=== PATIENT | male | born 1935 | race Caucasian/White ===

== ENCOUNTER → 2017-07-29 10:03 | Outpatient (CLI) | payer MEDICARE, SELFPAY ==
--- NOTE | 2017-07-29 10:15 | RAD_ITS ---
STUDY: X-RAY - PELVIS AND LEFT HIP REASON FOR EXAM: Male, 82 years old. Left hip pain. TECHNIQUE: Radiological exam, hip, unilateral, with pelvis when performed; 2 or 3 views. COMPARISON: None. FINDINGS: There is a non-specific bowel gas pattern. Normal visualized soft tissue structures. There is diffuse demineralization of the osseous structures. Normal bilateral iliac wings, sacroiliac joints and visualized sacrum. Normal bilateral superior and inferior pubic rami. Normal pubic symphysis. Normal bilateral ischial tuberosities. Normal visualized femoral head. Normal acetabulum. Normal hip joint. RAD/Hip 2-3 Views with Pelvis IMPRESSION: Normal x-ray examination of the pelvis and hip. Electronically Signed: Chao Gallo MD at 16:58 EST , Service support ,
== END ==
PROVIDERS: Family Provider Family Medicine Geriatric Medicine; PCP Family Medicine Geriatric Medicine; Visit Provider Family Medicine Geriatric Medicine
DX: M25.552 Pain in left hip (principal)
CPT/HCPCS: 73502

== ENCOUNTER → 2017-07-30 17:09 | Outpatient (CLI) | payer MEDICARE, SELFPAY | PROVIDERS: Visit Provider Urology | DX: N39.0 Urinary tract infection, site not specified (principal); R31.9 Hematuria, unspecified | CPT/HCPCS: 87086; 87088 ==

== ENCOUNTER 2017-09-04 13:00 | Outpatient (RCR) | payer MEDICARE, SELFPAY ==
--- NOTE | 2017-08-05 11:02 | HP.PTEVAL_ITS ---
Patient's Visit Information MIRANDA CLAYTON is a 82 year old M referred to Physical Therapy by Иван LIMON with a diagnosis of L hip OA. Date of Evaluation: 08/05/17 Physical Therapist: Han Go PT, - Visit Plan Frequency: 2-3x /Week Duration: 4-6 Weeks Plan: core strengthening, SKTC/DKTC, LE stretching, nustep, and HEP - Subjective Subjective: Pt reports his L hip has been really sore for the past few weeks. Pt reports he was exercising and believs the leg press machine may be what has caused his pain. Pt has recently had an xray which revealed no sig problems at this time. Pt reports his gait pattern has began to change as a result of having a leg lenght discrepancy. No LE T or N. No sleep diff secondary to pain. Pt reports negotiating stairs is diff. secondary to pain. Pt reports he is also not able to stand for a long period of time secondary to LBP. Pt denies LBP at this time. o/10 at rest, 4/10 at worst (neg stairs) - Pain L hip Pain Intensity (Out of 10): 0 Pain Intensity Range: 4 - Objective Neuro: B LE sensation is WNL to light touch. B pat tendon reflex= 2/3. MMT: B LE's are grossly 5/5 throughout. L/S ROM: Pt is limited with all ranges at this time. Leg length: L LE is grossly 1/4 inch longer. Special tests: All tests for the hip are negative. Repeated supine flexion (SKTC/DKTC). flexibility: HS's and piriformus moderately limited - Goals Goal 1:: Decrease LBP x 50% to aid with increasing to for ambulation Goal Time Frame: 4-6 Weeks Goal 2:: Increase B LE flexibility x 1 grade to aid with decreasing LBP Goal 3:: I with HEP Goal Time Frame: 4-6 Weeks - Rehabilitation Potential Physical Therapy Diagnosis: Pt has LBP, L hip pain, and limitations with prolonged ambulation secondary to deg changes in the L/S Rehabilitation Potential: Good - Anticipated Interventions Patient/Client Instruction: Educate patient on: Condition, Plan of Care For the Purpose of:: To improve self management Therapeutic Exercise to Include: Strength training, Postural training, Flexibilty training, Dynamic Lumbar Stabilization For the Purpose of:: To decrease pain, To increase ROM, To improve muscle performance and motor function Thank you for the opportunity to evaluate your patient. For Medicare and Medicare HMO plans, please review the plan of care and approve it. It will need to be FAXED BACK to us at [phone] for Medicare purposes. Please let me know if there are questions or concerns regarding this plan of care. Physician Signature: Date:
--- NOTE | 2017-09-04 14:53 | HP.PTDCSUM ---
HP - PT D/C Summary It has been my pleasure to treat MIRANDA CLAYTON under orders from DR.[email or web address] Vieira Chi for the diagnosis of L hip OA for a total of 14 visit(s). Discharge Date: Please see the following information for a summary of their discharge status. - Subjective Subjective: No pain this date - Pain L hip Pain Intensity (Out of 10): 0 - Overall Improvement % Improvement: 90 - Objective Objective/Function: Pt now has no hip or LBP this date. Pt is I with HEP. B LE flexibility is now WNL. Rx goals achieved - Goals Goal 1:: Decrease LBP x 50% to aid with increasing to for ambulation Goal Progress: Goal Met Goal 2:: Increase B LE flexibility x 1 grade to aid with decreasing LBP Goal Progress: Goal Met Goal 3:: I with HEP Goal Progress: Goal Met - Plan Plan: discharge - D/C Information If there are questions or concerns regarding this patient's physical therapy, please feel free to call me at [phone]. Thank you for the referral of this patient. Sincerely, Han Go, PT,
== END 2017-09-04 19:00 | disposition home or self-care (01) ==
LOC: PT 13:00
PROVIDERS: Family Provider Family Medicine Geriatric Medicine; PCP Family Medicine Geriatric Medicine; Visit Provider Family Medicine Geriatric Medicine
DX: M16.9 Osteoarthritis of hip, unspecified (principal)
CPT/HCPCS: 97110; 97162; 97530

== ENCOUNTER 2017-09-16 21:27 | Emergency (ER) | payer MEDICARE, SELFPAY ==
[2017-09-16 21:28] VITALS: BP 142/79; PULSE 81; RESP 17; TEMP 36.5; O2SAT 94; BMI 32.2
[2017-09-16] MEDS: Lidocaine/Epi/Tetracaine 50 ML 1 APPLIC TOPICAL (22:35)
--- NOTE | 2017-09-16 22:54 | ED.DCSUM_ITS ---
- ER Visit Summary Date of Service: 09/16/17 Chief Complaint: Bit tongue History of Present Illness: The patient is a 82 M who is anticoagulated for atrial fibrillation and about 6 hours before presentation while eating excellently bit his tongue. He has had some mild bleeding and oozing which she has been unable to control since that time. Review of systems otherwise negative and he denies any other complaints. Physical Examination: Afebrile vitals are stable There is a 5 mm laceration to the left side of the distal tongue with some mild bleeding Heart regular rate No respiratory distress Alert Test Results: Not indicated Emergency Department Course and Treatment: Let was applied. Hemostasis was achieved. Patient instructed on local care and dietary restrictions. Treatment Plan: [] Disposition: Discharge Impression: Tongue laceration This note was generated with [employer] dictation software. It may contain incorrect words, spelling, and punctuation that were not noted in review of the chart prior to signing ED Disposition - Plan for ED Patient: Chief Complaint: Other, Pain/Inj Referrals: Иван Plasencia Chi, MD [Primary Care Provider] -
--- NOTE | 2017-09-16 22:54 | ED.DEP ---
ED Disposition - Plan for ED Patient: Chief Complaint: Other, Pain/Inj Instructions: ED Laceration Mouth Referrals: Иван Plasencia Chi, MD [Primary Care Provider] -
== END 2017-09-16 23:13 | disposition home or self-care (01) ==
LOC: ED 22:43
PROVIDERS: Emergency Provider Emergency Medicine; Family Provider Family Medicine Geriatric Medicine; PCP Family Medicine Geriatric Medicine
DX: S01.512A Laceration without foreign body of oral cavity, initial encounter (principal); W50.3XXA Accidental bite by another person, initial encounter; Y93.9 Activity, unspecified; Y92.89 Other specified places as the place of occurrence of the external cause; Y99.9 Unspecified external cause status; I48.91 Unspecified atrial fibrillation; Z79.01 Long term (current) use of anticoagulants; I10 Essential (primary) hypertension; E78.00 Pure hypercholesterolemia, unspecified; I25.10 Atherosclerotic heart disease of native coronary artery without angina pectoris; Z86.73 Personal history of transient ischemic attack (TIA), and cerebral infarction without residual deficits; Z95.1 Presence of aortocoronary bypass graft
CPT/HCPCS: 99282

== ENCOUNTER → 2017-09-25 11:15 | Outpatient (CLI) | payer MEDICARE, SELFPAY ==
--- NOTE | 2017-09-25 12:45 | RAD_ITS ---
STUDY: X-RAY CHEST REASON FOR EXAM: Male, 82 years old. Bronchitis TECHNIQUE: Frontal and lateral views of the chest. COMPARISON: 03/09/2014. FINDINGS: The lungs are hyperexpanded. There are coarsened interstitial markings suggestive of mild chronic fibrosis. No gross focal infiltrates. No gross effusions. Sternal cerclage wires and vascular clips are present from a prior sternotomy and coronary artery bypass graft procedure (CABG). Normal mediastinum and guero. Normal visualized pulmonary arteries. Normal visualized aortic arch and descending thoracic aorta. There are diffuse degenerative changes of the visualized thoracic spine. Normal visualized ribs, clavicles, and shoulders. There is no demonstrated abnormality of the visualized soft tissue structures of the upper abdomen. RAD/Chest PA and Lateral IMPRESSION: There are findings consistent with COPD. There is no evidence of acute chest disease. Electronically Signed: Chao Gallo MD at 21:54 EDT , Service support ,
== END ==
PROVIDERS: Family Provider Family Medicine Geriatric Medicine; PCP Family Medicine Geriatric Medicine; Visit Provider Family Medicine Geriatric Medicine
DX: R50.9 Fever, unspecified (principal); J40 Bronchitis, not specified as acute or chronic
CPT/HCPCS: 71046; 87633

== ENCOUNTER → 2017-10-23 09:15 | Outpatient (CLI) | payer MEDICARE, SELFPAY ==
[2017-10-23 11:41] LABS: Absolute Lymphocyte Count 1.68 X10^3/ul (0.83-4.51); Absolute Neutrophil Count 6.1 X10^3/uL (2.0-7.7); Basophil# 0.02 X10^3/uL; Basophil% 0.2 % (0-1); Eosinophil# 0.14 X10^3/uL; Eosinophils% 1.6 % (0-5); Hematocrit 47.1 % (40-54); Hemoglobin 15.7 g/dl (13.0-16.5); Lymphocyte # 1.68 X10^3/ul (4.0); Lymphocyte % 19.8 % (19-41); Mean Corp Hgb Conc 33.3 g/gl (32-36); Mean Corpuscular Hgb 31.8 pg (27.0-32.0); Mean Corpuscular Volume 95.5 fL (80-94); Mean Platelet Vol. 10.2 fl (6.2-12.0); Monocyte# 0.57 X10^3/uL; Monocyte% 6.7 % (0-10); Neutrophil # 6.06 X10^3/uL (2.7-7.7); Neutrophil % 71.5 % (47-70); POSITIVE COUNT NO; POSITIVE DIFFERENTIAL NO; POSITIVE MORPHOLOGY NO; Platelet Count 181 K/mm3 (150-450); RBC Distribution Width SD 49.1 fl (35.1-43.9); Red Blood Count 4.93 M/mm3 (4.6-6.2); White Blood Count 8.5 K/mm3 (4.4-11.0)
[2017-10-23 12:07] LABS: ALB/GLOB Ratio 1.2 RATIO (0.9-2.4); AST(SGOT) 24 U/L (15-37); Alanine Aminotransfer ALT/SGPT 29 U/L (16-61); Albumin, Serum 3.7 g/dL (3.2-5.0); Alkaline Phosphatase 64 U/L (45-117); Anion Gap 6 (5-15); BUN 19 mg/dL (7-18); BUN/Creat Ratio 14.2 RATIO (10-20); Calcium,Total 8.7 mg/dL (8.5-10.1); Chloride 111 mmol/L (98-107); Creatinine, Serum 1.34 mg/dL (0.70-1.30); EST Glomerular Filtration Rate 54 mL/min (>60); Est Glom Filt Rate - Afr Amer 66 mL/min (>60); Globulin 3.1 g/dL (2.2-4.2); Glucose 98 mg/dL (74-106); Potassium 4.3 mmol/L (3.5-5.1); Protein, Total 6.8 g/dL (6.4-8.2); Sodium Level 139 mmol/L (136-145); Thyroid Stim Hormone (TSH) 1.99 uIU/mL (0.358-3.74)
[2017-10-23 12:19] LABS: Vitamin D,25 Hydroxy 25.6 ng/mL (29.95-100.01)
== END ==
PROVIDERS: Family Provider Family Medicine Geriatric Medicine; PCP Family Medicine Geriatric Medicine; Visit Provider Family Medicine Geriatric Medicine
DX: I10 Essential (primary) hypertension (principal); E23.6 Other disorders of pituitary gland; E55.9 Vitamin D deficiency, unspecified
CPT/HCPCS: 36415; 80053; 82306; 84403; 84443; 85025

== ENCOUNTER 2018-03-27 05:48 | Emergency (ER) | payer MEDICARE, SELFPAY ==
[2018-03-27 05:50] VITALS: BP 121/85; PULSE 91; RESP 20; TEMP 36.8; O2SAT 98; BMI 31.8
--- NOTE | 2018-03-27 05:57 | CT_ITS ---
STUDY: CT ABDOMEN AND PELVIS WITHOUT CONTRAST REASON FOR EXAM: Male, 82 years old. Right sided back pain after injury yesterday. RADIATION DOSAGE (If Supplied By Facility): CTDIvol = ( 18.25 ) mGy, DLP = ( 980.12 ) mGycm TECHNIQUE: Transaxial images were obtained from the dome of the diaphragm to the symphysis pubis without oral contrast, and without intravenous contrast. Sagittal and coronal images were reconstructed. Individualized dose optimization techniques were used for this CT. COMPARISON: Prior comparison studies are not available for review at this time. FINDINGS: There is a right middle lobe pulmonary nodule measuring approximately 1.6 cm in greatest dimension. The visualized portions of the heart are within normal limits. Normal liver. There are multiple gallstones. Normal spleen. Normal pancreas. Normal bilateral adrenal glands. There is a low-attenuation mass arising from the anterior cortex of the right kidney measuring approximately 2.3 cm in size. This has attenuation of -1.6 Hounsfield units suggesting it could represent an angiomyolipoma. There is a second cyst within the parapelvic region of the right kidney measuring 3 cm in greatest dimension. There are also additional right-sided parenchymal renal cysts measuring up to 1.6 cm in greatest dimension. There is no evidence for hydronephrosis, hydroureter or radiopaque ureteral calculus. There is a small hiatal hernia. There is no evidence for dilated bowel, ascites or pneumoperitoneum. The small bowel has a normal appearance. 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 Stool is visible throughout the colon with scattered colonic diverticula. There is non-visualization of the appendix. There is mild atherosclerotic calcification of the abdominal aorta with elongation and tortuosity, but without a demonstrated aneurysm. Normal inferior vena cava. Normal retroperitoneum. The urinary bladder wall is mildly thickened measuring approximately 7.4 mm in greatest thickness. There are prostatic calcifications. There is a small umbilical hernia containing fat. There is a left-sided inguinal hernia containing fat. There appears to be a subacute right-sided rib fracture possibly involving the right 11th rib. The bones appear osteopenic. There is multilevel thoracic spondylosis. There is degenerative disc disease at T11-12 and L5-S1 with vacuum disc phenomenon and disc space narrowing. CT/Abdomen/Pelvis without Cont IMPRESSION: 1. No CT evidence of acute intra-abdominal disease. 2. A subacute right-sided rib fracture. 3. Right middle lobe subpleural pulmonary nodule. Suggest follow-up as per Fleischner's criteria. 4. 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 5. Cholelithiasis. Electronically Signed: Nicole Abreu MD at 6:35 EDT , Service support ,
--- NOTE | 2018-03-27 06:07 | ED.DCSUM_ITS ---
- ER Visit Summary Date of Service: 03/27/18 Chief Complaint: Right low back pain in the right lower quadrant History of Present Illness: The patient is a 82 M who has a history of coronary vascular disease who presents to the emergency department with right lower back pain. Patient states 2 days ago, he was outside scrubbing his house. He states that he gets mold in the house and has to scrub it. He states shortly after, he began have some pain in his posterior shoulder and in his low back. He states that he uses some topical BenGay and it seemed to help. Overnight, the pain seemed to be worse in his lower back into the lateral aspect of his abdomen. He states took Tylenol which did seem to help. As long as not moving, he is pain- free. He had no chest pain or dyspnea. He denies any dysuria. He denies any constipation. Physical Examination: Vital signs reviewed General: Well-nourished, well-developed Head: Normocephalic, atraumatic Eyes: Pupils equal and reactive, extraocular muscles intact Neck, supple, no lymphadenopathy Heart: Regular rate and rhythm Respiratory: No distress, clear bilaterally Abdomen: Soft, nontender, nondistended, no peritoneal signs Back: Mild tenderness in the right low back very lateral almost into the area of the obliques, no rash Extremities: Nontender, no edema, no cords Skin: Normal color no rash Neuro: Alert and oriented, no focal or lateralizing deficits Test Results: [] Emergency Department Course and Treatment: The patient's pain does seem entirely muscular, however given his age I did obtain a CT of his abdomen and pelvis. His aorta is normal. There is some nonspecific findings, but nothing that would acutely explain his pain and no dangerous process. On reevaluation is resting comfortably. He only has pain with palpation in the lateral abdominal wall along the musculature and with twisting and moving. He will continue Tylenol. I will prescribe a short course of [place] as needed for breakthrough pain that is not controlled by the Tylenol. The patient is comfortable with this and he will be discharged home. Treatment Plan: [] Disposition: Discharge Impression: 1. Right low back strain This note was generated with [employer] dictation software. It may contain incorrect words, spelling, and punctuation that were not noted in review of the chart prior to signing ED Disposition - Plan for ED Patient: Chief Complaint: Back Instructions: ED Spasm Back No Trauma Prescriptions: Hydrocodone Bitart/Apap 5-325 [[place] 5MG-325MG] 1 tab PO Q8H PRN PRN 3 Days #10 tab PRN Reason: Pain Referrals: Иван Plasencia Chi, MD [Primary Care Provider] - Additional Instructions: It is okay to take 2 extra strength Tylenol every 8 hours. If this is not controlling your pain, it is okay to take 1 of the [place] tablets as needed. If the Tylenol is controlling her pain, you do not need to take the [place]. Make sure to increase her hydration and not do anything too strenuous.
[2018-03-27 06:55] VITALS: BP 118/60; PULSE 88; RESP 18; O2SAT 96
== END 2018-03-27 06:57 | disposition home or self-care (01) ==
LOC: ED 06:44
PROVIDERS: Emergency Provider Emergency Medicine; Family Provider Family Medicine Geriatric Medicine; PCP Family Medicine Geriatric Medicine
DX: S39.012A Strain of muscle, fascia and tendon of lower back, initial encounter (principal); X50.3XXA Overexertion from repetitive movements, initial encounter; Y93.H9 Activity, other involving exterior property and land maintenance, building and construction; Y92.009 Unspecified place in unspecified non-institutional (private) residence as the place of occurrence of the external cause; Y99.9 Unspecified external cause status; I25.10 Atherosclerotic heart disease of native coronary artery without angina pectoris; E11.9 Type 2 diabetes mellitus without complications; I10 Essential (primary) hypertension; Z95.1 Presence of aortocoronary bypass graft
CPT/HCPCS: 74176; 99282

== ENCOUNTER → 2018-04-27 11:57 | Outpatient (CLI) | payer MEDICARE, SELFPAY ==
[2018-04-27 12:51] LABS: Absolute Lymphocyte Count 1.93 X10^3/ul (0.83-4.51); Absolute Neutrophil Count 5.4 X10^3/uL (2.0-7.7); Basophil# 0.05 X10^3/uL; Basophil% 0.6 % (0-1); Eosinophil# 0.18 X10^3/uL; Eosinophils% 2.2 % (0-5); Hematocrit 47.4 % (40-54); Hemoglobin 15.9 g/dl (13.0-16.5); Lymphocyte # 1.93 X10^3/ul (4.0); Lymphocyte % 23.5 % (19-41); Mean Corp Hgb Conc 33.5 g/gl (32-36); Mean Corpuscular Hgb 32.3 pg (27.0-32.0); Mean Corpuscular Volume 96.3 fL (80-94); Mean Platelet Vol. 11.3 fl (6.2-12.0); Monocyte# 0.64 X10^3/uL; Monocyte% 7.8 % (0-10); Neutrophil % 65.5 % (47-70); Platelet Count 156 K/mm3 (150-450); RBC Distribution Width CV 13.6 % (11.6-14.6); RBC Distribution Width SD 47.2 fl (35.1-43.9); Red Blood Count 4.92 M/mm3 (4.6-6.2); White Blood Count 8.2 K/mm3 (4.4-11.0)
[2018-04-27 12:55] LABS: POSITIVE COUNT NO; POSITIVE DIFFERENTIAL NO; POSITIVE MORPHOLOGY NO
[2018-04-27 13:14] LABS: Vitamin D,25 Hydroxy 24.8 ng/mL (29.95-100.01)
[2018-04-27 13:26] LABS: ALB/GLOB Ratio 1.2 RATIO (0.9-2.4); AST(SGOT) 19 U/L (15-37); Alanine Aminotransfer ALT/SGPT 28 U/L (16-61); Albumin, Serum 3.8 g/dL (3.2-5.0); Alkaline Phosphatase 70 U/L (45-117); Anion Gap 8 (5-15); BUN 22 mg/dL (7-18); BUN/Creat Ratio 15.3 RATIO (10-20); Calcium,Total 8.6 mg/dL (8.5-10.1); Chloride 111 mmol/L (98-107); Creatinine, Serum 1.44 mg/dL (0.70-1.30); EST Glomerular Filtration Rate 50 mL/min (>60); Est Glom Filt Rate - Afr Amer 60 mL/min (>60); Globulin 3.1 g/dL (2.2-4.2); Glucose 89 mg/dL (74-106); Potassium 4.4 mmol/L (3.5-5.1); Protein, Total 6.9 g/dL (6.4-8.2); Sodium Level 143 mmol/L (136-145); Thyroid Stim Hormone (TSH) 3.18 uIU/mL (0.358-3.74)
--- OUTSIDE RECORDS SUMMARY | 2018-06-09 03:40 | XMS RPT_ITS ---
:1935 Author Organization OHIP Support Name Relationship Address Phone NATANAEL, CASSIDY Unavailable [address] + [place] [address] R Unavailable Unavailable Unavailable NATANAEL, CASSIDY Unavailable [address] + [place] [address] R Unavailable Unavailable Unavailable NATANAEL, CASSIDY Unavailable [address] + [place] [address] R Unavailable Unavailable Unavailable NATANAEL, CASSIDY Unavailable [address] + [place] [address] R Unavailable Unavailable Unavailable NATANAEL, CASSIDY Unavailable [address] + [place] [address] R Unavailable Unavailable Unavailable NATANAEL, CASSIDY Unavailable [address] + [place] [address] R Unavailable Unavailable Unavailable NATANAEL, CASSIDY Unavailable [address] + [place] [address] R Unavailable Unavailable Unavailable NATANAEL, CASSIDY Unavailable [address] + [place] [address] R Unavailable Unavailable Unavailable NATANAEL, CASSIDY Unavailable [address] + [place] [address] R Unavailable Unavailable Unavailable NATANAEL, CASSIDY Unavailable [address] + [place] [address] R Unavailable Unavailable Unavailable NATANAEL, CASSIDY Unavailable [address] + [place] [address] R Unavailable Unavailable Unavailable R Unavailable Unavailable Unavailable EATON, FABIO Unavailable / + [facility] [place] / NATANAEL, CASSIDY Unavailable [address] + [place] [address] R Unavailable Unavailable Unavailable EATON, FABIO Unavailable / + [place], [place] / CASSIDY SANTOYO Unavailable [address] + [place] [address] R Unavailable Unavailable Unavailable Care Team Providers Name Role Phone Anjel Phipps Attending Unavailable Roof, Refugio H Attending Unavailable Roof, Refugio H Attending Unavailable Luis Angel, Иван Chi Referring Unavailable Luis Angel, Иван Chi Primary Care Unavailable Luis Angel, Иван Chi Attending Unavailable Luis Angel, Иван Chi Primary Care Unavailable Luis Angel, Иван Chi Attending Unavailable Luis Angel, Иван Chi Referring Unavailable Luis Angel, Иван Chi Primary Care Unavailable JulianneAlfonzo Attending Unavailable Julianne, Alfonzo Oneill Referring Unavailable Luis Angel, Иван Chi Primary Care Unavailable Clifford Almonte Attending Unavailable Luis Angel, Иван Chi Attending Unavailable Luis Angel, Иван Chi Primary Care Unavailable Luis Angel, Иван Chi Attending Unavailable Luis Angel, Иван Chi Primary Care Unavailable Luis Angel, Иван Chi Attending Unavailable Luis Angel, Иван Chi Primary Care Unavailable Bakari, Power Attending Unavailable Luis Angel, Иван Chi Referring Unavailable Luis Angel, Иван Chi Primary Care Unavailable Lv Louis Attending Unavailable Luis Angel, Иван Chi Attending Unavailable Luis Angel, Иван Chi Primary Care Unavailable PROBLEMS PROBLEMS DATE TYPE CONDITION / CODE ATTENDING STATUS SOURCE 03/27/2018 Unknown S39.012A - Strain of Lv Louis Active [place] muscle, fascia and Community tendon of lower back, Hospital initial encounter / Repository S39.012A(ICD-10) 12/29/2017 Unknown I48.2 - Chronic Bakari, Power Active [place] atrial fibrillation / Community I48.2(ICD-10) Hospital Repository 12/29/2017 Unknown I10 - Essential Bakari, Power Active [place] (primary) Community hypertension / Hospital I10(ICD-10) Repository 12/29/2017 Unknown E78.2 - Mixed Bakari, Power Active [place] hyperlipidemia / Community E78.2(ICD-10) Hospital Repository 12/29/2017 Unknown Z95.1 - Presence of Bakari, Power Active [place] aortocoronary bypass Community graft / Z95.1(ICD-10) Hospital Repository 10/23/2017 Unknown 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, 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 / Hospital E23.6(ICD-10) Repository 10/23/2017 Unknown E55.9 - Vitamin D Luis Angel, Иван Chi Active [place] deficiency, Community unspecified / Hospital E55.9(ICD-10) Repository 07/31/2017 Unknown Z79.899 - Other long Alfonzo Whitaker Active [place] term (current) drug [facility] therapy / Hospital Z79.899(ICD-10) Repository 07/08/2017 Unknown I25.10 - Refugio Sánchez Active [place] Atherosclerotic heart [facility] disease of [facility] coronary artery Repository without angina pectoris / I25.10(ICD-10) 07/08/2017 Unknown G47.33 - Obstructive Refugio Sánchez Active [place] sleep apnea (adult) Community Health (pediatric) / Hospital G47.33(ICD-10) Repository PROCEDURES PROCEDURES No Procedure Records FoundRESULTS RESULTS CBC W/DIFF, AUTOMATED Collected: 04/27/2018 Status: F Source: [place] [facility] REPOSITORY TYPE CODE TESTS RESULT OUT OF RANGE REFERENCE UNITS LAB L100.1000 4.4-11.0 K/mm3 Normal WBC 8.2 LAB L100.1200 4.6-6.2 M/mm3 Normal RBC 4.92 LAB L100.1300 13.0-16.5 g/dl Normal HGB 15.9 LAB L100.1400 40-54 % Normal HCT 47.4 LAB L100.1500 80-94 fL High MCV 96.3 LAB L100.1600 27.0-32.0 pg High MCH 32.3 LAB L100.1700 32-36 g/gl Normal MCHC 33.5 LAB L100.1810 11.6-14.6 % Normal RDW CV 13.6 LAB L100.1820 35.1-43.9 fl High RDW SD 47.2 LAB L100.1900 150-450 K/mm3 Normal PLT 156 LAB L100.2000 6.2-12.0 fl Normal MPV 11.3 LAB L100.2100 47-70 % Normal NEUT% 65.5 LAB L100.2200 19-41 % Normal LY% 23.5 LAB L100.2300 0-10 % Normal MONO% 7.8 LAB L100.2400 0-5 % Normal EO% 2.2 LAB L100.2500 0-1 % Normal BASO% 0.6 LAB L100.2550 0.0-0.9 % Normal IM GRAN % 0.400 Result Comment: IG% - Immature Granulocytes (promyelocytes, myelocytes and metamyelocytes) > 1% indicates that a LEFT SHIFT is Present. LAB L100.2620 2.0-7.7 X10 3/uL Normal Absolute Neut 5.4 LAB L100.2720 0.83-4.51 X10 3/ul Normal Absolute Lymph 1.93 Performed By: #### L100.0100 #### [facility] [address] [place], [address] VITAMIN D,25 HYDROXY Collected: 04/27/2018 Status: F Source: [place] 12:00 PM [facility] REPOSITORY TYPE CODE TESTS RESULT OUT OF REFERENCE UNITS RANGE LAB L506.1000 29.95-100.01 ng/mL Low Vitamin D 24.8 25-OH Result Comment: Vitamin D 25(OH) Status Range Deficiency <20 ng/mL (50nmol/L) Insuffciency 20 - 30 ng/mL (50 - 75 nmol/L) Sufficiency 30 - 100 ng/mL (75 - 250 nmol/L) Toxicity >100 ng/mL (>250 nmol/L) Performed By: #### L506.1000, L509.3000 #### [facility] [address] [place], [place], [address] TESTOSTERONE, SERUM TOTAL Collected: 04/27/2018 Status: F Source: [place] 12:00 PM [facility] REPOSITORY TYPE CODE TESTS RESULT OUT OF REFERENCE UNITS RANGE LAB L509.3000 ng/dL Testosterone Normal 280.41 Result Comment: NORMAL REFERENCE RANGES MALE AGE <50 123.06 - 813.86 ng/dL MALE AGE >50 89.98 - 780.10 ng/dL FEMALE PREMENOPAUSE AGE 21 - 60 9.01 - 47.94 ng/dL FEMALE POSTMENOPAUSE AGE 45 - 89 <7.00 - 45.62 ng/dL REFERENCE RANGE AND METHODOLOGY CHANGED 05/20/2017 Performed By: #### L506.1000, L509.3000 #### [facility] [address] [place], [address] COMPREHENSIVE METABOLIC Collected: 04/27/2018 Status: F [facility] 12:00 PM [facility] REPOSITORY TYPE CODE TESTS RESULT OUT OF RANGE REFERENCE UNITS LAB L501.0100 74-106 mg/dL Normal GLU 89 Result Comment: Please note revised GLUCOSE reference range effective 2017. LAB L501.1000 7-18 mg/dL High BUN 22 LAB L501.1100 0.70-1.30 mg/dL High CREAT,SERUM 1.44 Result Comment: The validity of the calculated GFR AND GFRAA in patients over 70 years has not been determined. Clinical correlation is essential. LAB L501.1110 >60 mL/min Low EST GFR 50 Result Comment: Non- GFR Calc LAB L501.1115 >60 mL/min Normal EST GFR - AA 60 Result Comment: GFR Calc LAB L501.1300 10-20 RATIO Normal BUN/CRE 15.3 LAB L501.1500 6.4-8.2 g/dL T Normal PROT 6.9 LAB L501.1800 3.2-5.0 g/dL Normal ALB 3.8 LAB L501.1950 2.2-4.2 g/dL Normal GLOB 3.1 LAB L501.2000 0.9-2.4 RATIO Normal A/G 1.2 LAB L501.2200 8.5-10.1 mg/dL CA Normal 8.6 LAB L501.4100 15-37 U/L Normal AST 19 LAB L501.4305 45-117 U/L Normal ALK P 70 LAB L501.4405 16-61 U/L Normal ALT 28 LAB L501.4600 0.20-1.00 mg/dL T Normal BILI 0.50 LAB L501.5300 136-145 mmol/L NA Normal 143 LAB L501.5600 3.5-5.1 mmol/L K Normal 4.4 LAB L501.5900 98-107 mmol/L High CL 111 LAB L501.6100 21.0-32.0 mmol/L Normal CO2 24.0 LAB L501.6200 5-15 Normal GAP 8 Performed By: #### L500.4050, L501.9520 #### [facility] [address] [place], [address] THYROID STIM HORMONE Collected: 04/27/2018 Status: F Source: [place] (TSH) 12:00 PM [facility] REPOSITORY TYPE CODE TESTS RESULT OUT OF RANGE REFERENCE UNITS LAB L501.9520 0.358-3.74 uIU/mL Normal TSH 3.18 Performed By: #### L500.4050, L501.9520 #### [facility] [address] [place], [address] EMERGENCY DEPARTMENT Observed: 03/27/2018 Status: F Source: [place] SUMMARY 6:53 AM [facility] REPOSITORY [facility] Medical Records Department [address] [place] [address] Emergency Department Summary 03/27/18 0605 MR#: [id number] Acct: [id number] Name: RUDOLPH CLAYTON Rep #: [id number] : 1935 82 From: Lv Louis MD PCP: Luis Angel PAEZ,Иван Victoria Status: REG ER - ER Visit Summary Date of Service: 03/27/18 Chief Complaint: Right low back pain in the right lower quadrant History of Present Illness: The patient is a 82 M who has a history of coronary vascular disease who presents to the emergency department with right lower back pain. Patient states 2 days ago, he was outside scrubbing his house. He states that he gets mold in the house and has to scrub it. He states shortly after, he began have some pain in his posterior shoulder and in his low back. He states that he uses some topical BenGay and it seemed to help. Overnight, the pain seemed to be worse in his lower back into the lateral aspect of his abdomen. He states took Tylenol which did seem to help. As long as not moving, he is pain-free. He had no chest pain or dyspnea. He denies any dysuria. He denies any constipation. Physical Examination: Vital signs reviewed General: Well-nourished, well-developed Head: Normocephalic, atraumatic Eyes: Pupils equal and reactive, extraocular muscles intact Neck, supple, no lymphadenopathy Heart: Regular rate and rhythm Respiratory: No distress, clear bilaterally Abdomen: Soft, nontender, nondistended, no peritoneal signs Back: Mild tenderness in the right low back very lateral almost into the area of the obliques, no rash Extremities: Nontender, no edema, no cords Skin: Normal color no rash Neuro: Alert and oriented, no focal or lateralizing deficits Test Results: [] Emergency Department Course and Treatment: The patient's pain does seem entirely muscular, however given his age I did obtain a CT of his abdomen and pelvis. His aorta is normal. There is some nonspecific findings, but nothing that would acutely explain his pain and no dangerous process. On reevaluation is resting comfortably. He only has pain with palpation in the lateral abdominal wall along the musculature and with twisting and moving. He will continue Tylenol. I will prescribe a short course of Gail as needed for breakthrough pain that is not controlled by the Tylenol. The patient is comfortable with this and he will be discharged home. Treatment Plan: [] Disposition: Discharge Impression: 1. Right low back strain This note was generated with [employer] dictation software. It may contain incorrect words, spelling, and punctuation that were not noted in review of the chart prior to signing ED Disposition - Plan for ED Patient: Chief Complaint: Back Instructions: ED Spasm Back No Trauma Prescriptions: Hydrocodone Bitart/Apap 5-325 [Gail 5MG-325MG] 1 tab PO Q8H PRN PRN 3 Days #10 tab PRN Reason: Pain Referrals: Иван Plasencia Chi, MD [Primary Care Provider] - Additional Instructions: It is okay to take 2 extra strength Tylenol every 8 hours. If this is not controlling your pain, it is okay to take 1 of the Gail tablets as needed. If the Tylenol is controlling her pain, you do not need to take the Gail. Make sure to increase her hydration and not do anything too strenuous. What to do if you have Problems For any increased pain, shortness of breath, bleeding, nausea or vomiting, chest pain, or any unexpected problems, contact your Primary Care Provider. Call [facility] ([phone]) or report to the closest Emergency Room. Call 911 if necessary. 03/27/18 0653 <Electronically signed by Lv Louis MD> Date Lv Louis MD Cosigner Signature (If Indicated): Date CC: Иван Plasencia MD ABDOMEN/PELVIS WITHOUT Observed: 03/27/2018 Status: F Source: [place] CONT 5:58 AM [facility] REPOSITORY [facility] Imaging Services [address] [address] Abdomen/Pelvis without Cont MR#: [id number] Acct: [id number] Name: RUDOLPH CLAYTON Rep #: [id number] : 1935 M 82 From: Nicole Abreu MD PCP: Иван Plasencia MD, Chi Status: PRE ER Study: Abdomen/Pelvis without Cont Date of Exam: 03/27/18 Exam# [id number] Ordering Dr: Lv Louis MD STUDY: CT ABDOMEN AND PELVIS WITHOUT CONTRAST REASON FOR EXAM: Male, 82 years old. Right sided back pain after injury yesterday. RADIATION DOSAGE (If Supplied By Facility): CTDIvol = ( 18.25 ) mGy, DLP = ( 980.12 ) mGycm TECHNIQUE: Transaxial images were obtained from the dome of the diaphragm to the symphysis pubis without oral contrast, and without intravenous contrast. Sagittal and coronal images were reconstructed. Individualized dose optimization techniques were used for this CT. COMPARISON: Prior comparison studies are not available for review at this time. FINDINGS: There is a right middle lobe pulmonary nodule measuring approximately 1.6 cm in greatest dimension. The visualized portions of the heart are within normal limits. Normal liver. There are multiple gallstones. Normal spleen. Normal pancreas. Normal bilateral adrenal glands. There is a low-attenuation mass arising from the anterior cortex of the right kidney measuring approximately 2.3 cm in size. This has attenuation of -1.6 Hounsfield units suggesting it could represent an angiomyolipoma. There is a second cyst within the parapelvic region of the right kidney measuring 3 cm in greatest dimension. There are also additional right-sided parenchymal renal cysts measuring up to 1.6 cm in greatest dimension. There is no evidence for hydronephrosis, hydroureter or radiopaque ureteral calculus. There is a small hiatal hernia. There is no evidence for dilated bowel, ascites or pneumoperitoneum. The small bowel has a normal appearance. 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 Stool is visible throughout the colon with scattered colonic diverticula. There is non-visualization of the appendix. There is mild atherosclerotic calcification of the abdominal aorta with elongation and tortuosity, but without a demonstrated aneurysm. Normal inferior vena cava. Normal retroperitoneum. The urinary bladder wall is mildly thickened measuring approximately 7.4 mm in greatest thickness. There are prostatic calcifications. There is a small umbilical hernia containing fat. There is a left-sided inguinal hernia containing fat. There appears to be a subacute right-sided rib fracture possibly involving the right 11th rib. The bones appear osteopenic. There is multilevel thoracic spondylosis. There is degenerative disc disease at T11-12 and L5-S1 with vacuum disc phenomenon and disc space narrowing. CT/Abdomen/Pelvis without Cont IMPRESSION: 1. No CT evidence of acute intra-abdominal disease. 2. A subacute right-sided rib fracture. 3. Right middle lobe subpleural pulmonary nodule. Suggest follow-up as per Fleischner's criteria. 4. 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 5. Cholelithiasis. Electronically Signed: Nicole Abreu MD at 6:35 EDT , Service support , CC: Lv Louis MD; Иван Plasencia MD Graduate Studies Dean: Signed CARDIOLOGY VISIT Observed: 12/29/2017 Status: F Source: [place] REPORT 10:51 AM [facility] REPOSITORY [place] [facility] [address] [place] [address] OFFICE VISIT Date of Service: 12/29/17 MR#: [id number] Acct: [id number] Name: RUDOLPH CLAYTON Rep #: [id number] : 1935 Provider: Power Villegas MD Age/Sex: 82/M Location: [facility] Status: Signed HPI HPI Details: RUDOLPH CLAYTON, is a 82 M who presents to the office today for a current vascular outpatient follow-up. Patient has a history of coronary artery disease status post bypass surgery with a NACHO to the circumducts artery, BAHENA to LAD, and SVG to the circumflex sequential to the posterior descending artery. He also has history of hypertension, chronic atrial fibrillation, hyperlipidemia, and hypothyroidism. At this visit today he appears to be doing quite well and denies chest, arm, jaw, or neck discomfort. His exercise tolerance is stable via silver sneakers. Pt. denies symptoms of CHF, palpitations, lightheadedness, dizziness, near syncope, or syncopal episodes. Pt. denies edema or claudication issues. Pt. denies orthopnea, PND, fever, chills, blood in urine, blood in stool, myalgia, or unexplainable fatigue. Stress test from December 2016 was negative for myocardial ischemia and reported a preserved ejection fraction. Intake Intake Vital Signs12/29/17 Height 5 ft 10 in 12/29/17 Weight: 218 lb 12/29/17 Body Mass Index (BMI) 31.2 12/29/17 Blood Pressure 112/74 12/29/17 Blood Pressure Location Lt brachial Intake Visit Reasons: 6 M FU Product Developer Required: No Is patient in pain?: No Allergies No Known Allergies Allergy (Verified 12/29/17 10:19) Medications Aspirin E.C. [Ecotrin] 81 mg PO DAILY@0800 03/09/14 [History Confirmed 12/29/17] Diltiazem HCl [Diltiazem ER] 120 mg PO DAILY 03/09/14 [History Confirmed 12/29/17] Finasteride [Proscar] 5 mg PO DAILY 03/09/14 [History Confirmed 12/29/17] Levothyroxine [Synthroid] 50 mg PO DAILY 03/09/14 [History Confirmed 12/29/17] Metoprolol Succinate 50 mg PO BID 03/09/14 [History Confirmed 12/29/17] Rivaroxaban [Xarelto] 20 mg PO QHS 03/09/14 [History Confirmed 12/29/17] Rosuvastatin Calcium [Crestor] 40 mg PO QHS 03/09/14 [History Confirmed 12/29/17] Clonazepam [Klonopin] 1 mg PO QHS 08/01/16 [History Confirmed 12/29/17] Cyanocobalamin [Vitamin B12] 1,000 mcg PO DAILY@0800 08/01/16 [History Confirmed 12/29/17] nitroglycerin 0.4 mg sublingual tablet 0.4 mg SUBLINGUAL Q5M PRN 06/18/17 [History Confirmed 12/29/17] memantine 10 mg tablet 10 mg PO QDAY tab 06/30/17 [History Confirmed 12/29/17] cholecalciferol (vitamin D3) 1,000 unit capsule 1,000 unit PO QDAY 12/29/17 [History Confirmed 12/29/17] [facility] Medical History Dizziness and giddiness (Chronic) Cerebral embolism with cerebral infarction (Chronic) Chronic atrial fibrillation (Chronic) Atherosclerotic heart disease of [place] coronary artery without angina pectoris (Chronic) HTN (hypertension) (Chronic) HLD (hyperlipidemia) (Chronic) 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) Surgical History H/O coronary artery bypass surgery (Chronic) History of left heart catheterization (LHC) (Chronic) History of tonsillectomy and adenoidectomy (Chronic) History of maze procedure (Resolved) Family History Mother , age 85 CAD (coronary artery disease) Myocardial infarction Father , age 62 CAD (coronary artery disease) Ruptured, aorta Social History Smoking Status: Never smoker alcohol intake: current alcohol intake frequency: a few times a week Alcohol type: beer substance use type: does not use caffeine: Yes Type: coffee Number of servings: 2 what type of physical activity do you participate in: other details: karen point frequency: 3-4 times per week duration: 30-45 minutes/day seatbelt use: always do you feel safe at home: Yes ROS Const Const: Negative for fatigue, weakness, night sweats, excessive sweating, frequent falls, headache(s) or daytime sleepiness Eyes Eyes: Negative for loss of peripheral vision, transient loss of vision, blind spots, double vision or blurry vision ENT ENT: Negative for headache(s), dizziness, balance problems, Nosebleed/epistaxis, tongue swelling or lip swelling Cardio Chest Pain: No Palpitations: No Edema: None Muscle aches with walking: None Resp Respiratory: Negative for SOB at rest, SOB orthopnea\SOB lying down, Cough, paroxysmal nocturnal dyspnea or SOB with activity GI GI: Negative nausea, vomiting, heartburn, black,tarry stools or bright, red blood in stools : Negative for hematuria Musc Musc: Negative for balance problems, muscle aches/ myalgia, muscle weakness or joint pain Skin Skin: Negative non-healing lesions, unusual bruising or rash Neuro Neuro: Negative for weakness, frequent falls, headache(s), double vision, dizziness, lightheadedness, orthostatic symptoms, blurry vision or lack of coordination Yung Hematologic/Lymphatic: Negative for easy bruising or easy bleeding Endo Endo: Negative for fatigue, excessive sweating, cold intolerance, heat intolerance, increased thirst/drinking or hair loss Psych Psych: Negative for anxiety or depression Allergy Allergy/Immunology: Negative for throat swelling, Negative for tongue swelling, Negative for hives, Negative for rash, Negative for lip swelling Cardiology Exam Const Appearance: cooperative, healthy appearing, well developed, well groomed and no acute distress Nutritional Appearance: well nourished and average body habitus Orientation: alert, awake and oriented x3 Head Head: normal to inspection, normocephalic and atraumatic Ears: hearing grossly normal bilaterally and external ears normal Nose: external nose normal, nasal mucous membranes and turbinates normal, nares normal, septum normal, no nasal discharge Face and Sinus: face symmetric Mouth: oral mucosae normal, tongue normal, oropharynx normal and moist mucous membranes Teeth and gingiva: dentition normal Throat: posterior oropharynx normal, tonsils normal and uvula midline Eyes General: appearance normal, both eyes and all related structures Eyelids: eyelids normal Conjunctivae: conjunctivae normal Pupils: PERRL, normal by confrontation and accommodation normal EOM: EOM intact bilaterally Neck Neck: normal visual inspection, trachea midline and no JVD JVD: +5 Carotids: normal carotid upstroke and bounding pulses Chest Chest inspection: normal inspection of the chest, symmetric chest movement and normal respiratory effort Auscultation: Bilateral: Clear to Auscultation Cardio Palpation: normal PMI Rate: regular rate Rhythm: regular rhythm Heart sounds: S1 normal, S2 normal and normal, physiologic split S2; negative rub, gallop or murmur GI GI: normal to inspection, soft, no hepatosplenomegaly and bowel sounds present Neuro General: alert, awake, oriented x3, no focal sensory deficit, gait normal and moves all extremities Skin Skin: no rashes or lesions noted Extremities Pulses: Normal: Right Femoral Pulse, Left Femoral Pulse, Right Dorsalis Pedis Pulse, Left Dorsalis Pedis Pulse, Right Posterior Tibial Pulse, Left Posterior Tibial Pulse, Right Radial Pulse, Left Radial Pulse Lower Extremity Edema: None: Bilateral Musculoskel Musculoskeletal: No joint tenderness Psych Psychological: normal affect Assessment AND Plan 1. H/O coronary artery bypass surgery Z95.1 CABG: CABG x5 NACHO to high lateral CX, BAHENA to LAD, Bridge Diag, SVG to main CX, SVG to PDA 06/10/2005; Plan He appears to be doing well at this time without any symptomatology. As noted above his last stress test did not demonstrate any evidence of ischemia and my recommendation is that we continue him on the same medications without any changes. 2. Chronic atrial fibrillation I48.2 Plan He does have a history of chronic persistent atrial fibrillation his rate is controlled and he will continue on the anticoagulation as well. 3. Essential hypertension I10 Plan His blood pressure is under excellent control on the current medical regimen no changes will be made. He recently had electrolytes performed at the [facility] and his BUN was noted to be 18 with a creatinine of 1.4. Liver function tests are within normal limits. 4. Mixed hyperlipidemia E78.2 Plan His most recent lipid profile demonstrated a total cholesterol 108, LDL of 54 and HDL of 52. No changes will be made. Thank you for allowing me to participate in the care of your patient. 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) Coding Level of Care Code Off vis,est,level 3 Diagnoses H/O coronary artery bypass surgery Z95.1 Chronic atrial fibrillation I48.2 Essential hypertension I10 Hypertension type: essential hypertension Mixed hyperlipidemia E78.2 Hyperlipidemia type: mixed hyperlipidemia Coding Level of Care Code Off vis,est,level 3 Diagnoses H/O coronary artery bypass surgery Z95.1 Chronic atrial fibrillation I48.2 Essential hypertension I10 Hypertension type: essential hypertension Mixed hyperlipidemia E78.2 Hyperlipidemia type: mixed hyperlipidemia 12/29/17 1051 <Electronically signed by Power Villegas MD> Date Power Moreligner Signature: Date (if applicable) CC: Иван Plasencia MD CBC W/DIFF, AUTOMATED Collected: 10/23/2017 Status: F Source: [place] 10:44 AM [facility] REPOSITORY TYPE CODE TESTS RESULT OUT OF RANGE REFERENCE UNITS LAB L100.1000 4.4-11.0 K/mm3 Normal WBC 8.5 LAB L100.1200 4.6-6.2 M/mm3 Normal RBC 4.93 LAB L100.1300 13.0-16.5 g/dl Normal HGB 15.7 LAB L100.1400 40-54 % Normal HCT 47.1 LAB L100.1500 80-94 fL High MCV 95.5 LAB L100.1600 27.0-32.0 pg Normal MCH 31.8 LAB L100.1700 32-36 g/gl Normal MCHC 33.3 LAB L100.1810 11.6-14.6 % Normal RDW CV 14.0 LAB L100.1820 35.1-43.9 fl High RDW SD 49.1 LAB L100.1900 150-450 K/mm3 Normal PLT 181 LAB L100.2000 6.2-12.0 fl Normal MPV 10.2 LAB L100.2100 47-70 % High NEUT% 71.5 LAB L100.2200 19-41 % Normal LY% 19.8 LAB L100.2300 0-10 % Normal MONO% 6.7 LAB L100.2400 0-5 % Normal EO% 1.6 LAB L100.2500 0-1 % Normal BASO% 0.2 LAB L100.2550 0.0-0.9 % Normal IM GRAN % 0.200 Result Comment: IG% - Immature Granulocytes (promyelocytes, myelocytes and metamyelocytes) > 1% indicates that a LEFT SHIFT is Present. LAB L100.2620 2.0-7.7 X10 3/uL Normal Absolute Neut 6.1 LAB L100.2720 0.83-4.51 X10 3/ul Normal Absolute Lymph 1.68 Performed By: #### L100.0100 #### [facility] [address] [place], [address] COMPREHENSIVE METABOLIC Collected: 10/23/2017 Status: F Source: [place] [facility] 10:44 AM [facility] REPOSITORY TYPE CODE TESTS RESULT OUT OF RANGE REFERENCE UNITS LAB L501.0100 74-106 mg/dL Normal GLU 98 Result Comment: Please note revised GLUCOSE reference range effective 2017. LAB L501.1000 7-18 mg/dL High BUN 19 LAB L501.1100 0.70-1.30 mg/dL High CREAT,SERUM 1.34 Result Comment: The validity of the calculated GFR AND GFRAA in patients over 70 years has not been determined. Clinical correlation is essential. LAB L501.1110 >60 mL/min Low EST GFR 54 Result Comment: Non- GFR Calc LAB L501.1115 >60 mL/min Normal EST GFR - AA 66 Result Comment: GFR Calc LAB L501.1300 10-20 RATIO Normal BUN/CRE 14.2 LAB L501.1500 6.4-8.2 g/dL T Normal PROT 6.8 LAB L501.1800 3.2-5.0 g/dL Normal ALB 3.7 LAB L501.1950 2.2-4.2 g/dL Normal GLOB 3.1 LAB L501.2000 0.9-2.4 RATIO Normal A/G 1.2 LAB L501.2200 8.5-10.1 mg/dL CA Normal 8.7 LAB L501.4100 15-37 U/L Normal AST 24 LAB L501.4305 45-117 U/L Normal ALK P 64 LAB L501.4405 16-61 U/L Normal ALT 29 LAB L501.4600 0.20-1.00 mg/dL T Normal BILI 0.70 LAB L501.5300 136-145 mmol/L NA Normal 139 LAB L501.5600 3.5-5.1 mmol/L K Normal 4.3 LAB L501.5900 98-107 mmol/L High CL 111 LAB L501.6100 21.0-32.0 mmol/L Normal CO2 22.0 LAB L501.6200 5-15 Normal GAP 6 Performed By: #### L500.4050, L501.9520 #### [facility] [address] [place], [address] THYROID STIM HORMONE Collected: 10/23/2017 Status: F Source: [place] (TSH) 10:44 AM [facility] REPOSITORY TYPE CODE TESTS RESULT OUT OF RANGE REFERENCE UNITS LAB L501.9520 0.358-3.74 uIU/mL Normal TSH 1.99 Performed By: #### L500.4050, L501.9520 #### [facility] [address] [place], [address] VITAMIN D,25 HYDROXY Collected: 10/23/2017 Status: F Source: [place] 10:44 AM [facility] REPOSITORY TYPE CODE TESTS RESULT OUT OF REFERENCE UNITS RANGE LAB L506.1000 29.95-100.01 ng/mL Low Vitamin D 25.6 25-OH Result Comment: Vitamin D 25(OH) Status Range Deficiency <20 ng/mL (50nmol/L) Insuffciency 20 - 30 ng/mL (50 - 75 nmol/L) Sufficiency 30 - 100 ng/mL (75 - 250 nmol/L) Toxicity >100 ng/mL (>250 nmol/L) Performed By: #### L506.1000, L509.3000 #### [facility] [address] [facility] [place], [address] TESTOSTERONE, SERUM TOTAL Collected: 10/23/2017 Status: F Source: [place] 10:44 AM [facility] REPOSITORY TYPE CODE TESTS RESULT OUT OF REFERENCE UNITS RANGE LAB L509.3000 ng/dL Testosterone Normal 282.15 Result Comment: NORMAL REFERENCE RANGES MALE AGE <50 123.06 - 813.86 ng/dL MALE AGE >50 89.98 - 780.10 ng/dL FEMALE PREMENOPAUSE AGE 21 - 60 9.01 - 47.94 ng/dL FEMALE POSTMENOPAUSE AGE 45 - 89 <7.00 - 45.62 ng/dL REFERENCE RANGE AND METHODOLOGY CHANGED 05/20/2017 Performed By: #### L506.1000, L509.3000 #### [facility] [place], [address] Observed: 09/25/2017 Status: F Source: [place] RESPIRATORY PANEL 12:21 PM [facility] MOLECULAR REPOSITORY RP PANEL ADENOVIRUS Not Detected HUMAN METAPHNEUMO Not Detected INFLUENZA A Not Detected INFLUENZA A (SUBTYPE H1) Not Detected INFLUENZA A (SUBTYPE H3) Not Detected INFLUENZA B Not Detected PARAINFLUENZA 1 Not Detected PARAINFLUENZA 2 Not Detected PARAINFLUENZA 3 Not Detected PARAINFLUENZA 4 Not Detected RHINOVIRUS Not Detected RSV A Not Detected RSV B Not Detected NAAT METHOD Testing was performed using nucleic acid amplification Performed By: #### M100.638 #### [facility] [address] [facility] [place], [address] CHEST PA AND LATERAL Observed: 09/25/2017 Status: F Source: [place] 11:18 AM [facility] Imaging Services [address] [place] [address] Chest PA and Lateral MR#: [id number] Acct: [id number] Name: RUDOLPH CLAYTON Rep #: [id number] : 1935 M 82 From: Caho Gallo MD PCP: Иван Plasencia MD, Chi Status: REG CLI Study: Chest PA and Lateral Date of Exam: 09/25/17 Exam# [id number] Ordering Dr: Иван Plasencia MD STUDY: X-RAY CHEST REASON FOR EXAM: Male, 82 years old. Bronchitis TECHNIQUE: Frontal and lateral views of the chest. COMPARISON: 03/09/2014. FINDINGS: The lungs are hyperexpanded. There are coarsened interstitial markings suggestive of mild chronic fibrosis. No gross focal infiltrates. No gross effusions. Sternal cerclage wires and vascular clips are present from a prior sternotomy and coronary artery bypass graft procedure (CABG). Normal mediastinum and guero. Normal visualized pulmonary arteries. Normal visualized aortic arch and descending thoracic aorta. There are diffuse degenerative changes of the visualized thoracic spine. Normal visualized ribs, clavicles, and shoulders. There is no demonstrated abnormality of the visualized soft tissue structures of the upper abdomen. RAD/Chest PA and Lateral IMPRESSION: There are findings consistent with COPD. There is no evidence of acute chest disease. Electronically Signed: Chao Gallo MD at 21:54 EDT , Service support , CC: Иван Plasencia MD Graduate Studies Dean: Signed DISCHARGE INSTRUCTION Observed: 09/16/2017 Status: F Source: [place] 10:55 PM [facility] REPOSITORY [facility] Medical Records Department [address] [place] [address] Discharge Instruction 09/16/172253 MR#: [id number] Acct: [id number] Name: RUDOLPH CLAYTON Rep #: [id number] : 1935 82 From: Clifford Almonte MD PCP: Иван Plasencia MD, Chi Status: REG ER ED Disposition - Plan for ED Patient: Chief Complaint: Other, Pain/Inj Instructions: ED Laceration Mouth Referrals: Иван Plasencia Chi, MD [Primary Care Provider] - What to do if you have Problems For any increased pain, shortness of breath, bleeding, nausea or vomiting, chest pain, or any unexpected problems, contact your Primary Care Provider. Call [facility] ([phone]) or report to the closest Emergency Room. Call 911 if necessary. 09/16/172254 <Electronically signed by Clifford Almonte MD> Date Clifford Almonte MD Cosigner Signature (If Indicated): Date CC: Иван Plasencia MD EMERGENCY DEPARTMENT Observed: 09/16/2017 Status: F Source: [place] SUMMARY 10:54 PM [facility] REPOSITORY [facility] Medical Records Department [address] [place] [address] Emergency Department Summary 09/16/173 MR#: [id number] Acct: [id number] Name: RUDOLPH CLAYTON Rep #: [id number] : 1935 82 From: Clifford Almonte MD PCP: Иван Plasencia MD, Chi Status: REG ER - ER Visit Summary Date of Service: 09/16/17 Chief Complaint: Bit tongue History of Present Illness: The patient is a 82 M who is anticoagulated for atrial fibrillation and about 6 hours before presentation while eating excellently bit his tongue. He has had some mild bleeding and oozing which she has been unable to control since that time. Review of systems otherwise negative and he denies any other complaints. Physical Examination: Afebrile vitals are stable There is a 5 mm laceration to the left side of the distal tongue with some mild bleeding Heart regular rate No respiratory distress Alert Test Results: Not indicated Emergency Department Course and Treatment: Let was applied. Hemostasis was achieved. Patient instructed on local care and dietary restrictions. Treatment Plan: [] Disposition: Discharge Impression: Tongue laceration This note was generated with [employer] dictation software. It may contain incorrect words, spelling, and punctuation that were not noted in review of the chart prior to signing ED Disposition - Plan for ED Patient: Chief Complaint: Other, Pain/Inj Referrals: Иван Plasencia Chi, MD [Primary Care Provider] - What to do if you have Problems For any increased pain, shortness of breath, bleeding, nausea or vomiting, chest pain, or any unexpected problems, contact your Primary Care Provider. Call [facility] ([phone]) or report to the closest Emergency Room. Call 911 if necessary. 09/16/172253 <Electronically signed by Clifford Almonte MD> Date Clifford Almonte MD Cosigner Signature (If Indicated): Date CC: Иван Plasencia MD PT D/C SUMMARY (1) Observed: 09/04/2017 Status: F Source: [place] 2:54 PM [facility] REPOSITORY [facility] Physical Therapy [facility] [address] [place] [address] Fax REHABILITATION SERVICES DISCHARGE SUMMARY MR#: [id number] Acct: [id number] Name: RUDOLPH CLAYTON Rep #: [id number] : 1935 82 From: Han Go PT, ATC Referring Dr.: Иван Plasencia MD Status: REG RCR Insurance: [employer] PLAN HMO SELF PAY INSURANCE HP - PT D/C Summary It has been my pleasure to treat RUDOLPH CLAYTON under orders from Иван Plasencia DR.TKGRETEL for the diagnosis of L hip OA for a total of 14 visit(s). Discharge Date: Please see the following information for a summary of their discharge status. - Subjective Subjective: No pain this date - Pain L hip Pain Intensity (Out of 10): 0 - Overall Improvement % Improvement: 90 - Objective Objective/Function: Pt now has no hip or LBP this date. Pt is I with HEP. B LE flexibility is now WNL. Rx goals achieved - Goals Goal 1:: Decrease LBP x 50% to aid with increasing to for ambulation Goal Progress: Goal Met Goal 2:: Increase B LE flexibility x 1 grade to aid with decreasing LBP Goal Progress: Goal Met Goal 3:: I with HEP Goal Progress: Goal Met - Plan Plan: discharge - D/C Information If there are questions or concerns regarding this patient's physical therapy, please feel free to call me at [phone]. Thank you for the referral of this patient. Sincerely, Han Go PT, <Electronically signed by Han Go PT, ATC> 09/04/17 1454 CC: Иван Plasencia MD [facility] Signed INITAL EVALUATION (1) Observed: 08/05/2017 Status: F Source: [place] - PT 11:02 AM [facility] REPOSITORY [facility] Physical Therapy [facility] [address] [place], [place] [address] Fax REHABILITATION SERVICES INITIAL EVALUATION MR#: [id number] Acct: [id number] Name: RUDOLPH CLAYTON Rep #: [id number] : 1935 82 From: Han Go PT, ATC Referring Dr.: Иван Plasencia MD Status: REG RCR Insurance: [employer] H[employer] SELF PAY INSURANCE Patient's Visit Information RUDOLPH CLAYTON is a 82 year old M referred to Physical Therapy by Иван Plasencia DR.TKGRETEL with a diagnosis of L hip OA. Date of Evaluation: 08/05/17 Physical Therapist: Han Go PT, - Visit Plan Frequency: 2-3x /Week Duration: 4-6 Weeks Plan: core strengthening, SKTC/DKTC, LE stretching, nustep, and HEP - Subjective Subjective: Pt reports his L hip has been really sore for the past few weeks. Pt reports he was exercising and believs the leg press machine may be what has caused his pain. Pt has recently had an xray which revealed no sig problems at this time. Pt reports his gait pattern has began to change as a result of having a leg lenght discrepancy. No LE T or N. No sleep diff secondary to pain. Pt reports negotiating stairs is diff. secondary to pain. Pt reports he is also not able to stand for a long period of time secondary to LBP. Pt denies LBP at this time. o/10 at rest, 4/10 at worst (neg stairs) - Pain L hip Pain Intensity (Out of 10): 0 Pain Intensity Range: 4 - Objective Neuro: B LE sensation is WNL to light touch. B pat tendon reflex= 2/3. MMT: B LE's are grossly 5/5 throughout. L/S ROM: Pt is limited with all ranges at this time. Leg length: L LE is grossly 1/4 inch longer. Special tests: All tests for the hip are negative. Repeated supine flexion (SKTC/DKTC). flexibility: HS's and piriformus moderately limited - Goals Goal 1:: Decrease LBP x 50% to aid with increasing to for ambulation Goal Time Frame: 4-6 Weeks Goal 2:: Increase B LE flexibility x 1 grade to aid with decreasing LBP Goal 3:: I with HEP Goal Time Frame: 4-6 Weeks - Rehabilitation Potential Physical Therapy Diagnosis: Pt has LBP, L hip pain, and limitations with prolonged ambulation secondary to deg changes in the L/S Rehabilitation Potential: Good - Anticipated Interventions Patient/Client Instruction: Educate patient on: Condition, Plan of Care For the Purpose of:: To improve self management Therapeutic Exercise to Include: Strength training, Postural training, Flexibilty training, Dynamic Lumbar Stabilization For the Purpose of:: To decrease pain, To increase ROM, To improve muscle performance and motor function Thank you for the opportunity to evaluate your patient. For Medicare and Medicare HMO plans, please review the plan of care and approve it. It will need to be FAXED BACK to us at [phone] for Medicare purposes. Please let me know if there are questions or concerns regarding this plan of care. Physician Signature: Date: <Electronically signed by Han Go PT, ATC> 08/05/17 1102 CC: Иван Plasencia MD [facility] Signed For Medicare only, by signing this I certify the plan of care. Physicians Signature Date Observed: 07/30/2017 Status: F Source: [place] CULTURE, URINE 9:30 AM [facility] REPOSITORY Urine Culture Probable contaminants ORGANISM 1: Mixed Gram Positive Organisms [place] Count >100,000 Performed By: #### M100.0650 #### [facility] Laboratory [address] [place], [address] HIP 2-3 VIEWS WITH Observed: 07/29/2017 Status: F Source: [place] PELVIS 10:10 AM [facility] REPOSITORY [facility] Imaging Services [address] [place] [address] Hip 2-3 Views with Pelvis MR#: [id number] Acct: [id number] Name: RUDOLPH CLAYTON Rep #: [id number] : 1935 M 82 From: Chao Gallo MD PCP: Иван Plasencia MD, Chi Status: REG CLI Study: Hip 2-3 Views with Pelvis Date of Exam: 07/29/17 Exam# [id number] Ordering Dr: Иван Plasencia MD STUDY: X-RAY - PELVIS AND LEFT HIP REASON FOR EXAM: Male, 82 years old. Left hip pain. TECHNIQUE: Radiological exam, hip, unilateral, with pelvis when performed; 2 or 3 views. COMPARISON: None. FINDINGS: There is a non-specific bowel gas pattern. Normal visualized soft tissue structures. There is diffuse demineralization of the osseous structures. Normal bilateral iliac wings, sacroiliac joints and visualized sacrum. Normal bilateral superior and inferior pubic rami. Normal pubic symphysis. Normal bilateral ischial tuberosities. Normal visualized femoral head. Normal acetabulum. Normal hip joint. RAD/Hip 2-3 Views with Pelvis IMPRESSION: Normal x-ray examination of the pelvis and hip. Electronically Signed: Chao Gallo MD at 16:58 EST , Service support , CC: Иван Plasencia MD Graduate Studies Dean: Signed CARDIOLOGY VISIT Observed: 07/03/2017 Status: F Source: [place] REPORT 3:31 PM [facility] REPOSITORY [facility] [address] [place] [address] OFFICE VISIT Date of Service: 06/30/17 MR#: [id number] Acct: [id number] Name: RUDOLPH CLAYTON Rep #: [id number] : 1935 Provider: LUIS FELIPE Sánchez Age/Sex: 81/M Location: [facility] Status: Signed HPI 6 M FU: Details: RUDOLPH CLAYTON, is a 81 M who presents to the office today for a current vascular outpatient follow-up. Patient has a history of coronary artery disease status post bypass surgery with a NACHO to the circumducts artery, BAHENA to LAD, and SVG to the circumflex sequential to the posterior descending artery. He also has history of hypertension, chronic atrial fibrillation, hyperlipidemia, and hypothyroidism. Pt. denies chest, arm, jaw, or neck discomfort. His exercise tolerance is stable via silver sneakers. Pt. denies symptoms of CHF, palpitations, lightheadedness, dizziness, near syncope, or syncopal episodes. Pt. denies edema or claudication issues. Pt. denies orthopnea, PND, fever, chills, blood in urine, blood in stool, myalgia, or unexplainable fatigue. Stress test from December 2016 was negative for myocardial ischemia and reported a preserved ejection fraction. Intake Vital Signs06/30/17 Height 5 ft 10.5 in 06/30/17 Weight: 226 lb 06/30/17 Body Mass Index (BMI) 31.9 06/30/17 Blood Pressure 110/78 06/30/17 Blood Pressure Location Lt brachial Intake Visit Reasons: 6 M FU Product Developer Required: No Accompanied by: None Is patient in pain?: No Allergies No Known Allergies Allergy (Verified 06/30/17 09:24) Medications Aspirin E.C. [Ecotrin] 81 mg PO DAILY@0800 03/09/14 [History Confirmed 06/18/17] Diltiazem HCl [Diltiazem ER] 120 mg PO DAILY 03/09/14 [History Confirmed 06/18/17] Finasteride [Proscar] 5 mg PO DAILY 03/09/14 [History Confirmed 06/18/17] Levothyroxine [Synthroid] 50 mg PO DAILY 03/09/14 [History Confirmed 06/18/17] Metoprolol Succinate 50 mg PO BID 03/09/14 [History Confirmed 06/18/17] Rivaroxaban [Xarelto] 20 mg PO QHS 03/09/14 [History Confirmed 06/18/17] Rosuvastatin Calcium [Crestor] 40 mg PO QHS 03/09/14 [History Confirmed 06/18/17] Clonazepam [Klonopin] 1 mg PO QHS 08/01/16 [History Confirmed 08/08/16] Cyanocobalamin [Vitamin B12] 1,000 mcg PO DAILY@0800 08/01/16 [History Confirmed 06/18/17] nitroglycerin 0.4 mg sublingual tablet 0.4 mg SUBLINGUAL Q5M PRN 06/18/17 [History Confirmed 06/18/17] clonazepam 1 mg disintegrating tablet 0.5 mg PO DAILY 06/30/17 [History Confirmed 06/30/17] memantine 10 mg tablet 10 mg PO QDAY tab 06/30/17 [History Confirmed 06/30/17] Ejection fraction %: 55 to 59 PFSH Medical History Dizziness and giddiness (Chronic) Cerebral embolism with cerebral infarction (Chronic) Chronic atrial fibrillation (Chronic) Atherosclerotic heart disease of minto coronary artery without angina pectoris (Chronic) HTN (hypertension) (Chronic) HLD (hyperlipidemia) (Chronic) 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) Surgical History H/O coronary artery bypass surgery (Chronic) History of left heart catheterization (LHC) (Chronic) History of tonsillectomy and adenoidectomy (Chronic) History of maze procedure (Resolved) Family History Mother , age 85 CAD (coronary artery disease) Myocardial infarction Father , age 62 CAD (coronary artery disease) Ruptured, aorta Social History Smoking Status: Never smoker alcohol intake: current alcohol intake frequency: a few times a week Alcohol type: beer substance use type: does not use caffeine: Yes Type: coffee Number of servings: 2 what type of physical activity do you participate in: other details: karen point frequency: 3-4 times per week duration: 30-45 minutes/day seatbelt use: always do you feel safe at home: Yes ROS Const Const: Negative for fatigue, weakness, body ache, fever(s) or chills ENT ENT: Negative for dizziness Cardio Chest Pain: No Palpitations: Positive for No Edema: None Muscle aches with walking: None Resp Respiratory: Negative for SOB with activity, SOB at rest, SOB orthopnea\SOB lying down or paroxysmal nocturnal dyspnea GI GI: Negative nausea, black,tarry stools, bright, red blood in stools or vomiting blood/hematemesis : Negative for hematuria or frequent nighttime urination/ nocturia Musc Musc: Negative for muscle aches/ myalgia Neuro Neuro: Negative for weakness, Negative for dizziness, Negative for lightheadedness, Negative for near syncope, Negative for syncope, Negative for orthostatic symptoms Endo Endo: Negative for fatigue Cardiology Exam Const Appearance: cooperative, healthy appearing, comfortable and no acute distress Orientation: alert, awake and oriented x3 Head Head: normal to inspection Mouth: oral mucosae normal Neck Neck: no JVD and normal visual inspection Carotids: normal carotid upstroke Chest Chest inspection: normal inspection of the chest and normal respiratory effort Auscultation: Bilateral: Clear to Auscultation Cardio Rate: regular rate Rhythm: irregular rhythm Heart sounds: S1 normal and S2 normal; negative rub or gallop GI GI: normal to inspection Neuro General: alert, awake, oriented x3 and CN's II-XI intact bilaterally Skin Skin: no rashes or lesions noted Extremities Pulses: Normal: Right Posterior Tibial Pulse, Left Posterior Tibial Pulse, Right Radial Pulse, Left Radial Pulse Lower Extremity Edema: None: Bilateral Psych Psychological: normal affect Assessment AND Plan 1. Atherosclerosis of minto coronary artery of minto heart without angina pectoris I25.10 CABG: CABG x5 NACHO to high lateral CX, BAHENA to LAD, Bridge Diag, SVG to main CX, SVG to PDA 06/10/2005; [facility]: 05/21/2005 Plan - YESSICA Kemp Patient denies any chest pain, arm pain, jaw pain, neck pain, shortness of breath, or fatigue suggestive of angina at this time. We will continue to monitor this. We will not make any medication regimen changes and will continue risk factor modification. 2. Chronic atrial fibrillation I48.2 YESSICA Marin This appears stable. We will continue to monitor this. Pt. will continue rate controlling medications and factor 10a inhibitor. 3. Essential hypertension I10 YESSICA Marin Patient's blood pressure is well-controlled today in the office. We will continue to monitor this. We will not make any medication regimen changes. 4. Mixed hyperlipidemia E78.2 YESSICA Marin [facility] showed cholesterol: 114, LDL: 53, HDL: 44, and triglycerides: 105. This will be followed by the [place]. Patient will continue current cholesterol lower medication. 5. [place] (obstructive sleep apnea) G47.33 Plan - YESSICA Kemp Pt. states having issues with CPAP machine and has stopped his overall use. He has been in contacted with [employer] [facility] to help with this. He states sleeping with two pillows without issues. He has discussed this with Dr. Nuno. He states he will stop his CPAP usage. Plan Detail Other Medications Discontinued: hydrocodone-acetaminophen 5-325 mg Discontinued Reason:1 - 2 tabs PO Q4H PRN PRN Pain Pt no longer taking Additional Comments - YESSICA Kemp Discussed the above patient with Dr. Villegas, he agrees with the plan of care. Thank you for allowing us to participate in the patients plan of care, if you have any questions please do not hesitate to call. This note was generated using a voice recognition system and there may be incorrect words, spelling or punctuation that were not noted when reviewing the office note prior to saving. Follow Up 6 Months (DISBURSING AGENT) Coding Level of Care Code Off vis,est,level 3 Diagnoses Atherosclerosis of minto coronary artery of minto heart without angina pectoris I25.10 Elem vs. transplanted heart: minto heart Chronic atrial fibrillation I48.2 Essential hypertension I10 Hypertension type: essential hypertension Mixed hyperlipidemia E78.2 Hyperlipidemia type: mixed hyperlipidemia [place] (obstructive sleep apnea) G47.33 06/30/17 1128 <Electronically signed by Refugio Sánchez NP-C> Date Refugio LAUC 07/03/17 1531<Electronically signed by Power Villegas MD> Cosigner Signature: Date (if applicable) Power Villegas MD CC: Иван Plasencia MD ALLERGIES ALLERGIES DATE TYPE / CODE NAME / CODE REACTION SEVERITY SOURCE 03/27/2018 Drug No Known Unknown [facility] Allergy/4160 Allergies/F00 Hospital 22163(SNOMED [id number](RXNOR Repository CT) M) ENCOUNTERS ENCOUNTERS ADMIT/DISCHARGE ACCOUNT ADMITTING ENCOUNTER LOCATION SOURCE NUMBER CLASS 04/27/2018 [id number] Ambulatory [place] Thierno 1 [facility] ing:POLAB3 Repository 03/27/2018/ [id number] Emergency [place] Thierno 8 7 [facility] ing:ED Repository 12/29/2017/ [id number] Ambulatory BMSBuilding:B [place] 8 7 [facility] Repository 10/23/2017 [id number] Ambulatory [place] Thierno 2 [facility] [place] ing:POLAB3 Repository 09/25/2017 [id number] Ambulatory Thierno [place] 6 [facility] [place] ing:RAD Repository 09/25/2017 [id number] Ambulatory [place] 3 [facility] ing:RAD.FUTUR Repository E 09/16/2017/ [id number] Emergency Thierno Thierno 8 4 [facility] [place] ing:ED Repository 09/04/2017/ [id number] Ambulatory Thierno [place] 8 6 [facility] ing:PT Repository 07/30/2017 [id number] Ambulatory Thierno Thierno 6 [facility] ing:LABSPEC Repository 07/29/2017 [id number] Ambulatory [place] 3 [facility] ing:RAD Repository 06/30/2017/ [id number] Ambulatory BMSBuilding:B Th[place] 8 4 [facility] Repository 06/30/2017 [id number] Ambulatory BMSBuilding:B Th[place] 6 [facility] Repository 06/30/2017 [id number] Ambulatory BMSBuilding:B Th[place] 6 [facility] Repository PAYERS PAYERS ENCOUNTER GUARANTOR PAYER SUBSCRIBER SOURCE 04/27/2018 RUDOLPH Nova Primary RUDOLPH Pa [id number] Insurance:SARAI BILLINGSDOB: [facility] [id number] Hospital Number: Repository [id number]: [phone] [id number] [phone] () Date:3396-95-54QX [address], [place] [address]TI: 04/27/2018 Secondary NOT GIVENUNK [place] Insurance:SELF PAY [facility] Number: Effective Repository Date:2018-04-27 03/27/2018 RUDOLPH O Primary RUDOLPH O [place] [id number] Insurance:SARAI BILLINGSDOB: [facility] [id number] Hospital Number: Repository [address]Aru: 330 [id number] [phone] () Date:3294-41-21YA [address] [address]HW: 03/27/2018 Secondary NOT GIVENUNK [place] Insurance:SELF PAY [facility] Number: Effective Repository Date:2018-03-27 12/29/2017 RUDOLPH O Primary RUDOLPH O [place] [id number] Insurance:SARAI BILLINGSDOB: [facility] [id number] Number: Repository [id number]: 330 [id number] [phone] () Date:3710-03-14YI [address], [place] [address]NF: 12/29/2017 Secondary NOT GIVENUNK Thierno Insurance:SELF PAY [facility] Number: Effective Repository Date:2017-12-29 10/23/2017 RUDOLPH O Primary RUDOLPH O Thierno [id number] Insurance:SARAI BILLINGSDOB: [facility] [id number] Hospital Number: Repository [address]Aaw: 330 [id number] [phone] () Date:5568-73-59DI [address], [place] [address]JK: 10/23/2017 Secondary NOT GIVENUNK Thierno Insurance:SELF PAY [facility] Number: Effective Repository Date:2017-10-23 09/25/2017 RUDOLPH O Primary RUDOLPH O Thierno [id number] Insurance:SARAI BILLINGSDOB: [facility] [id number] Hospital Number: Repository [id number]: 330 [id number] [phone] (HP) Date:6239-44-29JS [address] [address]ER: 09/25/2017 Secondary NOT GIVENUNK [place] Insurance:[facility]LF [facility] Number: Effective Repository Date:2017-09-25 09/25/2017 RUDOLPH O Primary RUDOLPH O [place] [id number] Insurance:SARAI BILLINGSDOB: [facility] [id number] Hospital Number: Repository [id number]: (330 [id number] [phone] (HP) Date:4143-27-46QT [address] [address]PH: 09/25/2017 Secondary NOT GIVENUNK Thierno Insurance:SELF PAY [facility] Number: Effective Repository Date:2017-09-25 09/16/2017 RUDOLPH O Primary RUDOLPH O [place] [id number] Insurance:SARAI BILLINGSDOB: [facility] [id number] Hospital Number: Repository [id number]: 330 [id number] [phone] () Date:2882-58-24SS [address], [place] [address]LN: 09/16/2017 Secondary NOT GIVENUNK Thierno Insurance:SELF PAY [facility] Number: Effective Repository Date:2017-09-16 09/04/2017 RUDOLPH O Primary RUDOLPH O [place] [id number] Insurance:SARAI BILLINGSDOB: [facility] [id number] Hospital Number: Repository [address]Rgd: 330 [id number] [phone] (HP) Date:0185-67-13WS [address], [place] [address]RR: 09/04/2017 Secondary NOT GIVENUNK Thierno Insurance:SELF PAY [facility] Number: Effective Repository Date:2017-07-30 07/30/2017 RUDOLPH O Primary RUDOLPH O Thierno [id number] Insurance:SARAI BILLINGSDOB: [facility] [id number] Hospital Number: Repository [address]Hbi: 330 [id number] [phone] () Date:9265-78-75OQ [address], [place] [address]VU: 07/30/2017 Secondary NOT GIVENUNK Thierno Insurance:SELF PAY [facility] Number: Effective Repository Date:2017-07-30 07/29/2017 RUDOLPH O Primary RUDOLPH O [place] [id number] Insurance:SARAI BILLINGSDOB: [facility] [id number] Hospital Number: Repository [id number]: 330 [id number] [phone] () Date:1968-08-42BY [address], [place] [address]LZ: 07/29/2017 Secondary NOT GIVENUNK [place] Insurance:SELF PAY [facility] Number: Effective Repository Date:2017-07-29 06/30/2017 RUDOLPH O Primary RUDOLPH O Thierno [id number] Insurance:SARAI BILLINGSDOB: [facility] [id number] Hospital Number: Repository [id number]: 330 [id number] [phone] () Date:3151-72-91CE [address], [place] [address]CL: 06/30/2017 Secondary NOT GIVENUNK [place] Insurance:SELF PAY [facility] Number: Effective Repository Date:2017-05-03 06/30/2017 Rudolph O Primary Rudolph O Thierno [id number] Insurance:SARAI BillingsDOB: [facility] [id number] HMOPol[place] Number: Repository [id number]: 330 [id number] [phone] () Date:1251-65-23RV [address], [place] [address]FH: 06/30/2017 Secondary NOT GIVENUNK Thierno Insurance:SELF PAY [facility] Number: Effective Repository Date:2017-06-30 06/30/2017 Rudolph O Primary Rudolph O Thierno [id number] Insurance:SARAI BillingsDOB: [facility] [id number] [facility] HospitalOP[facility] Number: Repository [id number]: 330 [id number] [phone] () Date:5713-22-89IP [address], [place] [address]DG: 06/30/2017 Secondary NOT GIVENUNK Thierno Insurance:SELF PAY [facility] Number: Effective Repository Date:2017-06-30
== END ==
PROVIDERS: Family Provider Family Medicine Geriatric Medicine; PCP Family Medicine Geriatric Medicine; Visit Provider Family Medicine Geriatric Medicine
DX: E23.6 Other disorders of pituitary gland (principal); E55.9 Vitamin D deficiency, unspecified; I10 Essential (primary) hypertension
CPT/HCPCS: 36415; 80053; 82306; 84403; 84443; 85025

== ENCOUNTER → 2018-10-12 16:54 | Outpatient (CLI) | payer MEDICARE, SELFPAY ==
--- NOTE | 2018-10-12 16:59 | CT_ITS ---
STUDY: CT PELVIS WITHOUT CONTRAST REASON FOR EXAM: Male, 83 years old. Posttraumatic pain RADIATION DOSAGE (If Supplied By Facility): CTDIvol = ( 25.74 ) mGy, DLP = ( 814.86 ) mGycm TECHNIQUE: Transaxial imaging of the pelvis was performed with oral contrast, and without intravenous administration of contrast material. Individualized dose optimization techniques were used for this CT. COMPARISON: None. FINDINGS: Normal urinary bladder. Normal visualized small intestine. Diverticular changes of the distal descending colon without evidence for acute diverticulitis There is no pelvic fluid. There is no pelvic mass lesion or lymphadenopathy. Normal visualized pelvic arteries. Fat-containing left inguinal hernia is noted. There appears to be comminuted nondisplaced fracture of the greater trochanter of the left hip. Lumbar spine demonstrates spondylosis CT/Pelvis without IV Contrast IMPRESSION: Nondisplaced comminuted fracture of the greater trochanter of the left hip Electronically Signed: Luís Bower MD at 18:04 EDT , Service support ,
--- NOTE | 2018-10-12 16:59 | CT_ITS ---
CT of the left hip INDICATION: Trauma Comparison study March 27, 2018 TECHNIQUE: CT of the left hip was performed in the axial plane without contrast followed by sagittal and coronal reconstructions. Radiographic technique was optimized to limit patient radiation dose. FINDINGS: There are linear radiolucencies within the greater trochanter suspicious for hairline fracture. No other fracture or dislocation of the hip is observed. There is narrowing of the joint space and acetabular spurring. There is no evidence for acute acetabular fracture or fracture of the visualized portions of the pelvis. The radiolucencies within the greater trochanter are new finding since prior exam CT/Extremity Lower without Contra IMPRESSION: Findings suspicious for hairline fracture of the greater trochanter however clinical correlation is recommended Electronically Signed: Luís Bower MD at 18:10 EDT , Service support ,
== END ==
PROVIDERS: Family Provider Family Medicine Geriatric Medicine; PCP Family Medicine Geriatric Medicine; Referring Provider Family Medicine Geriatric Medicine; Visit Provider Family Medicine Geriatric Medicine
DX: M25.552 Pain in left hip (principal); W19.XXXA Unspecified fall, initial encounter
CPT/HCPCS: 72192; 73700

== ENCOUNTER → 2018-10-26 13:08 | Outpatient (CLI) | payer MEDICARE, SELFPAY ==
[2018-10-15 09:09] VITALS: BMI 32.0
--- NOTE | 2018-10-26 14:10 | CT_ITS ---
STUDY: CT BRAIN WITHOUT CONTRAST REASON FOR EXAM: Male, 83 years old. History of closed head injury. Patient is on anticoagulants. RADIATION DOSAGE (If Supplied By Facility): CTDIvol = ( 60.81 ) mGy, DLP = ( 1112.69 ) mGycm TECHNIQUE: Transaxial CT imaging of the brain was performed without administration of intravenous contrast material. Individualized dose optimization techniques were used for this CT. COMPARISON: Comparison is made with a prior examination dated March 09, 2014. FINDINGS: Normal soft tissue structures. Normal calvarium. There is mild cerebral atrophy with widening of the extra-axial spaces and ventricular dilatation. Normal white matter tracts of the cerebral hemispheres. There are small punctate calcifications of the basal ganglia which are seen in the aging brain as a normal variant. Normal brainstem. There is mild cerebellar atrophy. There is no intracranial hemorrhage. There are no findings of an acute ischemic infarction. Atherosclerotic calcification of the vertebral arteries and cavernous portions of the internal carotid arteries bilaterally. Normal visualized paranasal sinuses. CT/Brain/Head without Contrast IMPRESSION: Chronic involutional changes of the brain. Electronically Signed: Jb Talbot, at 15:00 EDT , Service support ,
[2018-10-26 17:27] LABS: Absolute Lymphocyte Count 1.65 X10^3/ul (0.83-4.51); Absolute Neutrophil Count 8.8 X10^3/uL (2.0-7.7); Basophil# 0.04 X10^3/uL; Basophil% 0.3 % (0-1); Eosinophil# 0.15 X10^3/uL; Eosinophils% 1.3 % (0-5); Hematocrit 46.5 % (40-54); Hemoglobin 15.6 g/dl (13.0-16.5); Lymphocyte # 1.65 X10^3/ul (4.0); Lymphocyte % 14.3 % (19-41); Mean Corp Hgb Conc 33.5 g/gl (32-36); Mean Corpuscular Hgb 31.6 pg (27.0-32.0); Mean Corpuscular Volume 94.3 fL (80-94); Mean Platelet Vol. 11.2 fl (6.2-12.0); Monocyte# 0.86 X10^3/uL; Monocyte% 7.4 % (0-10); Neutrophil # 8.81 X10^3/uL (2.7-7.7); Neutrophil % 76.3 % (47-70); Platelet Count 154 K/mm3 (150-450); RBC Distribution Width CV 14.3 % (11.6-14.6); RBC Distribution Width SD 47.8 fl (35.1-43.9); Red Blood Count 4.93 M/mm3 (4.6-6.2); White Blood Count 11.6 K/mm3 (4.4-11.0)
[2018-10-26 17:34] LABS: POSITIVE COUNT NO; POSITIVE DIFFERENTIAL NO; POSITIVE MORPHOLOGY NO
[2018-10-26 17:53] LABS: ALB/GLOB Ratio 1.1 RATIO (0.9-2.4); AST(SGOT) 22 U/L (15-37); Alanine Aminotransfer ALT/SGPT 36 U/L (16-61); Albumin, Serum 3.4 g/dL (3.2-5.0); Alkaline Phosphatase 105 U/L (45-117); Anion Gap 6 (5-15); BUN 21 mg/dL (7-18); BUN/Creat Ratio 16.4 RATIO (10-20); Calcium,Total 8.4 mg/dL (8.5-10.1); Chloride 107 mmol/L (98-107); Creatinine, Serum 1.28 mg/dL (0.70-1.30); EST Glomerular Filtration Rate 57 mL/min (>60); Est Glom Filt Rate - Afr Amer 69 mL/min (>60); Globulin 3.1 g/dL (2.2-4.2); Glucose 102 mg/dL (74-106); Potassium 4.2 mmol/L (3.5-5.1); Protein, Total 6.5 g/dL (6.4-8.2); Sodium Level 137 mmol/L (136-145); Thyroid Stim Hormone (TSH) 4.38 uIU/mL (0.358-3.74)
[2018-10-27 09:40] LABS: Vitamin D,25 Hydroxy 24.5 ng/mL (29.95-100.01)
== END ==
PROVIDERS: Family Provider Family Medicine Geriatric Medicine; PCP Family Medicine Geriatric Medicine; Visit Provider Family Medicine Geriatric Medicine
DX: E55.9 Vitamin D deficiency, unspecified (principal); F52.8 Other sexual dysfunction not due to a substance or known physiological condition; I10 Essential (primary) hypertension
CPT/HCPCS: 36415; 70450; 80053; 82306; 84403; 84443; 85025

== ENCOUNTER → 2018-11-08 13:39 | Outpatient (CLI) | payer MEDICARE, SELFPAY ==
[2018-10-15 09:09] VITALS: BMI 32.0
--- NOTE | 2018-11-08 13:41 | RAD_ITS ---
STUDY: X-RAY - PELVIS AND LEFT HIP REASON FOR EXAM: Male, 83 years old. Fracture left hip TECHNIQUE: 3 views of the pelvis and hip 2 views of the left hip. COMPARISON: CT lower extremity October 12, 2018 FINDINGS: There is a non-specific bowel gas pattern. Normal visualized soft tissue structures. There is narrowing with cortical sclerosis and osteophyte formation of the sacroiliac joint consistent with degenerative osteoarthritic changes. Normal bilateral superior and inferior pubic rami. Normal pubic symphysis. Normal bilateral ischial tuberosities. There is mild narrowing of the bilateral hip joints. There is minimal bilateral acetabular spurring. There is a persistent visualized fracture of the left greater trochanter. Allowing for summation of shadows the fracture extends somewhat deep into the left intertrochanteric region. The frog-leg view shows crater displacement of the fragments when compared to prior study. RAD/HIP, UNI W/ Pelvis 2-3 Views IMPRESSION: The frog-leg view shows a greater displacement of the greater trochanteric fragment than on the prior study. Allowing for differences in technique there is a slightly deeper appearance of the fracture line within the greater trochanter for which a follow-up CT scan of the left hip is recommended for further evaluation. Degenerative changes SI joints lower lumbar spine. Degenerative change bilateral hip joints. Electronically Signed: Rama Jacobson MD at 16:21 EDT Tel , Service support ,
== END ==
PROVIDERS: Family Provider Family Medicine Geriatric Medicine; PCP Family Medicine Geriatric Medicine; Referring Provider Orthopaedic Surgery; Visit Provider Orthopaedic Surgery
DX: S72.112A Displaced fracture of greater trochanter of left femur, initial encounter for closed fracture (principal)
CPT/HCPCS: 73502

== ENCOUNTER 2018-11-25 09:30 | Outpatient (RCR) | payer MEDICARE, SELFPAY ==
[2018-10-15 09:09] VITALS: BMI 32.0
--- NOTE | 2018-11-02 08:00 | HP.PTEVAL_ITS ---
Patient's Visit Information MIRANDA CLAYTON is a 83 year old M referred to Physical Therapy by Luis Wiseman DO with a diagnosis of CLOSED NON-DISPLACED FRACTURE OF GREATER TROCHANTERIC OF LEFT FEMUR. Date of Evaluation: 11/02/18 Physical Therapist: Jackson Galvan PT, Cert MDT, OCS - Visit Plan Frequency: 2x /Week Duration: 4 Weeks Plan: GAIT,BALANCE TRAINING,ROM.PRE'S HIP/KNEE,NUSTEP,CP/MHP,FUNCTIONAL STRENGTHENING - Subjective Findings: This 83 y/o male presents to physical therapy with closed non-placed fx of greater trochanteric of left femur. Patient was in [place] side of pool slipped on side caused hip pain o n October 08. Patient seen DR In [place] did Catscan abdominal then had x-rays in [place]. But pain was getting better,thus seen DR Duran had Catscan showed hairline fracture femur. Recommended using walker and tramadol. Patient has pain located lateral greater trochanteric hip. Patient uses FWW with mobility. Denies parathesia/tingling. Patient has difficulty sleeping on side. Patient pain afects ADL's and housework chores. Patient uses one step at a time.Patient has shower chair in bathtube. 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 SOCIAL: . VOCATION: retired - Pain Left Hip Pain Intensity (Out of 10): 8 Pain Intensity Range: 10 - Objective POSTURE: mild foward posture,right leg shorter about 1in. PALAPTION: tender lateral greater tronhanter,. NEURO: intact. GAIT: ambulates with fww reciprocal pattern mild decrease stance time ,ambulates with no device decrease stance ,swing phase slow. BALANCE: fair +. AROM:supine knee flexion 0-120 degrees,hip flexion 90 degrees ,abd ,35 degrees. MMT: quads/hams 4-/5,hip flexion 3+/5,abd 3/5 - Goals Goal 1:: Independant with HEP Goal Time Frame: 4-6 Weeks Goal 2:: Patient derease pain in left hip by 50% or greater to improve function. Goal Time Frame: 4-6 Weeks Goal 3:: Patient to increas strength hip 4-/5 and knee 4/5 to improve function with gait. Goal Time Frame: 4-6 Weeks Goal 4:: Patient to ambulated with/without cane community distance with improved [place] Goal Time Frame: 4-6 Weeks Goal 5:: Patient to improve dynamic balance good- Goal Time Frame: 4-6 Weeks Goal 6:: Patient to improve LFES SCORE by 10 points or greater to mimprove QOL. Goal Time Frame: 4-6 Weeks - Rehabilitation Potential Physical Therapy Diagnosis: Patient fracture femur non-displaced with pain ,loack of ROM .decrease strength,gait and balance thus benifit frm skilled PT Rehabilitation Potential: Good - Anticipated Interventions Patient/Client Instruction: Educate patient on: Condition, Plan of Care For the Purpose of:: To decrease pain, To increase ROM, To improve muscle performance and motor function, To improve ability to perform ADL's, To increase tolerance to activity/condition/position, To improve ability of physical actions for home/community/work/leisure, To improve gait and locomotor functions, To improve health of tissue, To decrease soft tissue restriction, To increase flexibility/ROM, To improve endurance, To improve balance, To improve ability to perform tasks related to life management Therapeutic Exercise to Include: Strength training, Endurance training, Balance training, Gait and locomotor training, Active ROM Comment: HIP/KNEE For the Purpose of:: To decrease pain, To increase ROM, To improve muscle performance and motor function, To improve ability to perform ADL's, To increase tolerance to activity/condition/position, To improve ability of physical actions for home/community/work/leisure, To improve gait and locomotor functions, To improve health of tissue, To decrease soft tissue restriction, To increase f lexibility/ROM, To improve endurance, To improve balance, To improve ability to perform tasks related to life management Thank you for the opportunity to evaluate your patient. For Medicare and Medicare HMO plans, please review the plan of care and approve it. It will need to be FAXED BACK to us at [phone] for Medicare purposes. For Medicare only, by signing this I certify the plan of care. Please let me know if there are questions or concerns regarding this plan of care. Physician Signature: __Date:
--- NOTE | 2018-11-25 10:10 | HP.PTDCSUM ---
HP - PT D/C Summary It has been my pleasure to treat MIRANDA CLAYTON under orders from Luis Wiseman DO, for the diagnosis of CLOSED NON-DISPLACED FRACTURE OF GREATER TROCHANTERIC OF LEFT FEMUR for a total of 7 visit(s). Discharge Date: 11/25/18 Please see the following information for a summary of their discharge status. - Subjective Subjective: Doing well .. Progressing well with ADL'S sore lateral hip - Pain Left Hip Pain Intensity (Out of 10): 1 - Overall Improvement % Improvement: 80 - Objective Objective/Function: POSTURE: mild foward posture. GAIT:reciproacl pattern mild decrease waddle gait. MMT: quads/hams 4/5,hip abd 4-/5. BALANCE: SLS 30 SEC WITH UE support - Goals Goal 1:: Independant with HEP Goal Progress: Goal Met Goal 2:: Patient derease pain in left hip by 50% or greater to improve function. Goal Progress: Goal Met Goal 3:: Patient to increas strength hip 4-/5 and knee 4/5 to improve function with gait. Goal Progress: Goal Met Goal 4:: Patient to ambulated with/without cane community distance with improved [place] Goal Progress: Goal Met Goal 5:: Patient to improve dynamic balance good- Goal Progress: Goal Met Goal 6:: Patient to improve LFES SCORE by 10 points or greater to mimprove QOL. Goal Progress: Goal Met - Plan Plan: D/C TO HEP AND GYM EX'S - D/C Information Discharge Comments: HEP AND HP If there are questions or concerns regarding this patient's physical therapy, please feel free to call me at [phone]. Thank you for the referral of this patient. Sincerely, Jackson Galvan, PT, Cert MDT, OCS
== END 2018-11-25 19:00 | disposition home or self-care (01) ==
LOC: PT 09:30
PROVIDERS: Family Provider Family Medicine Geriatric Medicine; PCP Family Medicine Geriatric Medicine; Referring Provider Orthopaedic Surgery; Visit Provider Orthopaedic Surgery
DX: S72.115D Nondisplaced fracture of greater trochanter of left femur, subsequent encounter for closed fracture with routine healing (principal)
CPT/HCPCS: 97110; 97162

== ENCOUNTER 2018-12-20 11:10 | Emergency (ER) | payer MEDICARE, SELFPAY ==
[2018-10-15 09:09] VITALS: BMI 32.0
[2018-12-20 11:10] VITALS: BP 135/79; PULSE 85; RESP 17; TEMP 36.8; O2SAT 95; BMI 30.7
--- NOTE | 2018-12-20 11:49 | CT_ITS ---
STUDY: CT BRAIN WITHOUT CONTRAST REASON FOR EXAM: Male, 83 years old. Headache after a fall RADIATION DOSAGE (If Supplied By Facility): CTDIvol = ( 44.99 ) mGy, DLP = ( 779.24 ) mGycm TECHNIQUE: Transaxial CT imaging of the brain was performed without administration of intravenous contrast material. Individualized dose optimization techniques were used for this CT. COMPARISON: 10/26/2018 FINDINGS: Occipital scalp hematoma but no underlying skull fracture. There is mild cerebral atrophy with widening of the extra-axial spaces and ventricular dilatation. There are areas of decreased attenuation within the white matter tracts of the supratentorial brain, consistent with microvascular disease changes. Normal basal ganglia and thalami. Normal brainstem. Normal cerebellum. There is no intracranial hemorrhage. There are no findings of an acute ischemic infarction. Normal visualized paranasal sinuses. CT/Brain/Head without Contrast IMPRESSION: Chronic involutional changes of the brain. No acute hemorrhage Occipital scalp hematoma without skull fracture Electronically Signed: Gunner Weathers MD at 12:26 EDT , Service support ,
--- NOTE | 2018-12-20 11:51 | ED.VIS.GEN ---
History of Present Illness Chief Complaint: Fall Narrative: 83-year-old male who is on [employer] presents with a head injury. He was standing in his garage on the concrete floor. He turned quickly to look at something and tripped over his own foot landing backwards and striking his head on the concrete. He did not lose consciousness. He sustained an abrasion to his left elbow but denies any elbow pain. He does not even have a headache at this time. He denies neck pain. He was able to get back up on his own. He recalls all details of the event and he denies any prodromal symptoms. He is not nauseated nor has he vomited. He does not feel confused. He states he only came in because he sustained a laceration on the back of his head. Onset of symptoms was sudden. Severity is mild. Capacity - Capacity Assessment Tool Can the patient make a choice & communicate that choice?: Yes Past Medical History - Allergies and Home Meds Allergies/Adverse Reactions: Allergies No Known Allergies Allergy (Verified 12/20/18 11:10) Primary Care Physician: Иван Plasencia Chi, MD [Primary Care Provider] - Prior records reviewed: Yes Smoking Status: Never smoker Review of Systems General: Denies: Chills, Fever, Sweats Eyes: Denies: Visual changes - bilaterally, Diplopia ENT: Denies: Rhinorrhea, Sore throat Cardiovascular: Denies: Chest pain, Palpitations Respiratory: Denies: Dyspnea, Cough, Dyspnea on exertion Gastrointestinal: Denies: Abdominal pain, Nausea, Vomiting, Diarrhea, Melena, Hematochezia Genitourinary: Denies: Dysuria, Hematuria, Frequency Musculoskeletal: Denies: Back pain, Extremity Pain Skin: Reports: Wounds. Denies: Rash Neurological: Denies: Headache, Weakness, Numbness Psych: Denies: Anxiety Hematologic: Denies: Easy bruising Physical Exam Vital Signs/Narrative: Vital Signs Temp Pulse Resp BP Pulse Ox 12/20/18 11:10 98.3 F 85 17 135/79 H 95 Inital Vital Signs reviewed: Yes General: Well nourished, Well developed, No Acute Distress Head: Trauma - There are 2 separate 4 cm full-thickness lacerations on the occipital scalp. There is a superficial abrasion/skin tear on the left elbow and another on the midshaft humerus, superficial. Eyes: Perrl, EOMI ENT: Moist mucous membranes, No rhinorrhea Neck: Supple, Nontender Cardiovascular: Regular rate, Regular rhythm, No murmurs Respiratory: No distress, CTA bilaterally, Chest nontender Abdomen: Soft, Nontender, Nondistended, Normal bowel sounds Back: Nontender, Normal Inspection Extremities: Nontender, No edema Skin: Normal color, No rash Neurological: Alert, Oriented x3, Cranial nerves II-XII grossly intact, Normal Strength, Normal Sensation Psychological: Normal affect, Normal Mood Diagnostic/Tx/Re-eval - Medical Decision Making CT brain is negative for acute process. His neurologic exam is normal. He has no evidence of other injuries. He is completely awake and alert, laughing and joking. We discussed observing him for repeat brain CT but he would prefer to go home. His family will be with him and they will watch him closely. They will bring him back if he has any symptoms. I explained the possibility of a delayed bleed and what to watch for. His left elbow is only an abrasion, it was cleansed and dressed. It does not appear to require sutures. In terms of his scalp laceration, I did obtain verbal informed consent. I then cleansed the area using Shur-Clens and irrigated the wound cavity with 100 cc of saline using a bottle with a hole in the top. I anesthetized the surrounding skin using 10 cc total of lidocaine with epinephrine locally infiltrated. I repaired to the 2 separate wounds using 10 alex each. He tolerated it well. No immediate complications. Sterile precautions were maintained. He will come back here or see his doctor for staple removal. ED Disposition - Plan for ED Patient: Disposition: Home or Assisted Living Diagnosis: Concussion without loss of consciousness, initial encounter, Occipital scalp laceration, Abrasion of left elbow, initial encounter Instructions: FALL, Mechanical, LACERATION, All, Concussion Referrals: Иван Plasencia Chi, MD [Primary Care Provider] - (10 days for staple removal or come back here)
[2018-12-20 14:01] VITALS: BP 129/79; PULSE 82; RESP 16; O2SAT 97
== END 2018-12-20 14:02 | disposition home or self-care (01) ==
PROVIDERS: Emergency Provider Emergency Medicine; Family Provider Family Medicine Geriatric Medicine; PCP Family Medicine Geriatric Medicine
DX: S01.01XA Laceration without foreign body of scalp, initial encounter (principal); S06.0X0A Concussion without loss of consciousness, initial encounter; S50.312A Abrasion of left elbow, initial encounter; W01.0XXA Fall on same level from slipping, tripping and stumbling without subsequent striking against object, initial encounter; Z79.01 Long term (current) use of anticoagulants
CPT/HCPCS: 70450; 99282

== ENCOUNTER → 2018-12-28 15:20 | Outpatient (CLI) | payer MEDICARE, SELFPAY ==
[2018-12-20 11:10] VITALS: BMI 30.7
--- NOTE | 2018-12-28 15:23 | RAD_ITS ---
STUDY: X-RAY - PELVIS AND LEFT HIP REASON FOR EXAM: Male, 83 years old. Posttraumatic pain TECHNIQUE: 4 views of the pelvis and hip. COMPARISON: None. FINDINGS: There is a non-specific bowel gas pattern. Normal visualized soft tissue structures. Normal bilateral iliac wings, sacroiliac joints and visualized sacrum. Normal bilateral superior and inferior pubic rami. Normal pubic symphysis. Normal bilateral ischial tuberosities. Normal visualized femoral head. Mild acetabular spurring. Normal hip joint. RAD/HIP, UNI W/ Pelvis 2-3 Views IMPRESSION: Mild degenerative changes. No evidence for acute fracture or dislocation Electronically Signed: Luís Bower MD at 16:04 EDT , Service support ,
--- NOTE | 2018-12-28 15:23 | RAD_ITS ---
STUDY: X-RAY - LEFT KNEE REASON FOR EXAM: Male, 83 years old. Posttraumatic pain TECHNIQUE: 4 view(s) of the knee. COMPARISON: None. FINDINGS: Normal visualized distal femur. Normal visualized proximal tibia and fibula. Normal proximal tibiofibular articulation. Mildly narrowed medial femorotibial compartment with chondrocalcinosis.. Normal lateral femorotibial compartment. Narrowed to patellofemoral articulation. Spurring of the upper pole of the patella. 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 RAD/Knee 4 or More Views IMPRESSION: Moderate degenerative changes. No evidence for acute fracture Electronically Signed: Luís Bower MD at 16:03 EDT , Service support ,
--- NOTE | 2018-12-28 15:24 | RAD_ITS ---
STUDY: X-RAY - LUMBAR SPINE REASON FOR EXAM: Male, 83 years old. Posttraumatic pain TECHNIQUE: 3 view(s) of the lumbar spine were obtained. COMPARISON: None FINDINGS: Normal lumbar lordosis. There is no substantial scoliosis. There is a normal alignment of the vertebrae. No evidence for acute fracture or subluxation. Multilevel disc space narrowing and osteophytic spurring. There appears to be spinal stenosis at L4-5 and L5-S1 on the lateral projection exaggerated by shortened pedicles. The soft tissue structures are unremarkable. RAD/Lumbar Spine 2 or 3 Views IMPRESSION: Moderate spondylosis. No evidence for acute fracture. Electronically Signed: Luís Bower MD at 16:06 EDT , Service support ,
--- NOTE | 2018-12-28 15:24 | RAD_ITS ---
STUDY: X-RAY - CERVICAL SPINE REASON FOR EXAM: Male, 83 years old. Posttraumatic pain TECHNIQUE: 4 view(s) of the cervical spine were obtained. COMPARISON: None FINDINGS: Normal anterior atlantoaxial articulation. Normal odontoid process. Normal cervical lordosis. No evidence for acute fracture or subluxation. There is narrowing of C4-5, C5-6 and C6-7 with endplate spurring. The soft tissue structures are unremarkable. RAD/Cerv Spine 2 or 3 Views IMPRESSION: No evidence for acute fracture or subluxation Moderate to severe spondylosis. Electronically Signed: Luís Bower MD at 21:44 EDT , Service support ,
--- NOTE | 2018-12-28 15:25 | RAD_ITS ---
STUDY: X-RAY - RIGHT SHOULDER REASON FOR EXAM: Male, 83 years old. Trauma TECHNIQUE: 4 view(s) of the shoulder. COMPARISON: None. FINDINGS: Narrowed the glenohumeral articulation. Spurring of the acromioclavicular joint. Normal acromion. Narrowed subacromial space consistent with rotator cuff tendon tear Normal humeral head and visualized proximal humerus. The soft tissue structures are unremarkable. Normal visualized pulmonary apex. RAD/Shoulder min 2 Views IMPRESSION: Moderate degenerative changes. No evidence for acute fracture. Electronically Signed: Luís Bower MD at 16:07 EDT , Service support ,
== END ==
PROVIDERS: Family Provider Family Medicine Geriatric Medicine; PCP Family Medicine Geriatric Medicine; Referring Provider Family Medicine Geriatric Medicine; Visit Provider Family Medicine Geriatric Medicine
DX: M54.5 Low back pain (principal); M25.569 Pain in unspecified knee; M25.519 Pain in unspecified shoulder; M25.559 Pain in unspecified hip; M54.2 Cervicalgia
CPT/HCPCS: 72040; 72100; 73030; 73502; 73564

== ENCOUNTER 2019-01-27 10:00 | Outpatient (RCR) | payer MEDICARE, SELFPAY ==
[2018-12-30 10:02] VITALS: BMI 30.5
--- NOTE | 2019-01-12 09:43 | HP.PTEVAL_ITS ---
Patient's Visit Information MIRANDA CLAYTON is a 83 year old M referred to Physical Therapy by Иван Plasnecia MD with a diagnosis of Gait instability. Date of Evaluation: 01/07/19 Physical Therapist: Jesús Vivas DPT - Visit Plan Frequency: 2x /Week Duration: 4 Weeks Plan: Start with BLE strengtheing progressing to gym/HEP exercises. Add in dynamic balance activities, including corrective balance stratagies/perturbation exercises. Add in some core stability exercises in neutral spine standing/supine to progress as well. - Subjective Findings: Pt. is here today for his initial evaluation with diagnosis of gait instability. Pt. arrives walking without AD this date and does not use AD at home. Pt. reports having two falls in the last few months. His first fall was on vacation when he falls getting into the pool, then recently he fell in his garage when we was attemptign to turn around. Pt. did hit his head requiring multiple stitches. Pt. reports no residual injuries, but does have slight R sided back pain. Pt. denies N/T. He does report having icnreased difficulty with walking. Pt. is hopeful to reduce his risk for falls in order to get back to all recreational activities without limitations. - Pain R side of lumbar spine/hip Pain Intensity (Out of 10): 1 Pain Intensity Range: 0, 3 - Objective POSTURE: pt. mejia slight fwrd posture and slight lateral lean to L with trunk correction. PALPATION: Pt. has slight tenderness at posterior R hip and lumbar spine, but minimal. NEURO: normal throughout, normal sensation. Normal DTR bilateral LEs. ROM: Pt. has normal ROM throughout ankle ankle knees, slight tightness in B HS. MMT: ankle 5-/5 throughout; RLE- knee- ext 5-/5, flexion 5- /5; hip- flexion 4/5, abd 4/5, ext 4/5. LLE- knee- ext 5-/5, flexion 5-/5; hip- flexion 4+/5, abd 4/e, ext 4/5. Core strength- fair-. GAIT: Pt. ambulates without AD. Pt. has increased drop off to R side during initial contact on R side and increased R [place] on R side, Pt. had no fatigue and otherwise normal step length. - Balance Scores Functional Gait Assessment Score: 19 % Disability: 36.6700 CATSIB Score (Max score 120 seconds): 74 - Goals Goal 1:: Pt. to be I with HEP for balance and BLE strengthening. Goal Time Frame: 4-6 Weeks Goal 2:: Pt. to ahve increased BLE hip and ankle strength by 1/2 grade of all effected musculature. Goal Time Frame: 4-6 Weeks Goal 3:: Pt. to have increased FGA to 22/30 indicating reduce risk for future falls. Goal Time Frame: 4-6 Weeks Goal 4:: Pt. to have increased SLS to 30sec on BLEs. Goal Time Frame: 4-6 Weeks Goal 5:: Pt. to have reduced R sided low back pain to 0-1/10 pain with all functional mobilty. Goal Time Frame: 4-6 Weeks - Rehabilitation Potential Physical Therapy Diagnosis: Pt. has signs and symptoms consistent with gait instability and difficulty correcting loss of balance. Pt. has slight ankle and BLE weakness, but has greater difficulty correcting his LOB once occuring. Pt. would benefit from PT to address above limitations and progress as toelrated. Rehabilitation Potential: Excellent - Anticipated Interventions Patient/Client Instruction: Educate patient on: Condition, Plan of Care, Risk Factors, Benefits of Fitness Program For the Purpose of:: To improve health and function, To foster healthy habits, To improve decision making, To facilitate caregiver knowledge, To improve self management, To prevent re-injury, To improve ability to perform tasks related to life management, To improve tolerance to ADL's Therapeutic Exercise to Include: Strength training, Power training, Balance training, Agility training, Body mechanics, Postural training, Flexibilty training, Gait and locomotor training, Dynamic Lumbar Stabilization For the Purpose of:: To decrease pain, To improve nutrient delivery to tissue, To increase oxygenation perfusion, To improve gait and locomotor functions, To improve health of tissue, To increase flexibility/ROM, To improve endurance, To improve balance, To improve safety with gait Thank you for the opportunity to evaluate your patient. For Medicare and Medicare HMO plans, please review the plan of care and approve it. It will need to be FAXED BACK to us at [phone] for Medicare purposes. For Medicare only, by signing this I certify the plan of care. Please let me know if there are questions or concerns regarding this plan of care. Physician Signature: Date:
--- NOTE | 2019-07-04 09:19 | HP.PTDCNRP_ITS ---
HP - Discharge Summary (1) - Patient Information MIRANDA CLAYTON was seen in my office for initial evaluation on 01/07/19. The following Plan of Care was established for this patient: Initial Frequency: 2x /Week Initial Duration: 4 Weeks - Anticipated Interventions Patient/Client Instruction: Educate patient on: Condition, Plan of Care, Risk Factors, Benefits of Fitness Program For the Purpose of:: To improve health and function, To foster healthy habits, To improve decision making, To facilitate caregiver knowledge, To improve self management, To prevent re-injury, To improve ability to perform tasks related to life management, To improve tolerance to ADL's Therapeutic Exercise to Include: Strength training, Power training, Balance training, Agility training, Body mechanics, Postural training, Flexibilty training, Gait and locomotor training, Dynamic Lumbar Stabilization For the Purpose of:: To decrease pain, To improve nutrient delivery to tissue, T o increase oxygenation perfusion, To improve gait and locomotor functions, To improve health of tissue, To increase flexibility/ROM, To improve endurance, To improve balance, To improve safety with gait This patient was last seen in our office 01/14/19. Pertinent comments regarding their Physical therapy will appear below: Pt. was seen for her gait instability. Pt. is independent with his HEP and is doign well. Pt. will be DC from PT at this point in time. At this point I will be discontinuing this patient from physical therapy. I would be happy to see this patient again in the future if found appropriate by the physician. Thank you! Jesús Vivas DPT
== END 2019-01-27 19:00 | disposition home or self-care (01) ==
LOC: PT 10:00
PROVIDERS: Family Provider Family Medicine Geriatric Medicine; PCP Family Medicine Geriatric Medicine; Referring Provider Family Medicine Geriatric Medicine; Visit Provider Family Medicine Geriatric Medicine
DX: R26.9 Unspecified abnormalities of gait and mobility (principal)
CPT/HCPCS: 97110; 97161

== ENCOUNTER → 2019-02-22 12:24 | Outpatient (CLI) | payer MEDICARE, SELFPAY ==
[2018-12-30 10:02] VITALS: BMI 30.5
[2019-02-22 13:34] LABS: Absolute Lymphocyte Count 1.93 X10^3/uL (0.83-4.51); Absolute Neutrophil Count 11.6 X10^3/uL (2.0-7.7); Basophil# 0.08 X10^3/uL; Basophil% 0.5 % (0-1); Eosinophils% 1.4 % (0-5); Hematocrit 47.7 % (40-54); Hemoglobin 15.6 g/dL (13.0-16.5); Lymphocyte # 1.93 X10^3/ul (4.0); Lymphocyte % 13.1 % (19-41); Mean Corp Hgb Conc 32.7 g/dL (32-36); Mean Corpuscular Hgb 31.8 pg (27.0-32.0); Mean Corpuscular Volume 97.3 fL (80-94); Mean Platelet Vol. 12.2 fl (6.2-12.0); Monocyte# 0.82 X10^3/uL; Monocyte% 5.6 % (0-10); NRBC Flagged by Analyzer 0 % (0-5); Neutrophil # 11.59 X10^3/uL (2.7-7.7); Platelet Count 94 K/mm3 (150-450); RBC Distribution Width CV 13.3 % (11.6-14.6); RBC Distribution Width SD 47.8 fl (35.1-43.9); White Blood Count 14.7 K/mm3 (4.4-11.0)
[2019-02-22 13:51] LABS: ALB/GLOB Ratio 0.9 RATIO (0.9-2.4); AST(SGOT) 15 U/L (15-37); Alanine Aminotransfer ALT/SGPT 20 U/L (16-61); Albumin, Serum 3.4 g/dL (3.2-5.0); Alkaline Phosphatase 86 U/L (45-117); Anion Gap 7 (5-15); BUN 19 mg/dL (7-18); BUN/Creat Ratio 13.9 RATIO (10-20); Chloride 109 mmol/L (98-107); Creatinine, Serum 1.37 mg/dL (0.70-1.30); EST Glomerular Filtration Rate 53 mL/min (>60); Est Glom Filt Rate - Afr Amer 64 mL/min (>60); Globulin 3.6 g/dL (2.2-4.2); Glucose 96 mg/dL (74-106); Potassium 4.6 mmol/L (3.5-5.1); Sodium Level 143 mmol/L (136-145)
== END ==
PROVIDERS: Family Provider Family Medicine Geriatric Medicine; PCP Family Medicine Geriatric Medicine; Visit Provider Family Medicine Geriatric Medicine
DX: R10.9 Unspecified abdominal pain (principal); N39.0 Urinary tract infection, site not specified
CPT/HCPCS: 36415; 80053; 85025; 87086

== ENCOUNTER → 2019-02-22 14:46 | Outpatient (CLI) | payer MEDICARE, SELFPAY ==
[2018-12-30 10:02] VITALS: BMI 30.5
--- NOTE | 2019-02-22 14:47 | CT_ITS ---
STUDY: CT ABDOMEN AND PELVIS WITH CONTRAST REASON FOR EXAM: Male, 83 years old. Abdominal pain. RADIATION DOSAGE (If Supplied By Facility): CTDIvol = ( 18.63 ) mGy, DLP = ( 949.31 ) mGycm TECHNIQUE: Transaxial images were obtained from the dome of the diaphragm to the symphysis pubis with oral contrast. Oral and amp; IV GASTROGRAFIN and amp; 100ML ISOVUE 300 100 was administered. Sagittal and coronal images were reconstructed. Individualized dose optimization techniques were used for this CT. COMPARISON: Comparison is made with prior study dated March 27, 2018. FINDINGS: Mild degree of increased markings at the right lung base suggestive of scarring. Scarring in the anterior aspect of the right lower lobe. The previously seen nodular density has decreased in size and presently measures 8 mm. Coronary artery calcification. Normal liver. There are multiple small gallstones. Normal spleen. Normal pancreas. Normal bilateral adrenal glands. Stable 2.3 cm cyst in the anterior aspect of the right kidney. 1 cm cyst in the lower pole of the left kidney. Normal left kidney. Normal visualized stomach. Normal small intestine. Circumferential wall thickening with increased markings in the surrounding fat involving the right hemicolon. This is in keeping with a colitis. This extends to the region of the hepatic flexure. Scattered sigmoid diverticula. The appendix is visualized and appears normal. Normal abdominal aorta. Normal inferior vena cava. Normal retroperitoneum. Normal urinary bladder. There are prostatic calcifications. There is a small umbilical hernia containing fat. Small bilateral inguinal hernias containing fat slightly more prominent on the left side. There are diffuse degenerative changes of the visualized lumbar spine. CT/Abdomen/Pelvis WITH Contrast IMPRESSION: Findings suggestive of colitis of the right hemicolon. The remainder of the examination is unchanged. Electronically Signed: Jb Talbot, at 15:55 EDT , Service support ,
== END ==
PROVIDERS: Family Provider Family Medicine Geriatric Medicine; PCP Family Medicine Geriatric Medicine; Referring Provider Family Medicine Geriatric Medicine; Visit Provider Family Medicine Geriatric Medicine
DX: R10.9 Unspecified abdominal pain (principal)
CPT/HCPCS: 36415; 74177; 80053; 85025; 87086; Q9967

== ENCOUNTER 2019-03-19 13:02 | Emergency (ER) | payer MEDICARE, SELFPAY ==
[2018-12-30 10:02] VITALS: BMI 30.5
[2019-03-19 13:03] VITALS: BP 143/94; PULSE 89; RESP 14; TEMP 36.7; O2SAT 96; BMI 30.2
[2019-03-19 13:17] VITALS: RESP 18
--- NOTE | 2019-03-19 13:19 | RAD_ITS ---
STUDY: X-RAY CHEST REASON FOR EXAM: Male, 83 years old. part of a falling tree limb fell on the patient today TECHNIQUE: PA and lateral views of the chest. COMPARISON: 09/25/2017 FINDINGS: There are interstitial fibrotic changes of the lungs. There is no demonstrated pleural abnormality. Normal size heart. Sternal wires and mediastinal surgical clips compatible with prior CABG. Normal mediastinum and guero. Normal visualized pulmonary arteries. There is atherosclerotic calcification of the aortic arch with tortuosity. There are diffuse degenerative changes of the visualized thoracic spine. Normal visualized ribs, clavicles, and shoulders. There is no demonstrated abnormality of the visualized soft tissue structures of the upper abdomen. RAD/Chest PA and Lateral IMPRESSION: Stable, nonacute x-ray examination of the chest. Electronically Signed: Uvaldo Chaparro MD ([place]) at 13:51 EDT , Service support ,
--- NOTE | 2019-03-19 13:19 | CT_ITS ---
STUDY: CT BRAIN WITHOUT CONTRAST REASON FOR EXAM: Male, 83 years old. Hit on head with tree limb, blood thinners RADIATION DOSAGE (If Supplied By Facility): CTDIvol = ( 44.99 ) mGy, DLP = ( 812.98 ) mGycm TECHNIQUE: Transaxial CT imaging of the brain was performed without administration of intravenous contrast material. Individualized dose optimization techniques were used for this CT. COMPARISON: 12/20/2018 FINDINGS: Normal soft tissue structures. Normal calvarium. There is mild cerebral atrophy with widening of the extra-axial spaces and ventricular dilatation. There are areas of decreased attenuation within the white matter tracts of the supratentorial brain, consistent with microvascular disease changes. Normal basal ganglia and thalami. Normal brainstem. Normal cerebellum. There is no intracranial hemorrhage. There are no findings of an acute ischemic infarction. Normal visualized paranasal sinuses. CT/Brain/Head without Contrast IMPRESSION: No acute intracranial hemorrhage or mass effect. Stable exam. Electronically Signed: Uvaldo Chaparro MD ([place]) at 13:45 EDT , Service support ,
--- NOTE | 2019-03-19 13:19 | CT_ITS ---
STUDY: CT CERVICAL SPINE WITHOUT CONTRAST REASON FOR EXAM: Male, 83 years old. TRAUMA, HIT ON HEAD WITH TREE LIMB, ON BLOOD THINNERS RADIATION DOSAGE (If Supplied By Facility): CTDIvol = ( 23.25 ) mGy, DLP = ( 431.79 ) mGycm TECHNIQUE: High resolution transaxial imaging was performed without contrast material. Sagittal and coronal images were reconstructed. Individualized dose optimization techniques were used for this CT. COMPARISON: None FINDINGS: Normal craniovertebral junction. There are degenerative changes of the anterior atlantoaxial articulation. Normal odontoid process. Normal cervical lordosis. Normal vertebral bodies and posterior osseous elements. C2-3: Disc space narrowing with anterior spondylosis and posterior disc osteophyte complex contiguous with uncovertebral hypertrophy on the left side. Left more than right facet arthropathy contributes to foraminal stenosis, left more than right. C3-4: Disc space narrowing with posterior disc osteophyte complex, uncovertebral hypertrophy and facet arthropathy causing bilateral foraminal canal narrowing. C4-5: Disc space narrowing with anterior spondylosis, uncovertebral hypertrophy and facet arthropathy contributing to bilateral foraminal and canal narrowing. C5-6: Disc space narrowing with anterior spondylosis and posterior disc osteophyte complex. Left more than right uncovertebral hypertrophy causing severe bilateral foraminal stenosis. There is moderate to severe (on left) canal stenosis. C6-7: Disc space narrowing with anterior spondylosis and endplate sclerosis. Mild canal narrowing as well as narrowing of the bilateral neural foramina. C7-T1: Anterior spondylosis with anterolisthesis due to facet arthropathy. Atherosclerosis of the bilateral carotid arteries. CT/Spine Cervical without Contras IMPRESSION: No cervical spine fracture or traumatic subluxation. Degenerative changes, as above. Electronically Signed: Uvaldo Chaparro MD ([place]) at 13:49 EDT , Service support ,
--- NOTE | 2019-03-19 13:26 | ED.VIS.GEN ---
History of Present Illness Chief Complaint: Wound Informant: Patient, Family Onset: Today Current Severity: Moderate Narrative: 83-year-old male on [place], history of CABG, presents after a tree limb fell on him. He states that it was approximately 4 cm in diameter. Fell and hit him on top of the head, back. He was knocked to the ground. No LOC. Branch was also laying on his chest. Patient denies any loss of consciousness, vision change, nausea, vomiting. He states his last tetanus shot was within the last 5 years. Past Medical History - Allergies and Home Meds Allergies/Adverse Reactions: Allergies No Known Allergies Allergy (Verified 03/19/19 13:05) Primary Care Physician: Иван Plasencia Chi, MD [Primary Care Provider] - Prior records reviewed: Yes - Hypertension, diabetes Surgical History: coronary bypass surgery Smoking Status: Never smoker Review of Systems General: Denies: Chills, Fever, Sweats Eyes: Denies: Visual changes - bilaterally, Diplopia ENT: Denies: Rhinorrhea, Sore throat Cardiovascular: Denies: Chest pain, Palpitations Respiratory: Denies: Dyspnea, Cough, Dyspnea on exertion Gastrointestinal: Denies: Abdominal pain, Nausea, Vomiting, Diarrhea, Melena, Hematochezia Genitourinary: Denies: Dysuria, Hematuria, Frequency Musculoskeletal: Reports: - - Neck pain. Denies: Back pain, Extremity Pain Skin: Reports: Wounds. Denies: Rash Neurological: Denies: Headache, Weakness, Numbness Physical Exam Vital Signs/Narrative: Vital Signs Temp Pulse Resp BP Pulse Ox 03/19/19 13:17 18 03/19/19 13:03 98.1 F 89 14 143/94 H 96 General: Well nourished, Well developed, No Acute Distress Head: - - Patient has a 2 cm, full-thickness laceration to the posterior aspect of the scalp. No active bleeding. No heat with the pain on, raccoon eyes or alva signs. No other signs of trauma. Eyes: Perrl, EOMI ENT: Moist mucous membranes, No rhinorrhea Neck: Supple, - - Patient had midline tenderness in the lower cervical spine region. No step-offs. No deformity appreciated.. Negative for: Nontender Cardiovascular: Regular rate, Regular rhythm, No murmurs Respiratory: No distress, CTA bilaterally, Chest nontender Abdomen: Soft, Nontender, Nondistended, Normal bowel sounds Back: Nontender, Normal Inspection Extremities: Nontender, No edema Skin: No rash, - - Patient has skin tear to his right elbow, no active bleeding. Neurological: Alert, Oriented x3, Cranial nerves II-XII grossly intact, Normal Strength, Normal Sensation Psychological: Normal affect, Normal Mood Diagnostic/Tx/Re-eval - Medical Decision Making Patient evaluated after head injury. Had a tree fell on his head. He appears well and nontoxic. No focal deficits. Does have a laceration to the posterior aspect of his scalp and a skin tear. CT head, neck, chest x-ray will be obtained. Patient CT head, neck and chest x-ray were unremarkable. Wound was irrigated with saline, 3 alex were placed. Patient tolerated procedure well. Patient instructed to follow-up with primary care provider in 10-14 days. Given return precautions. Wounds bandaged with bacitracin. Patient agreed with the plan discharged home Impression: 1. 2 cm scalp laceration 2. Head injury 3. Right elbow skin tear The patient was seen and evaluated with the resident, Dr. Dempsey. I do agree with above. Medical decision making was shared.. ED Disposition - Plan for ED Patient: Instructions: LACERATION, Scalp Referrals: Иван Plasencia Chi, MD [Primary Care Provider] -
[2019-03-19] MEDS: Lidocaine/Epi/Tetracaine 50 ML 1 APPLIC TOPICAL (13:27)
[2019-03-19 14:45] VITALS: RESP 18
== END 2019-03-19 14:46 | disposition home or self-care (01) ==
PROVIDERS: Emergency Provider Emergency Medicine; Family Provider Family Medicine Geriatric Medicine; PCP Family Medicine Geriatric Medicine
DX: S01.01XA Laceration without foreign body of scalp, initial encounter (principal); S51.011A Laceration without foreign body of right elbow, initial encounter; W20.8XXA Other cause of strike by thrown, projected or falling object, initial encounter; Y93.9 Activity, unspecified; Y92.89 Other specified places as the place of occurrence of the external cause; Y99.9 Unspecified external cause status; Z79.01 Long term (current) use of anticoagulants; Z95.1 Presence of aortocoronary bypass graft
CPT/HCPCS: 12001; 70450; 71046; 72125; 99285

== ENCOUNTER → 2019-04-26 11:19 | Outpatient (CLI) | payer MEDICARE, SELFPAY ==
[2019-04-26 12:25] LABS: Absolute Lymphocyte Count 2.81 X10^3/uL (0.83-4.51); Absolute Neutrophil Count 6.9 X10^3/uL (2.0-7.7); Basophil% 0.9 % (0-1); Eosinophil# 0.16 X10^3/uL; Eosinophils% 1.5 % (0-5); Hematocrit 48.4 % (40-54); Lymphocyte # 2.81 X10^3/ul (4.0); Lymphocyte % 26.2 % (19-41); Mean Corp Hgb Conc 33.1 g/dL (32-36); Mean Corpuscular Hgb 31.3 pg (27.0-32.0); Mean Corpuscular Volume 94.7 fL (80-94); Mean Platelet Vol. 11.3 fl (6.2-12.0); Monocyte# 0.68 X10^3/uL; Monocyte% 6.3 % (0-10); NRBC Flagged by Analyzer 0 % (0-5); Neutrophil # 6.93 X10^3/uL (2.7-7.7); Neutrophil % 64.5 % (47-70); Platelet Count 168 K/mm3 (150-450); RBC Distribution Width CV 13.5 % (11.6-14.6); RBC Distribution Width SD 47.6 fl (35.1-43.9); Red Blood Count 5.11 M/mm3 (4.6-6.2); White Blood Count 10.7 K/mm3 (4.4-11.0)
[2019-04-26 12:47] LABS: ALB/GLOB Ratio 1.3 RATIO (0.9-2.4); AST(SGOT) 18 U/L (15-37); Alanine Aminotransfer ALT/SGPT 28 U/L (16-61); Albumin, Serum 3.9 g/dL (3.2-5.0); Alkaline Phosphatase 87 U/L (45-117); Anion Gap 7 (5-15); BUN 20 mg/dL (7-18); BUN/Creat Ratio 16.7 RATIO (10-20); Calcium,Total 8.8 mg/dL (8.5-10.1); Chloride 111 mmol/L (98-107); EST Glomerular Filtration Rate 62 mL/min (>60); Est Glom Filt Rate - Afr Amer 74 mL/min (>60); Glucose 98 mg/dL (74-106); Potassium 4.6 mmol/L (3.5-5.1); Protein, Total 6.9 g/dL (6.4-8.2); Sodium Level 140 mmol/L (136-145); Thyroid Stim Hormone (TSH) 1.41 uIU/mL (0.358-3.74)
[2019-04-26 12:48] LABS: Vitamin D,25 Hydroxy 20.8 ng/mL (29.95-100.01)
== END ==
PROVIDERS: Family Provider Family Medicine Geriatric Medicine; PCP Family Medicine Geriatric Medicine; Visit Provider Family Medicine Geriatric Medicine
DX: E55.9 Vitamin D deficiency, unspecified (principal); I10 Essential (primary) hypertension; E23.6 Other disorders of pituitary gland
CPT/HCPCS: 36415; 80053; 82306; 84403; 84443; 85025

== ENCOUNTER 2019-07-08 11:22 | Emergency (ER) | payer MEDICARE, SELFPAY ==
[2019-07-08 11:23] VITALS: BP 143/77; PULSE 83; RESP 17; TEMP 36.7; O2SAT 94; BMI 31.4
--- NOTE | 2019-07-08 11:39 | ED.VIS.GEN ---
History of Present Illness Chief Complaint: Fall Informant: Patient Onset: Today Current Severity: Mild Maximum Severity: Moderate Narrative: Patient presents after fall on ice this morning, landing on his right shoulder. Patient does have a history of A. fib and is on Xarelto. He denies striking his head. He has no headache or neck pain. Patient complains of skin tears to the right arm with increased pain around the shoulder itself. 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 (3) Chronic atrial fibrillation Status: Chronic (4) Essential (primary) hypertension Status: Chronic (5) H/O coronary artery bypass surgery Status: Chronic Comment: CABG x 5: NACHO-high lateral CX, Sequential BAHENA-LAD and D1, SVG-CX, SVG-RPDA 06/10/2005 (6) HLD (hyperlipidemia) Status: Chronic Past Medical History - Allergies and Home Meds Allergies/Adverse Reactions: Allergies No Known Allergies Allergy (Verified 07/08/19 11:23) Primary Care Physician: Иван Plasencia Chi, MD [Primary Care Provider] - Prior records reviewed: Yes Surgical History: coronary bypass surgery Lives: Spouse/ Significant Other Smoking Status: Never smoker Review of Systems General: Denies: Chills, Fever Eyes: Denies: Visual changes - bilaterally ENT: Denies: Bilateral ear pain Cardiovascular: Denies: Chest pain Respiratory: Denies: Dyspnea, Cough Gastrointestinal: Denies: Abdominal pain, Nausea, Vomiting, Diarrhea Musculoskeletal: Reports: Arthralgias, Extremity Pain. Denies: Neck pain, Back pain Skin: Reports: Wounds Neurological: Denies: Headache, Parasthesia Allergy: Denies: Uticaria Physical Exam Vital Signs/Narrative: Vital Signs Temp Pulse Resp BP Pulse Ox 07/08/19 11:23 98.0 F 83 17 143/77 H 94 Inital Vital Signs reviewed: Yes General: Well nourished, Well developed Head: Normocephalic ENT: Moist mucous membranes Neck: Supple Cardiovascular: Regular rate, Regular rhythm Respiratory: No distress, CTA bilaterally Abdomen: Soft, Nontender Back: Nontender Extremities: - - 2 skin tears noted to the extensor surface of the right elbow. One measures 5 cm in length and 1 measures 2 cm in length. No active bleeding noted at this time. Patient does have tenderness around the humeral head. No tenderness over the clavicle. No tenderness over the scapula. Strong distal pulses are noted and he has a strong hand grasp. Neurological: Alert, Oriented x3 Psychological: Normal affect Diagnostic/Tx/Re-eval Impressions Forearm X-Ray 07/08/19 11:43 IMPRESSION: Normal x-ray examination of the radius and ulna. Electronically Signed: Gunner Weathers MD at 12:22 EST , Service support , Humerus X-Ray 07/08/19 11:54 IMPRESSION: Acute slightly impacted and angulated surgical neck fracture of the humerus with soft tissue swelling. 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 Right elbow skin tears are cleansed and dressed. On repeat evaluation test results are discussed with patient and . He will be placed in a sling and is requesting a dose of Tylenol at this time. Tetanus update will be provided. He is known to Dr. Laith Matos will follow-up in the office. ED Disposition - Plan for ED Patient: Disposition: Home or Assisted Living Diagnosis: Humeral fracture Instructions: FRACTURE, Shoulder Referrals: Luis Wiseman DO [STAFF PHYSICIAN] - 5-7 Days
--- NOTE | 2019-07-08 11:43 | RAD_ITS ---
STUDY: X-RAY - RIGHT RADIUS AND ULNA REASON FOR EXAM: Male, 83 years old. PAIN S/P FALL TECHNIQUE: 2 view(s) of the forearm. COMPARISON: None. FINDINGS: There is no demonstrated soft tissue swelling. Normal visualized radius. Normal visualized ulna. RAD/Forearm 2 Views IMPRESSION: Normal x-ray examination of the radius and ulna. Electronically Signed: Gunner Weathers MD at 12:22 EST , Service support ,
--- NOTE | 2019-07-08 11:54 | RAD_ITS ---
STUDY: X-RAY - RIGHT HUMERUS REASON FOR EXAM: Male, 83 years old. PAIN S/P FALL TECHNIQUE: 2 view(s) of the humerus. COMPARISON: None. FINDINGS: There is diffuse demineralization of the humerus. There is an acute slightly impacted and angulated fracture of the surgical neck of the humerus with associated soft tissue swelling. There is significant glenohumeral arthrosis and acromioclavicular arthrosis without dislocation or subluxation of the glenohumeral joint. There is no demonstrated soft tissue abnormality. RAD/Humerus min 2 Views IMPRESSION: Acute slightly impacted and angulated surgical neck fracture of the humerus with soft tissue swelling. 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
--- NOTE | 2019-07-08 12:05 | RAD_ITS ---
STUDY: X-RAY - RIGHT SHOULDER REASON FOR EXAM: Male, 83 years old. PAIN S/P FALL TECHNIQUE: 2 view(s) of the shoulder. COMPARISON: None. FINDINGS: Acute, impacted, and angulated fracture of the surgical neck of the humerus with soft tissue swelling. 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 There is degenerative arthrosis of the acromioclavicular joint without inferior osseous spur formation. Normal acromion. There is demineralization of the humerus and visualized osseous structures. The soft tissue structures are unremarkable. No upper rib fracture or pneumothorax RAD/Shoulder min 2 Views IMPRESSION: Acute impacted angulated fracture of the surgical neck of the humerus with soft tissue swelling Glenohumeral and acromioclavicular joint arthrosis Electronically Signed: Gunner Weathers MD at 12:25 EST , Service support ,
[2019-07-08] MEDS: Acetaminophen 500 MG Tablet 1000 MG PO (13:24)
[2019-07-08] MEDS: Diphth,Pertuss(Acell),Tet Vac 0.5 ML Vial IM (13:24)
== END 2019-07-08 13:49 | disposition home or self-care (01) ==
PROVIDERS: Emergency Provider Emergency Medicine; PCP Family Medicine Geriatric Medicine
DX: S42.211A Unspecified displaced fracture of surgical neck of right humerus, initial encounter for closed fracture (principal); W00.0XXA Fall on same level due to ice and snow, initial encounter; Y93.9 Activity, unspecified; Y92.9 Unspecified place or not applicable; Y99.9 Unspecified external cause status; E78.5 Hyperlipidemia, unspecified; I10 Essential (primary) hypertension; I25.10 Atherosclerotic heart disease of native coronary artery without angina pectoris; I48.20 Chronic atrial fibrillation, unspecified; M19.011 Primary osteoarthritis, right shoulder; Z79.01 Long term (current) use of anticoagulants; Z95.1 Presence of aortocoronary bypass graft; Z86.73 Personal history of transient ischemic attack (TIA), and cerebral infarction without residual deficits
CPT/HCPCS: 73030; 73060; 73090; 90715; 99283

== ENCOUNTER → 2019-07-11 10:44 | Outpatient (CLI) | payer MEDICARE, SELFPAY ==
[2019-07-08 11:23] VITALS: BMI 31.4
--- NOTE | 2019-07-11 10:44 | RAD_ITS ---
STUDY: X-RAY - RIGHT SHOULDER REASON FOR EXAM: Humeral fracture. TECHNIQUE: A single view of the shoulder. COMPARISON: Radiographs 07/08/2019. FINDINGS: There is osteopenia. There is inferior displacement of the humeral head likely indicating hemarthrosis. There is acromioclavicular arthrosis. Normal acromion. There is a comminuted fracture of the surgical neck of the humerus likely extending into the greater trochanter. The soft tissue structures are unremarkable. RAD/Shoulder One View IMPRESSION: Proximal humeral fracture without interval change. Inferior displacement of the humeral head likely indicating hemarthrosis. Acromioclavicular arthrosis. Electronically Signed: Lamont Horta MD at 12:19 EST Tel , Service support ,
== END ==
PROVIDERS: PCP Family Medicine Geriatric Medicine; Referring Provider Orthopaedic Surgery; Visit Provider Orthopaedic Surgery
DX: M79.603 Pain in arm, unspecified (principal)
CPT/HCPCS: 73020

== ENCOUNTER → 2019-07-18 11:29 | Outpatient (CLI) | payer MEDICARE, SELFPAY ==
[2019-07-18 07:54] VITALS: BMI 31.4
--- NOTE | 2019-07-18 11:31 | RAD_ITS ---
STUDY: X-RAY - RIGHT SHOULDER REASON FOR EXAM: Male, 84 years old. FRACTURE TECHNIQUE: 3 view(s) of the shoulder. COMPARISON: 07/11/2019. 07/08/2019. FINDINGS: There is mild degenerative arthrosis of the glenohumeral articulation. Normal acromioclavicular joint. Normal acromion. There is redemonstration of a mildly comminuted fracture of the surgical neck of humerus. There is approximately 2 cm posterior medial displacement, which represents worsened alignment from previous studies. The soft tissue structures are unremarkable. Normal visualized pulmonary apex. RAD/Shoulder min 2 Views IMPRESSION: Redemonstration mildly comminuted fracture through the surgical neck of the humerus. There is worsened alignment, with approximately 2 cm posterior medial displacement of the fracture site. Electronically Signed: Alphonso Hidalgo MD at 7:01 EST , Service support ,
== END ==
PROVIDERS: PCP Family Medicine Geriatric Medicine; Referring Provider Orthopaedic Surgery; Visit Provider Orthopaedic Surgery
DX: S42.291A Other displaced fracture of upper end of right humerus, initial encounter for closed fracture (principal)
CPT/HCPCS: 73030

== ENCOUNTER → 2019-07-21 17:17 | Outpatient (CLI) | payer MEDICARE, SELFPAY ==
[2019-07-18 07:54] VITALS: BMI 31.4
== END ==
PROVIDERS: PCP Family Medicine Geriatric Medicine; Referring Provider Family Medicine Geriatric Medicine; Visit Provider Family Medicine Geriatric Medicine
DX: R68.83 Chills (without fever) (principal)
CPT/HCPCS: 87633

== ENCOUNTER 2019-08-05 10:30 | Outpatient (RCR) | payer MEDICARE, SELFPAY ==
[2019-07-18 07:54] VITALS: BMI 31.4
--- NOTE | 2019-07-20 10:58 | HP.OTEVAL ---
Patient's Visit Information MIRANDA CLAYTON is a 84 year old M, referred to Occupational Therapy by Luis Wiseman DO, with a diagnosis of right humerus fx. Date of Evaluation: 07/19/19 Occupational Therapist: HUE Cintron/Anne Marie, CHT - Subjective Subjective: This 84 year old male was seen for OT eval with dx of right humerus fx. Pt has a fall 2019. Pt arrives to OT for edema mtg. supportive and able to assist with edema care. - ADLs Dressing: Button shirt, Pants, Socks, Shoes Fasteners: Tie shoes, Buttons Eating: Use silverware Bathing: Handle washcloth & soap - is assisting pt with all ADls and IADLs at this time. - Pain left UE 4 Pain Intensity Range: 6 - Lymphedema (Circumferential Measure) MCP: right 24cm left 21cm Wrist: right 21cm left 19cm Lower forearm: right 24cm left 20cm Largest forearm: right 33cm left 27cm Elbow: right 32cm left 26cm Largest humerus: right 30cm left 28cm - Quick DASH-Disab of Arm,Shoulder& Hand Quick DASH Score: 88.6350 - Goals Goal:: pt will report pain no greater than 2/10 Goal:: pt will demo right UE circumfrence measurments equal to left by d/c. pt and will demo understanding of elevation, MLD stimulation ex, and SMLD massage by end of 3rd visit. - Rehabilitation General Assessment: pt demo with right humerus fx and edmea in right UE. Pt demo need for skilled OT services 2-3x week for 4 weeks to assist pt with edema control. pt supportive and both pt and spouse agree to POC. Rehabilitation Potential: Good - Anticipated Interventions Anticipated Interventions: Edema Control, Caregiver Training - Visit Plan Frequency: 2-3x /Week Duration: 4 Weeks TEXT: Thank you for the opportunity to evaluate your patient. For Medicare and Medicare HMO plans, please review the plan of care and approve it. It will need to be FAXED BACK to us at [phone] for Medicare purposes. Please let me know if there are questions or concerns regarding this plan of care. Physician Signature: Date:
== END 2019-08-05 19:00 | disposition home or self-care (01) ==
LOC: OT 10:30
PROVIDERS: PCP Family Medicine Geriatric Medicine; Referring Provider Orthopaedic Surgery; Visit Provider Orthopaedic Surgery
DX: S42.301D Unspecified fracture of shaft of humerus, right arm, subsequent encounter for fracture with routine healing (principal)
CPT/HCPCS: 97110; 97140; 97166; 97530

== ENCOUNTER → 2019-08-17 10:21 | Outpatient (CLI) | payer MEDICARE, SELFPAY ==
[2019-07-18 07:54] VITALS: BMI 31.4
--- NOTE | 2019-08-17 10:22 | RAD_ITS ---
STUDY: X-RAY - RIGHT HUMERUS REASON FOR EXAM: Male, 84 years old. FX FOLLOW UP TECHNIQUE: 2 view(s) of the humerus. COMPARISON: Comparison is made with prior examination dated July 08, 2019. FINDINGS: There is evidence of a healing fracture of the surgical neck of the humerus. The alignment is maintained. There is no demonstrated soft tissue abnormality. RAD/Humerus min 2 Views IMPRESSION: Healing fracture of the surgical neck of the humerus. Electronically Signed: Jb Talbot, at 14:40 EDT , Service support ,
== END ==
PROVIDERS: PCP Family Medicine Geriatric Medicine; Referring Provider Orthopaedic Surgery; Visit Provider Orthopaedic Surgery
DX: S42.291D Other displaced fracture of upper end of right humerus, subsequent encounter for fracture with routine healing (principal)
CPT/HCPCS: 73060

== ENCOUNTER → 2019-09-28 09:54 | Outpatient (CLI) | payer MEDICARE, SELFPAY ==
[2019-08-17 10:38] VITALS: BMI 31.4
--- NOTE | 2019-09-28 09:54 | RAD_ITS ---
STUDY: X-RAY - RIGHT SHOULDER REASON FOR EXAM: Male, 84 years old. FRACTURE TECHNIQUE: 4 view(s) of the shoulder. COMPARISON: Comparison is made with prior study dated July 18, 2019. FINDINGS: Normal glenohumeral articulation. Normal acromioclavicular joint. Normal acromion. Healing comminuted impacted fracture of the surgical neck of the humerus. The soft tissue structures are unremarkable. Normal visualized pulmonary apex. RAD/Shoulder min 2 Views IMPRESSION: Healing comminuted impacted fracture of the surgical neck of the humerus. The alignment is maintained. Electronically Signed: Jb Talbot, at 11:21 EDT , Service support ,
== END ==
PROVIDERS: PCP Family Medicine Geriatric Medicine; Referring Provider Orthopaedic Surgery; Visit Provider Orthopaedic Surgery
DX: S42.291D Other displaced fracture of upper end of right humerus, subsequent encounter for fracture with routine healing (principal); S42.201D Unspecified fracture of upper end of right humerus, subsequent encounter for fracture with routine healing
CPT/HCPCS: 73030; 97110; 97161

== ENCOUNTER 2019-10-27 09:00 | Outpatient (RCR) | payer MEDICARE, SELFPAY ==
[2019-09-28 10:12] VITALS: BMI 31.4
--- NOTE | 2019-09-28 13:58 | HP.PTEVAL ---
Patient's Visit Information MIRANDA CLAYTON is a 84 year old M referred to Physical Therapy by Luis Wiseman DO with a diagnosis of Proximal R humerus fracture. Date of Evaluation: 09/28/19 Physical Therapist: Jesús Vivas DPT - Visit Plan Frequency: 1-2x /Week Duration: 4-6 Weeks Plan: Start with HEP for shoulder, elbow strenghtening. Start light with higher volume of repetitions, progressing as tolerated. Focus on deltoid, UT, RTC and scapular strengthening. Avoid pain with all movements. - Subjective Subjective: Pt. is here today for his initial evaluatuon with diagnosis of R proximal humerus fracture. DOI: ~12 weeks ago. Pt. reports overall doing much better. Pt. reports minimal pain at this point in time. Pt. got cleared to start strengthening, but is to aviod heavy wt's. Pt. has been diligent with exercises on ROM at home. Pt. has not n/T and edema has drastically reduced. 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 - Pain R shoulder Pain Intensity (Out of 10): 0 Comment: 0.5/10 - Objective POSTURE: Pt. has general fwrd flexed posture. Pt. has rounded shoulders, but equal shoulder heights. PALPATION: Pt. has mild tenderness at anterior shoulder/humerus, but minimal. NEURO: normal throughout. ROM: R wrist/elbow- full normal. R shoulder- AROM- flexion 140deg, abd 135deg, functional ER C1, functional IR L5. PROM: flexion 155deg, abd 150deg, ER at 90deg 50deg, IR at 90deg 30deg. No over pressure done. MMT: R wrist- 5/5 through, elbow- 5/5 throughout; shoulder- flexion 3+/5, abd 3+/5, ER 4/5, IR 4+/5, ext 4+/5. - Goals Goal 1:: LTG: Pt. to be I with HEP. Goal Time Frame: 4-6 Weeks Goal 2:: LTG: PT. to have increased strength of R shoulder by 1/2 grade of all effected musculature. 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 Goal Time Frame: 4-6 Weeks Goal 4:: LTG: pt. to complete all recreational activities without limitaitons. Goal Time Frame: 4-6 Weeks - Rehabilitation Potential Physical Therapy Diagnosis: Pt. has signs and symptom consistent with routine healing after a humerus fracture. Pt. is doing much better, but stiill presents with some lack of motion, but mostly presenting with weakness especially with overhead movements. Pt. would benefit from PT to address these limitations progressing back to all activties without limitations. Rehabilitation Potential: Excellent - Anticipated Interventions Patient/Client Instruction: Educate patient on: Condition, Plan of Care, Risk Factors, Benefits of Fitness Program For the Purpose of:: To improve decision making, To facilitate caregiver knowledge, To improve self management, To prevent re-injury, To improve ability to perform tasks related to life management, To improve tolerance to ADL's Therapeutic Exercise to Include: Strength training, Power training, Postural training, Flexibilty training, Active ROM, Scapular Strength/Stabilization For the Purpose of:: To increase ROM, To improve nutrient delivery to tissue, To increase oxygenation perfusion, To improve muscle performance and motor function, To improve ability to perform ADL's, To improve health of tissue, To decrease soft tissue restriction, To increase flexibility/ROM Thank you for the opportunity to evaluate your patient. For Medicare and Medicare HMO plans, please review the plan of care and approve it. It will need to be FAXED BACK to us at [phone] for Medicare purposes. For Medicare only, by signing this I certify the plan of care. Please let me know if there are questions or concerns regarding this plan of care. Physician Signature: Date:
--- NOTE | 2020-02-21 11:51 | HP.PT.NRP ---
MIRANDA CLAYTON was seen in my office for initial evaluation on 09/28/19. The following Plan of Care was established for this patient: Initial Frequency: 1-2x /Week Initial Duration: 4-6 Weeks Patient/Client Instruction: Educate patient on: Condition, Plan of Care, Risk Factors, Benefits of Fitness Program For the Purpose of:: To improve decision making, To facilitate caregiver knowledge, To improve self management, To prevent re-injury, To improve ability to perform tasks related to life management, To improve tolerance to ADL's Therapeutic Exercise to Include: Strength training, Power training, Postural training, Flexibilty training, Active ROM, Scapular Strength/Stabilization For the Purpose of:: To increase ROM, To improve nutrient delivery to tissue, To increase oxygenation perfusion, To improve muscle performance and motor function, To improve ability to perform ADL's, To improve health of tissue, To decrease soft tissue restriction, To increase flexibility/ROM This patient was last seen in our office 10/27/19. Pertinent comments regarding their Physical therapy will appear below: Pt. was seen for his R humerus fracture. Pt. has not been seen in several months and willbe DC from PT at this point in time. At this point I will be discontinuing this patient from physical therapy. I would be happy to see this patient again in the future if found appropriate by the physician. Thank you! Jesús Vivas DPT
== END 2019-10-27 19:00 | disposition home or self-care (01) ==
LOC: PT 09:00
PROVIDERS: PCP Family Medicine Geriatric Medicine; Referring Provider Orthopaedic Surgery; Visit Provider Orthopaedic Surgery
DX: S42.201D Unspecified fracture of upper end of right humerus, subsequent encounter for fracture with routine healing (principal)
CPT/HCPCS: 97110; 97161

== ENCOUNTER → 2019-10-28 09:37 | Outpatient (CLI) | payer MEDICARE, SELFPAY ==
[2019-09-28 10:12] VITALS: BMI 31.4
[2019-10-28 12:50] LABS: Absolute Lymphocyte Count 2.05 X10^3/uL (0.83-4.51); Absolute Neutrophil Count 7.2 X10^3/uL (2.0-7.7); Basophil# 0.07 X10^3/uL; Basophil% 0.7 % (0-1); Eosinophil# 0.15 X10^3/uL; Eosinophils% 1.5 % (0-5); Hematocrit 47.1 % (40-54); Hemoglobin 15.3 g/dL (13.0-16.5); Lymphocyte # 2.05 X10^3/ul (4.0); Lymphocyte % 20.3 % (19-41); Mean Corp Hgb Conc 32.5 g/dL (32-36); Mean Corpuscular Hgb 31.7 pg (27.0-32.0); Mean Corpuscular Volume 97.5 fL (80-94); Mean Platelet Vol. 10.9 fl (6.2-12.0); Monocyte% 5.9 % (0-10); NRBC Flagged by Analyzer 0 % (0-5); Neutrophil % 71.2 % (47-70); Platelet Count 192 K/mm3 (150-450); RBC Distribution Width CV 13.6 % (11.6-14.6); Red Blood Count 4.83 M/mm3 (4.6-6.2); White Blood Count 10.1 K/mm3 (4.4-11.0)
[2019-10-28 13:45] LABS: ALB/GLOB Ratio 1.2 RATIO (0.9-2.4); AST(SGOT) 21 U/L (15-37); Alanine Aminotransfer ALT/SGPT 27 U/L (16-61); Albumin, Serum 3.6 g/dL (3.2-5.0); Alkaline Phosphatase 80 U/L (45-117); Anion Gap 5 (5-15); BUN 22 mg/dL (7-18); BUN/Creat Ratio 17.7 RATIO (10-20); Calcium,Total 8.7 mg/dL (8.5-10.1); Chloride 114 mmol/L (98-107); Creatinine, Serum 1.24 mg/dL (0.70-1.30); EST Glomerular Filtration Rate 59 mL/min (>60); Est Glom Filt Rate - Afr Amer 72 mL/min (>60); Glucose 105 mg/dL (74-106); Potassium 4.3 mmol/L (3.5-5.1); Protein, Total 6.6 g/dL (6.4-8.2); Sodium Level 143 mmol/L (136-145); Thyroid Stim Hormone (TSH) 0.77 uIU/mL (0.358-3.74)
[2019-10-28 17:09] LABS: Vitamin D,25 Hydroxy 32.2 ng/mL
== END ==
PROVIDERS: PCP Family Medicine Geriatric Medicine; Visit Provider Family Medicine Geriatric Medicine
DX: I10 Essential (primary) hypertension (principal); E55.9 Vitamin D deficiency, unspecified; E23.6 Other disorders of pituitary gland
CPT/HCPCS: 36415; 80053; 82306; 84403; 84443; 85025

== ENCOUNTER → 2019-12-16 10:53 | Outpatient (CLI) | payer MEDICARE, SELFPAY ==
[2019-09-28 10:12] VITALS: BMI 31.4
[2019-12-16 12:40] LABS: Basophil# 0.07 X10^3/uL; Basophil% 0.9 % (0-1); Eosinophil# 0.17 X10^3/uL; Eosinophils% 2.2 % (0-5); Hematocrit 44.9 % (40-54); Hemoglobin 14.8 g/dL (13.0-16.5); Lymphocyte % 23.4 % (19-41); Mean Corpuscular Hgb 32.7 pg (27.0-32.0); Mean Corpuscular Volume 99.3 fL (80-94); Mean Platelet Vol. 10.9 fl (6.2-12.0); Monocyte# 0.62 X10^3/uL; Monocyte% 8.1 % (0-10); NRBC Flagged by Analyzer 0 % (0-5); Neutrophil # 4.97 X10^3/uL (2.7-7.7); Neutrophil % 64.7 % (47-70); Platelet Count 160 K/mm3 (150-450); RBC Distribution Width CV 13.4 % (11.6-14.6); RBC Distribution Width SD 49.3 fl (35.1-43.9); Red Blood Count 4.52 M/mm3 (4.6-6.2); White Blood Count 7.7 K/mm3 (4.4-11.0)
[2019-12-16 12:58] LABS: Anion Gap 4 (5-15); BUN 19 mg/dL (7-18); BUN/Creat Ratio 16.8 RATIO (10-20); Calcium,Total 8.2 mg/dL (8.5-10.1); Chloride 114 mmol/L (98-107); Creatinine, Serum 1.13 mg/dL (0.70-1.30); EST Glomerular Filtration Rate 66 mL/min (>60); Est Glom Filt Rate - Afr Amer 80 mL/min (>60); Glucose 83 mg/dL (74-106); Potassium 4.3 mmol/L (3.5-5.1); Sodium Level 142 mmol/L (136-145)
== END ==
PROVIDERS: PCP Family Medicine Geriatric Medicine; Visit Provider Family Medicine Geriatric Medicine
DX: E86.0 Dehydration (principal); N39.0 Urinary tract infection, site not specified
CPT/HCPCS: 36415; 80048; 85025; 87086; 87088

== ENCOUNTER → 2020-05-01 09:57 | Outpatient (CLI) | payer MEDICARE, SELFPAY ==
[2020-01-03 10:17] VITALS: BMI 29.9
[2020-05-01 12:32] LABS: Absolute Lymphocyte Count 2.35 X10^3/uL (0.83-4.51); Absolute Neutrophil Count 4.8 X10^3/uL (2.0-7.7); Basophil# 0.07 X10^3/uL; Basophil% 0.9 % (0-1); Eosinophil# 0.17 X10^3/uL; Eosinophils% 2.1 % (0-5); Hematocrit 48.8 % (40-54); Hemoglobin 16.3 g/dL (13.0-16.5); Lymphocyte # 2.35 X10^3/ul (4.0); Lymphocyte % 29.6 % (19-41); Mean Corp Hgb Conc 33.4 g/dL (32-36); Mean Corpuscular Hgb 32.5 pg (27.0-32.0); Mean Corpuscular Volume 97.2 fL (80-94); Mean Platelet Vol. 11.1 fl (6.2-12.0); Monocyte# 0.51 X10^3/uL; Monocyte% 6.4 % (0-10); NRBC Flagged by Analyzer 0 % (0-5); Neutrophil # 4.82 X10^3/uL (2.7-7.7); Neutrophil % 60.6 % (47-70); Platelet Count 170 K/mm3 (150-450); RBC Distribution Width CV 13.2 % (11.6-14.6); RBC Distribution Width SD 47.2 fl (35.1-43.9); Red Blood Count 5.02 M/mm3 (4.6-6.2)
[2020-05-01 12:47] LABS: Vitamin D,25 Hydroxy 25.2 ng/mL
[2020-05-01 13:01] LABS: ALB/GLOB Ratio 1.2 RATIO (0.9-2.4); AST(SGOT) 23 U/L (15-37); Alanine Aminotransfer ALT/SGPT 29 U/L (16-61); Albumin, Serum 3.8 g/dL (3.2-5.0); Alkaline Phosphatase 73 U/L (45-117); Anion Gap 7 (5-15); BUN 18 mg/dL (7-18); Chloride 111 mmol/L (98-107); EST Glomerular Filtration Rate 47 mL/min (>60); Est Glom Filt Rate - Afr Amer 57 mL/min (>60); Globulin 3.3 g/dL (2.2-4.2); Glucose 98 mg/dL (74-106); Protein, Total 7.1 g/dL (6.4-8.2); Sodium Level 141 mmol/L (136-145); Thyroid Stim Hormone (TSH) 3.53 uIU/mL (0.358-3.74)
== END ==
PROVIDERS: PCP Family Medicine Geriatric Medicine; Visit Provider Family Medicine Geriatric Medicine
DX: I10 Essential (primary) hypertension (principal); E55.9 Vitamin D deficiency, unspecified; E23.6 Other disorders of pituitary gland
CPT/HCPCS: 36415; 80053; 82306; 84403; 84443; 85025

== ENCOUNTER → 2020-08-17 15:55 | Outpatient (CLI) | payer MEDICARE, SELFPAY ==
[2020-01-03 10:17] VITALS: BMI 29.9
== END ==
PROVIDERS: PCP Family Medicine Geriatric Medicine; Referring Provider Family Medicine Geriatric Medicine; Visit Provider Family Medicine Geriatric Medicine
DX: R68.83 Chills (without fever) (principal)
CPT/HCPCS: 87635; C9803; U0002

== ENCOUNTER → 2020-08-23 09:18 | Outpatient (CLI) | payer MEDICARE, SELFPAY ==
[2020-01-03 10:17] VITALS: BMI 29.9
--- NOTE | 2020-08-23 09:23 | BD_ITS ---
STUDY: DUAL ENERGY X-RAY ABSORPTIOMETRY / DXA REASON FOR EXAM: Male, 85 years old. 733.00OsteoporosisBONE DENSITY REASON FOR EXAM TECHNIQUE: Bone Mineral Density (BMD) measurements of lumbar spine and bilateral hips were obtained. COMPARISON: None. FINDINGS: Lumbar Spine (L1-L4): g/cm2 (1.072) / T-score (-1.1) / Z-score (-0.3) Findings are suggestive of osteopenia with a low fracture risk. Left Femur Total: g/cm2 (0.918) / T-score (-1.3) / Z-score (0.0) Left Femoral Neck: g/cm2 (0.734) / T-score (-2.6) / Z-score (-0.9) Right Femur Total: g/cm2 (0.750) / T-score (-2.4) / Z-score (-1.1) Right Femoral Neck: g/cm2 (0.712) / T-score (-2.8) / Z-score (-1.1) BD/Dexa Bone Density Study IMPRESSION: The patient is considered osteoporotic as outlined below according to World Eber Organization (WHO) criteria with a high fracture risk. Reference Information: The T-score is the number of standard deviations above or below the standard which is normal for young adults at their peak bone mineral density. The World Health Organization (WHO) interprets the T-scores as follows: Above -1 Normal bone density Between -1 and -2.5 Osteopenia Equal to / or below -2.5 Osteoporosis As a practical clinical guideline, osteopenia may be graded as follows: Mild -1 through -1.5 Moderate -1.6 through -2.0 Severe -2.1 through -2.4 The Z-score is the number of standard deviations above or below age-matched controls. A Z-score of less than -1.5 would be considered abnormal. References: 1. NIH Osteoporosis and Related Bone Diseases www osteo.org 2. International Society for Clinical Densitometry www iscd.org 3. National Osteoporosis Foundation www nof.org Electronically Signed: Jb Talbot MD at 10:45 EDT , Service support ,
== END ==
PROVIDERS: PCP Family Medicine Geriatric Medicine; Referring Provider Family Medicine Geriatric Medicine; Visit Provider Family Medicine Geriatric Medicine
DX: M81.0 Age-related osteoporosis without current pathological fracture (principal)
CPT/HCPCS: 77080

== ENCOUNTER → 2020-10-30 10:07 | Outpatient (CLI) | payer MEDICARE, SELFPAY ==
[2020-01-03 10:17] VITALS: BMI 29.9
[2020-10-30 12:32] LABS: Absolute Lymphocyte Count 2.23 X10^3/uL (0.83-4.51); Absolute Neutrophil Count 5.2 X10^3/uL (2.0-7.7); Basophil# 0.07 X10^3/uL; Basophil% 0.8 % (0-1); Eosinophil# 0.15 X10^3/uL; Eosinophils% 1.8 % (0-5); Hematocrit 48.8 % (40-54); Hemoglobin 16.3 g/dL (13.0-16.5); Lymphocyte # 2.23 X10^3/ul (0.83-4.51); Lymphocyte % 26.8 % (19-41); Mean Corp Hgb Conc 33.4 g/dL (32-36); Mean Corpuscular Hgb 32.1 pg (27.0-32.0); Mean Corpuscular Volume 96.1 fL (80-94); Monocyte# 0.62 X10^3/uL; Monocyte% 7.5 % (0-10); NRBC Flagged by Analyzer 0 % (0-5); Neutrophil # 5.21 X10^3/uL (2.7-7.7); Neutrophil % 62.7 % (47-70); Platelet Count 170 K/mm3 (150-450); RBC Distribution Width CV 13.4 % (11.6-14.6); RBC Distribution Width SD 48.2 fl (35.1-43.9); Red Blood Count 5.08 M/mm3 (4.6-6.2); White Blood Count 8.3 K/mm3 (4.4-11.0)
[2020-10-30 12:48] LABS: Vitamin D,25 Hydroxy 39.7 ng/mL
[2020-10-30 13:07] LABS: ALB/GLOB Ratio 1.2 RATIO (0.9-2.4); AST(SGOT) 21 U/L (15-37); Alanine Aminotransfer ALT/SGPT 27 U/L (16-61); Albumin, Serum 3.8 g/dL (3.2-5.0); Alkaline Phosphatase 71 U/L (45-117); Anion Gap 7 (5-15); BUN 20 mg/dL (7-18); BUN/Creat Ratio 12.3 RATIO (10-20); Chloride 107 mmol/L (98-107); Creatinine, Serum 1.63 mg/dL (0.70-1.30); EST Glomerular Filtration Rate 43 mL/min (>60); Est Glom Filt Rate - Afr Amer 52 mL/min (>60); Globulin 3.2 g/dL (2.2-4.2); Glucose 83 mg/dL (74-106); Potassium 4.1 mmol/L (3.5-5.1); Sodium Level 141 mmol/L (136-145); Thyroid Stim Hormone (TSH) 2.86 uIU/mL (0.358-3.74)
== END ==
PROVIDERS: PCP Family Medicine Geriatric Medicine; Visit Provider Family Medicine Geriatric Medicine
DX: I10 Essential (primary) hypertension (principal); E55.9 Vitamin D deficiency, unspecified; E23.6 Other disorders of pituitary gland
CPT/HCPCS: 36415; 80053; 82306; 84403; 84443; 85025

== ENCOUNTER → 2020-11-02 06:49 | Outpatient (CLI) | payer MEDICARE, SELFPAY ==
[2020-01-03 10:17] VITALS: BMI 29.9
--- NOTE | 2020-11-02 08:26 | ECHOD_ITS ---
Reason For Study: SOB Procedure This was a 2D Doppler, Color Flow transthoracic echocardiogram. Exam performed in department. Left Ventricle Normal LV size. Left ventricular systolic function is normal. The estimated ejection fraction is 55 %. Diastolic function is indeterminate. No regional wall motion abnormalities noted. Right Ventricle Normal RV size. Normal systolic function. Atria The left atrium is mildly enlarged. Normal right atrium. Mitral Valve Normal mitral valve. Tricuspid Valve Normal tricuspid valve. Aortic Valve Normal aortic valve. Pulmonic Valve Normal pulmonic valve. Great Vessels Normal aortic root. The pulmonary artery is normal size. Normal inferior vena cava. Pericardium/Pleural No pericardial effusion. MMode/2D Measurements & Calculations LVIDd: 5.0 cm IVSd: 1.0 cm Ao root diam: 3.6 cm LVIDs: 3.2 cm LVPWd: 1.0 cm RVDd: 2.8 cm FS: 35.2 % LAV(MOD-bp): 73.8 ml LVAd ap4: 20.7 cm2 SV(MOD-sp4): 33.2 ml LAV(MOD-bp) Indexed: 34.2 ml/m2 LVLd ap4: 6.9 cm LAV(MOD-sp2): 61.3 ml EDV(MOD-sp4): 52.2 ml LAV(MOD-sp4): 74.3 ml EDV(sp4-el): 52.4 ml LVAs ap4: 11.3 cm2 LVLs ap4: 5.9 cm ESV(MOD-sp4): 19.0 ml ESV(sp4-el): 18.3 ml EF(MOD-sp4): 63.7 % EF(sp4-el): 65.0 % SV(sp4-el): 34.0 ml LA A4 area: 25.0 cm2 LA dimension(2D): 4.6 cm RA A4 area: 13.0 cm2 Doppler Measurements & Calculations MV E max bryce: 87.7 cm/sec Ao V2 max: 131.7 cm/sec LV V1 max: 74.0 cm/sec Ao max P.0 mmHg LV V1 max P.2 mmHg Ao V2 mean: 90.3 cm/sec Ao mean P.6 mmHg Ao V2 VTI: 30.0 cm PA V2 max: 58.7 cm/sec ECHO/Echo Complete Interpretation Summary Normal LV size. Left ventricular systolic function is normal. The estimated ejection fraction is 55 %. The left atrium is mildly enlarged. Diastolic function is indeterminate. Ordering Physician: Иван Plasencia Referring Physician: Иван Plasencia Chi Performed By: Elma Sánchez, CHANDRAKANT, RVT
--- NOTE | 2020-11-02 13:25 | PFT ---
INTRODUCTION: The patient is an 85-year-old male that presents for pulmonary function studies secondary to a diagnosis of shortness of breath. Respiratory therapy reports good patient effort. Bronchodilators were used during testing. INTERPRETATION: Forced expiration spirometry demonstrates the presence of a mild large airways obstructive ventilatory defect. There was a partial, although technically nonsignificant, response to aerosolized bronchodilators. Spirograms are of good quality but do not plateau indicating slow emptying of the lungs. Body plethysmography was performed and reveals lung volumes to be within normal limits. Diffusing capacity by single breath CO is also within normal limits. IMPRESSION: Irreversible mild obstructive ventilatory impairment with preserved lung volumes and diffusing capacity.
== END ==
PROVIDERS: PCP Family Medicine Geriatric Medicine; Referring Provider Family Medicine Geriatric Medicine; Visit Provider Family Medicine Geriatric Medicine
DX: R06.02 Shortness of breath (principal)
CPT/HCPCS: 93306; 94060; 94726; 94729

== ENCOUNTER → 2020-11-09 12:52 | Outpatient (CLI) | payer MEDICARE, SELFPAY ==
[2020-01-03 10:17] VITALS: BMI 29.9
[2020-11-09 12:55] LABS: Pathologist Comment May follow
[2020-11-09 13:39] LABS: RBC /Synovial Fluid 0.042 10^6/uL (0); Synovial Fld Mononuclear WBC % 70.6 %; Synovial Fld Polynuclear WBC # 0.072 10^3/uL; Synovial Fld Polynuclear WBC % 29.4 %
[2020-11-09 15:24] LABS: AUTO B FLUID DILUENT BKGD CT WBC <0.1 RBC <0.01 (W<.1,R<.01); CRYSTALS, BODY FLUID See PATH REV; Source- Body Fluid SYNOVIAL
[2020-11-09 15:25] LABS: Appearance /Synovial Fluid Turbid (CLEAR); Color / Synovial Fluid Red (Pale Yellow); Lymph 11 %; Monocyte /Synovial Fluid 50 %; Neutrophil 28 % (0-25); Other Cell /Synovial Fluid 11 %
[2020-11-12 13:51] LABS: Pathologist Review Reviewed
== END ==
PROVIDERS: PCP Family Medicine Geriatric Medicine; Visit Provider Family Medicine Geriatric Medicine
DX: M70.22 Olecranon bursitis, left elbow (principal)
CPT/HCPCS: 87070; 87075; 87205; 89050; 89051; 89060

== ENCOUNTER 2020-11-12 16:34 | Emergency (ER) | payer MEDICARE, SELFPAY ==
[2020-01-03 10:17] VITALS: BMI 29.9
[2020-11-12 16:34] VITALS: BP 139/78; PULSE 82; RESP 18; TEMP 36.4; O2SAT 97; BMI 30.7
--- NOTE | 2020-11-12 17:10 | RAD_ITS ---
STUDY: X-RAY - LEFT ELBOW REASON FOR EXAM: Male, 85 years old. fall fall, left elbow skin tear. TECHNIQUE: 3 view(s) of the elbow. COMPARISON: None. FINDINGS: There is demineralization of the visualized humerus, radius and ulna. There is minimal degenerative arthrosis of the radiocapitellar and ulnotrochlear articulations. The soft tissue structures are unremarkable. There is no demonstrated fracture. RAD/Elbow min 3 Views IMPRESSION: No acute or significant process Electronically Signed: Jr Manning MD at 18:42 EDT , Service support ,
--- NOTE | 2020-11-12 19:25 | EDS_ITS ---
HPI HPI - Fall History of Present Illness Chief Complaint: Fall Narrative Narrative: Patient presenting for evaluation secondary to a fall. Patient had a mechanical fall in his garage today where he fell on his left elbow. He denies hitting his head or loss of consciousness. He is on anticoagulation. He reports pain and a skin tear over his left elbow. He states that he has a mild amount of pain in his left ribs. No shortness of breath or hemoptysis. Patient has no limitation in range of motion of the elbow. He denies any other complaints at this time [facility] Medical History (Updated 11/12/20 @ 19:[address] 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 Dizziness and giddiness Essential (primary) hypertension History of CVA (cerebrovascular accident) (2013) HLD (hyperlipidemia) Hypothyroidism Longstanding persistent atrial fibrillation Obesity [place] (obstructive sleep apnea) Home Medications diltiazem HCl 120 mg PO DAILY 03/09/14 [History Last Taken 08/08/16 06:00] finasteride 5 mg PO DAILY 03/09/14 [History Last Taken Unknown] levothyroxine 75 mg PO DAILY 03/09/14 [History Last Taken 08/08/16 06:00] metoprolol succinate 50 mg PO BID 03/09/14 [History Last Taken 08/08/16 06:00] rivaroxaban 20 mg PO QHS 03/09/14 [History Last Taken Unknown] clonazepam 0.5 mg PO BID 08/01/16 [History Last Taken Unknown] cyanocobalamin (vitamin B-12) 1,000 mcg PO DAILY@0800 08/01/16 [History Last Taken Unknown] memantine 10 mg tablet 10 mg PO QDAY tab 06/30/17 [History Last Taken Unknown] rosuvastatin 40 mg PO DAILY 03/27/18 [History Last Taken Unknown] cholecalciferol (vitamin D3) 25 mcg (1,000 unit) capsule 25 mcg PO DAILY 01/03/20 [History Last Taken Unknown] nitroglycerin 0.4 mg sublingual tablet 0.4 mg SUBLINGUAL .COMPLEX PRN #25 tab 08/03/20 [Rx Last Taken Unknown] Allergy/AdvReac Type Severity Reaction Status Date / Time No Known Allergies Allergy Verified 11/12/20 16:36 Family History Mother , age 85 CAD (coronary artery disease) Myocardial infarction Father , age 62 CAD (coronary artery disease) Ruptured, aorta Surgical History 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) History of left heart catheterization (LHC) History of maze procedure (06/10/05) History of tonsillectomy and adenoidectomy Social History Smoking Status: Never smoker alcohol intake: current alcohol intake frequency: a few times a week Alcohol type: beer substance use type: does not use caffeine: Yes Type: coffee Number of servings: 2 what type of physical activity do you participate in: other details: karen point frequency: 3-4 times per week duration: 30-45 minutes/day seatbelt use: always do you feel safe at home: Yes ROS ROS ED Constitutional Constitutional ED: Denies chills or fever(s) ENT ENT ED: Denies rhinorrhea Cardiovascular Cardiovascular: Denies chest pain Respiratory/Chest Respiratory/Chest: Denies cough or dyspnea Gastrointestinal Gastrointestinal: Denies abdominal pain, diarrhea, nausea or vomiting Genitourinary Genitourinary ED: Denies dysuria or hematuria Musculoskeletal Musculoskeletal: Reports other Details: Arm pain Integumentary Reports other Details: Skin tear Neurologic Neurologic: Denies paresthesias or weakness Psychiatric Psychiatric: Denies depression Endocrine Endocrinology: Denies fatigue Allergic/Immunologic Allergic/Immunologic ED: Denies urticaria EXAM Physical Exam Const Vital Signs: 11/12/20 16:34 Temperature 97.5 F L Temperature Source Temporal Pulse Rate 82 Respiratory Rate 18 Blood Pressure 139/78 H Blood Pressure Mean 98 Pulse Ox 97 Oxygen Delivery Method Room Air Positive well nourished and well developed General Appearance ED: well developed and NAD HEENT Reports moist mucous membranes Negative for trauma or tenderness Eyes EOMs intact bilaterally Neck no lymphadenopathy, supple and no JVD Chest Wall inspection of chest normal Chest Narrative: Minimal left anterior chest tenderness no crepitus step-off deformity or flail chest noted Resp normal respiratory effort and clear to auscultation bilaterally Cardio regular rate, no murmurs and peripheral pulses 2+ throughout Cardio Narrative: Irregular GI normal to inspection, nondistended, normoactive bowel sounds, non-tender and no masses Palpation: soft Back/Spine normal to inspection Extremity normal to inspection Extremity Narrative: Patient has a 10 cm skin tear over the lateral portion of his left elbow General Extremety ED: Negative for tenderness Neuro oriented x3 and no sensory deficits noted Sensorium / Orientation: alert Motor Exam: strength 5/5 throughout Psych mental status grossly normal Skin no rashes or lesions noted MDM MDM MDM Narrative Medical decision making narrative: Patient presented secondary to a skin tear. Elbow x-ray by my personal interpretation as well as radiology is negative. Skin tear was irrigated, and then was approximated using Steri-Strips. Nursing placed a sterile dressing over top of this. Patient will be doing dressing changes at home. He understands signs and symptoms for which to return. I do not feel the rib x-rays are indicated. Patient was discharged in stable condition. Radiography Diagnostic Testing: Radiology Impression Elbow X-Ray 11/12/20 17:10 IMPRESSION: No acute or significant process Electronically Signed: Jr Manning MD at 18:42 EDT , Service support , Discharge Plan Triage Chief Complaint: Fall ED Provider: Lv Juarez Dx/Rx/DC Orders Clinical Impression: Skin tear Instructions: ED Laceration: All Closures Prescriptions: No Action memantine 10 mg tablet 10 mg PO QDAY RF: 0 cholecalciferol (vitamin D3) 25 mcg (1,000 unit) capsule 25 mcg PO DAILY RF: 0 metoprolol succinate 50 MG tablet extended release 24 hr 50 mg PO BID RF: 0 diltiazem HCl 120 MG capsule,extended release 24hr 120 mg PO DAILY RF: 0 levothyroxine 50 MCG tablet 75 mg PO DAILY RF: 0 finasteride 5 MG tablet 5 mg PO DAILY RF: 0 rivaroxaban 20 MG tablet 20 mg PO QHS RF: 0 clonazepam 1 MG tablet 0.5 mg PO BID RF: 0 cyanocobalamin (vitamin B-12) 500 MCG tablet 1,000 mcg PO DAILY@0800 RF: 0 rosuvastatin 40 MG tablet 40 mg PO DAILY RF: 0 nitroglycerin [Nitrostat] 0.4 mg tablet, sublingual 0.4 mg SUBLINGUAL .COMPLEX PRN (Reason: Cardiac/Chest Pain) Qty: 25 RF: 3 Primary Care Provider: Иван Plasencia Chi Referrals: Иван Plasencia Chi, MD [Primary Care Provider] - 1 Week Disposition Disposition: Home, self care
[2020-11-12 19:39] VITALS: BP 123/79; PULSE 59; RESP 16; TEMP 36.6; O2SAT 96
== END 2020-11-12 19:40 | disposition home or self-care (01) ==
PROVIDERS: Emergency Provider Emergency Medicine; PCP Family Medicine Geriatric Medicine
DX: S51.012A Laceration without foreign body of left elbow, initial encounter (principal); W18.30XA Fall on same level, unspecified, initial encounter; Y93.9 Activity, unspecified; Y92.015 Private garage of single-family (private) house as the place of occurrence of the external cause; Y99.9 Unspecified external cause status; I25.10 Atherosclerotic heart disease of native coronary artery without angina pectoris; I10 Essential (primary) hypertension; E78.5 Hyperlipidemia, unspecified; G47.33 Obstructive sleep apnea (adult) (pediatric); E03.9 Hypothyroidism, unspecified; I48.11 Longstanding persistent atrial fibrillation; Z86.73 Personal history of transient ischemic attack (TIA), and cerebral infarction without residual deficits; Z79.01 Long term (current) use of anticoagulants
CPT/HCPCS: 73080; 97110; 99282

== ENCOUNTER → 2020-11-26 15:58 | Outpatient (CLI) | payer MEDICARE, SELFPAY ==
[2020-11-12 16:34] VITALS: BMI 30.7
--- NOTE | 2020-11-26 16:16 | RAD_ITS ---
STUDY: X-RAY - UNILATERAL RIBS ( LEFT ) WITH CHEST REASON FOR EXAM: Male, 85 years old. THORACIC BACK PAIN TECHNIQUE - RIBS: 4 view(s) of the ribs. TECHNIQUE - CHEST: Single PA view of the chest. COMPARISON: 03/19/2019 FINDINGS - RIBS: Normal visualized ribs without a demonstrated fracture. FINDINGS - CHEST: Status post median sternotomy. The lungs are clear and expanded. There is no demonstrated pleural abnormality. Normal size heart. Normal mediastinum and guero. Normal visualized pulmonary arteries. Normal visualized aortic arch and descending thoracic aorta. Normal visualized thoracic spine. Normal visualized ribs, clavicles, and shoulders. There is no demonstrated abnormality of the visualized soft tissue structures of the upper abdomen. RAD/Ribs Uni Min 3V w/PA Chest IMPRESSION: RIBS: Normal x-ray examination of the ribs. CHEST: No active disease. Electronically Signed: Rudolph Carrillo MD at 16:58 EDT Tel , Service support ,
--- NOTE | 2020-11-26 16:16 | RAD_ITS ---
STUDY: X-RAY - THORACIC SPINE REASON FOR EXAM: Male, 85 years old. THORACIC PAIN TECHNIQUE: 3 view(s) of the thoracic spine were obtained. COMPARISON: None. FINDINGS: Normal kyphosis of the thoracic spine. Mild dextroscoliosis. There is multilevel endplate spondylosis of the thoracic vertebrae. There is multilevel disc space narrowing of the thoracic spine. The soft tissue structures are unremarkable. RAD/Thoracic Spine 2 Views IMPRESSION: Mild dextroscoliosis with severe diffuse degenerative disc disease. Electronically Signed: Rudolph Carrillo MD at 16:56 EDT Tel , Service support ,
== END ==
PROVIDERS: PCP Family Medicine Geriatric Medicine; Referring Provider Family Medicine Geriatric Medicine; Visit Provider Family Medicine Geriatric Medicine
DX: M54.6 Pain in thoracic spine (principal)
CPT/HCPCS: 71101; 72070

== ENCOUNTER 2020-12-28 09:30 | Outpatient (RCR) | payer MEDICARE, SELFPAY ==
[2020-01-03 10:17] VITALS: BMI 29.9
--- NOTE | 2020-10-30 16:55 | HP.PTEVAL_ITS ---
Patient's Visit Information MIRANDA CLAYTON is a 85 year old M referred to Physical Therapy by Dr. Иван Plasencia MD with a diagnosis of imbalance. Date of Evaluation: 10/30/20 Physical Therapist: Miguel Jacome, ANGELAT, OCS, CSCS - Visit Plan Frequency: 3x /Week Duration: 4-6 Weeks Plan: 3x/week for 3-6 weeks for. 1.gym based LE strength and stretch emphasizing R hip abd/ext/stabs, general core and LE strength to I in gym, include HS and gastroc and quad stretches. Progress to I gym as tolerated. - Subjective Wears heel lift in right shoe. Fell one time 2 yrs ago and broke R hip. Fell two years ago in November in garage. Fell again jayne month and hurt shoulder. Dr. Plasencia wants balance work according to patient. Had bone denisty adn showed osteoporosis. Feels like balance is off a little at times. No neuropathy. No dizzyness or spinning. Has [employer] membership but did not come Novemebr through August. did some LE machines. Spends day hanging out with adn doing some outside work. Too much bending or lifting or stadning still hurts LB. Not employed. Sleeps well. - Objective Ambulates I without AD, R trendelenberg is apparent. No pain. SOB slightly after 400 feet adn one flight steps,, recovers quickly. Will see inspector watch assembly Thursday. Transfer with UE I bed adn chair. Steps reciprocally up without UE, down reciprocally with one rail. No pain. R LE about 1/4 inch short vs L. LE s trength abd 3 R and 3+ L, ext 3 B, flexion 4- B, knee flexiona dn extension 4-. ankle 4/5 B. HS and quads and hip flexors mod tight. AROM LE WFL, R hip rotations slightly limited vs L. reflexes 2/3 patella and achilles B. Sensation EL WNL to gross light touch. coordination to reciprocal toe tap is fair. 30 second romberg eo and ec. - Balance Scores Functional Gait Assessment Score: 24 % Disability: 20.0000 - Goals Goal 1:: I appropriate gym based LE strength and stretch emphasizing R hip abd/ext/stabs, general core and LE strength to I in gym, include HS and gastroc and quad stretches. Goal Time Frame: 4-6 Weeks Goal 2:: Walk 500 feet adn steps withotu SOB Goal Time Frame: 4-6 Weeks Goal 3:: Pt feel 505 better in steadiness and gait. Goal Time Frame: 4-6 Weeks - Rehabilitation Potential Physical Therapy Diagnosis: Unsteadiness hip weakness and gait deficits. Rehabilitation Potential: Fair - Anticipated Interventions Patient/Client Instruction: Educate patient on: Condition, Plan of Care For the Purpose of:: To improve muscle performance and motor function, To increase tolerance to activity/condition/position, To improve gait and locomotor functions Therapeutic Exercise to Include: Strength training, Flexibilty training, Gait and locomotor training, Passive ROM, Active ROM For the Purpose of:: To increase ROM, To improve muscle performance and motor function, To increase tolerance to activity/condition/position, To improve gait and locomotor functions Thank you for the opportunity to evaluate your patient. For Medicare and Medicare HMO plans, please review the plan of care and approve it. It will need to be FAXED BACK to us at [phone] for Medicare purposes. For Medicare only, by signing this I certify the plan of care. Please let me know if there are questions or concerns regarding this plan of care. Physician Signature: Date:
--- NOTE | 2020-12-10 10:01 | HP.PTREVAL_ITS ---
Dr. Иван Plasencia MD, It has been my pleasure to treat MIRANDA CLAYTON over the last 5 visits for imbalance. Please see the progress note below for an update on the physical therapy plan of care! Subjective: Went to [facility] for back pain and gave him some meds and injections whcih helped. Saw neurologies for memory and ticks and wrote prescription for balance same as Dr. Plasencia. Back is doing much better adn not in a lot of pain unless he overdoes something. Avoids heavy lifting. Stopped therapy due to fall that ripped elbow open, He was looking at ceiling spraying in garage and fell BW and tore up L elbow. In the last day hit R elbow on door frame turning in small bathroom area(thin skin). This morning he hit that spot again arm slipping off counter getting up from toilet at home. He still has no spinning but describes unsteadiness with looking up into corner of garage. Objective/Function: FGA same as start(expected). LB AROM without pain today and tight in ext adn flexion. LE AROM WFL. reflexes 2/3 patella and achilles. Sensation WNL to gross light touch but slightly neuropathic gait pattern. bend and reach for janneth without LOB today. Overall similar to day one, PT and disagree alot today on management such as using cane, doing puzzles for cognition at home. Overall presenting similar to day one which is expected since he only had a few visits prior to his fall. Plan Plan: 3xweek for 3-6 weeks... 1. give LB stretches, head movement ex and balance ex ec/foam as safety allow via HEP, work toward strengthening program in gym and work all to I. Goals appropriate and fair prognosis Goals Goal 1:: I appropriate gym based LE strength and stretch emphasizing R hip abd/ext/stabs, general core and LE strength to I in gym, include HS and gastroc and quad stretches. Goal Time Frame: 4-6 Weeks Goal 2:: Walk 500 feet adn steps withotu SOB Goal Time Frame: 4-6 Weeks Goal 3:: Pt feel 50% better in steadiness and gait. Goal Time Frame: 4-6 Weeks Goal 4:: maintain no back pain for 4 weeks and I approp ex Goal Time Frame: 4-6 Weeks Goal Progress: NEW GOAL Anticipated Interventions Patient/Client Instruction: Educate patient on: Condition, Plan of Care For the Purpose of:: To improve muscle performance and motor function, To increase tolerance to activity/condition/position, To improve gait and locomotor functions Therapeutic Exercise to Include: Strength training, Flexibilty training, Gait and locomotor training, Passive ROM, Active ROM For the Purpose of:: To increase ROM, To improve muscle performance and motor function, To increase tolerance to activity/condition/position, To improve gait and locomotor functions Please do not hesitate to contact me at [phone] by phone or Fax: if you have questions or concerns regarding this new plan of care! Sincerely, Miguel Jacome, DPT, OCS, CSCS
--- NOTE | 2020-12-28 10:24 | HP.PTDCSUM ---
It has been my pleasure to treat MIRANDA CLAYTON referred by Dr. Иван Plasencia MD, with the diagnosis of imbalance for a total of 13 visit(s). Discharge Date: Please see the following information for a summary of their discharge status. Subjective: Better. I am using my cane. Goes up and down stairs everyday at home easily. No falls or concerns. Acitivities at home are close to normal. Basic ADLs are I. Plans to continue in gym exercises as member. Hardly any back pain. Takes cane to mailbox daily. % Improvement: 50 Objective/Function: FGA +1. +18 LEFS. Pt ambulating with cane safe adn I and improving without cane without LOB today. Ready and willing to continue in the gym on his own and copy of exercises given to patient today. Goal 1:: I appropriate gym based LE strength and stretch emphasizing R hip abd/ext/stabs, general core and LE strength to I in gym, include HS and gastroc and quad stretches. Goal Progress: Goal Met Goal 2:: Walk 500 feet adn steps withotu SOB Goal 3:: Pt feel 50% better in steadiness and gait. Goal Progress: 90% with cane Goal 4:: maintain no back pain for 4 weeks and I approp ex Goal Progress: Goal Met Plan: d/c If there are questions or concerns regarding this patient's physical therapy, please feel free to call me at [phone]. Thank you for the referral of this patient. Sincerely, Miguel Jacome, DPT, OCS, CSCS Balance/Gait/Functional tests - Balance/Special Test Scores Functional Gait Assessment Score: 25 % Disability: 16.6700 Lower Extremity Functional Score: 58
== END 2020-12-28 12:57 | disposition home or self-care (01) ==
LOC: PT 09:30
PROVIDERS: PCP Family Medicine Geriatric Medicine; Referring Provider Family Medicine Geriatric Medicine; Visit Provider Family Medicine Geriatric Medicine
DX: M54.6 Pain in thoracic spine (principal); R26.89 Other abnormalities of gait and mobility
CPT/HCPCS: 97110; 97162; 97164

== ENCOUNTER 2021-02-04 09:56 | Emergency (ER) | payer MEDICARE, SELFPAY ==
[2021-02-04 09:57] VITALS: BP 117/69; PULSE 69; RESP 18; TEMP 36.1; O2SAT 96; BMI 29.8
--- NOTE | 2021-02-04 10:22 | EDS_ITS ---
HPI History of Present Illness Chief Complaint: Lower Extremity Injury Informant: patient and spouse/S.O. Narrative Narrative: 85-year-old male states that yesterday he tripped over a curb landing on the concrete. He notes a skin tear to the posterior left elbow/forearm. He states he did not have much pain in the left hip but today it seems to be worse. He points to more of the SI region as the area that hurts. He has been able to bear weight. gave him some Tylenol. She notes that he does get skin tears with his thin skin and she is able to properly care for them at home. He is on Xarelto. He denies hitting his head. No neck pain. 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 Dizziness and giddiness Essential (primary) hypertension History of CVA (cerebrovascular accident) (2013) HLD (hyperlipidemia) Hypothyroidism Longstanding persistent atrial fibrillation Obesity [place] (obstructive sleep apnea) Home Medications diltiazem HCl 120 mg PO DAILY 03/09/14 [History Last Taken 08/08/16 06:00] finasteride 5 mg PO DAILY 03/09/14 [History Last Taken Unknown] levothyroxine 75 mg PO DAILY 03/09/14 [History Last Taken 08/08/16 06:00] metoprolol succinate 50 mg PO BID 03/09/14 [History Last Taken 08/08/16 06:00] rivaroxaban 20 mg PO QHS 03/09/14 [History Last Taken Unknown] clonazepam 0.5 mg PO BID 08/01/16 [History Last Taken Unknown] cyanocobalamin (vitamin B-12) 1,000 mcg PO DAILY@0800 08/01/16 [History Last Taken Unknown] memantine 10 mg tablet 10 mg PO QDAY tab 06/30/17 [History Last Taken Unknown] rosuvastatin 40 mg PO DAILY 03/27/18 [History Last Taken Unknown] cholecalciferol (vitamin D3) 25 mcg (1,000 unit) capsule 25 mcg PO DAILY 01/03/20 [History Last Taken Unknown] nitroglycerin 0.4 mg sublingual tablet 0.4 mg SUBLINGUAL .COMPLEX PRN #25 tab 08/03/20 [Rx Last Taken Unknown] Allergy/AdvReac Type Severity Reaction Status Date / Time No Known Allergies Allergy Verified 02/04/21 09:59 Family History Mother , age 85 CAD (coronary artery disease) Myocardial infarction Father , age 62 CAD (coronary artery disease) Ruptured, aorta Surgical History 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) History of left heart catheterization (LHC) (05/21/05) History of maze procedure (06/10/05) History of tonsillectomy and adenoidectomy Social History Smoking Status: Never smoker alcohol intake: current alcohol intake frequency: a few times a week Alcohol type: beer substance use type: does not use caffeine: Yes Type: coffee Number of servings: 2 what type of physical activity do you participate in: other details: karen point frequency: 3-4 times per week duration: 30-45 minutes/day seatbelt use: always do you feel safe at home: Yes ROS ROS ED Constitutional Constitutional ED: Denies chills or weight loss Eyes Eyes: Denies change in vision or diplopia ENT ENT ED: Denies ear pain, rhinorrhea or sore throat Cardiovascular Cardiovascular: Denies chest pain, orthopnea, palpitations or racing heartbeat Respiratory/Chest Respiratory/Chest: Denies cough, dyspnea or orthopnea Gastrointestinal Gastrointestinal: Denies abdominal pain, diarrhea, nausea or vomiting Genitourinary Genitourinary ED: Denies dysuria, hematuria or urinary frequency Musculoskeletal Musculoskeletal: Reports other Details: Reported left hip pain ; Denies arthralgias or myalgias Integumentary Reports other Details: Skin tear ; Denies abscess or rash Neurologic Neurologic: Denies headache(s) or weakness Psychiatric Psychiatric: Denies anxiety, depression, suicidal ideation or suicidal thoughts Endocrine Endocrinology: Denies polydipsia, polyphagia or polyuria Allergic/Immunologic Allergic/Immunologic ED: Denies mouth swelling, tongue swelling or urticaria EXAM Physical Exam Const Vital Signs: 02/04/21 09:57 Temperature 97 F L Temperature Source Temporal Pulse Rate 69 Respiratory Rate 18 Blood Pressure 117/69 Blood Pressure Mean 85 Pulse Ox 96 Oxygen Delivery Method Room Air Positive well nourished and well developed General Appearance ED: well developed HEENT Reports normocephalic, head/scalp atraumatic and moist mucous membranes Eyes PERRL and EOMs intact bilaterally Neck no lymphadenopathy, supple and no JVD Resp normal respiratory effort and clear to auscultation bilaterally Cardio regular rate, regular rhythm and no murmurs GI normal to inspection, nondistended, normoactive bowel sounds and non-tender Palpation: soft Back/Spine no CVA tenderness and normal ROM Extremity Extremity Narrative: Negative logroll. No shortening of the leg. Superficial abrasion to the anterior left knee. Extensor mechanism is intact. I do not appreciate any tenderness along the greater trochanter or the pubic bones. Patient reports tenderness near the sacrum/SI joint on the left. General Extremety ED: Negative for edema General Extremity: Negative for edema Neuro oriented x3 and CN's II-XII intact bilaterally Sensorium / Orientation: alert Motor Exam: strength 5/5 throughout Psych mental status grossly normal Mood & Affect: Negative for depressed or tearful Skin no rashes or lesions noted Skin Narrative: There is a 4 cm circular skin tear to the posterior left proximal forearm. Appears clean. Lesions: no lesions Rashes: no rashes MDM MDM MDM Narrative Medical decision making narrative: My interpretation of the plain films of the hip and pelvis is no acute fracture. Patient's wounds were redressed. He did well with Tylenol last night I think that is appropriate IcyHot would be fine which the would like to give and he should be using his walker as he has had several falls. Radiography Diagnostic Testing: Radiology Impression Hip/Pelvis X-Ray 02/04/21 10:35 IMPRESSION: Heterotopic bone around the greater trochanter which may be from healing of a previous fracture. There are no acute osseous abnormalities. at 1120 Reported and signed by: Donnie Sherman MD Electronically Signed: Donnie Sherman MD at 11:19 EDT Tel , Service support , Discharge Plan Triage Chief Complaint: Lower Extremity Injury ED Provider: Bib Ricks Dx/Rx/DC Orders Clinical Impression: Contusion of hip, left Instructions: ED Hip Contusion Prescriptions: No Action memantine 10 mg tablet 10 mg PO QDAY RF: 0 cholecalciferol (vitamin D3) 25 mcg (1,000 unit) capsule 25 mcg PO DAILY RF: 0 metoprolol succinate 50 MG tablet extended release 24 hr 50 mg PO BID RF: 0 diltiazem HCl 120 MG capsule,extended release 24hr 120 mg PO DAILY RF: 0 levothyroxine 50 MCG tablet 75 mg PO DAILY RF: 0 finasteride 5 MG tablet 5 mg PO DAILY RF: 0 rivaroxaban 20 MG tablet 20 mg PO QHS RF: 0 clonazepam 1 MG tablet 0.5 mg PO BID RF: 0 cyanocobalamin (vitamin B-12) 500 MCG tablet 1,000 mcg PO DAILY@0800 RF: 0 rosuvastatin 40 MG tablet 40 mg PO DAILY RF: 0 nitroglycerin [Nitrostat] 0.4 mg tablet, sublingual 0.4 mg SUBLINGUAL .COMPLEX PRN (Reason: Cardiac/Chest Pain) Qty: 25 RF: 3 Primary Care Provider: Иван Plasencia Chi Referrals: Иван Plasencia Chi, MD [Primary Care Provider] - 1 Week if not improving Disposition Disposition: Home, Self Care
--- NOTE | 2021-02-04 10:35 | RAD_ITS ---
EXAM: XR LEFT HIP WITH PELVIS WHEN PERFORMED, 2 OR 3 VIEWS : 1935 CLINICAL INDICATION: pain TECHNIQUE: Two or three views of the left hip with pelvis when performed. This report was created using [employer] report generation technology. COMPARISON: 12/28/2018 FINDINGS: BONES/JOINTS: There is exophytic bone seen off the greater trochanter. There are no fractures or acute osseous abnormalities. Hip joint space is maintained. No destructive or sclerotic lesions. Note that overlapping bowel shadows may however obscure fine detail. Sacroiliac joint is unremarkable. No widening of the pubic symphisis. SOFT TISSUES: Unremarkable. No soft tissue swelling or gas. RAD/HIP, UNI W/ Pelvis 2-3 Views IMPRESSION: Heterotopic bone around the greater trochanter which may be from healing of a previous fracture. There are no acute osseous abnormalities. at 1120 Reported and signed by: Donnie Sherman MD Electronically Signed: Donnie Sherman MD at 11:19 EDT Tel , Service support ,
[2021-02-04 11:36] VITALS: BP 108/67; PULSE 63; RESP 16
[2021-02-04 12:21] VITALS: BP 108/67; PULSE 63; RESP 16; O2SAT 94
== END 2021-02-04 12:22 | disposition home or self-care (01) ==
PROVIDERS: Emergency Provider Emergency Medicine; PCP Family Medicine Geriatric Medicine
DX: S70.02XA Contusion of left hip, initial encounter (principal); W18.09XA Striking against other object with subsequent fall, initial encounter; Y93.89 Activity, other specified; Y92.89 Other specified places as the place of occurrence of the external cause; Y99.8 Other external cause status; E03.9 Hypothyroidism, unspecified; E78.5 Hyperlipidemia, unspecified; G47.33 Obstructive sleep apnea (adult) (pediatric); I10 Essential (primary) hypertension; I25.10 Atherosclerotic heart disease of native coronary artery without angina pectoris; Z79.01 Long term (current) use of anticoagulants; Z86.73 Personal history of transient ischemic attack (TIA), and cerebral infarction without residual deficits
CPT/HCPCS: 73502; 99282

== ENCOUNTER → 2021-02-13 16:37 | Outpatient (CLI) | payer MEDICARE, SELFPAY ==
--- NOTE | 2021-02-13 16:43 | CT_ITS ---
STUDY: CT PELVIS WITHOUT CONTRAST REASON FOR EXAM: Male, 85 years old. PELVIC AND PERINEAL PAIN RADIATION DOSAGE (If Supplied By Facility): CTDIvol = ( 15.75 ) mGy, DLP = ( 535.61 ) mGycm TECHNIQUE: Transaxial imaging of the pelvis was performed with oral contrast, and without intravenous administration of contrast material. Individualized dose optimization techniques were used for this CT. COMPARISON: None. FINDINGS: Normal urinary bladder. Normal visualized small intestine. Normal visualized colon. There is no pelvic fluid. There is no pelvic mass lesion or lymphadenopathy. Normal visualized pelvic arteries. Small fat-containing left inguinal hernia.. Lumbar spine demonstrates degenerative change There is subtle posttraumatic deformity of the left inferior pubis which may be consistent with minimally displaced fracture. There is asymmetric thickening of the left quadricep tendons which may be on the basis of recent trauma There is an old incompletely healed fracture of the left hip. CT/Pelvis without IV Contrast IMPRESSION: Findings consistent with minimally displaced fracture of the left inferior pubis with associated swelling of the quadriceps tendon insertions.. Electronically Signed: Luís Bower MD at 18:01 EDT , Service support ,
== END ==
PROVIDERS: PCP Family Medicine Geriatric Medicine; Referring Provider Family Medicine Geriatric Medicine; Visit Provider Family Medicine Geriatric Medicine
DX: R10.2 Pelvic and perineal pain (principal)
CPT/HCPCS: 72192

== ENCOUNTER 2021-03-21 10:30 | Outpatient (RCR) | payer MEDICARE, SELFPAY ==
--- NOTE | 2021-02-25 07:56 | HP.PTEVAL ---
Patient's Visit Information MIRANDA CLAYTON is a 85 year old M referred to Physical Therapy by Dr. Иван Plasencia MD with a diagnosis of fracture of pelvis. Date of Evaluation: 02/25/21 Physical Therapist: Miguel Jacome DPT, OCS, CSCS - Visit Plan Frequency: 2x /Week Duration: 4-6 Weeks Plan: 2x/week for 4-6 weeks for. 1. ROm L hip, stretching quad and hip flexor and HS. 2. painfree strength L hip. 3. balance. Progress balance and strength to HEP as tolerated. Encourage full 100% use of walker for safety due to extensive fall history. - Subjective I took a tumble. Stumbled over curb at truck stop. Fell on L hip and skinned up arm. Saw Dr. Ramey a few days later and got a catscan and has hairline fracture in pelvic area. L inferior pubis hairline fracture and 4-6 weeks to heal and 3 weeks ago was the fall. Has to use walker and be careful until then. Is painful in morning and takes tyenol. L hip and thigh is where the pain is and down to knee and is worse in the am. Pain is 5/10 in am and better as days goes on. 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 Sleep is Ok. Spends day sitting alot and walking around a little bit. Can do bathroom by himself. bed trasnfers I. Sponge bathing. Has bath chair but has to step over tub to get in. Steps into house slowly and I. Supposed to go out of country [place] for vacation. Apr 06. - Pain L hip Pain Intensity (Out of 10): 0 Pain Intensity Range: 0, 5 - Objective Walks with wh walker (too low but readjusted to his height) into PT I and safely and no pain. Walks without wh walker with min B trendelenberg gait but safe and I on firm flat surface without obstacles. trasnfers with UE I bed and chair. Steps reciprocal without c/o pain and two hands on rail. Ankle aROM WFL and motor control at slight deficits with reciprocal toe and heel tap. Sensation LE WNL to gross light touch. reflexes 1/3 patella and achilles. AROM knee WFL, hips WFL but tight into extension and painful with PROM flexion, abd ext in L gorin and L LE only. Strength ankles 4/5, knees 4/5 no pain. Hip strength 3+ hi[p abd and ext with pain on L side in groin, flexion 4- L and 4 R with pain L side. - Balance/Special Test Scores Functional Gait Assessment Score: 23 % Disability: 23.3400 CATSIB Score (Max score 120 seconds): 72 Oswestry Low Back Score: 22 - Goals Goal 1:: Walk in community without pain increased Goal Time Frame: 4-6 Weeks Goal 2:: Good motion of pelvis and cotractions without pain L hip/leg Goal Time Frame: 2-4 Weeks Goal 3:: pt I iin HEP for balance and gait and using wh walker regualrly Goal Time Frame: 4-6 Weeks Goal 4:: Ready to take trip to [facility] Goal Time Frame: 4-6 Weeks - Rehabilitation Potential Physical Therapy Diagnosis: fracture of pelvis Rehabilitation Potential: Good - Anticipated Interventions Patient/Client Instruction: Educate patient on: Condition, Plan of Care, Risk Factors For the Purpose of:: To decrease pain, To improve muscle performance and motor function, To improve ability of physical actions for home/community/work/leisure, To improve gait and locomotor functions Therapeutic Exercise to Include: Strength training, Balance training, Flexibilty training, Gait and locomotor training, Passive ROM, Active ROM For the Purpose of:: To improve ability of physical actions for home/community/work/leisure, To improve balance, To improve safety with gait Thank you for the opportunity to evaluate your patient. For Medicare and Medicare HMO plans, please review the plan of care and approve it. It will need to be FAXED BACK to us at [phone] for Medicare purposes. For Medicare only, by signing this I certify the plan of care. Please let me know if there are questions or concerns regarding this plan of care. Physician Signature: Date:
--- NOTE | 2021-03-21 11:24 | HP.PTDCSUM ---
It has been my pleasure to treat MIRANDA CLAYTON referred by Dr. Иван Plasencia MD, with the diagnosis of fracture of pelvis for a total of 9 visit(s). Discharge Date: 03/21/21 Please see the following information for a summary of their discharge status. Subjective: [place] still in one place. Bothers LB. Pelvis is much better/ Balance feels better. Doing exercises at home alld ays except one day. feels like can go to [place]. using cane out and about and nothing at home. No falls lately. L hip Pain Intensity (Out of 10): 2 % Improvement: 75 Objective/Function: FGA is +2. Walking well today without cane. Imrpoved confidence from patient and , seems motivated to cotninue HEP Goal 1:: Walk in community without pain increased Goal Progress: Goal Met Goal 2:: Good motion of pelvis and cotractions without pain L hip/leg Goal Progress: Goal Met Goal 3:: pt I iin HEP for balance and gait and using wh walker regualrly Goal Progress: using cane out, nothome Goal 4:: Ready to take trip to [place] Goal Progress: Goal Met Plan: d/c If there are questions or concerns regarding this patient's physical therapy, please feel free to call me at [phone]. Thank you for the referral of this patient. Sincerely, Miguel Jacome, DPT, OCS, CSCS Balance/Gait/Functional tests - Balance/Special Test Scores Functional Gait Assessment Score: 25 % Disability: 16.6700 CATSIB Score (Max score 120 seconds): 72 Oswestry Low Back Score: 6
== END 2021-03-21 19:00 | disposition home or self-care (01) ==
LOC: PT 10:30
PROVIDERS: PCP Family Medicine Geriatric Medicine; Referring Provider Family Medicine Geriatric Medicine; Visit Provider Family Medicine Geriatric Medicine
DX: S32.9XXD Fracture of unspecified parts of lumbosacral spine and pelvis, subsequent encounter for fracture with routine healing (principal); X58.XXXD Exposure to other specified factors, subsequent encounter
CPT/HCPCS: 97110; 97162; 97164

== ENCOUNTER → 2021-05-02 10:46 | Outpatient (CLI) | payer MEDICARE, SELFPAY ==
[2021-05-02 12:38] LABS: Absolute Lymphocyte Count 2.25 X10^3/uL (0.83-4.51); Absolute Neutrophil Count 6.4 X10^3/uL (2.0-7.7); Basophil# 0.09 X10^3/uL; Basophil% 0.9 % (0-1); Eosinophils% 2.1 % (0-5); Hematocrit 49.4 % (40-54); Hemoglobin 16.1 g/dL (13.0-16.5); Lymphocyte # 2.25 X10^3/ul (0.83-4.51); Lymphocyte % 23.1 % (19-41); Mean Corp Hgb Conc 32.6 g/dL (32-36); Mean Corpuscular Hgb 32.1 pg (27.0-32.0); Mean Corpuscular Volume 98.4 fL (80-94); Mean Platelet Vol. 11.4 fl (6.2-12.0); Monocyte# 0.75 X10^3/uL; Monocyte% 7.7 % (0-10); NRBC Flagged by Analyzer 0 % (0-5); Neutrophil % 65.7 % (47-70); Platelet Count 158 K/mm3 (150-450); RBC Distribution Width CV 12.6 % (11.6-14.6); RBC Distribution Width SD 45.8 fl (35.1-43.9); Red Blood Count 5.02 M/mm3 (4.6-6.2); White Blood Count 9.7 K/mm3 (4.4-11.0)
[2021-05-02 13:02] LABS: Vitamin D,25 Hydroxy 39.3 ng/mL
[2021-05-02 13:03] LABS: AST(SGOT) 19 U/L (15-37); Alanine Aminotransfer ALT/SGPT 24 U/L (16-61); Albumin, Serum 3.5 g/dL (3.2-5.0); Alkaline Phosphatase 60 U/L (45-117); Anion Gap 6 (5-15); BUN 19 mg/dL (7-18); BUN/Creat Ratio 12.9 RATIO (10-20); Calcium,Total 9.3 mg/dL (8.5-10.1); Chloride 111 mmol/L (98-107); Creatinine, Serum 1.47 mg/dL (0.70-1.30); EST Glomerular Filtration Rate 48 mL/min (>60); Est Glom Filt Rate - Afr Amer 59 mL/min (>60); Globulin 3.5 g/dL (2.2-4.2); Glucose 89 mg/dL (74-106); Potassium 4.8 mmol/L (3.5-5.1); Sodium Level 140 mmol/L (136-145)
== END ==
PROVIDERS: PCP Family Medicine Geriatric Medicine; Visit Provider Family Medicine Geriatric Medicine
DX: E55.9 Vitamin D deficiency, unspecified (principal); I10 Essential (primary) hypertension; E23.6 Other disorders of pituitary gland
CPT/HCPCS: 36415; 80053; 82306; 84403; 84443; 85025

== ENCOUNTER 2021-06-28 14:05 | Outpatient (CLI) | payer MEDICARE, SELFPAY | END 2021-06-28 23:59 | disposition short-term general hospital (02) | LOC: PSN 14:06 | PROVIDERS: PCP Family Medicine Geriatric Medicine; Referring Provider Family Medicine Geriatric Medicine; Visit Provider Family Medicine Geriatric Medicine | DX: U07.1 COVID-19 (principal) | CPT/HCPCS: 87635; 87804; 87807; C9803; U0003; U0005 ==

== ENCOUNTER → 2021-09-19 | Outpatient (CLI) | payer MEDICARE, SELFPAY ==
--- NOTE | 2021-09-19 13:29 | RAD_ITS ---
INDICATION: FECAL IMPACTION OF COLON EXAMINATION/TECHNIQUE: X-RAY - XR Abdomen W/ Decub and/or Erect Views COMPARISON: 02/04/2021 FINDINGS: BOWEL GAS PATTERN: Scattered air-fluid levels visualized in the small bowel loops in the right lower quadrant. No bowel or stomach distention. Abundance of stool visualized in the large bowel. FREE AIR: Not assessed on a single supine view. ORGANOMEGALY: Not seen. CALCIFICATIONS: No abnormal calcifications observed. LOWER CHEST: No acute pathology. BONES AND SOFT TISSUES: Extensive degenerative bone changes seen most prominent in the left hip. No acute pathology. RAD/Abd Inc Decub and/or Erect IMPRESSION: Fluid-filled loops of small bowel visualized in the right lower quadrant but no significant distention to suggest complete obstruction. Abundance of stool in the rectum suggestive of fecal impaction. Electronically Signed: Esau Carty MD at 14:49 EDT ,
== END | disposition home or self-care (01) ==
LOC: RAD 13:22
PROVIDERS: PCP Family Medicine Geriatric Medicine; Visit Provider Family Medicine Geriatric Medicine
DX: K56.41 Fecal impaction (principal)
CPT/HCPCS: 74019

== ENCOUNTER → 2021-10-24 | Outpatient (CLI) | payer MEDICARE, SELFPAY ==
[2021-10-24 10:21] LABS: AST(SGOT) 20 U/L (15-37); Alanine Aminotransfer ALT/SGPT 23 U/L (16-61); Albumin, Serum 3.8 g/dL (3.2-5.0); Alkaline Phosphatase 53 U/L (45-117); Bilirubin, Direct 0.19 mg/dL (0.00-0.30); Cholesterol 104 mg/dL (200); Globulin 3.1 g/dL (2.2-4.2); High Density Lipoprotein 47 mg/dL; Protein, Total 6.9 g/dL (6.4-8.2); Triglycerides 103 mg/dL; Very Low Density Lipoprotein 21 mg/dL (5-40)
== END | disposition home or self-care (01) ==
LOC: LAB 09:22
PROVIDERS: PCP Family Medicine Geriatric Medicine; Referring Provider Internal Medicine Cardiovascular Disease; Visit Provider Internal Medicine Cardiovascular Disease
DX: E78.00 Pure hypercholesterolemia, unspecified (principal)
CPT/HCPCS: 36415; 80061; 80076

== ENCOUNTER → 2021-10-31 | Outpatient (CLI) | payer MEDICARE, SELFPAY ==
[2021-10-31 12:25] LABS: Absolute Lymphocyte Count 1.94 X10^3/uL (0.83-4.51); Absolute Neutrophil Count 6.7 X10^3/uL (2.0-7.7); Basophil# 0.07 X10^3/uL; Basophil% 0.7 % (0-1); Eosinophil# 0.16 X10^3/uL; Eosinophils% 1.7 % (0-5); Hematocrit 49.6 % (40-54); Hemoglobin 16.2 g/dL (13.0-16.5); Lymphocyte # 1.94 X10^3/ul (0.83-4.51); Lymphocyte % 20.2 % (19-41); Mean Corp Hgb Conc 32.7 g/dL (32-36); Mean Corpuscular Hgb 32.4 pg (27.0-32.0); Mean Corpuscular Volume 99.2 fL (80-94); Mean Platelet Vol. 11.3 fl (6.2-12.0); Monocyte# 0.63 X10^3/uL; Monocyte% 6.6 % (0-10); NRBC Flagged by Analyzer 0 % (0-5); Neutrophil # 6.74 X10^3/uL (2.7-7.7); Neutrophil % 70.3 % (47-70); Platelet Count 182 K/mm3 (150-450); RBC Distribution Width CV 13.2 % (11.6-14.6); RBC Distribution Width SD 48.3 fl (35.1-43.9); White Blood Count 9.6 K/mm3 (4.4-11.0)
[2021-10-31 12:49] LABS: ALB/GLOB Ratio 1.2 RATIO (0.9-2.4); AST(SGOT) 28 U/L (15-37); Alanine Aminotransfer ALT/SGPT 34 U/L (16-61); Alkaline Phosphatase 65 U/L (45-117); Anion Gap 5 (5-15); BUN 24 mg/dL (7-18); BUN/Creat Ratio 16.3 RATIO (10-20); Calcium,Total 9.1 mg/dL (8.5-10.1); Chloride 110 mmol/L (98-107); Creatinine, Serum 1.47 mg/dL (0.70-1.30); EST Glomerular Filtration Rate 48 mL/min (>60); Est Glom Filt Rate - Afr Amer 59 mL/min (>60); Globulin 3.3 g/dL (2.2-4.2); Glucose 86 mg/dL (74-106); Potassium 4.3 mmol/L (3.5-5.1); Protein, Total 7.3 g/dL (6.4-8.2); Sodium Level 141 mmol/L (136-145); Thyroid Stim Hormone (TSH) 1.39 uIU/mL (0.358-3.74)
[2021-10-31 13:06] LABS: BNP,B-Type NATRIURETIC PEPTIDE 101.2 pg/mL (0-100)
[2021-10-31 13:23] LABS: Vitamin D,25 Hydroxy 31.8 ng/mL
== END | disposition home or self-care (01) ==
LOC: POLAB3 10:44
PROVIDERS: Physician Assistant Medical; PCP Family Medicine Geriatric Medicine; Visit Provider Family Medicine Geriatric Medicine
DX: I10 Essential (primary) hypertension (principal); E23.6 Other disorders of pituitary gland; E55.9 Vitamin D deficiency, unspecified; R06.00 Dyspnea, unspecified; E78.2 Mixed hyperlipidemia
CPT/HCPCS: 36415; 80053; 82306; 83880; 84403; 84443; 85025

== ENCOUNTER → 2021-11-11 | Outpatient (CLI) | payer MEDICARE, SELFPAY ==
--- NOTE | 2021-11-11 11:34 | STRESSREP ---
Stress Test Report For oncologic myocardial perfusion stress test. 86-year-old man with a history of dyspnea on exertion. Medications diltiazem metoprolol rivaroxaban rosuvastatin. Stress protocol: Resting KG demonstrates atrial fibrillation with a rate of 72 bpm normal intervals are noted. 0.4 mg of regadenoson was infused per usual protocol followed by Intravenous saline flush injection continuous EKG monitoring was performed. The maximum heart rate attained was 90 bpm which was 66% of max impact at heart rate the maximum workload was 1 metabolic equivalent. At rest there were no ST or T wave changes noted to suggest abnormal flow reserve and at peak infusion nonspecific ST changes were noted with did not meet the criteria for ischemia. No clinical angina was noted. No other arrhythmias were present. The final blood pressure was 112/68 mmHg. Myocardial perfusion protocol. 14.0 mCi of technetium 99m sestamibi was injected at rest. 0.4 mg of regadenoson was infused per usual protocol. At peak infusion 45.0 mCi of technetium 99m sestamibi was injected stress images were obtained stress and rest images were reconstructed and compared in the short axis vertical long and horizontal long axis. Gated images were also obtained. Perfusion SPECT analysis: Review of the stress images demonstrate normal uptake of tracer noted in all areas of the myocardium. The resting images similar demonstrate normal uptake of tracer noted in all areas of the myocardium. No areas of reversibility are noted to suggest ischemia. Gated SPECT analysis: The gated ejection fraction is 76%. Conclusion: Normal pharmacologic myocardial perfusion stress test. Preserved ejection fraction.
== END | disposition home or self-care (01) ==
PROVIDERS: PCP Family Medicine Geriatric Medicine; Referring Provider Physician Assistant Medical; Visit Provider Physician Assistant Medical
DX: R06.00 Dyspnea, unspecified (principal)
CPT/HCPCS: 78452; 93017; A9500; A4216; J2785

== ENCOUNTER → 2021-12-09 | Outpatient (CLI) | payer MEDICARE, SELFPAY | END | disposition home or self-care (01) | LOC: POLAB3 15:16 → LABSPEC 15:18 | PROVIDERS: PCP Family Medicine Geriatric Medicine; Visit Provider Family Medicine Geriatric Medicine | DX: N39.0 Urinary tract infection, site not specified (principal) | CPT/HCPCS: 87077; 87086; 87088; 87186 ==

== ENCOUNTER → 2022-01-07 | Outpatient (CLI) | payer MEDICARE, SELFPAY ==
[2022-01-07 15:59] LABS: PSA,Total- Diagnostic 4.78 ng/mL (0.0-4.0)
== END | disposition home or self-care (01) ==
LOC: LAB 14:40
PROVIDERS: PCP Family Medicine Geriatric Medicine; Visit Provider Urology
DX: N40.1 Benign prostatic hyperplasia with lower urinary tract symptoms (principal)
CPT/HCPCS: 36415; 84153

== ENCOUNTER → 2022-03-11 | Outpatient (CLI) | payer MEDICARE, SELFPAY ==
--- NOTE | 2022-03-11 15:35 | RAD_ITS ---
INDICATION: LOW BACK PAIN EXAMINATION/TECHNIQUE: X-RAY - XR Spine Lumbar 2 or 3 Views COMPARISON: 09/19/2021 FINDINGS: VERTEBRAE: 2 by height is maintained, there is a mild S-shaped scoliotic curvature. Negligible interval change. Marginal osteophyte formation is present. No acute fracture or subluxation. Multilevel facet hypertrophic changes from L3 to S1. DISCS: Disc space narrowing marginal osteophyte formation most notable at L4-5 and L5-S1. INCLUDED ABDOMEN: Included bowel gas pattern is non-obstructive. RAD/Lumbar Spine 2 or 3 Views IMPRESSION: 1. Stable exam. 2. Diffuse lumbar spondylosis and facet arthrosis. 3. No evidence of fractures or acute destructive or paraspinous soft tissue abnormality. Electronically Signed: Rudolph Hill MD at 0:08 EDT ,
== END | disposition home or self-care (01) ==
LOC: RAD 15:31
PROVIDERS: PCP Family Medicine Geriatric Medicine; Referring Provider Family Medicine Geriatric Medicine; Visit Provider Family Medicine Geriatric Medicine
DX: M54.59 Other low back pain (principal)
CPT/HCPCS: 72100

== ENCOUNTER → 2022-04-23 | Outpatient (CLI) | payer MEDICARE, SELFPAY ==
[2022-04-23 10:11] LABS: Hematocrit 47.4 % (40-54); Hemoglobin 16.3 g/dL (13.0-16.5); Mean Corp Hgb Conc 34.4 g/dL (32-36); Mean Corpuscular Hgb 33.1 pg (27.0-32.0); Mean Corpuscular Volume 96.3 fL (80-94); Mean Platelet Vol. 10.5 fl (6.2-12.0); Platelet Count 148 K/mm3 (150-450); RBC Distribution Width CV 13.5 % (11.6-14.6); RBC Distribution Width SD 48.3 fl (35.1-43.9); Red Blood Count 4.92 M/mm3 (4.6-6.2); White Blood Count 10.3 K/mm3 (4.4-11.0)
[2022-04-23 10:44] LABS: Anion Gap 7 (5-15); BUN 24 mg/dL (7-18); BUN/Creat Ratio 17.8 RATIO (10-20); Chloride 112 mmol/L (98-107); Creatinine, Serum 1.35 mg/dL (0.70-1.30); EST Glomerular Filtration Rate 53 mL/min (>60); Est Glom Filt Rate - Afr Amer 65 mL/min (>60); Glucose 107 mg/dL (74-106); Potassium 4.1 mmol/L (3.5-5.1); Sodium Level 142 mmol/L (136-145)
== END | disposition home or self-care (01) ==
LOC: LAB 09:00
PROVIDERS: PCP Family Medicine Geriatric Medicine; Referring Provider Urology; Visit Provider Urology
DX: Z01.812 Encounter for preprocedural laboratory examination (principal)
CPT/HCPCS: 36415; 80048; 85027

== ENCOUNTER → 2022-05-02 | Outpatient (CLI) | payer MEDICARE, SELFPAY ==
--- NOTE | 2022-05-02 | IMM_PTH ---
PATIENT: MIRANDA CLAYTON [facility] U#:[id number] AGE/SX: 86/M ROOM: RE05/02/[address]: Dr. Alfonzo Whitaker MD : 1935 BED: DIS: 05/02/2022 SPEC #: [id number] RECD: 05/06/22 14:02 STATUS: GURDEEP REQ #: [id number] SAL: 05/02/22 00:[address]: Alfonzo Whitaker DEPT: IMMUNOHISTOCHEMISTRY RECD BY: Stefani Finley ENTERED: 05/06/22 14:05 SP TYPE: IMMUNO OTHR DR: Dr. Иван Plasencia MD Tissues: A - Skin of penis, NOS B - Skin of penis, NOS Procedures: p16 (initial) KI-67 (add) PHYSICIAN & INSTITUTION [place] [id number] SPECIMEN INFORMATION: Tissue Source: A ? Penile biopsy 3 o?clock, B - Penile biopsy 12 o?clock Clinical Info: Penile lesions Specimen Number: [id number] A & B CPT code: 53453 x2, 35871 x2 METHODOLOGY: Deparaffinized sections of prefer/formalin-fixed tissue or PAP/DQ stained slides are incubated with monoclonal/polyclonal antibodies/oligonucleotide probes. Localization is made via biotin free immunoperoxidase method. Appropriate controls are performed and reacted as expected. Results on target cell population are indicated in the following table: RESULTS: ANTIBODY / CLONE RESULT Block A P16 (E6H4) positive, block staining Ki-67 (30-9) positive, high Block B P16 (E6H4) positive, block staining Ki-67 (30-9) positive, high These tests were developed and their performance characteristics determined by [facility]. They may not have been cleared or approved by the U.S. Food and Drug Administration. The FDA has determined that such clearance or approval is not necessary. The above immunohistochemical/dualISH markers are ordered and reviewed by the Pathologist. INTERPRETATION: A. 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 B. Penile lesion, 12 o?clock, biopsy: Extensive severe squamous dysplasia. SJ:nani 05/07/2022
--- NOTE | 2022-05-02 | PEN_PTH ---
PATIENT: MIRANDA CLAYTON LOC: [facility] U#:[id number] AGE/SX: 86/M ROOM: RE05/02/[address]: Dr. Alfonzo Whitaker MD : 1935 BED: DIS: 05/02/2022 SPEC #: [id number] RECD: 05/02/22 15:00 STATUS: GURDEEP REMindi #: [id number] SAL: 05/02/22 00:[address]: Alfonzo Whitaker DEPT: SURGICAL PATHOLOGY RECD BY: Andrés Shell ENTERED: 05/05/22 09:59 SP TYPE: PENIS OTHR DR: Dr. Иван Plasencia MD [facility] Tissues: A - Penis, NOS B - Penis, NOS Procedures: Surgery Specimen Level IV HEADER OPERATION: Penile biopsy PRE-OP DIAGNOSIS: Penile lesions TISSUE SUBMITTED: A ? Penile biopsy 3 o?clock, B - Penile biopsy 12 o?clock MICROSCOPIC DIAGNOSIS A. 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 See comment. B. Penile lesion, 12 o?clock, biopsy: Severe squamous dysplasia and parakeratosis. See comment. HARRY:nani 05/06/2022 COMMENT A & B. Immunohistochemistry ([id number]) for surrogate HPV marker (p16) supports the above diagnosis. 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 Case has been reviewed in consultation with Dr. Courtney who concurs with the above diagnosis. IDC:AM MICROSCOPIC DESCRIPTION Slides are reviewed. GROSS DESCRIPTION A - Received in fixative is one container labeled with the patient's name and designated penile biopsy 3 o'clock. The specimen consists of an irregular piece of fagan-white skin measuring 0.7 x 0.5 x 0.1 cm. The specimen is inked, serially sectioned and submitted entirely in one cassette. B - Received in fixative is one container labeled with the patient's name and designated penile biopsy 12 o'clock. The specimen consists of an irregular piece of fagan-white skin measuring 0.8 x 0.5 x 0.1 cm. The specimen is inked, serially sectioned and submitted entirely in one cassette. / HARRY:nani 05/05/2022 TC:5 CPT: 72490 x2
== END | disposition home or self-care (01) ==
LOC: LABSPEC 16:09
PROVIDERS: PCP Family Medicine Geriatric Medicine; Visit Provider Urology
DX: L98.8 Other specified disorders of the skin and subcutaneous tissue (principal)
CPT/HCPCS: 88305; 88341; 88342

== ENCOUNTER → 2022-05-08 | Outpatient (CLI) | payer MEDICARE, SELFPAY ==
[2022-05-08 13:41] LABS: Vitamin D,25 Hydroxy 40.2 ng/mL
[2022-05-08 13:56] LABS: Thyroid Stim Hormone (TSH) 1.86 uIU/mL (0.358-3.74)
== END | disposition home or self-care (01) ==
LOC: POLAB3 10:06
PROVIDERS: PCP Family Medicine Geriatric Medicine; Visit Provider Family Medicine Geriatric Medicine
DX: I10 Essential (primary) hypertension (principal); E55.9 Vitamin D deficiency, unspecified
CPT/HCPCS: 36415; 82306; 84443

== ENCOUNTER 2022-05-19 12:00 | Outpatient (RCR) | payer MEDICARE, SELFPAY ==
--- NOTE | 2022-04-21 11:28 | HP.PTEVAL_ITS ---
Patient's Visit Information MIRANDA CLAYTON is a 86 year old M referred to Physical Therapy by Dr. Luís Shah DO with a diagnosis of SPINAL STENOSIS LUMBAR ,SPONDYLOSIS ,DDD. Date of Evaluation: 04/21/22 Physical Therapist: Jackson Galvan, PT, Cert MDT, OCS - Visit Plan Frequency: 2x /Week Duration: 4 Weeks Plan: PT INTERVETIONS LUMBAR FLEXION ,POSTURAL EX'S ,DLS AND MODALTIES NEEDED - Subjective This 86 y/o male presents to physical therapy with lumbar radiculopathy. Patient has had lumbar pain many years. Patient seen DR Pablo hartmann x-rays showed DDD and stenosis. Wanted to do MRI but need therapy. Patient had no medication. Patient has had therapy in past. Initially ,tied prednisone and inflammation. Patient pain located symmetrical lumbar . Aggravating factors walking, standing > 2mins ,bending and lifting. Alleviating factors sitting resting. Denies paresthesia/tingling. Bowel/bladder -.Coughing/sneezing-. Patient symptoms affects sleeping. Patient symptoms affects QOL and function. SOCIAL: . VOCATION: retired - Pain Bilateral Back Pain Intensity (Out of 10): 7 Pain Intensity Range: 10 Comment: walking/standing - Objective POSTURE: mild forward posture knees flexed, right leg shorter. GAIT: reciprocal pattern mild forward posture ,hips/keeps flexed ,right decrease stance with lateral sway to right. NEURO: denies paresthesia/tingling, reflexes L3-4 ,L4-5,L5-S1. ASYMMTRIES: ~ 1in shorter right leg has heel lifts. MMT: quads/hams 4/5 ,hip flexion 4-/5 ,ankle 4/5. FLEXABLITY: hamstrings. LUMBAR ROM: flexion mod loss ,extension mod ,side glides min loss - Special Tests L/S Slump test left side: Negative L/S Slump test right side: Negative L/S Left Straight Leg Raise: Negative L/S Right Straight Leg Raise: Negative - Balance/Special Test Scores Oswestry Low Back Score: 27 - Goals Goal 1:: Patient to be I with HEP for lumbar Goal Time Frame: 4-6 Weeks Goal 2:: Patient to demonstrate 50% improvement with increase function and less pain Goal Time Frame: 4-6 Weeks Goal 3:: Patient to improve lumbar ROM for function of recovery to tie shoes. Goal Time Frame: 4-6 Weeks Goal 4:: Patient be able to stand and walk > 5-10 mins to improve function and ADL's Goal Time Frame: 4-6 Weeks Goal 5:: Patient to improve back osewstry score by 5 points melody improve QOL Goal Time Frame: 4-6 Weeks - Rehabilitation Potential Physical Therapy Diagnosis: Patient has lumbar pain with radicular symptoms with pain worse with standing and walking ,better with sitting and flexion thus symptoms increase with position and movements testing thus benefit from skilled PT Rehabilitation Potential: Good - Anticipated Interventions Patient/Client Instruction: Educate patient on: Condition, Plan of Care For the Purpose of:: To decrease pain, To increase ROM, To improve muscle performance and motor function, To improve ability to perform ADL's, To increase tolerance to activity/condition/position, To improve performance and indepe ndence with ADL's, To improve ability of physical actions for home/community/work/leisure, To improve health of tissue, To decrease soft tissue restriction, To increase flexibility/ROM Therapeutic Exercise to Include: Strength training, Endurance training, Postural training, Flexibilty training, Active ROM, Dynamic Lumbar Stabilization For the Purpose of:: To decrease pain, To increase ROM, To improve muscle performance and motor function, To improve ability to perform ADL's, To increase tolerance to activity/condition/position, To improve ability of physical actions for home/community/work/leisure, To improve health of tissue, To decrease soft tissue restriction, To increase flexibility/ROM, To improve endurance, To prevent re-injury TENS: Yes IF ES: Yes Cryotherapy (ice pack, ice massage): Yes Thermo therapy (hot pack): Yes Ultrasound (thermal/non thermal): Yes For the Purpose of:: To decrease pain, To increase ROM, To improve nutrient delivery to tissue, To increase oxygenation perfusion, To improve health of tissue, To decrease soft tissue restriction Thank you for the opportunity to evaluate your patient. For Medicare and Medicare HMO plans, please review the plan of care and approve it. It will need to be FAXED BACK to us at [phone] for Medicare purposes. For Medicare only, by signing this I certify the plan of care. Please let me know if there are questions or concerns regarding this plan of care. Physician Signature: Date:
--- NOTE | 2022-05-19 12:32 | HP.PTDCSUM ---
It has been my pleasure to treat MIRANDA CLAYTON referred by Dr. Luís Shah DO, with the diagnosis of SPINAL STENOSIS LUMBAR ,SPONDYLOSIS ,DDD for a total of 8 visit(s). Discharge Date: Please see the following information for a summary of their discharge status. Subjective: Doing well .. with ex's. Plan to see DR Garza Thursday Bilateral Back Pain Intensity (Out of 10): 5 % Improvement: 40 Objective/Function: POSTURE: mild forward posture. GAIT: reciprocal pattern lateral sway to left. MMT:nquads/hams 4/5,hip flexion 4-/5,hip abd 3+/5. LUMBAR ROM: flexion min/mod loss ,extension mod loss Goal 1:: Patient to be I with HEP for lumbar Goal Progress: Goal Met Goal 2:: Patient to demonstrate 50% improvement with increase function and less pain Goal Progress: Progressing Goal 3:: Patient to improve lumbar ROM for function of recovery to tie shoes. Goal Progress: Progressing Goal 4:: Patient be able to stand and walk > 5-10 mins to improve function and ADL's Goal Progress: Progressing Goal 5:: Patient to improve back osewstry score by 5 points melody improve QOL Goal Progress: Goal Met Plan: D/C RTD If there are questions or concerns regarding this patient's physical therapy, please feel free to call me at [phone]. Thank you for the referral of this patient. Sincerely, Jackson Galvan, PT, Cert MDT, OCS Balance/Gait/Functional tests - Balance/Special Test Scores Oswestry Low Back Score: 15
== END 2022-05-19 19:00 | disposition home or self-care (01) ==
LOC: PT 12:00
PROVIDERS: PCP Family Medicine Geriatric Medicine; Referring Provider Orthopaedic Surgery; Visit Provider Orthopaedic Surgery
DX: M48.061 Spinal stenosis, lumbar region without neurogenic claudication (principal); M47.26 Other spondylosis with radiculopathy, lumbar region; M51.36 Other intervertebral disc degeneration, lumbar region
CPT/HCPCS: 97110; 97162; 97530

== ENCOUNTER → 2022-06-21 | Outpatient (CLI) | payer MEDICARE, SELFPAY ==
--- NOTE | 2022-06-21 07:19 | MRI_ITS ---
STUDY: MRI LUMBAR SPINE WITHOUT CONTRAST REASON FOR EXAM: Male, 86 years old. STENOSIS,SPONDYLOSIS TECHNIQUE: Standardized fat and water weighted pulse sequences were obtained in the sagittal and axial planes. COMPARISON: March 11, 2022, February 22, 2019 FINDINGS: There is mild levoscoliosis with preserved AP alignment. Vertebral bodies are intact with normal marrow. There is minor scattered marrow degenerative change and benign hemangioma in S1 and T12. Paraspinous soft tissues are normal. Aorta is normal caliber. There are simple bilateral renal cysts. There is no hydronephrosis. Conus terminates at L1. Cauda equina is normal. T11-T12 has a broad disc bulge and endplate degeneration. Canal and foramina are patent. T12-L1 has endplate degeneration and disc bulge. Canal and foramina are patent. L1-L2 has disc bulge and degeneration of the endplates. Canal and foramina are patent. L2-L3 has a disc bulge and asymmetric to the left extra foraminal osteophyte. Canal is patent. Foramina are patent bilaterally. L3-L4 has a disc bulge and facet and ligamentum hypertrophy. Canal and lateral recesses are patent. Foramina are mildly to moderately stenotic bilaterally. L4-L5 has a disc bulge and asymmetric to the right extra foraminal bulge/osteophyte. Canal is patent. Lateral recesses are patent bilaterally. Disc height is reduced. Foramina are moderately stenotic on the right and patent on the left. L5-S1 has a broad disc bulge and endplate osteophytes. Disc height is reduced. There is facet and ligamentum hypertrophy. Canal and lateral recesses are patent. Foramina are moderately stenotic bilaterally. MRI/Spine Lumbar (Routine) IMPRESSION: 1. Multilevel spondylosis. 2. Patent canal. 3. Scattered bilateral mild and moderate foraminal stenoses. Electronically Signed: Demarcus Rees MD at 15:09 EST ,
== END | disposition home or self-care (01) ==
PROVIDERS: PCP Family Medicine; Referring Provider Orthopaedic Surgery; Visit Provider Orthopaedic Surgery
DX: M48.061 Spinal stenosis, lumbar region without neurogenic claudication (principal); N28.1 Cyst of kidney, acquired; M51.24 Other intervertebral disc displacement, thoracic region; D18.01 Hemangioma of skin and subcutaneous tissue; M51.26 Other intervertebral disc displacement, lumbar region; M47.26 Other spondylosis with radiculopathy, lumbar region; M51.36 Other intervertebral disc degeneration, lumbar region
CPT/HCPCS: 72148

== ENCOUNTER → 2022-07-25 | Outpatient (CLI) | payer MEDICARE, SELFPAY ==
--- NOTE | 2022-07-25 11:30 | LES_PTH ---
PATIENT: MIRANDA CLAYTON LOC: [facility] U#:[id number] AGE/SX: 87/M ROOM: RE07/25/[address]: Dr. Alfonzo Whitaker MD : 1935 BED: DIS: 07/25/2022 SPEC #: [id number] RECD: 07/25/22 15:08 STATUS: GURDEEP FOSTER #: [id number] SAL: 07/25/22 11:[address]: Alfonzo Whitaker DEPT: SURGICAL PATHOLOGY RECD BY: Alma Montero ENTERED: 07/28/22 10:09 SP TYPE: Lesion OTHR DR: Dr. 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 See comment. AM:nani 07/29/2022 COMMENT Complete excision of lesion is recommended for definitive classification. Case has been reviewed in consultation with Dr. [place] who concurs with the above diagnosis. IDC:SJ MICROSCOPIC DESCRIPTION Slides are reviewed. GROSS DESCRIPTION Received in fixative is one container labeled with the patient's name and designated penile lesion. The specimen consists of one irregular fragment of light fagan soft tissue that measures 0.5 x 0.2 x <0.1 cm. The specimen is totally submitted in one cassette. / AM:nani 07/28/2022 TC:0 CPT: [id number]
== END | disposition home or self-care (01) ==
LOC: LABSPEC 16:06
PROVIDERS: PCP Family Medicine; Referring Provider Urology; Visit Provider Urology
DX: C60.9 Malignant neoplasm of penis, unspecified (principal)
CPT/HCPCS: 88305

== ENCOUNTER → 2022-09-11 | Outpatient (CLI) | payer MEDICARE, SELFPAY ==
--- NOTE | 2022-09-11 15:19 | BD_ITS ---
STUDY: DUAL ENERGY X-RAY ABSORPTIOMETRY / DXA REASON FOR EXAM: Male, 87 years old. 733.00OsteoporosisBONE DENSITY REASON FOR EXAM TECHNIQUE: Bone Mineral Density (BMD) measurements of lumbar spine and bilateral hips were obtained. COMPARISON: Comparison is made with prior study of August 23, 2020. FINDINGS: Lumbar Spine (L1-L4): g/cm2 (1.036) / T-score (-0.2) / Z-score (1.1) Findings are suggestive of normal bone density with a low fracture risk. Left Femur Total: g/cm2 (0.930) / T-score (-0.7) / Z-score (0.6) Left Femoral Neck: g/cm2 (0.677) / T-score (-1.9) / Z-score (-0.2) Right Femur Total: g/cm2 (0.783) / T-score (-1.7) / Z-score (-0.4) Right Femoral Neck: g/cm2 (0.594) / T-score (-2.5) / Z-score (-0.8) The T-Scores on the most recent prior examination were: Lumbar Spine (L1-L4): There has been improvement of bone density since the previous examination. Left Femur Total: which represents an improvement of 8.9%. Right Femur Total: which represents an improvement of 13.3%. BD/Dexa Bone Density Study IMPRESSION: The patient is considered osteopenic as outlined below according to World Eber Organization (WHO) criteria with a high fracture risk. There has been improvement of bone density since the previous examination. Reference Information: The T-score is the number of standard deviations above or below the standard which is normal for young adults at their peak bone mineral density. The World Health Organization (WHO) interprets the T-scores as follows: Above -1 Normal bone density Between -1 and -2.5 Osteopenia Equal to / or below -2.5 Osteoporosis As a practical clinical guideline, osteopenia may be graded as follows: Mild -1 through -1.5 Moderate -1.6 through -2.0 Severe -2.1 through -2.4 The Z-score is the number of standard deviations above or below age-matched controls. A Z-score of less than -1.5 would be considered abnormal. References: 1. NIH Osteoporosis and Related Bone Diseases www osteo.org 2. International Society for Clinical Densitometry www iscd.org 3. National Osteoporosis Foundation www nof.org Electronically Signed: Jb Talbot MD at 12:56 EDT ,
== END | disposition home or self-care (01) ==
PROVIDERS: PCP Family Medicine; Referring Provider Family Medicine; Visit Provider Family Medicine
DX: M81.0 Age-related osteoporosis without current pathological fracture (principal)
CPT/HCPCS: 77080

== ENCOUNTER → 2022-10-03 | Outpatient (CLI) | payer MEDICARE, SELFPAY ==
[2022-10-03 09:36] LABS: Absolute Lymphocyte Count 1.94 X10^3/uL (0.83-4.51); Absolute Neutrophil Count 4.7 X10^3/uL (2.0-7.7); Basophil# 0.08 X10^3/uL; Basophil% 1.1 % (0-1); Eosinophil# 0.13 X10^3/uL; Eosinophils% 1.8 % (0-5); Hematocrit 46.6 % (40-54); Hemoglobin 15.9 g/dL (13.0-16.5); Lymphocyte # 1.94 X10^3/ul (0.83-4.51); Lymphocyte % 26.1 % (19-41); Mean Corp Hgb Conc 34.1 g/dL (32-36); Mean Corpuscular Hgb 33.3 pg (27.0-32.0); Mean Corpuscular Volume 97.5 fL (80-94); Mean Platelet Vol. 10.9 fl (6.2-12.0); Monocyte# 0.58 X10^3/uL; Monocyte% 7.8 % (0-10); NRBC Flagged by Analyzer 0 % (0-5); Neutrophil # 4.67 X10^3/uL (2.7-7.7); Neutrophil % 62.9 % (47-70); Platelet Count 149 K/mm3 (150-450); RBC Distribution Width CV 13.4 % (11.6-14.6); RBC Distribution Width SD 48.5 fl (35.1-43.9); Red Blood Count 4.78 M/mm3 (4.6-6.2); White Blood Count 7.4 K/mm3 (4.4-11.0)
[2022-10-03 10:02] LABS: Vitamin D,25 Hydroxy 58.8 ng/mL
[2022-10-03 10:07] LABS: ALB/GLOB Ratio 1.2 RATIO (0.9-2.4); AST(SGOT) 18 U/L (15-37); Alanine Aminotransfer ALT/SGPT 25 U/L (16-61); Albumin, Serum 3.7 g/dL (3.2-5.0); Alkaline Phosphatase 49 U/L (45-117); Anion Gap 8 (5-15); BUN 26 mg/dL (7-18); BUN/Creat Ratio 18.8 RATIO (10-20); Calcium,Total 8.8 mg/dL (8.5-10.1); Chloride 112 mmol/L (98-107); Cholesterol 104 mg/dL (200); Creatinine, Serum 1.38 mg/dL (0.70-1.30); EST Glomerular Filtration Rate 52 mL/min (>60); Est Glom Filt Rate - Afr Amer 63 mL/min (>60); Globulin 3.1 g/dL (2.2-4.2); Glucose 93 mg/dL (74-106); High Density Lipoprotein 47 mg/dL; Protein, Total 6.8 g/dL (6.4-8.2); Sodium Level 141 mmol/L (136-145); T4 Free Direct 1.01 ng/dL (0.76-1.46); Thyroid Stim Hormone (TSH) 2.85 uIU/mL (0.358-3.74); Triglycerides 89 mg/dL; Very Low Density Lipoprotein 18 mg/dL (5-40)
== END | disposition home or self-care (01) ==
LOC: LAB 08:31
PROVIDERS: PCP Family Medicine; Referring Provider Family Medicine; Visit Provider Family Medicine
DX: I25.10 Atherosclerotic heart disease of native coronary artery without angina pectoris (principal); E78.5 Hyperlipidemia, unspecified; E03.9 Hypothyroidism, unspecified; M81.0 Age-related osteoporosis without current pathological fracture
CPT/HCPCS: 36415; 80053; 80061; 82306; 84439; 84443; 85025

== ENCOUNTER → 2022-12-30 | Outpatient (CLI) | payer MEDICARE, SELFPAY ==
[2022-12-30 17:45] LABS: Absolute Lymphocyte Count 2.32 X10^3/uL (0.83-4.51); Basophil# 0.05 X10^3/uL; Basophil% 0.6 % (0-1); Eosinophil# 0.09 X10^3/uL; Hematocrit 48.5 % (40-54); Hemoglobin 15.9 g/dL (13.0-16.5); Lymphocyte # 2.32 X10^3/ul (0.83-4.51); Lymphocyte % 25.6 % (19-41); Mean Corp Hgb Conc 32.8 g/dL (32-36); Mean Corpuscular Volume 100.6 fL (80-94); Mean Platelet Vol. 10.8 fl (6.2-12.0); Monocyte# 0.61 X10^3/uL; Monocyte% 6.7 % (0-10); NRBC Flagged by Analyzer 0 % (0-5); Neutrophil # 5.96 X10^3/uL (2.7-7.7); Neutrophil % 65.7 % (47-70); Platelet Count 187 K/mm3 (150-450); RBC Distribution Width CV 13.2 % (11.6-14.6); RBC Distribution Width SD 49.5 fl (35.1-43.9); Red Blood Count 4.82 M/mm3 (4.6-6.2); White Blood Count 9.1 K/mm3 (4.4-11.0)
[2022-12-30 18:23] LABS: BNP,B-Type NATRIURETIC PEPTIDE 102.8 pg/mL (0-100)
[2022-12-30 18:53] LABS: ALB/GLOB Ratio 1.3 RATIO (0.9-2.4); AST(SGOT) 28 U/L (15-37); Alanine Aminotransfer ALT/SGPT 26 U/L (16-61); Alkaline Phosphatase 48 U/L (45-117); Anion Gap 8 (5-15); BUN 23 mg/dL (7-18); BUN/Creat Ratio 18.5 RATIO (10-20); Calcium,Total 9.3 mg/dL (8.5-10.1); Chloride 111 mmol/L (98-107); Creatinine, Serum 1.24 mg/dL (0.70-1.30); EST Glomerular Filtration Rate 59 mL/min (>60); Est Glom Filt Rate - Afr Amer 71 mL/min (>60); Glucose 96 mg/dL (74-106); Potassium 4.3 mmol/L (3.5-5.1); Sodium Level 140 mmol/L (136-145); T4 Free Direct 1.05 ng/dL (0.76-1.46); Thyroid Stim Hormone (TSH) 0.87 uIU/mL (0.358-3.74)
== END | disposition home or self-care (01) ==
LOC: BFHLAB 15:05
PROVIDERS: PCP Family Medicine; Referring Provider Family Medicine; Visit Provider Family Medicine
DX: R53.83 Other fatigue (principal); I50.9 Heart failure, unspecified; I48.91 Unspecified atrial fibrillation; I25.10 Atherosclerotic heart disease of native coronary artery without angina pectoris; E03.9 Hypothyroidism, unspecified
CPT/HCPCS: 36415; 80053; 83880; 84439; 84443; 85025

== ENCOUNTER → 2023-01-15 | Outpatient (CLI) | payer MEDICARE, SELFPAY ==
--- NOTE | 2023-01-15 10:46 | CDU_ITS ---
Reason For Study: DIZZINESS, HX OF CVA Rt. Velocities/BP Lt. Velocities/BP Prox CCA 50.9/9.4 cm/sec. Prox CCA 78.6/17.5 cm/sec. Mid CCA 43.4/10.3 cm/sec. Mid CCA 59.2/13.1 cm/sec. Dist CCA 43.4/9.4 cm/sec. Dist CCA 55.9/15.3 cm/sec. Prox ICA 34.3/9.4 cm/sec. Prox ICA 38.6/13.1 cm/sec. Mid ICA 49.2/13.7 cm/sec. Mid ICA 53.8/14.1 cm/sec. Dist ICA 61.3/17.9 cm/sec. Dist ICA 39.6/11.2 cm/sec. Rt. ICA/CCA = 61.3/43.4=1.4. Lt. ICA/CCA = 53.8/59.2=0.9. Prox ECA 50.0/9.4 cm/sec. Prox ECA 91.1/12.0 cm/sec. Rt. Vert. 30.5/7.8 cm/sec. Lt. Vert. 36.7/12.2 cm/sec. Right Extracranial There is intimal thickening but no significant atherosclerotic plaque noted in the right common carotid artery. There is heterogeneous, irregular atherosclerotic plaque noted in the right internal carotid artery. There is homogeneous, irregular atherosclerotic plaque noted in the right external carotid artery. Antegrade flow is noted in the right vertebral artery. Left Extracranial There is intimal thickening but no significant atherosclerotic plaque noted in the left common carotid artery. There is heterogeneous, irregular atherosclerotic plaque noted in the left internal carotid artery. There is heterogeneous, irregular atherosclerotic plaque noted in the left external carotid artery. Antegrade flow is noted in the left vertebral artery. Procedure Carotid Duplex [id number]. This is a Carotid Duplex examination using B-mode, color flow and specral Doppler. Exam performed in department. VL/Carotid Duplex Ultrasound Interpretation Summary Mild (<50%) stenosis right extracranial internal carotid. Mild (<50%) stenosis left extracranial internal carotid. Patent and antegrade vertebrals bilaterally. Ordering Physician: Refugio Sánchez Referring Physician: Johny Aguilar Performed By: Liza Aragon RDCS, RVT
== END | disposition home or self-care (01) ==
LOC: CVS 10:45
PROVIDERS: PCP Family Medicine; Referring Provider Nurse Practitioner Family; Visit Provider Nurse Practitioner Family
DX: R42 Dizziness and giddiness (principal); I48.11 Longstanding persistent atrial fibrillation; Z86.73 Personal history of transient ischemic attack (TIA), and cerebral infarction without residual deficits; E78.2 Mixed hyperlipidemia; Z95.1 Presence of aortocoronary bypass graft; I25.10 Atherosclerotic heart disease of native coronary artery without angina pectoris
CPT/HCPCS: 93225; 93226; 93880

== ENCOUNTER 2023-01-18 10:43 | Emergency (ER) | payer MEDICARE, SELFPAY ==
[2023-01-18 10:44] VITALS: BP 107/67; PULSE 49; RESP 18; TEMP 36.6; O2SAT 98; BMI 30.1
[2023-01-18 10:54] VITALS: BP 123/96; PULSE 106; RESP 16; O2SAT 96
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
[2023-01-18 11:22] LABS: Absolute Lymphocyte Count 1.83 X10^3/uL (0.83-4.51); Absolute Neutrophil Count 6.5 X10^3/uL (2.0-7.7); Basophil# 0.05 X10^3/uL; Basophil% 0.5 % (0-1); Eosinophil# 0.07 X10^3/uL; Eosinophils% 0.8 % (0-5); Hematocrit 46.9 % (40-54); Hemoglobin 15.6 g/dL (13.0-16.5); Lymphocyte # 1.83 X10^3/ul (0.83-4.51); Lymphocyte % 20.1 % (19-41); Mean Corp Hgb Conc 33.3 g/dL (32-36); Mean Corpuscular Hgb 33.1 pg (27.0-32.0); Mean Corpuscular Volume 99.4 fL (80-94); Monocyte% 6.6 % (0-10); NRBC Flagged by Analyzer 0 % (0-5); Neutrophil # 6.53 X10^3/uL (2.7-7.7); Neutrophil % 71.7 % (47-70); Platelet Count 165 K/mm3 (150-450); RBC Distribution Width SD 48.4 fl (35.1-43.9); Red Blood Count 4.72 M/mm3 (4.6-6.2); White Blood Count 9.1 K/mm3 (4.4-11.0)
--- NOTE | 2023-01-18 11:25 | RAD_ITS ---
HISTORY: shortness of breath. TECHNIQUE: XR Chest 2 Views. COMPARISON: 11/26/2020. FINDINGS: CARDIOMEDIASTINAL BORDERS: Cardiac silhouette within normal limits in size. Mediastinal contour unchanged with midline sternotomy. LUNGS: Radiographically clear. Mild hyperinflation. PLEURA: No pleural effusion or pneumothorax seen. OSSEOUS STRUCTURES: Degenerative changes. RAD/Chest PA and Lateral IMPRESSION: No acute cardiopulmonary process identified. Electronically Signed: Vicky Henson MD at 11:54 EDT ,
[2023-01-18 11:41] LABS: BNP,B-Type NATRIURETIC PEPTIDE 114.2 pg/mL (0-100)
[2023-01-18 11:43] LABS: Anion Gap 3 (5-15); BUN 24 mg/dL (7-18); Calcium,Total 9.3 mg/dL (8.5-10.1); Chloride 109 mmol/L (98-107); Creatinine, Serum 1.33 mg/dL (0.70-1.30); EST Glomerular Filtration Rate 54 mL/min (>60); Est Glom Filt Rate - Afr Amer 66 mL/min (>60); Estimated Creatinine Clearance 41.17 ml/min; Glucose 140 mg/dL (74-106); Potassium 4.2 mmol/L (3.5-5.1); Sodium Level 139 mmol/L (136-145); Troponin-I HS 11 pg/mL (3.0-78.0)
[2023-01-18 12:35] VITALS: BP 93/63; PULSE 98; RESP 18; O2SAT 97
[2023-01-18 13:40] VITALS: BP 118/84; PULSE 60; RESP 16; O2SAT 99
== END 2023-01-18 13:55 | disposition home or self-care (01) ==
PROVIDERS: Physician Assistant; Emergency Provider Emergency Medicine; PCP Family Medicine; Visit Provider Emergency Medicine
DX: R06.02 Shortness of breath (principal); I48.19 Other persistent atrial fibrillation; I10 Essential (primary) hypertension; E78.5 Hyperlipidemia, unspecified; I25.10 Atherosclerotic heart disease of native coronary artery without angina pectoris; Z86.73 Personal history of transient ischemic attack (TIA), and cerebral infarction without residual deficits; Z79.01 Long term (current) use of anticoagulants; E03.9 Hypothyroidism, unspecified; Z79.899 Other long term (current) drug therapy
CPT/HCPCS: 71046; 80048; 83880; 84484; 85025; 93005; 99283; A4216

== ENCOUNTER → 2023-01-19 | Outpatient (CLI) | payer MEDICARE, SELFPAY ==
[2023-01-19 14:13] LABS: Anion Gap 7 (5-15); BUN 19 mg/dL (7-18); BUN/Creat Ratio 14.3 RATIO (10-20); Calcium,Total 9.4 mg/dL (8.5-10.1); Chloride 108 mmol/L (98-107); Creatinine, Serum 1.33 mg/dL (0.70-1.30); EST Glomerular Filtration Rate 54 mL/min (>60); Est Glom Filt Rate - Afr Amer 66 mL/min (>60); Glucose 112 mg/dL (74-106); Potassium 4.3 mmol/L (3.5-5.1); Sodium Level 137 mmol/L (136-145)
== END | disposition home or self-care (01) ==
LOC: LAB 12:08
PROVIDERS: PCP Family Medicine; Referring Provider Nurse Practitioner Family; Visit Provider Nurse Practitioner Family
DX: R42 Dizziness and giddiness (principal); Z51.81 Encounter for therapeutic drug level monitoring; Z79.899 Other long term (current) drug therapy; I10 Essential (primary) hypertension
CPT/HCPCS: 36415; 80048

== ENCOUNTER → 2023-02-17 | Outpatient (CLI) | payer MEDICARE, SELFPAY ==
--- NOTE | 2023-02-17 10:47 | STRESSREP ---
Stress Test Report Pharmacologic myocardial perfusion stress test. 87-year-old male with a history of coronary disease and atrial fibrillation Resting EKG demonstrates atrial fibrillation with a rate of 68 bpm. Resting blood pressure is 110/70 mmHg. 0.4 mg of regadenoson was infused per usual protocol followed by rapid intravenous saline flush injection. Continuous EKG monitoring was performed. The maximum heart rate was 100 bpm which was 74% of max impacted heart rate the maximum workload was 1 metabolic equivalent. At rest there were no ST or T wave changes noted to suggest ischemia and at peak infusion nonspecific ST changes were noted which did not meet the criteria for ischemia. No clinical angina is noted. The final blood pressure was 108/68 mmHg. Myocardial perfusion protocol. 13.7 mCi of technetium 99m sestamibi was injected at rest. 0.4 mg of regadenoson was infused per usual protocol. At peak infusion 42.8 mCi of technetium 99m sestamibi was injected stress images were obtained stress and rest images were reconstructed and compared in the short axis vertical long and horizontal long axis. Gated images were also obtained. Perfusion SPECT analysis: Review of the stress images demonstrate normal uptake of tracer noted in all areas of the myocardium. The resting images similar demonstrated normal uptake of tracer noted in all areas of the myocardium. No areas of reversibility are noted to suggest ischemia and no previous infarct is noted. Gated SPECT analysis: The gated ejection fraction is 73%. Conclusion: Normal pharmacologic myocardial perfusion stress test. Preserved ejection fraction.
== END | disposition home or self-care (01) ==
PROVIDERS: PCP Family Medicine; Referring Provider Physician Assistant Medical; Visit Provider Physician Assistant Medical
DX: R06.00 Dyspnea, unspecified (principal); I48.11 Longstanding persistent atrial fibrillation; I25.10 Atherosclerotic heart disease of native coronary artery without angina pectoris; Z95.1 Presence of aortocoronary bypass graft; I10 Essential (primary) hypertension; E78.2 Mixed hyperlipidemia; Z86.73 Personal history of transient ischemic attack (TIA), and cerebral infarction without residual deficits; R06.02 Shortness of breath
CPT/HCPCS: 78452; 93017; A9500; A4216; J2785

== ENCOUNTER → 2024-02-11 | Outpatient (CLI) | payer MEDICARE, SELFPAY | END | disposition home or self-care (01) | PROVIDERS: PCP Family Medicine; Referring Provider Nurse Practitioner; Visit Provider Nurse Practitioner | DX: Z12.5 Encounter for screening for malignant neoplasm of prostate (principal) | CPT/HCPCS: 36415; 84153; G0103 ==

== ENCOUNTER → 2024-02-23 | Outpatient (CLI) | payer MEDICARE, SELFPAY ==
--- NOTE | 2024-02-23 | IMM_PTH ---
PATIENT: MIRANDA CLAYTON LOC: [facility] U#:[id number] AGE/SX: 88/M ROOM: RE02/23/[address]: Dr. Alfonzo Whitaker MD : 1935 BED: DIS: 02/23/2024 SPEC #: [id number] RECD: 02/25/24 10:55 STATUS: GURDEEP REQ #: [id number] SAL: 02/23/24 00:[address]: Alfonzo Whitaker DEPT: IMMUNOHISTOCHEMISTRY RECD BY: Catalino White ENTERED: 02/25/24 10:55 SP TYPE: IMMUNO OTHR DR: Dr. Johny Aguilar, Tissues: D - PROSTATE LEFT Procedures: 34BE12 (add) P40 (initial) PHYSICIAN & INSTITUTION [place] [id number] SPECIMEN INFORMATION: Tissue Source: D- Left apex Clinical Info: Elevated PSA Specimen Number: [id number] CPT code: 57142,15853 METHODOLOGY: Deparaffinized sections of prefer/formalin-fixed tissue or PAP/DQ stained slides are incubated with monoclonal/polyclonal antibodies/oligonucleotide probes. Localization is made via biotin free immunoperoxidase method. Appropriate controls are performed and reacted as expected. Results on target cell population are indicated in the following table: RESULTS: ANTIBODY / CLONE RESULT Block D P40 (BC28) positive 34BE12 (34BE12) positive These tests were developed and their performance characteristics determined by [facility]. They may not have been cleared or approved by the U.S. Food and Drug Administration. The FDA has determined that such clearance or approval is not necessary. The above immunohistochemical/dualISH markers are ordered and reviewed by the Pathologist. INTERPRETATION: Shayan Prostate, left apex, core biopsy: Negative for malignancy. 02/25/2024
--- NOTE | 2024-02-23 | PROSBIL_PTH ---
PATIENT: MIRANDA CLAYTON LOC: [facility] U#:[id number] AGE/SX: 88/M ROOM: RE02/23/[address]: Dr. Alfonzo Whitaker MD : 1935 BED: DIS: 02/23/2024 SPEC #: [id number] RECD: 02/24/24 08:01 STATUS: GURDEEP CRISTIAN #: [id number] SAL: 02/23/24 00:[address]: Alfonzo Whitaker DEPT: SURGICAL PATHOLOGY RECD BY: Andrés Shell ENTERED: 02/24/24 08:01 SP TYPE: PROST BX NORMA DR: Dr. Johny Aguilar DO Tissues: A - PROSTATE RIGHT B - PROSTATE RIGHT C - PROSTATE RIGHT D - PROSTATE LEFT E - PROSTATE LEFT F - PROSTATE LEFT Procedures: PROSTATE BX HEADER OPERATION: Prostate biopsy PRE-OP DIAGNOSIS: Elevated PSA TISSUE SUBMITTED: A - Right apex, B - Right mid, C - Right base, D - Left apex, E - Left mid, F - Left base MICROSCOPIC DIAGNOSIS A. Right prostate, apex, core biopsy: Prostatic adenocarcinoma. [place] grade: 3+4=7 Number of cores involved: 1/1 Proportion of tissue involved: >95% Perineural invasion: Not identified. Greatest tumor length: 0.9 cm B. Right prostate, mid, core biopsy: Prostatic adenocarcinoma. [place] grade: 3+4=7 Number of cores involved: 1/1 Proportion of tissue involved: ~90% Perineural invasion: present. Greatest tumor length: 0.9 cm C. Right prostate, base, core biopsy: Prostatic adenocarcinoma. [place] grade: 4+3=7 Number of cores involved: 1/1 Proportion of tissue involved: >95% Perineural invasion: present. Greatest tumor length: 1.2 cm D. Left prostate, apex, core biopsy: Prostatic tissue, negative for malignancy. See comment. E. Left prostate, mid, core biopsy: Prostatic tissue, negative for malignancy. Focal chronic inflammation. F. Left prostate, base, core biopsy: Prostatic tissue, negative for malignancy. Focal acute and chronic inflammation. SJ.mr 02/25/2024 COMMENT D. Immunohistochemistry ([id number]) supports the above diagnosis. MICROSCOPIC DESCRIPTION Slides are reviewed. GROSS DESCRIPTION A - Received is one container designated prostate, right apex. The specimen consists of one elongated fragments of light fagan-white soft tissue measuring 1.0 cm in length and 0.1 cm in diameter. The specimen is totally submitted in one cassette. B - Received is one container designated prostate, right mid. The specimen consists of one elongated fragments of light fagan-white soft tissue measuring 1.4 cm in length and 0.1 cm in diameter. The specimen is totally submitted in one cassette. C - Received is one container designated prostate, right base. The specimen consists of one elongated fragments of light fagan-white soft tissue measuring 1.5 cm in length and 0.1 cm in diameter. The specimen is totally submitted in one cassette. D - Received is one container designated prostate, left apex. The specimen consists of two elongated fragments of light fagan-white soft tissue each measuring 1.0 cm in length and 0.1 cm in diameter. The specimen is totally submitted in one cassette. E - Received is one container designated prostate, left mid. The specimen consists of two elongated fragments of light fagan-white soft tissue measuring 0.3 and 0.6 cm in length and 0.1 cm in diameter. The specimen is totally submitted in one cassette. F - Received is one container designated prostate, left base. The specimen consists of one elongated fragments of light fagan-white soft tissue measuring 1.2 cm in length and 0.1 cm in diameter. The specimen is totally submitted in one cassette. / 02/24/2024 TC:0 CPT: G0146
== END | disposition home or self-care (01) ==
LOC: LABSPEC 15:21
PROVIDERS: PCP Family Medicine; Referring Provider Urology; Visit Provider Urology
DX: R97.20 Elevated prostate specific antigen [PSA] (principal)
CPT/HCPCS: 88305; 88341; 88342; G0416

== ENCOUNTER 2024-02-27 11:58 | Emergency (ER) | payer MEDICARE, SELFPAY ==
[2024-02-27 12:01] VITALS: BP 109/79; PULSE 77; RESP 18; TEMP 36.6; O2SAT 99; BMI 21.3
--- NOTE | 2024-02-27 13:15 | CM.ED ---
Social Work: Date of referral: 02/27/2024 Reason for referral: Limited support/established services Referred by: ED Doctor Patient provided consent to social work visit. Present in the room was patient's ex-girlfriend Anna Tejada who was tearful during parts of the visit. Patient was agreeable to Ms. Tejada being present during the visit. Ms. Tejada provided the following history: Ms. Tejada and patient lived together as a couple for 16 and a half years. Ms. Tejada had to have back surgery in 2022 and patient left Ms. Tejada 3 weeks later, leaving Ms. Tejada stranded and without help. Patient moved in with his daughter in [facility], didn't like it and moved back to [place] on January 18 of this year. Patient has been calling Ms. Tejada each time he needs help with something and Ms. Tejada no longer has a desire to help patient. Ms. Tejada feels as though she is being used and wants to terminate ties to patient since she's unable to establish boundaries due to feeling guilty. Ms. Tejada reported patient's daughter doesn't help patient. Ms. Tejada believes that patient may finally have a PCP appointment with Dr. Rhoades that's scheduled for some time in April. Patient believes he may have prostate cancer. Patient currently not connected to any specialists, doesn't have follow up appointments, is beginning to suffer from memory loss, has lost over 40 pounds, needs help with day to day living and activities and has 3 falls within the past 3 months. Patient refusing to move closer to family, reporting he likes [place] and knows the area. Patient currently residing at the [facility] however reported he doesn't like it. Patient remained mostly silent throughout the visit. Behavioral Health Care Manager talked with patient about the option of moving closer to his current supports who may be able to assist patient with activities of daily living, helping get medical appointments established, transportation and overall oversight of patient to ensure health/safety and medical needs are being taken care of which patient declined. universal worker assisted living provided patient with written information on how to obtain an Emergency Response Device, secure Home Delivered Meals, Home Health Aids, Assisted Living and Fall prevention education (Patient ambulates with a walker). Behavioral Health Care Manager talked with patient about a referral being made to Adult Protective Services to have an extra set of eyes to ensure patient isn't self-neglecting and to see if any added health or safety precautions need to be added for patient while living in the community alone which patient verbalized he understood. No other information/resource/assistance needed at this time. Geraldine Oleary, GROUNDS AND NURSERY SPECIALIST, PALEONTOLOGICAL HELPER
--- NOTE | 2024-02-27 13:42 | CT_ITS ---
STUDY: CT ABDOMEN AND PELVIS WITH CONTRAST REASON FOR EXAM: Male, 88 years old. FLANK PAIN RADIATION DOSAGE (If Supplied By Facility): CTDIvol = ( 20.71 ) mGy, DLP = ( 600.28 ) mGycm TECHNIQUE: Transaxial images were obtained from the dome of the diaphragm to the symphysis pubis without oral contrast. IV 100mL Isovue-370 was administered. Sagittal and coronal images were reconstructed. Individualized dose optimization techniques were used for this CT. COMPARISON: February 22, 2019 FINDINGS: There is left lower lung atelectasis. There is small left pleural effusion. The visualized portions of the heart are within normal limits. Normal liver. There are multiple gallstones. Normal spleen. Normal pancreas. Normal bilateral adrenal glands. There are bilateral renal cysts measuring up to 2.8 cm . Normal visualized stomach. Normal small intestine. Normal colon. The appendix is visualized and appears normal. Normal abdominal aorta. Normal inferior vena cava. Normal retroperitoneum. Normal urinary bladder. There are calcifications and metallic densities of the prostate gland. There is no free fluid in the abdomen or pelvis. Normal abdominal wall. There is degenerative change of the spine. There is L1 compression fracture with 25% loss of height of the inferior endplate. There is degenerative change of the hips. There are healed left pubic fractures. CT/Abdomen/Pelvis W IV Cont ONLY IMPRESSION: Multiple gallstones. No biliary dilatation. Bilateral renal cysts. No hydronephrosis. Electronically Signed: Edmundo Rich MD at 15:31 EDT ,
[2024-02-27 14:18] LABS: Absolute Lymphocyte Count 1.52 X10^3/uL (0.83-4.51); Absolute Neutrophil Count 5.5 X10^3/uL (2.0-7.7); Basophil# 0.05 X10^3/uL; Basophil% 0.6 % (0-1); Eosinophils% 1.3 % (0-5); Hematocrit 45.6 % (40-54); Hemoglobin 14.6 g/dL (13.0-16.5); Lymphocyte # 1.52 X10^3/ul (0.83-4.51); Lymphocyte % 19.7 % (19-41); Mean Corpuscular Hgb 31.3 pg (27.0-32.0); Mean Corpuscular Volume 97.9 fL (80-94); Mean Platelet Vol. 10.1 fl (6.2-12.0); Monocyte# 0.53 X10^3/uL; Monocyte% 6.9 % (0-10); NRBC Flagged by Analyzer 0 % (0-5); Neutrophil % 71.2 % (47-70); Platelet Count 174 K/mm3 (150-450); RBC Distribution Width SD 46.6 fl (35.1-43.9); Red Blood Count 4.66 M/mm3 (4.6-6.2); White Blood Count 7.7 K/mm3 (4.4-11.0)
[2024-02-27 14:21] LABS: Mucous, Urine 0 SEEN /hpf (<or=2+)
[2024-02-27 14:25] LABS: Color, Urine Yellow (Yellow); Glucose, Dipstick Normal (Normal); Ketone-Dipstick Negative (Negative); Leukocyte Esterase-Dipstick 25 /ul (Negative); Nitrite-Dipstick Negative (Negative); Occult Blood-Urine 25 /ul (Negative); Protein-Dipstick Negative (Negative); Specific Gravity, Urine 1.015 (1.002-1.030); Urine Bilirubin Dipstick Negative (Negative); Urine Clarity Sl. Cloudy (Clear); Urine Urobilinogen Normal (Normal); Urine pH 6.5 (5.0 - 8.0)
[2024-02-27 14:30] LABS: Anion Gap 3 (5-15); BUN 18 mg/dL (7-18); BUN/Creat Ratio 15.4 RATIO (10-20); Calcium,Total 9.1 mg/dL (8.5-10.1); Chloride 108 mmol/L (98-107); Creatinine, Serum 1.17 mg/dL (0.70-1.30); EST Glomerular Filtration Rate 63 mL/min (>60); Est Glom Filt Rate - Afr Amer 76 mL/min (>60); Estimated Creatinine Clearance 42.44 ml/min; Glucose 108 mg/dL (74-106); Potassium 4.1 mmol/L (3.5-5.1); Sodium Level 140 mmol/L (136-145)
[2024-02-27 14:47] LABS: Squamous Epithelial Cells - UA 0-5 SEEN /hpf (0-5)
[2024-02-27 14:48] LABS: Bacteria RARE /hpf (None Seen); Red Blood Cells-Urine 0-5 SEEN /hpf (0-5); White Blood Cells 0-5 SEEN /hpf (0-5)
[2024-02-27] MEDS: Ketorolac 15 MG/ML Vial IV (15:23)
--- NOTE | 2024-02-27 15:43 | EDS_ITS ---
HPI History of Present Illness Chief Complaint: Back Informant: patient and friend Narrative Narrative: 88-year-old male brought in by a friend chief complaint of back pain. Apparently the patient was living with this friend but then he moved out to live with his daughter last year. He recently moved back to town. He has not yet established primary care and is unsure why but he did go see urology where he believes he has prostate cancer. He called his friend today stating that he was having back pain and could not move. When she got there he asked her to take him to pay his rent into the flank. He was able to ambulate into the emergency department. Patient has had 3 falls in the past 6 weeks since moving to town. Friend notes that he has some early dementia. She states that they are no longer together that her family is telling her that she needs to stop being involved with them. Patient notes no radicular pain. His biggest concern is that he is afraid he is not emptying his bladder. 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 HLD (hyperlipidemia) Home Medications ?Medication ?Instructions ?Recorded ?Last Taken ?Type diltiazem HCl 120 mg capsule,24 120 mg PO DAILY 03/09/14 08/08/16 06:00 History hr,extended release finasteride 5 mg tablet 5 mg PO DAILY 03/09/14 Unknown History metoprolol succinate 50 mg 50 mg PO BID 03/09/14 08/08/16 06:00 History tablet,extended release 24 hr rivaroxaban 20 mg tablet 20 mg PO QHS 03/09/14 Unknown History clonazepam 1 mg tablet 0.5 mg PO BID 08/01/16 Unknown History rosuvastatin 40 mg tablet 40 mg PO DAILY 03/27/18 Unknown History cholecalciferol (vitamin D3) 25 25 mcg PO DAILY 01/03/20 Unknown History mcg (1,000 unit) capsule calcium 325 mg-vit D3 12.5 1 tab PO BID 10/29/21 Unknown History mcg-zinc 2.75 [id number] tablet (Citracal-D3 Maximum Plus) denosumab 60 mg/mL subcutaneous 60 mg subcut [id number] 10/29/21 Unknown History syringe (Prolia) levothyroxine 75 mcg tablet 75 mcg PO DAILY 10/29/21 Unknown History memantine 10 mg tablet 10 mg PO BID 10/29/21 Unknown History sildenafil 100 mg tablet See Rx Instructions PO DAILY PRN 12/19/21 Unknown Rx sexual activity #5 tabs Allergy/AdvReac Type Severity Reaction Status Date / Time No Known Allergies Allergy Verified 03/09/23 10:16 Family History Mother , age 85 CAD (coronary artery disease) Myocardial infarction Father , age 62 CAD (coronary artery disease) Ruptured, aorta Other Atherosclerotic heart disease of [place] coronary artery without angina pectoris MICHAEL (dyspnea on exertion) Essential (primary) hypertension H/O coronary artery bypass surgery HLD (hyperlipidemia) History of CVA (cerebrovascular accident) Longstanding persistent atrial fibrillation SOB (shortness of breath) Surgical History History of maze procedure (06/10/05) History of tonsillectomy and adenoidectomy History of left heart catheterization (LHC) (05/21/05) 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) Social History Smoking Status: Never smoker alcohol intake: current alcohol intake frequency: a few times a week Alcohol type: beer substance use type: does not use caffeine: Yes Type: coffee Number of servings: 2 what type of physical activity do you participate in: other details: [place] frequency: 3-4 times per week duration: 30-45 minutes/day seatbelt use: always do you feel safe at home: Yes ROS ROS ED Constitutional Constitutional ED: Denies chills, fever(s) or weight loss Eyes Eyes: Denies change in vision or diplopia ENT ENT ED: Denies ear pain, rhinorrhea or sore throat Cardiovascular Cardiovascular: Denies chest pain, orthopnea, palpitations or racing heartbeat Respiratory/Chest Respiratory/Chest: Denies cough, dyspnea or orthopnea Gastrointestinal Gastrointestinal: Denies abdominal pain, diarrhea, nausea or vomiting Genitourinary Genitourinary ED: Reports urinary frequency; Denies dysuria or hematuria Musculoskeletal Musculoskeletal: Reports back pain; Denies arthralgias or myalgias Integumentary Denies abscess or rash Neurologic Neurologic: Denies headache(s) or weakness Psychiatric Psychiatric: Denies anxiety, depression, suicidal ideation or suicidal thoughts Endocrine Endocrinology: Denies polydipsia, polyphagia or polyuria Allergic/Immunologic Allergic/Immunologic ED: Denies mouth swelling, tongue swelling or urticaria EXAM Physical Exam Const Vital Signs: 02/27/24 12:01 Temperature 98 F Temperature Source Oral Pulse Rate 77 Respiratory Rate 18 Blood Pressure 109/79 Blood Pressure Mean 89 Pulse Ox 99 Oxygen Delivery Method Room Air Positive well nourished and well developed General Appearance ED: well developed HEENT Reports normocephalic, head/scalp atraumatic and moist mucous membranes Eyes PERRL and EOMs intact bilaterally Neck no lymphadenopathy, supple and no JVD Resp normal respiratory effort and clear to auscultation bilaterally Cardio regular rate, regular rhythm and no murmurs GI normal to inspection, nondistended, normoactive bowel sounds and non-tender GI Narrative: No palpable distended bladder Palpation: soft Back/Spine no CVA tenderness and normal ROM Back/Spine Narrative: Able to sit up and ambulate to the bathroom. Extremity normal to inspection General Extremety ED: Negative for edema General Extremity: Negative for edema Neuro oriented x3 and CN's II-XII intact bilaterally Sensorium / Orientation: alert Motor Exam: strength 5/5 throughout Psych mental status grossly normal Mood & Affect: Negative for depressed or tearful Skin no rashes or lesions noted and no wounds MDM MDM MDM Narrative Medical decision making narrative: Differential diagnosis includes but not limited to urinary retention UTI compression fractures failure to thrive dehydration White count 7.7 hemoglobin 14.6 platelet count 174 creatinine is 1.17 BUN of 18 urinalysis shows no overt infection. CT of the pelvis was obtained. This demonstrates bilateral renal cyst no definitive acute process is noted. I did have social work visit with the patient and his friend. She is going to do a referral to adult protective services. We certainly have some concerns with his living situation. I do not feel that the patient needs to be hospitalized at this time. Patient developed skin tears of his elbow despite trying to move himself around in the bed while here. These will be dressed History & Record Review Discussion w/independent historian: Patient and Friend Lab Data Attestation: I reviewed the patient's lab results. Labs: Laboratory Results - last 24 hr 02/27/24 02/27/24 14:04 14:15 WBC 7.7 RBC 4.66 Hgb 14.6 Hct 45.6 MCV 97.9 H MCH 31.3 MCHC 32.0 RDW Std Deviation 46.6 H RDW Coeff of V[place] 13.0 Plt Count 174 MPV 10.1 Immature Gran % (Auto) 0.300 Neut % (Auto) 71.2 H Lymph % (Auto) 19.7 [place] % (Auto) 6.9 Eos % (Auto) 1.3 Baso % (Auto) 0.6 Absolute Neuts (auto) 5.5 Absolute Lymphs (auto) 1.52 Nucleated RBC % 0 Sodium 140 Potassium 4.1 Chloride 108 H Carbon Dioxide 29.0 Anion Gap 3 L BUN 18 Creatinine 1.17 Estim Creat Clear Calc 42.44 Est GFR (MDRD) Af Amer 76 Est GFR (MDRD) Non-Af 63 BUN/Creatinine Ratio 15.4 Glucose 108 H Calcium 9.1 Urine Color Yellow Urine Clarity Sl. Cloudy Urine pH 6.5 Ur Specific [place] 1.015 Urine Protein Negative Urine Glucose (UA) Normal Urine Ketones Negative Urine Occult Blood 25 H Urine Nitrite Negative Urine Bilirubin Negative Urine Urobilinogen Normal Ur Leukocyte Esterase 25 H Urine RBC 0-5 SEEN Urine WBC 0-5 SEEN Ur Squamous Epith Cells 0-5 SEEN Urine Bacteria RARE Urine Mucus 0 SEEN Radiography Diagnostic Testing: Clinical Impression(s) from Imaging Studies Abdomen/Pelvis CT 02/27/24 13:42 IMPRESSION: Multiple gallstones. No biliary dilatation. Bilateral renal cysts. No hydronephrosis. Electronically Signed: Edmundo Rich MD at 15:31 EDT , Discharge Plan Triage Chief Complaint: Back ED Provider: Bib Ricks Dx/Rx/DC Orders Clinical Impression: Back pain, Skin tear, Benign prostatic hyperplasia Prescriptions: No Action memantine 10 mg tablet 10 mg PO BID cholecalciferol (vitamin D3) 25 mcg (1,000 unit) capsule 25 mcg PO DAILY levothyroxine 75 mcg tablet 75 mcg PO DAILY Prolia 60 mg/mL syringe 60 mg subcut [id number] Citracal-D3 Maximum Plus 325 mg-12.5 mcg -2.75 mg tablet 1 tab PO BID metoprolol succinate 50 MG tablet extended release 24 hr 50 mg PO BID diltiazem HCl 120 MG capsule,extended release 24hr 120 mg PO DAILY finasteride 5 MG tablet 5 mg PO DAILY rivaroxaban 20 MG tablet 20 mg PO QHS Patient Comments: WILL STOP 4 DAYS PRIOR TO SURGERY clonazepam 1 MG tablet 0.5 mg PO BID Rx Instructions: 1/2 in am and 1 in pm rosuvastatin 40 MG tablet 40 mg PO DAILY sildenafil 100 mg tablet See Rx Instructions PO DAILY PRN (Reason: sexual activity) Qty: 5 10RF Rx Instructions: 0.5 to 1 tablet orally daily PRN; administer 30 minutes to 4 hours before activity Primary Care Provider: Care Physician,No Primary Referrals: Luis Grey MD [Med Staff - Active Staff] - As soon as possible (for primary care) Care Physician,No Primary [Primary Care Provider] - Activity Restrictions/Additional Instructions: You need to have an honest conversation with your daughter about how you are going to continue to care for yourself and that you need assistance with your medical care. Please review the literature and the suggestions that social work gave you. Print Language: Liberian Disposition Disposition: Home, Self Care
[2024-02-27 16:00] VITALS: BP 102/77; PULSE 86; RESP 16; O2SAT 94
[2024-02-27 16:17] VITALS: BP 102/77; PULSE 86; RESP 16; TEMP 36.5; O2SAT 94
== END 2024-02-27 16:26 | disposition home or self-care (01) ==
PROVIDERS: Emergency Provider Emergency Medicine; Referring Provider Emergency Medicine; Visit Provider Emergency Medicine
DX: M54.9 Dorsalgia, unspecified (principal); E78.5 Hyperlipidemia, unspecified; Z86.73 Personal history of transient ischemic attack (TIA), and cerebral infarction without residual deficits; I25.10 Atherosclerotic heart disease of native coronary artery without angina pectoris; I10 Essential (primary) hypertension; N40.0 Benign prostatic hyperplasia without lower urinary tract symptoms; G47.33 Obstructive sleep apnea (adult) (pediatric); E03.9 Hypothyroidism, unspecified; R29.6 Repeated falls; S51.019A Laceration without foreign body of unspecified elbow, initial encounter; X58.XXXA Exposure to other specified factors, initial encounter
CPT/HCPCS: 74177; 80048; 81001; 85025; 96374; 99283; Q9967; A4216

== ENCOUNTER → 2024-03-15 | Outpatient (CLI) | payer MEDICARE, SELFPAY ==
--- NOTE | 2024-03-15 07:22 | NM_ITS ---
CLINICAL: 88-year-old male with history of primary prostate carcinoma WHOLE BODY 99m Tc MDP RADIONUCLIDE BONE SCINTIGRAPHY COMPARISON: CT of the abdomen-pelvis report 02/27/2024 FINDINGS: Following the intravenous administration of 25.0 mCi of 99m Tc MDP, whole body bone images reveal: 1. Increased tracer uptake is identified in the right anterior sixth rib, the first lumbar vertebra diffusely. 2. Facilitated radiopharmaceutical concentration is noted in the sternoclavicular compartments of both shoulders, the acromioclavicular and lateral glenohumeral compartment of both shoulders, the patellofemoral compartment of the left knee, the seventh through 10th and 12th thoracic vertebra, the left elbow. 3. The remaining skeletal structures are scintigraphically unremarkable with normal-appearing renal images and urinary bladder activity identified. Prominent uptake is defined in the sternal synchondrosis most consistent with a normal variant. NM/Bone Scan Whole Body IMPRESSION: 1. The increase in tracer uptake noted in the right anterior sixth rib with apparent shine through artifact on the posterior chest wall as well as first lumbar vertebra likely represent trauma-fracture. Plain film radiography correlation may be of benefit. 2. 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 Electronically Signed: Rudolph Lemons DO at 10:29 EDT ,
== END | disposition home or self-care (01) ==
LOC: NM 07:21
PROVIDERS: Referring Provider Urology; Visit Provider Urology
DX: C61 Malignant neoplasm of prostate (principal)
CPT/HCPCS: 78306; A9503

== ENCOUNTER → 2024-03-16 | Outpatient (CLI) | payer MEDICARE, SELFPAY ==
[2024-03-16 18:02] LABS: Anion Gap 5 (5-15); BUN 18 mg/dL (7-18); BUN/Creat Ratio 15.8 RATIO (10-20); Calcium,Total 9.4 mg/dL (8.5-10.1); Chloride 107 mmol/L (98-107); Cholesterol 110 mg/dL (200); Creatinine, Serum 1.14 mg/dL (0.70-1.30); EST Glomerular Filtration Rate 65 mL/min (>60); Est Glom Filt Rate - Afr Amer 78 mL/min (>60); Glucose 95 mg/dL (74-106); High Density Lipoprotein 47 mg/dL; Potassium 4.4 mmol/L (3.5-5.1); Sodium Level 140 mmol/L (136-145); Triglycerides 123 mg/dL; Very Low Density Lipoprotein 25 mg/dL (5-40)
== END | disposition home or self-care (01) ==
LOC: MTLAB 15:50
PROVIDERS: PCP Family Medicine; Referring Provider Family Medicine; Visit Provider Family Medicine
DX: E78.5 Hyperlipidemia, unspecified (principal); E03.9 Hypothyroidism, unspecified; Z12.5 Encounter for screening for malignant neoplasm of prostate
CPT/HCPCS: 36415; 80048; 80061; 84443

== ENCOUNTER → 2024-03-17 | Outpatient (CLI) | payer MEDICARE, SELFPAY ==
--- NOTE | 2024-03-17 14:28 | CT_ITS ---
EXAM: CT ABDOMEN AND PELVIS WITH INTRAVENOUS CONTRAST CLINICAL INDICATION: Malignant neoplasm of prostate TECHNIQUE: Helically acquired images were obtained of the abdomen and pelvis with intravenous contrast. This CT exam was performed using one or more of the following dose reduction techniques: automated exposure control, adjustment of the mA and/or kV according to patient size, and/or use of iterative reconstruction technique. CONTRAST: Oral and amp; IV Readi-CAT and amp; 100mL Isovue-300 COMPARISON: CT abdomen and pelvis, 02/19/2024 FINDINGS: LOWER THORAX: Small to medium left pleural effusion and trace right pleural effusion. Minimal posterior basilar airspace disease likely atelectasis, left greater than right. Likely scarring in the right middle lobe similar to the prior examination. Coronary artery calcifications and/or stents. No cardiomegaly. ABDOMEN: LIVER: No significant abnormality. Homogeneous. No focal mass. GALLBLADDER AND BILE DUCTS: Cholelithiasis without secondary signs of cholecystitis. No intra- or extrahepatic biliary ductal dilation. PANCREAS: No significant abnormality. No focal cystic or solid mass. SPLEEN: No significant abnormality. Normal size without focal cystic or solid mass. ADRENALS: No significant abnormality. No nodules. KIDNEYS AND URETERS: Cyst abutting the anterior margin of the right kidney although of indeterminate origin measuring at least 3.2 cm which is unchanged compared to the prior examination. This likely arises from the renal cortex statistically. Multiple renal cysts are present for which no follow-up is indicated. Normal renal size and position. No hydronephrosis. STOMACH AND BOWEL: Large rectal stool ball and [id number] additional colonic stool and gas retention. No stomach or bowel distention. No focal inflammatory change. PELVIS: APPENDIX: No evidence of acute appendicitis. BLADDER: No significant abnormality. REPRODUCTIVE: Brachytherapy seeds are identified within the prostate which is not enlarged although is heterogenous. ABDOMEN and PELVIS: INTRAPERITONEAL SPACE: No significant abnormality. No ascites or other fluid collection. No free air. BONES/JOINTS: L1 inferior endplate compression fracture is unchanged compared to the prior CT. No significant change in height loss. Status post median sternotomy. Chronic left pubic bone fractures. Degenerative changes throughout the visualized axial and appendicular skeletal structures. No suspicious lytic or blastic abnormality. SOFT TISSUES: Fat-containing umbilical hernia. VASCULATURE: Atherosclerosis of the aorta and its branch vessels. LYMPH NODES: No significant abnormality. No enlarged lymph nodes. CT/Abdomen/Pelvis WITH Contrast IMPRESSION: 1. Large rectal stool ball and [id number] additional colonic stool and gas retention. Correlate clinically for evidence of fecal impaction. 2. Brachytherapy seeds are identified within the prostate which is not enlarged although is heterogenous. 3. Cyst abutting the anterior margin of the right kidney although of indeterminate origin measuring at least 3.2 cm which is unchanged compared to the prior examination. This likely arises from the renal cortex statistically. There are other benign renal cyst for which no follow-up is indicated. 4. L1 inferior endplate compression fracture is unchanged compared to the prior CT. No significant change in height loss. 5. Small to medium left pleural effusion and trace right pleural effusion. Minimal posterior basilar airspace disease likely atelectasis, left greater than right. Likely scarring in the right middle lobe similar to the prior examination. 6. Cholelithiasis without secondary signs of cholecystitis. Electronically Signed: Doc Raines DO at 22:24 EDT ,
== END | disposition home or self-care (01) ==
PROVIDERS: PCP Family Medicine; Referring Provider Urology; Visit Provider Urology
DX: C61 Malignant neoplasm of prostate (principal)
CPT/HCPCS: 74177; Q9967

== ENCOUNTER 2024-03-18 07:57 | Emergency (ER) | payer MEDICARE, SELFPAY ==
[2024-03-18 07:58] VITALS: BP 131/83; PULSE 89; RESP 18; TEMP 37; O2SAT 98; BMI 21.4
--- NOTE | 2024-03-18 08:18 | EDS_ITS ---
HPI History of Present Illness Chief Complaint: Back Narrative Narrative: Chief complaint and HPI: Concern for urinary retention. 88-year-old male with history of hypothyroidism, dementia, HTN CAD, CVA on Xarelto, chronic back pain presents for concern of urinary retention. Patient was seen for similar complaint in our ED in January. He has since followed up with his PCP as well as urology, Dr. Obregon. Patient states he had an elevated PSA and therefore is having further workup for possible prostate cancer. Patient states he just had a CT abdomen pelvis performed yesterday due to this. Patient states for the past several weeks he has been having decreased urinary flow and frequency. He states that this caused him to get better sleep last night. He is concerned he is retaining. He denies any fever, chills, shortness of breath, chest pain, nausea, vomiting, abdominal pain, hematuria, penile or testicular pain or swelling. He endorses regular bowel movements. Eating and drinking well. He states that he has chronic back pain in which he takes Tylenol. He states his back pain is not any worse than his baseline. He denies any weakness, numbness/tingling, urinary or bowel incontinence, saddle paresthesias, rectal pain. Review of systems: See HPI Medications: As listed on the chart Allergies: As listed on the chart PFSH: Per chart Vital signs: As listed on the chart. Reviewed. Physical exam: Gen: A&O x3, NAD Head: Normocephalic, atraumatic Eyes: No sclera icterus, conjunctiva clear ENT: Moist mucous membranes Neck: Trachea midline, No JVD CV: RRR, no murmurs, no peripheral edema Resp: Lungs CTA BL, no w/r/c GI: Abd soft, non-distended, non-tender, no r/r/g : Circumcised penis. No penile tenderness or discharge. No penile or testicular swelling. Normal lie and position of the testicles. No testicular tenderness, masses, or skin changes. No rashes. No palpable hernias. Musc: Full ROM, no deformity, no midline spinal tenderness, no bony step-offs, strength plus 5 out of 5 in all extremities Skin: Warm, dry Neuro: Alert, oriented, grossly intact, sensation intact Psych: Cooperative, appropriate mood and affect [facility] Medical History Hypothyroidism History of CVA (cerebrovascular accident) (2014) Obesity Longstanding persistent atrial fibrillation Essential (primary) hypertension [place] (obstructive sleep apnea) Disorder of tendon of right biceps Dizziness and giddiness Cerebral embolism with cerebral infarction Atherosclerotic heart disease of [place] coronary artery without angina pectoris HLD (hyperlipidemia) Home Medications ?Medication ?Instructions ?Recorded ?Last Taken ?Type diltiazem HCl 120 mg capsule,24 120 mg PO DAILY 03/09/14 08/08/16 06:00 History hr,extended release finasteride 5 mg tablet 5 mg PO DAILY 03/09/14 Unknown History metoprolol succinate 50 mg 50 mg PO BID 03/09/14 08/08/16 06:00 History tablet,extended release 24 hr rivaroxaban 20 mg tablet 20 mg PO QHS 03/09/14 Unknown History clonazepam 1 mg tablet 0.5 mg PO BID 08/01/16 Unknown History rosuvastatin 40 mg tablet 40 mg PO DAILY 03/27/18 Unknown History cholecalciferol (vitamin D3) 25 25 mcg PO DAILY 01/03/20 Unknown History mcg (1,000 unit) capsule calcium 325 mg-vit D3 12.5 1 tab PO BID 10/29/21 Unknown History mcg-zinc 2.75 [id number]-[id number] tablet (Citracal-D3 Maximum Plus) denosumab 60 mg/mL subcutaneous 60 mg subcut [id number] 10/29/21 Unknown History syringe (Prolia) levothyroxine 75 mcg tablet 75 mcg PO DAILY 10/29/21 Unknown History memantine 10 mg tablet 10 mg PO BID 10/29/21 Unknown History sildenafil 100 mg tablet See Rx Instructions PO DAILY PRN 12/19/21 Unknown Rx sexual activity #5 tabs Allergy/AdvReac Type Severity Reaction Status Date / Time No Known Allergies Allergy Verified 03/18/24 07:58 Family History Mother , age 85 CAD (coronary artery disease) Myocardial infarction Father , age 62 CAD (coronary artery disease) Ruptured, aorta Other Atherosclerotic heart disease of [place] coronary artery without angina pectoris MICHAEL (dyspnea on exertion) Essential (primary) hypertension H/O coronary artery bypass surgery HLD (hyperlipidemia) History of CVA (cerebrovascular accident) Longstanding persistent atrial fibrillation SOB (shortness of breath) Surgical History History of maze procedure (06/10/05) History of tonsillectomy and adenoidectomy History of left heart catheterization (LHC) (05/21/05) 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) Social History Smoking Status: Never smoker alcohol intake: current alcohol intake frequency: a few times a week Alcohol type: beer substance use type: does not use caffeine: Yes Type: coffee Number of servings: 2 what type of physical activity do you participate in: other details: [place] frequency: 3-4 times per week duration: 30-45 minutes/day seatbelt use: always do you feel safe at home: Yes EXAM Physical Exam Const Vital Signs: 03/18/24 07:58 Temperature 98.6 F Temperature Source Oral Pulse Rate 89 Respiratory Rate 18 Blood Pressure 131/83 H Blood Pressure Mean 99 Pulse Ox 98 Oxygen Delivery Method Room Air MDM MDM MDM Narrative Medical decision making narrative: 88-year-old male presents for concern of urinary retention. Patient states that he has been having chronic mild urinary retention, poor flow, and increased frequency for the past several weeks. He is currently following with urology. He has chronic back pain. Patient states that his symptoms are at their baseline for the past several weeks. He states that he was up more frequently urinating last night which is why he presents today. On chart review, patient saw his primary care physician. Patient used to follow with pain management for steroid injections in his back. Pt previously underwent lumbar MRI (2022) demonstrating multilevel spondylosis and b/t mild-moderate foraminal stenoses. Patient is not presenting with any cauda equina symptoms. He was seen in our ED in January for similar complaints. Work up for nephrolithiasis/urinary retention was performed and essentially negative. CT abdomen/pelvis with degen erative changes of spine and L1 compression fracture with 25% loss of ht, b/t renal cysts. Patient is currently following with Dr. Obregon for elevated PSH. He just had a CT abdomen pelvis performed yesterday. On chart review, CT abdomen pelvis shows moderate amount of colonic stool. Patient states he did have a bowel movement yesterday. He denies constipation. He has brachytherapy seeds within the prostate which is not enlarged although is heterogeneous. He has a right kidney cyst unchanged. As well as the L1 inferior endplate compression fracture unchanged. Differential diagnosis includes but is not limited to prostate cancer, BPH, UTI, electrolyte abnormality, osteoarthritis, chronic back pain. Tylenol ordered for back pain. I do not think any emergent imaging is needed for his back pain. Bladder scan on presentation was 155 mL, postvoid residual was given after urine sample. 33 mL in the bladder. Patient is not retaining. Given the patient just had CT abdomen pelvis I do not see any concern for repeating imaging. Will get basic labs to check for kidney function and infection. Will get UA to assess for UTI. CBC without leukocytosis or anemia. BMP without ZBIGNIEW or electrolyte abnormality. UA negative for UTI or hematuria. At this point in time, I suspect patient's back pain is secondary to his chronic back pain. I suspect his urinary symptoms are secondary to his prostate issues. Patient not retaining here in the emergency department. Patient stable to discharge home. Follow-up with PCP and urology. He confirmed understand the plan. Return precautions explained Impression: 1. Concern for urinary retention, not retaining 2. Chronic back pain 3. History of prostate issues Lab Data Labs: Laboratory Results - last 24 hr 03/18/24 03/18/24 08:32 08:41 WBC 8.4 RBC 4.37 L Hgb 13.9 Hct 41.8 MCV 95.7 H MCH 31.8 MCHC 33.3 RDW Std Deviation 47.0 H RDW Coeff of Vazquez 13.3 Plt Count 204 MPV 10.1 Sodium 139 Potassium 4.6 Chloride 108 H Carbon Dioxide 30.0 Anion Gap 1 L BUN 18 Creatinine 1.12 Estim Creat Clear Calc 44.56 Est GFR (MDRD) Af Amer 80 Est GFR (MDRD) Non-Af 66 BUN/Creatinine Ratio 16.1 Glucose 89 Calcium 9.0 Urine Color Yellow Urine Clarity Clear Urine pH 7.0 Ur Specific [place] 1.010 Urine Protein Negative Urine Glucose (UA) Normal Urine Ketones Negative Urine Occult Blood Negative Urine Nitrite Negative Urine Bilirubin Negative Urine Urobilinogen Normal Ur Leukocyte Esterase Negative Urine RBC 0 SEEN Urine WBC 0 SEEN Ur Squamous Epith Cells 0-5 SEEN Urine Bacteria 0 SEEN Urine Mucus 0 SEEN Discharge Plan Triage Chief Complaint: Back ED Provider: Terell Hendricks Dx/Rx/DC Orders Prescriptions: No Action memantine 10 mg tablet 10 mg PO BID cholecalciferol (vitamin D3) 25 mcg (1,000 unit) capsule 25 mcg PO DAILY levothyroxine 75 mcg tablet 75 mcg PO DAILY Prolia 60 mg/mL syringe 60 mg subcut [id number] Citracal-D3 Maximum Plus 325 mg-12.5 mcg -2.75 mg tablet 1 tab PO BID metoprolol succinate 50 MG tablet extended release 24 hr 50 mg PO BID diltiazem HCl 120 MG capsule,extended release 24hr 120 mg PO DAILY finasteride 5 MG tablet 5 mg PO DAILY rivaroxaban 20 MG tablet 20 mg PO QHS Patient Comments: WILL STOP 4 DAYS PRIOR TO SURGERY clonazepam 1 MG tablet 0.5 mg PO BID Rx Instructions: 1/2 in am and 1 in pm rosuvastatin 40 MG tablet 40 mg PO DAILY sildenafil 100 mg tablet See Rx Instructions PO DAILY PRN (Reason: sexual activity) Qty: 5 10RF Rx Instructions: 0.5 to 1 tablet orally daily PRN; administer 30 minutes to 4 hours before activity Primary Care Provider: Luis Grey Referrals: Luis Grey MD [Primary Care Provider] - Print Language: Kiswahili
[2024-03-18] MEDS: Acetaminophen 500 MG Tablet PO (08:36)
[2024-03-18 08:38] LABS: Bacteria 0 SEEN /hpf (None Seen); Mucous, Urine 0 SEEN /hpf (<or=2+); Red Blood Cells-Urine 0 SEEN /hpf (0-5); White Blood Cells 0 SEEN /hpf (0-5)
[2024-03-18 08:51] LABS: Color, Urine Yellow (Yellow); Glucose, Dipstick Normal (Normal); Ketone-Dipstick Negative (Negative); Leukocyte Esterase-Dipstick Negative /ul (Negative); Nitrite-Dipstick Negative (Negative); Occult Blood-Urine Negative /ul (Negative); Protein-Dipstick Negative (Negative); Urine Bilirubin Dipstick Negative (Negative); Urine Clarity Clear (Clear); Urine Urobilinogen Normal (Normal)
[2024-03-18 08:51] LABS: Hematocrit 41.8 % (40-54); Hemoglobin 13.9 g/dL (13.0-16.5); Mean Corp Hgb Conc 33.3 g/dL (32-36); Mean Corpuscular Hgb 31.8 pg (27.0-32.0); Mean Corpuscular Volume 95.7 fL (80-94); Mean Platelet Vol. 10.1 fl (6.2-12.0); Platelet Count 204 K/mm3 (150-450); RBC Distribution Width CV 13.3 % (11.6-14.6); Red Blood Count 4.37 M/mm3 (4.6-6.2); White Blood Count 8.4 K/mm3 (4.4-11.0)
[2024-03-18 09:06] LABS: Squamous Epithelial Cells - UA 0-5 SEEN /hpf (0-5)
[2024-03-18 09:31] LABS: Anion Gap 1 (5-15); BUN 18 mg/dL (7-18); BUN/Creat Ratio 16.1 RATIO (10-20); Chloride 108 mmol/L (98-107); Creatinine, Serum 1.12 mg/dL (0.70-1.30); EST Glomerular Filtration Rate 66 mL/min (>60); Est Glom Filt Rate - Afr Amer 80 mL/min (>60); Estimated Creatinine Clearance 44.56 ml/min; Glucose 89 mg/dL (74-106); Potassium 4.6 mmol/L (3.5-5.1); Sodium Level 139 mmol/L (136-145)
[2024-03-18 09:58] VITALS: BP 127/78; PULSE 64; RESP 14; O2SAT 98
[2024-03-18 10:06] VITALS: BP 130/76; PULSE 78; RESP 16; TEMP 36.6; O2SAT 99
== END 2024-03-18 10:14 | disposition home or self-care (01) ==
PROVIDERS: Emergency Provider Surgery; PCP Family Medicine; Visit Provider Surgery
DX: G89.29 Other chronic pain (principal); F03.90 Unspecified dementia, unspecified severity, without behavioral disturbance, psychotic disturbance, mood disturbance, and anxiety; I10 Essential (primary) hypertension; E78.5 Hyperlipidemia, unspecified; Z86.73 Personal history of transient ischemic attack (TIA), and cerebral infarction without residual deficits; I25.10 Atherosclerotic heart disease of native coronary artery without angina pectoris; Z79.01 Long term (current) use of anticoagulants; E03.9 Hypothyroidism, unspecified; Z79.899 Other long term (current) drug therapy; Z79.890 Hormone replacement therapy; M54.9 Dorsalgia, unspecified
CPT/HCPCS: 80048; 81001; 85027; 99284; A4216

== ENCOUNTER 2024-05-08 07:06 | Emergency (ER) | payer MEDICARE, SELFPAY ==
[2024-05-08 07:07] VITALS: BP 140/100; PULSE 92; RESP 16; TEMP 36; O2SAT 95
[2024-05-08 07:08] VITALS: BMI 20.8
--- NOTE | 2024-05-08 07:30 | EDS_ITS ---
HPI History of Present Illness Chief Complaint: Complaint Informant: patient and spouse/S.O. Narrative Narrative: 88-year-old male presenting to the emergency room with a chief complaint of difficulty urinating. Patient states over the past couple days he frequently gets the urge to urinate but only urinates a small amount. states that he is not drinking much fluid. She states that he has multiple bottles around the house that only have a little bit out. Patient notes a discomfort going around his hips into his low back. states that he tries to lift a multi gallon container into the humidifier and wonders if he injured his back from that. The patient has been in the emergency room a couple times this fall where he thought he was retaining urine but was not. He had his had a elevated PSH has been following Dr. Whitaker. He denies any fever. He is on Xarelto for atrial fibrillation. He states he does not believe he takes anything for BPH. 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 HLD (hyperlipidemia) Home Medications ?Medication ?Instructions ?Recorded ?Last Taken ?Type diltiazem HCl 120 mg capsule,24 120 mg PO DAILY 03/09/14 08/08/16 06:00 History hr,extended release finasteride 5 mg tablet 5 mg PO DAILY 03/09/14 Unknown History metoprolol succinate 50 mg 50 mg PO BID 03/09/14 08/08/16 06:00 History tablet,extended release 24 hr rivaroxaban 20 mg tablet 40 mg PO QHS 03/09/14 Unknown History clonazepam 1 mg tablet 0.5 mg PO BID 08/01/16 Unknown History rosuvastatin 40 mg tablet 40 mg PO DAILY 03/27/18 Unknown History cholecalciferol (vitamin D3) 25 25 mcg PO DAILY 01/03/20 Unknown History mcg (1,000 unit) capsule calcium 325 mg-vit D3 12.5 1 tab PO BID 10/29/21 Unknown History mcg-zinc 2.75 [id number]-fefctboyn tablet (Citracal-D3 Maximum Plus) denosumab 60 mg/mL subcutaneous 60 mg subcut [id number] 10/29/21 Unknown History syringe (Prolia) levothyroxine 75 mcg tablet 75 mcg PO DAILY 10/29/21 Unknown History memantine 10 mg tablet 10 mg PO BID 10/29/21 Unknown History sildenafil 100 mg tablet See Rx Instructions PO DAILY PRN 12/19/21 Unknown Rx sexual activity #5 tabs Allergy/AdvReac Type Severity Reaction Status Date / Time No Known Allergies Allergy Verified 05/08/24 07:08 Family History Mother , age 85 CAD (coronary artery disease) Myocardial infarction Father , age 62 CAD (coronary artery disease) Ruptured, aorta Other Atherosclerotic heart disease of [place] coronary artery without angina pectoris MICHAEL (dyspnea on exertion) Essential (primary) hypertension H/O coronary artery bypass surgery HLD (hyperlipidemia) History of CVA (cerebrovascular accident) Longstanding persistent atrial fibrillation SOB (shortness of breath) Surgical History History of maze procedure (06/10/05) History of tonsillectomy and adenoidectomy History of left heart catheterization (LHC) (05/21/05) 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) Social History Smoking Status: Never smoker alcohol intake: current alcohol intake frequency: a few times a week Alcohol type: beer substance use type: does not use caffeine: Yes Type: coffee Number of servings: 2 what type of physical activity do you participate in: other details: [place] frequency: 3-4 times per week duration: 30-45 minutes/day seatbelt use: always do you feel safe at home: Yes ROS ROS ED Constitutional Constitutional ED: Denies chills or weight loss Eyes Eyes: Denies change in vision or diplopia ENT ENT ED: Denies ear pain, rhinorrhea or sore throat Cardiovascular Cardiovascular: Denies chest pain, orthopnea, palpitations or racing heartbeat Respiratory/Chest Respiratory/Chest: Denies cough, dyspnea or orthopnea Gastrointestinal Gastrointestinal: Reports abdominal pain; Denies diarrhea, nausea or vomiting Genitourinary Genitourinary ED: Reports other Details: Small amounts of urination ; Denies dysuria, hematuria or urinary frequency Musculoskeletal Musculoskeletal: Reports back pain; Denies arthralgias or myalgias Integumentary Denies abscess or rash Neurologic Neurologic: Denies headache(s) or weakness Psychiatric Psychiatric: Denies anxiety, depression, suicidal ideation or suicidal thoughts Endocrine Endocrinology: Denies polydipsia, polyphagia or polyuria Allergic/Immunologic Allergic/Immunologic ED: Denies mouth swelling, tongue swelling or urticaria EXAM Physical Exam Const Vital Signs: 05/08/24 07:07 05/08/24 08:08 Temperature 96.8 F L 98.1 F Temperature Source Temporal Oral Pulse Rate 92 68 Respiratory Rate 16 18 Blood Pressure 140/100 H 140/98 H Blood Pressure Mean 113 112 Pulse Ox 95 97 Oxygen Delivery Method Room Air Room Air Positive well nourished and well developed General Appearance ED: well developed HEENT Reports normocephalic, head/scalp atraumatic and moist mucous membranes Eyes PERRL and EOMs intact bilaterally Neck no lymphadenopathy, supple and no JVD Resp normal respiratory effort and clear to auscultation bilaterally Cardio regular rate, regular rhythm and no murmurs GI normal to inspection, nondistended, normoactive bowel sounds and non-tender GI Narrative: I do not appreciate abdominal wall hernia. I do not palpate a distended bladder. Patient moves easily on the bed but does hold his low back at times. Palpation: soft Back/Spine no CVA tenderness and normal ROM Back/Spine Narrative: I do not appreciate significant tenderness to palpation skin lesions or obvious palpable muscle spasm. Extremity normal to inspection General Extremety ED: Negative for edema General Extremity: Negative for edema Neuro oriented x3 and CN's II-XII intact bilaterally Sensorium / Orientation: alert Motor Exam: strength 5/5 throughout Psych mental status grossly normal Mood & Affect: Negative for depressed or tearful Skin no rashes or lesions noted and no wounds MDM MDM MDM Narrative Medical decision making narrative: Differential diagnosis includes dehydration urinary retention UTI chronic back pain electrolyte abnormality prostatic enlargement Bedside ultrasound does not show distended bladder. Nursing scan this. Straight catheter urine shows a microscopic 5-10 red cells 0-5 white cells 2-5 squamous cells 2+ bacteria negative nitrates negative leukocyte esterase. I do not feel strongly that this represents an acute UTI. I can ask for a urine culture. His creatinine is normal electrolytes are within normal limits. White count is 9.7. I reviewed his prior ED evaluations. I believe the patient can be discharged home. Encouraged to drink adequate fluids. Follow-up with urology. History & Record Review Discussion w/independent historian: Patient and Significant other Additional record(s) reviewed:: Prior ED visit and Prior labs Lab Data Attestation: I reviewed the patient's lab results. Labs: Laboratory Results - last 24 hr 05/08/24 05/08/24 07:35 07:43 WBC 9.7 RBC 4.49 L Hgb 14.7 Hct 43.2 MCV 96.2 H MCH 32.7 H MCHC 34.0 RDW Std Deviation 49.0 H RDW Coeff of [place] 13.7 Plt Count 221 MPV 9.4 Immature Gran % (Auto) 0.600 Neut % (Auto) 73.8 H Lymph % (Auto) 17.4 L [place] % (Auto) 6.2 Eos % (Auto) 1.3 Baso % (Auto) 0.7 Absolute Neuts (auto) 7.2 Absolute Lymphs (auto) 1.69 Nucleated RBC % 0 Sodium 138 Potassium 4.1 Chloride 104 Carbon Dioxide 25.0 Anion Gap 8 BUN 21 H Creatinine 0.85 Estim Creat Clear Calc 57.16 Est GFR (MDRD) Af Amer 110 Est GFR (MDRD) Non-Af 91 BUN/Creatinine Ratio 24.8 H Glucose 101 Calcium 9.1 Urine Color Straw Urine Clarity Clear Urine pH 7.0 Ur Specific [place] 1.015 Urine Protein 15 H Urine Glucose (UA) Normal Urine Ketones Negative Urine Occult Blood 10 H Urine Nitrite Negative Urine Bilirubin Negative Urine Urobilinogen Normal Ur Leukocyte Esterase Negative Urine RBC 5-10 SEEN Urine WBC 0-5 SEEN Ur Squamous Epith Cells 0-5 SEEN Urine Bacteria 2+ Urine Mucus 1+ Discharge Plan Triage Chief Complaint: Complaint ED Provider: Bib Ricks Dx/Rx/DC Orders Clinical Impression: Urinary hesitancy, Anticoagulated, Chronic back pain Prescriptions: No Action memantine 10 mg tablet 10 mg PO BID cholecalciferol (vitamin D3) 25 mcg (1,000 unit) capsule 25 mcg PO DAILY levothyroxine 75 mcg tablet 75 mcg PO DAILY Prolia 60 mg/mL syringe 60 mg subcut [id number] Citracal-D3 Maximum Plus 325 mg-12.5 mcg -2.75 mg tablet 1 tab PO BID metoprolol succinate 50 MG tablet extended release 24 hr 50 mg PO BID diltiazem HCl 120 MG capsule,extended release 24hr 120 mg PO DAILY finasteride 5 MG tablet 5 mg PO DAILY rivaroxaban 20 MG tablet 40 mg PO QHS Patient Comments: WILL STOP 4 DAYS PRIOR TO SURGERY clonazepam 1 MG tablet 0.5 mg PO BID Rx Instructions: 1/2 in am and 1 in pm rosuvastatin 40 MG tablet 40 mg PO DAILY sildenafil 100 mg tablet See Rx Instructions PO DAILY PRN (Reason: sexual activity) Qty: 5 10RF Rx Instructions: 0.5 to 1 tablet orally daily PRN; administer 30 minutes to 4 hours before activity Primary Care Provider: Luis Grey Referrals: Alfonzo Whitaker MD [Med Staff - Active Staff] - Keep [facility] appointment Luis Grey MD [Primary Care Provider] - Keep [facility] appointment Print Language: Swazi Disposition Disposition: Home, Self Care
[2024-05-08 07:46] LABS: Absolute Lymphocyte Count 1.69 X10^3/uL (0.83-4.51); Absolute Neutrophil Count 7.2 X10^3/uL (2.0-7.7); Basophil# 0.07 X10^3/uL; Basophil% 0.7 % (0-1); Eosinophil# 0.13 X10^3/uL; Eosinophils% 1.3 % (0-5); Hematocrit 43.2 % (40-54); Hemoglobin 14.7 g/dL (13.0-16.5); Lymphocyte # 1.69 X10^3/ul (0.83-4.51); Lymphocyte % 17.4 % (19-41); Mean Corpuscular Hgb 32.7 pg (27.0-32.0); Mean Corpuscular Volume 96.2 fL (80-94); Mean Platelet Vol. 9.4 fl (6.2-12.0); Monocyte% 6.2 % (0-10); NRBC Flagged by Analyzer 0 % (0-5); Neutrophil # 7.17 X10^3/uL (2.7-7.7); Neutrophil % 73.8 % (47-70); Platelet Count 221 K/mm3 (150-450); RBC Distribution Width CV 13.7 % (11.6-14.6); Red Blood Count 4.49 M/mm3 (4.6-6.2); White Blood Count 9.7 K/mm3 (4.4-11.0)
[2024-05-08 07:57] LABS: Color, Urine Straw (Yellow); Glucose, Dipstick Normal (Normal); Ketone-Dipstick Negative (Negative); Leukocyte Esterase-Dipstick Negative /ul (Negative); Nitrite-Dipstick Negative (Negative); Occult Blood-Urine 10 /ul (Negative); Protein-Dipstick 15 mg/dl (Negative); Specific Gravity, Urine 1.015 (1.002-1.030); Urine Bilirubin Dipstick Negative (Negative); Urine Clarity Clear (Clear); Urine Urobilinogen Normal (Normal)
[2024-05-08 08:05] LABS: Anion Gap 8 (5-15); BUN 21 mg/dL (7-18); BUN/Creat Ratio 24.8 RATIO (10-20); Calcium,Total 9.1 mg/dL (8.5-10.1); Chloride 104 mmol/L (98-107); Creatinine, Serum 0.85 mg/dL (0.70-1.30); EST Glomerular Filtration Rate 91 mL/min (>60); Est Glom Filt Rate - Afr Amer 110 mL/min (>60); Estimated Creatinine Clearance 57.16 ml/min; Glucose 101 mg/dL (74-106); Potassium 4.1 mmol/L (3.5-5.1); Sodium Level 138 mmol/L (136-145)
[2024-05-08 08:08] VITALS: BP 140/98; PULSE 68; RESP 18; TEMP 36.7; O2SAT 97
[2024-05-08 08:13] LABS: Bacteria 2+ /hpf (None Seen); Mucous, Urine 1+ /hpf (<or=2+); Red Blood Cells-Urine 5-10 SEEN /hpf (0-5); Squamous Epithelial Cells - UA 0-5 SEEN /hpf (0-5); White Blood Cells 0-5 SEEN /hpf (0-5)
== END 2024-05-08 08:37 | disposition home or self-care (01) ==
PROVIDERS: Emergency Provider Emergency Medicine; PCP Family Medicine; Visit Provider Emergency Medicine
DX: R39.11 Hesitancy of micturition (principal); I48.11 Longstanding persistent atrial fibrillation; Z79.01 Long term (current) use of anticoagulants; G89.29 Other chronic pain; I10 Essential (primary) hypertension; I25.10 Atherosclerotic heart disease of native coronary artery without angina pectoris; Z86.73 Personal history of transient ischemic attack (TIA), and cerebral infarction without residual deficits; E78.5 Hyperlipidemia, unspecified; Z79.899 Other long term (current) drug therapy; E03.9 Hypothyroidism, unspecified; Z79.890 Hormone replacement therapy
CPT/HCPCS: 80048; 81001; 85025; 87077; 87086; 87088; 87186; 99283; P9612; A4216

== ENCOUNTER 2024-05-19 22:29 | Observation (INO) | payer OTHER, SELFPAY ==
[2024-05-19 22:30] VITALS: BP 148/91; PULSE 69; RESP 16; TEMP 36.4; O2SAT 98; BMI 20.3
--- NOTE | 2024-05-19 22:40 | EDS_ITS ---
HPI History of Present Illness Chief Complaint: Back Informant: patient and EMS Narrative Narrative: 88-year-old male lives alone's presenting with low back pain that is chronic but flared up tonight, to the point where he is in so much pain that he cannot rest and does not have anything to take as needed for pain at home. States he has had all this before. It is in his right low back radiating down his right leg to about the knee. No numbness. No bowel or bladder dysfunction states he is urinating normally. Denies any weakness. He denies any fevers, chills, abdominal pain, or other symptoms. He states it seemed to start gradually today after he was in the car traveling locally. 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 HLD (hyperlipidemia) Home Medications ?Medication ?Instructions ?Recorded ?Last Taken ?Type diltiazem HCl 120 mg capsule,24 120 mg PO DAILY 03/09/14 08/08/16 06:00 History hr,extended release finasteride 5 mg tablet 5 mg PO DAILY 03/09/14 Unknown History metoprolol succinate 50 mg 50 mg PO BID 03/09/14 08/08/16 06:00 History tablet,extended release 24 hr rivaroxaban 20 mg tablet 40 mg PO QHS 03/09/14 Unknown History clonazepam 1 mg tablet 0.5 mg PO BID 08/01/16 Unknown History rosuvastatin 40 mg tablet 40 mg PO DAILY 03/27/18 Unknown History cholecalciferol (vitamin D3) 25 25 mcg PO DAILY 01/03/20 Unknown History mcg (1,000 unit) capsule calcium 325 mg-vit D3 12.5 1 tab PO BID 10/29/21 Unknown History mcg-zinc 2.75 tn-iwycqx-jlrdeprlu tablet (Citracal-D3 Maximum Plus) denosumab 60 mg/mL subcutaneous 60 mg subcut [id number] 10/29/21 Unknown History syringe (Prolia) levothyroxine 75 mcg tablet 75 mcg PO DAILY 10/29/21 Unknown History memantine 10 mg tablet 10 mg PO BID 10/29/21 Unknown History sildenafil 100 mg tablet See Rx Instructions PO DAILY PRN 12/19/21 Unknown Rx sexual activity #5 tabs Allergy/AdvReac Type Severity Reaction Status Date / Time No Known Allergies Allergy Verified 05/19/24 22:32 Family History Mother , age 85 CAD (coronary artery disease) Myocardial infarction Father , age 62 CAD (coronary artery disease) Ruptured, aorta Other Atherosclerotic heart disease of [place] coronary artery without angina pectoris MICHAEL (dyspnea on exertion) Essential (primary) hypertension H/O coronary artery bypass surgery HLD (hyperlipidemia) History of CVA (cerebrovascular accident) Longstanding persistent atrial fibrillation SOB (shortness of breath) Surgical History History of maze procedure (06/10/05) History of tonsillectomy and adenoidectomy History of left heart catheterization (LHC) (05/21/05) 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) Social History Smoking Status: Never smoker alcohol intake: current alcohol intake frequency: a few times a week Alcohol type: beer substance use type: does not use caffeine: Yes Type: coffee Number of servings: 2 what type of physical activity do you participate in: other details: [place] frequency: 3-4 times per week duration: 30-45 minutes/day seatbelt use: always do you feel safe at home: Yes ROS ROS ED Constitutional Constitutional ED: Denies chills or fever(s) Gastrointestinal Gastrointestinal: Denies abdominal pain, constipation, fecal incontinence, [place] or vomiting Genitourinary Genitourinary ED: Reports other Details: no urinary retention ; Denies abdominal discomfort or urinary incontinence Musculoskeletal Musculoskeletal: Reports as per HPI and back pain; Denies neck pain Integumentary Denies rash or wounds Neurologic Neurologic: Denies headache(s), paresthesias or weakness EXAM Physical Exam Const Vital Signs: 05/19/24 22:30 Temperature 97.5 F L Temperature Source Oral Pulse Rate 69 Respiratory Rate 16 Blood Pressure 148/91 H Blood Pressure Mean 110 Pulse Ox 98 Oxygen Delivery Method Room Air Positive well nourished and well developed General Appearance ED: well developed and NAD HEENT Negative for trauma or tenderness Eyes PERRL and EOMs intact bilaterally Neck full ROM and supple GI normal to inspection, nondistended, normoactive bowel sounds, soft to palpation and non-tender Back/Spine normal to inspection Back/Spine Narrative: Patient is tender throughout the right lumbar paraspinal back and sciatic notch, less tender in the midline no step-off or signs of injury. Lumbar Spine / Lower Back: ROM limited, paraspinal muscle tenderness and straight leg raise positive right at 40 degrees (Ipsilateral only. Negative cross leg raise.) Extremity normal to inspection, full ROM and no pedal edema Neuro oriented x3 and no sensory deficits noted Sensorium / Orientation: alert Motor Exam: strength 5/5 throughout and clonus absent Deep Tendon Reflexes: Rt Patellar (L4): 2+, Lt Patellar (L4): 2+, Rt Ankle (S1): 2+ and Lt Ankle (S1): 2+ Deep Tendon Reflexes Back: Rt Patellar (L4): 2+, Lt Patellar (L4): 2+, Rt Ankle (S1): 2+ and Lt Ankle (S1): 2+ Plantar Reflex: Downgoing: bilateral Psych mental status grossly normal and thought process normal Skin no rashes or lesions noted and no wounds MDM MDM MDM Narrative Medical decision making narrative: Given the patient's age and pain I did obtained three-view x-ray series of the lumbar spine on my interpretation there are severe degenerative changes, difficult to appreciate if anything acute is present or not. According to radiology there is a superior endplate compression deformity of L3. He would need an MRI to see if this is acute, especially since he has chronic back pain. After morphine he is feeling better but with slight movement he is in a lot of pain and is asking to stay in the hospital. Significantly debilitated with this. Patient states he does not want to be admitted to a custodial. Lab Data Attestation: I reviewed the patient's lab results. Labs: Laboratory Results - last 24 hr 05/19/24 22:58 WBC 9.0 RBC 4.56 L Hgb 14.8 Hct 43.4 MCV 95.2 H MCH 32.5 H MCHC 34.1 RDW Std Deviation 47.7 H RDW Coeff of Vaz[place] 13.6 Plt Count 240 MPV 10.1 Immature Gran % (Auto) 0.400 Neut % (Auto) 67.3 Lymph % (Auto) 22.3 Saline % (Auto) 7.9 Eos % (Auto) 1.2 Baso % (Auto) 0.9 Absolute Neuts (auto) 6.0 Absolute Lymphs (auto) 2.00 Nucleated RBC % 0 Sodium 136 Potassium 4.3 Chloride 103 Carbon Dioxide 28.0 Anion Gap 5 BUN 21 H Creatinine 0.82 Estim Creat Clear Calc 57.72 Est GFR (MDRD) Af Amer 115 Est GFR (MDRD) Non-Af 95 BUN/Creatinine Ratio 25.8 H Glucose 84 Calcium 9.2 Radiography Diagnostic Testing: Clinical Impression(s) from Imaging Studies Lumbar Spine X-Ray 05/19/24 23:25 IMPRESSION: Superior endplate compression deformity of L3 of uncertain age. There are degenerative changes with disc space narrowing in the lower lumbar spine. Electronically Signed: Donnie Sherman MD at 23:52 EST , Management Discussion w/another healthcare provider: Hospitalist Discharge Plan Dx/Rx/DC Orders Clinical Impression: Intractable low back pain, Compression fracture of L3 vertebra, Debility Disposition Disposition: Acute Care [facility]
[2024-05-19] MEDS: Ondansetron 4 MG/2 ML Vial IV (22:55)
[2024-05-19] MEDS: Morphine 2 MG/ML Syringe IV (22:55)
--- NOTE | 2024-05-19 23:25 | RAD_ITS ---
EXAM: XR LUMBOSACRAL SPINE, 2 OR 3 VIEWS CLINICAL INDICATION: pain TECHNIQUE: Frontal and lateral views of the lumbar spine and sacrum. COMPARISON: 03/11/2022 FINDINGS: VERTEBRAE: There is mild superior endplate compression deformity of L3 which was not seen on the previous exam but still may be chronic. No spondylolisthesis. Preservation of the normal lumbar lordosis. No significant facet arthropathy. DISC SPACES: There are severe degenerative changes with disc space narrowing at L4-5 and L5-S1. GASTROINTESTINAL TRACT: Unremarkable as visualized. Included bowel gas pattern is non-obstructive. RAD/Lumbar Spine 2 or 3 Views IMPRESSION: Superior endplate compression deformity of L3 of uncertain age. There are degenerative changes with disc space narrowing in the lower lumbar spine. Electronically Signed: Donnie Sherman MD at 23:52 EST ,
[2024-05-20 00:27] LABS: Basophil# 0.08 X10^3/uL; Basophil% 0.9 % (0-1); Eosinophil# 0.11 X10^3/uL; Eosinophils% 1.2 % (0-5); Hematocrit 43.4 % (40-54); Hemoglobin 14.8 g/dL (13.0-16.5); Lymphocyte % 22.3 % (19-41); Mean Corp Hgb Conc 34.1 g/dL (32-36); Mean Corpuscular Hgb 32.5 pg (27.0-32.0); Mean Corpuscular Volume 95.2 fL (80-94); Mean Platelet Vol. 10.1 fl (6.2-12.0); Monocyte# 0.71 X10^3/uL; Monocyte% 7.9 % (0-10); NRBC Flagged by Analyzer 0 % (0-5); Neutrophil # 6.04 X10^3/uL (2.7-7.7); Neutrophil % 67.3 % (47-70); Platelet Count 240 K/mm3 (150-450); RBC Distribution Width CV 13.6 % (11.6-14.6); RBC Distribution Width SD 47.7 fl (35.1-43.9); Red Blood Count 4.56 M/mm3 (4.6-6.2)
--- NOTE | 2024-05-20 00:58 | PCM.HP.STD ---
HPI - General General Date of Admission: 05/20/24 HPI Narrative MIRANDA CLAYTON, is a 88 M who presents to the hospital with severe low back pain that shoots down his right leg. He does have worsening pain with straight leg raise on the right. Lumbar x-ray shows an L3 compression fracture though he denies any recent trauma, he does have a history of osteoporosis and is on denosumab for this. 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 HLD (hyperlipidemia) Home Medications ?Medication ?Instructions ?Recorded ?Last Taken ?Type diltiazem HCl 120 mg capsule,24 120 mg PO DAILY 03/09/14 08/08/16 06:00 History hr,extended release finasteride 5 mg tablet 5 mg PO DAILY 03/09/14 Unknown History metoprolol succinate 50 mg 50 mg PO BID 03/09/14 08/08/16 06:00 History tablet,extended release 24 hr rivaroxaban 20 mg tablet 40 mg PO QHS 03/09/14 Unknown History clonazepam 1 mg tablet 0.5 mg PO BID 08/01/16 Unknown History rosuvastatin 40 mg tablet 40 mg PO DAILY 03/27/18 Unknown History cholecalciferol (vitamin D3) 25 25 mcg PO DAILY 01/03/20 Unknown History mcg (1,000 unit) capsule calcium 325 mg-vit D3 12.5 1 tab PO BID 10/29/21 Unknown History mcg-zinc 2.75 tu-lgnyfs-rxnphxioz tablet (Citracal-D3 Maximum Plus) denosumab 60 mg/mL subcutaneous 60 mg subcut [id number] 10/29/21 Unknown History syringe (Prolia) levothyroxine 75 mcg tablet 75 mcg PO DAILY 10/29/21 Unknown History memantine 10 mg tablet 10 mg PO BID 10/29/21 Unknown History sildenafil 100 mg tablet See Rx Instructions PO DAILY PRN 12/19/21 Unknown Rx sexual activity #5 tabs Allergy/AdvReac Type Severity Reaction Status Date / Time No Known Allergies Allergy Verified 05/19/24 22:32 Family History Mother , age 85 CAD (coronary artery disease) Myocardial infarction Father , age 62 CAD (coronary artery disease) Ruptured, aorta Other Atherosclerotic heart disease of [place] coronary artery without angina pectoris MICHAEL (dyspnea on exertion) Essential (primary) hypertension H/O coronary artery bypass surgery HLD (hyperlipidemia) History of CVA (cerebrovascular accident) Longstanding persistent atrial fibrillation SOB (shortness of breath) Surgical History History of maze procedure (06/10/05) History of tonsillectomy and adenoidectomy History of left heart catheterization (LHC) (05/21/05) 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) Social History Smoking Status: Never smoker alcohol intake: current alcohol intake frequency: a few times a week Alcohol type: beer substance use type: does not use caffeine: Yes Type: coffee Number of servings: 2 what type of physical activity do you participate in: other details: [place] frequency: 3-4 times per week duration: 30-45 minutes/day seatbelt use: always do you feel safe at home: Yes ROS Constitutional Constitutional: Denies chills, fatigue, fever(s) or malaise Eyes Eyes: Denies blurry vision ENT HEENT: Denies headache(s) or nasal discharge Cardiovascular Cardiovascular: Denies chest pain, dyspnea on exertion or syncope Respiratory/Chest Respiratory/Chest: Denies cough, shortness of breath at rest or shortness of breath with exertion Gastrointestinal Gastrointestinal: Denies constipation, diarrhea, nausea or vomiting Genitourinary Genitourinary: Denies dysuria Musculoskeletal Musculoskeletal: Reports back pain Neurologic Neurologic: Denies focal weakness, numbness or tremor(s) Psychiatric Psychiatric: Denies anxiety or depression Vital Signs Vital Signs Vital Signs: 05/19/24 22:30 Temperature 97.5 F L Temperature Source Oral Pulse Rate 69 Respiratory Rate 16 Blood Pressure 148/91 H Blood Pressure Mean 110 Pulse Ox 98 Oxygen Delivery Method Room Air Weight Weight: 141 lb 12.116 oz Body Mass Index (BMI) 20.3 Physical Exam Narrative General: Alert, Oriented x3, Cooperative, No apparent distress HEENT: Atraumatic, PERRLA, EOMI, Normocephalic Oral: Moist Mucosa Neck: Supple, No JVD Lungs: Clear to auscultation, Normal air movement, No rhonchi, No wheeze, No rales Cardiovascular: Regular rate, Regular Rhythm, Normal S1, Normal S2, No murmurs Abdomen: Soft, Non Tender, Non-Distended, No Hepato-splenomegaly Extremities: No edema, Capillary Refill Less than 3 Seconds Skin: No rashes, No breakdown Musculoskeletal: Tenderness to palpation of his right paraspinal lumbar region, straight leg raise on the right is positive Neurological: No focal neurological deficits, Motor Exam 5/5 strength throughout, Sensory exam intact to light touch and pain Psych/Mental Status: Normal Affect, Appropriate Results Lab / Micro Data 05/19/24 22:58 05/19/24 22:58 Labs: Laboratory Results - last 24 hr 05/19/24 22:58: WBC 9.0, RBC 4.56 L, Hgb 14.8, Hct 43.4, MCV 95.2 H, MCH 32.5 H, MCHC 34.1, RDW Std Deviation 47.7 H, RDW Coeff of [place] 13.6, Plt Count 240, MPV 10.1, Immature Gran % (Auto) 0.400, Neut % (Auto) 67.3, Lymph % (Auto) 22.3, [place] % (Auto) 7.9, Eos % (Auto) 1.2, Baso % (Auto) 0.9, Absolute Neuts (auto) 6.0, Absolute Lymphs (auto) 2.00, Nucleated RBC % 0 Imaging Radiology Impression Lumbar Spine X-Ray 05/19/24 23:25 IMPRESSION: Superior endplate compression deformity of L3 of uncertain age. There are degenerative changes with disc space narrowing in the lower lumbar spine. Electronically Signed: Donnie Sherman MD at 23:52 EST , Assessment & Plan Assessment/Plan (1) Intractable low back pain: PLAN: Plan 1. Intractable low back pain on the right ? X-ray with an L3 compression fracture of unknown age, he denies any axial trauma ? PT/OT ? Multifaceted pain control 2. CAD status post CABG/essential HTN/HLD/A-fib ? Can continue his home medications when verified ? Blood pressures and vital signs here are stable ? Will monitor and make adjustments as necessary 3. Hypothyroidism ? Stable ? Can continue with Synthroid when verified 4. Osteoporosis ? Stable ? he takes a every 6 month Prolia injection 5. Anxiety/depression/dementia ? Can resume his home medications when verified ? Stable DVT: Ambulation Charges/Coding Visit Charges Inpatient E&M: 67735 Init Hosp L2
[2024-05-20 01:05] LABS: Anion Gap 5 (5-15); BUN 21 mg/dL (7-18); BUN/Creat Ratio 25.8 RATIO (10-20); Calcium,Total 9.2 mg/dL (8.5-10.1); Chloride 103 mmol/L (98-107); Creatinine, Serum 0.82 mg/dL (0.70-1.30); EST Glomerular Filtration Rate 95 mL/min (>60); Est Glom Filt Rate - Afr Amer 115 mL/min (>60); Estimated Creatinine Clearance 57.72 ml/min; Glucose 84 mg/dL (74-106); Potassium 4.3 mmol/L (3.5-5.1); Sodium Level 136 mmol/L (136-145)
[2024-05-20 01:31] VITALS: BP 123/76; PULSE 69; RESP 16; TEMP 36.6; O2SAT 99
--- NOTE | 2024-05-20 01:35 | ED.RN ---
Pt stating he does not know what medications he takes and does not have a list with him. States the list is at home in his wallet.
[2024-05-20 02:50] VITALS: BMI 21.6
[2024-05-20 03:00] VITALS: BP 129/76; PULSE 76; RESP 18; TEMP 36; O2SAT 99
[2024-05-20] MEDS: Ketorolac 15 MG/ML Vial IV ×2 (03:27→12:01)
[2024-05-20] MEDS: 0.9% Saline Lock 10 ML Syringe IV ×2 (03:36→22:12)
[2024-05-20] MEDS: Acetaminophen 500 MG Tablet 1000 MG PO ×3 (06:12→22:04)
[2024-05-20 07:56] VITALS: BP 139/89; PULSE 80; RESP 18; TEMP 36.9; O2SAT 98
[2024-05-20] MEDS: Lidocaine 5% Patch 1 PATCH TOPICAL (08:02)
[2024-05-20] MEDS: Menthol/Lanolin/Calamine/Znox 113 GM Tube 1 APPLIC TOPICAL ×2 (08:02→22:12)
[2024-05-20] MEDS: Ensure Plus High Protein 120 ML LIQUID PO ×3 (08:08→15:29)
[2024-05-20 08:23] LABS: Absolute Lymphocyte Count 2.13 X10^3/uL (0.83-4.51); Absolute Neutrophil Count 5.7 X10^3/uL (2.0-7.7); Basophil# 0.08 X10^3/uL; Basophil% 0.9 % (0-1); Eosinophil# 0.12 X10^3/uL; Eosinophils% 1.4 % (0-5); Hematocrit 44.4 % (40-54); Hemoglobin 15.1 g/dL (13.0-16.5); Lymphocyte # 2.13 X10^3/ul (0.83-4.51); Lymphocyte % 24.7 % (19-41); Mean Corpuscular Hgb 32.2 pg (27.0-32.0); Mean Corpuscular Volume 94.7 fL (80-94); Mean Platelet Vol. 9.5 fl (6.2-12.0); Monocyte# 0.54 X10^3/uL; Monocyte% 6.3 % (0-10); NRBC Flagged by Analyzer 0 % (0-5); Neutrophil # 5.71 X10^3/uL (2.7-7.7); Neutrophil % 66.2 % (47-70); Platelet Count 217 K/mm3 (150-450); RBC Distribution Width CV 13.6 % (11.6-14.6); RBC Distribution Width SD 47.3 fl (35.1-43.9); Red Blood Count 4.69 M/mm3 (4.6-6.2); White Blood Count 8.6 K/mm3 (4.4-11.0)
[2024-05-20 08:56] LABS: Anion Gap 3 (5-15); BUN 17 mg/dL (7-18); BUN/Creat Ratio 19.3 RATIO (10-20); Calcium,Total 9.4 mg/dL (8.5-10.1); Chloride 104 mmol/L (98-107); Creatinine, Serum 0.88 mg/dL (0.70-1.30); EST Glomerular Filtration Rate 87 mL/min (>60); Est Glom Filt Rate - Afr Amer 105 mL/min (>60); Estimated Creatinine Clearance 50.77 ml/min; Glucose 88 mg/dL (74-106); Potassium 4.2 mmol/L (3.5-5.1); Sodium Level 136 mmol/L (136-145)
[2024-05-20] MEDS: oxyCODONE 5 MG Tablet 2.5 MG PO ×3 (09:40→22:09)
--- NOTE | 2024-05-20 10:36 | CT_ITS ---
STUDY: CT LUMBAR SPINE WITHOUT CONTRAST REASON FOR EXAM: Male, 88 years old. Pain RADIATION DOSAGE (If Supplied By Facility): CTDIvol = ( 14.11 ) mGy, DLP = ( 533.50 ) mGycm TECHNIQUE: The patient was scanned in a multi detector CT scanner. High resolution transaxial imaging was performed. Images were obtained from L1 to S1 vertebral level. Sagittal and coronal images were reconstructed. Individualized dose optimization techniques were used for this CT. COMPARISON: None FINDINGS: Normal lumbar lordosis. There is no substantial scoliosis. The mineralization of the lumbar vertebrae. Minimal dependent atelectasis at the lung bases and possible tiny pleural effusion or pleural thickening. L1-2: Anterior spondylosis. Compression of the inferior endplate of the L1 vertebrae. This is worse on the left side of the midline and may represent a Schmorl''s node. Possible compression fracture of the inferior plate of the L1 vertebrae. L2-3: Loss of height of the superior endplate of the L3 vertebrae. Possible compression fracture. L3-4: Moderate degree of disc space narrowing. Spondylosis. Mild degree of bilateral neural foraminal stenosis. L4-5: Moderate degree of disc space narrowing. Spondylosis. L5-S1: Marked degree of disc space narrowing and disc degeneration. Spondylosis. Atherosclerosis of the abdominal aorta. CT/Spine Lumbar without Contrast IMPRESSION: Multilevel degenerative changes, as described above. Possible compression fractures of the L1 and L3 vertebrae. Electronically Signed: Jb Talbot MD at 12:49 EST ,
--- NOTE | 2024-05-20 10:45 | CT_ITS ---
STUDY: CT CHEST WITHOUT CONTRAST REASON FOR EXAM: Male, 88 years old. Wgt loss RADIATION DOSAGE (If Supplied By Facility): CTDIvol = ( 9.38 ) mGy, DLP = ( 400.71 ) mGycm TECHNIQUE: Transaxial imaging was performed without the administration of intravenous contrast material. Multiplanar coronal and sagittal images were reformatted. Individualized dose optimization techniques were used for this CT. COMPARISON: No relevant priors. FINDINGS: CHEST Hyperinflation. Mild scarring at the lung bases as well as in the anterior medial aspect of the lingular segment of the left upper lobe. There is no demonstrated pleural abnormality. There are calcifications of the coronary arteries. There are multiple small lymph nodes within the mediastinum, which are normal in size and morphology most compatible with reactive lymph hyperplasia. Normal hilar regions. Normal unenhanced pulmonary arteries. There is atherosclerotic calcification of the aortic arch with tortuosity and elongation of the aortic arch and descending thoracic aorta. There are multi-level degenerative changes of the thoracic spine. Degenerative changes of the right shoulder. Increased kyphosis. Demineralization of the thoracic vertebrae as well as the visualized lumbar vertebrae with loss of height of the T12 vertebrae. Small left renal cyst. Small right renal cysts. Small layering gallstones along the dependent portion of the gallbladder lumen. CT/Chest without Contrast IMPRESSION: Hyperinflation and mild scarring. No acute abnormality is seen. Electronically Signed: Jb Talbot MD at 12:45 EST ,
--- NOTE | 2024-05-20 10:59 | CASEMGMT ---
SW met with patient to address [facility] concerns regarding transportation. Patient's friend Anna was also present. Anna did all of the talking. She is noticeably overwhelmed and frustrated with patient. Anna stated patient does not have transportation issues as she takes him everywhere. Anna told SW he walked away from her 16 years ago and now he is back. Anna stated she is afraid to go to bed at night because she knows she will get a phone call from him. Anna said if she doesn't answer he calls the squad like he did this time. SW explained that SW will leave the transportation resources with patient. Patient declined any concerns with food, housing, or utilities. SW did explain that once therapy sees him they will make recommendations for a discharge plan. SW asked if therapy recommends a short term stay at a detention facility would he be open to this and patient said he would be open to the idea. Vidhi De Dios MSW ANNY
--- NOTE | 2024-05-20 11:13 | CON.PCM_ITS ---
Assessment & Plan Assessment/Plan (1) Compression fracture of L3 vertebra: (2) Radiculopathy of lumbar region: PLAN: Plan CT scans showed findings suggestive of of possible L1 and L3 compression fractures of unclear chronicity. Due to exacerbation of back pain and radicular symptoms in the setting of possible compression fractures I will order a lumbar MRI without contrast to evaluate for chronicity of compression fractures and investigate etiology for worsening radiculopathy. Furthermore he has tremendous pain with walking and standing in his having significant debility from this. Patient is on multimodal analgesic regimen. Patient is on Xarelto due to historic CABG. Xarelto will need to be held at least 3 days prior to injection. Plan for L3-L4 interlaminar epidural steroid injection versus transforaminal epidural steroid injection. We will plan for interlaminar approach. I updated the primary team about the above plan. I discussed the above plan extensively with the patient he is in agreement with the plan. I discussed the risks and benefits of this treatment plan. HPI Consult Data Date of Consult: 05/20/24 HPI Narrative Reason for Consultation: Back pain and radicular pain HPI Narrative: MIRANDA CLAYTON, is a 88 M who presents with intractable back pain along with radicular symptoms. He has had low back pain with right radicular symptoms for several years he states. After a car ride yesterday the pain was severely exacerbated. The pain is in the low back and radiates down the right lower extremity and particularly along the anteromedial aspect of the leg. He says he has had an injection several years ago with some improvement, but does not recall exactly what that injection was. He follows with Dr. Carr and states he has an upcoming injection in 1-2 months but is unsure if this is scheduled. Says he was last seen in the fall it some time. Currently he has difficulty with standing and walking. Weightbearing makes the pain much more severe. He is having difficulty with ambulation. The pain can be 8 out of 10 in severity. Also of note, XR and CT scan demonstrate possible L1 or L3 compression fractures. He is on Xarelto he states for prior CABG from many years ago. 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 HLD (hyperlipidemia) Home Medications ?Medication ?Instructions ?Recorded ?Last Taken ?Type rivaroxaban 20 mg tablet 40 mg PO DAILY 03/09/14 Unknown History rosuvastatin 40 mg tablet 40 mg PO DAILY 03/27/18 Unknown History calcium 325 mg-vit D3 12.5 1 tab PO BID 10/29/21 Unknown History mcg-zinc 2.75 go-ekuxts-tfebuthri tablet (Citracal-D3 Maximum Plus) levothyroxine 75 mcg tablet 75 mcg PO DAILY 10/29/21 Unknown History memantine 10 mg tablet 10 mg PO BID 10/29/21 Unknown History cyanocobalamin (vitamin B-12) 1,000 mcg PO DAILY 05/20/24 Unknown History 1,000 mcg tablet (Vitamin B-12) metoprolol tartrate 25 mg tablet 25 mg PO DAILY 05/20/24 Unknown History sertraline 100 mg tablet (Zoloft) 100 mg PO DAILY 05/20/24 Unknown History Allergy/AdvReac Type Severity Reaction Status Date / Time No Known Allergies Allergy Verified 05/19/24 22:32 Family History Mother , age 85 CAD (coronary artery disease) Myocardial infarction Father , age 62 CAD (coronary artery disease) Ruptured, aorta Other 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 MICHAEL (dyspnea on exertion) Essential (primary) hypertension H/O coronary artery bypass surgery HLD (hyperlipidemia) History of CVA (cerebrovascular accident) Longstanding persistent atrial fibrillation SOB (shortness of breath) Surgical History History of maze procedure (06/10/05) History of tonsillectomy and adenoidectomy History of left heart catheterization (LHC) (05/21/05) 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) Social History Smoking Status: Never smoker alcohol intake: current alcohol intake frequency: a few times a week Alcohol type: beer substance use type: does not use caffeine: Yes Type: coffee Number of servings: 2 what type of physical activity do you participate in: other details: karen point frequency: 3-4 times per week duration: 30-45 minutes/day seatbelt use: always do you feel safe at home: Yes ROS Constitutional Constitutional: Denies chills, fatigue, fever(s) or malaise Eyes Eyes: Denies blurry vision ENT HEENT: Denies headache(s) or nasal discharge Cardiovascular Cardiovascular: Denies chest pain, dyspnea on exertion or syncope Respiratory/Chest Respiratory/Chest: Denies cough, shortness of breath at rest or shortness of breath with exertion Gastrointestinal Gastrointestinal: Denies constipation, diarrhea, nausea or vomiting Genitourinary Genitourinary: Denies dysuria Musculoskeletal Musculoskeletal: Reports back pain Neurologic Neurologic: Denies focal weakness, numbness or tremor(s) Psychiatric Psychiatric: Denies anxiety or depression Physical Exam Narrative Lumbar paraspinal tenderness + bilaterally Pain to percussion over the lumbar spine SLR positive on the right Hip provocative maneuvers positive on the right Good strength in the lower extremities except for 4/5 strength with hip flexion and knee extension on the right, but this could be partially due to pain. Normal sensation Const alert and oriented x3 Lab / Micro Data 05/20/24 07:41 05/20/24 07:41 Labs: Laboratory Results - last 24 hr 05/19/24 22:58: WBC 9.0, RBC 4.56 L, Hgb 14.8, Hct 43.4, MCV 95.2 H, MCH 32.5 H, MCHC 34.1, RDW Std Deviation 47.7 H, RDW Coeff of Vazquez 13.6, Plt Count 240, MPV 10.1, Immature Gran % (Auto) 0.400, Neut % (Auto) 67.3, Lymph % (Auto) 22.3, [place] % (Auto) 7.9, Eos % (Auto) 1.2, Baso % (Auto) 0.9, Absolute Neuts (auto) 6.0, Absolute Lymphs (auto) 2.00, Nucleated RBC % 0, Sodium 136, Potassium 4.3, Chloride 103, Carbon Dioxide 28.0, Anion Gap 5, BUN 21 H, Creatinine 0.82, Estim Creat Clear Calc 57.72, Est GFR (MDRD) Af Amer 115, Est GFR (MDRD) Non-Af 95, B UN/Creatinine Ratio 25.8 H, Glucose 84, Calcium 9.2 05/20/24 07:41: WBC 8.6, RBC 4.69, Hgb 15.1, Hct 44.4, MCV 94.7 H, MCH 32.2 H, MCHC 34.0, RDW Std Deviation 47.3 H, RDW Coeff of Vazquez 13.6, Plt Count 217, MPV 9.5, Immature Gran % (Auto) 0.500, Neut % (Auto) 66.2, Lymph % (Auto) 24.7, [place] % (Auto) 6.3, Eos % (Auto) 1.4, Baso % (Auto) 0.9, Absolute Neuts (auto) 5.7, Absolute Lymphs (auto) 2.13, Nucleated RBC % 0, Sodium 136, Potassium 4.2, Chloride 104, Carbon Dioxide 29.0, Anion Gap 3 L, BUN 17, Creatinine 0.88, Estim Creat Clear Calc 50.77, Est GFR (MDRD) Af Amer 105, Est GFR (MDRD) Non-Af 87, BUN/Creatinine Ratio 19.3, Glucose 88, Calcium 9.4 Imaging Radiology Impression Lumbar Spine X-Ray 05/19/24 23:25 IMPRESSION: Superior endplate compression deformity of L3 of uncertain age. There are degenerative changes with disc space narrowing in the lower lumbar spine. Electronically Signed: Donnie Sherman MD at 23:52 EST ,
--- NOTE | 2024-05-20 15:14 | MRI_ITS ---
EXAM: MR LUMBAR SPINE WITHOUT INTRAVENOUS CONTRAST CLINICAL INDICATION: Check acuity of compression fx, worsening radiculo -- no contrast TECHNIQUE: Multiplanar and multisequence MR images of the lumbar spine without intravenous contrast. COMPARISON: CT lumbar spine today, abdomen and pelvis CT February 27, 2024 FINDINGS: VERTEBRAE: New complex fracture and decreased height of L3 compared to February 27, 2024, decreased central body height of pulmonary 1.2 cm, multiple radiating fracture lines, similar to CT today. There is bone marrow edema throughout this body but similar configuration, no bone retropulsion. Multiple fracture lines radiating into the posterior body. Low T1 and high inversion recovery and T2 focus of roughly 1.6 cm x 1.1 cm in the posterior S1 body slightly to the left of midline, indeterminate. There is preservation of the normal lumbar lordosis. Mild apparent Modic type endplate changes at multiple levels. Low T1 and high T2 roughly 1.6 cm nodular focus in the S1 body. SPINAL CORD: Unremarkable. Normal position and signal intensity of the conus medullaris at T12-L1. SOFT TISSUES: No evidence of retroperitoneal hematoma. The pelvis is not fully included. Multiple and bilateral renal cysts. Cholelithiasis is noted on prior CT. There are postoperative changes of the prostate old healed fractures of the left superior and inferior pubic rami on prior CT. DISCS/SPINAL CANAL/NEURAL FORAMINA: L1-L2: See above. Chronic superior displacement of the inferior endplate and widening of the disc space. Moderate annular circumferential disc bulge and mild narrowing of the ventral thecal sac, no prachi spinal stenosis. Mild right and moderate left neural foraminal stenosis. L2-L3: Mild-moderate annular disc bulge and mild proximal neural foraminal stenosis. No spinal stenosis. Disc height is fairly well-maintained. Bone marrow edema throughout partially collapsed L3 body with multiple radiating fracture lines including fractures extending to the posterior body-lamina junctions, no retropulsion. L3-L4: Moderate decreased disc height, anterior spondylosis, moderate annular disc bulge, mild flattening of the right lateral recess. Moderate right neural foraminal stenosis due to asymmetric bulging and uncovertebral osteophytes. Minimal ligamentum flavum flavum hypertrophy. L4-L5: Unremarkable. Normal disc height and morphology. Normal spinal canal and lateral recesses. Normal neuroforamina. L5-S1: Marked decreased disc height. Mild endplate changes. Moderate bilateral proximal neural foraminal stenosis. MRI/Spine Lumbar (Routine) IMPRESSION: Multilevel degenerative changes. No prachi spinal stenosis. Multilevel neural foraminal stenosis. Multiple radiating fracture lines and roughly 50% decreased height at L3 body without bone retropulsion. Electronically Signed: Kathrine Espinosa MD at 20:25 EST ,
[2024-05-20 15:28] VITALS: BP 130/86; PULSE 83; RESP 18; TEMP 36.9; O2SAT 98
[2024-05-20] MEDS: Gabapentin 100 MG Capsule PO (15:33)
--- NOTE | 2024-05-20 15:53 | CASEMGMT ---
Social Work SW met with pt to discuss discharge plans. Pt is agreeable that he is very weak and having difficulty at home and would benefit from SNF. A list of SNF providers including quality and resource use data and consistent with the patient?s preferred geographic region, medical needs, and insurance network were provided from the [employer] Guide. Pt's preferred provider is [facility]. Referral made to TCU. With pt permission, phone call to friend Anna and updated on plan. Anna is agreeable. SW requested Anna review SNF list with pt and make additional choices in the event TCU is unable to accept. Plan: TCU, pending acceptance and precLALITHA Goss
--- NOTE | 2024-05-20 15:54 | CASEMGMT ---
Met with patient to complete MENDOZA form. MENDOZA form explained to patient. Pt was hesitant to sign so copy was provided and original form placed in pt?s chart. Chandrika Ghosh, Discharge Planning Asst
--- NOTE | 2024-05-20 17:19 | PN.HOSP_ITS ---
Reason for Visit Reason for Visit: Intractable back pain Subjective Subjective Patient states he has not noticed much difference since he came in but he did only come in early this morning. Medications have just really been initiated. He was seen by pain management and plan is for epidural injection on Thursday. We will hold his Xarelto until he is post procedure. His significant other did report that he has been having some significant weight loss. He had a CT of the abdomen pelvis lately without any abnormality identified. He was assessed for metastatic prostate disease which seems to be stable per Dr. Whitaker and I did discuss with him getting a CT of his chest to rule out any pulmonary masses that could be contributing to this. Objective Data Objective Data Vital Signs: Vital Signs Temp Pulse Resp BP Pulse Ox O2 Del Method 98.4 F 83 18 130/86 H 98 Room Air 05/20/24 15:28 05/20/24 15:28 05/20/24 15:28 05/20/24 15:28 05/20/24 15:28 05/20/24 15:28 Oxygen Delivery Method Room Air Weight: 60.7 kg Body Mass Index (BMI) 21.6 Intake & Output: Intake and Output for Last 24 Hours 05/18/24 05/19/24 05/20/24 23:59 23:59 23:59 Intake Total 620 / 620 Output Total 520 / 520 Balance 100 / 100 Lab / Micro Data 05/20/24 07:41 05/20/24 07:41 Labs: Laboratory Results - last 24 hr 05/19/24 22:58: WBC 9.0, RBC 4.56 L, Hgb 14.8, Hct 43.4, MCV 95.2 H, MCH 32.5 H, MCHC 34.1, RDW Std Deviation 47.7 H, RDW Coeff of Vazquez 13.6, Plt Count 240, MPV 10.1, Immature Gran % (Auto) 0.400, Neut % (Auto) 67.3, Lymph % (Auto) 22.3, [place] % (Auto) 7.9, Eos % (Auto) 1.2, Baso % (Auto) 0.9, Absolute Neuts (auto) 6.0, Absolute Lymphs (auto) 2.00, Nucleated RBC % 0, Sodium 136, Potassium 4.3, Chloride 103, Carbon Dioxide 28.0, Anion Gap 5, BUN 21 H, Creatinine 0.82, Estim Creat Clear Calc 57.72, Est GFR (MDRD) Af Amer 115, Est GFR (MDRD) Non-Af 95, B UN/Creatinine Ratio 25.8 H, Glucose 84, Calcium 9.2 05/20/24 07:41: WBC 8.6, RBC 4.69, Hgb 15.1, Hct 44.4, MCV 94.7 H, MCH 32.2 H, MCHC 34.0, RDW Std Deviation 47.3 H, RDW Coeff of Vazquez 13.6, Plt Count 217, MPV 9.5, Immature Gran % (Auto) 0.500, Neut % (Auto) 66.2, Lymph % (Auto) 24.7, [place] % (Auto) 6.3, Eos % (Auto) 1.4, Baso % (Auto) 0.9, Absolute Neuts (auto) 5.7, Absolute Lymphs (auto) 2.13, Nucleated RBC % 0, Sodium 136, Potassium 4.2, Chloride 104, Carbon Dioxide 29.0, Anion Gap 3 L, BUN 17, Creatinine 0.88, Estim Creat Clear Calc 50.77, Est GFR (MDRD) Af Amer 105, Est GFR (MDRD) Non-Af 87, BUN/Creatinine Ratio 19.3, Glucose 88, Calcium 9.4 Radiography Diagnostic Testing: Radiology Impression Lumbar Spine X-Ray 05/19/24 23:25 IMPRESSION: Superior endplate compression deformity of L3 of uncertain age. There are degenerative changes with disc space narrowing in the lower lumbar spine. Electronically Signed: Donnie Sherman MD at 23:52 EST , Lumbar Spine CT 05/20/24 10:36 IMPRESSION: Multilevel degenerative changes, as described above. Possible compression fractures of the L1 and L3 vertebrae. Electronically Signed: Jb Talbot MD at 12:49 EST , Chest CT 05/20/24 10:45 IMPRESSION: Hyperinflation and mild scarring. No acute abnormality is seen. Electronically Signed: Jb Talbot MD at 12:45 EST , Physical Exam Const alert, oriented x3, no apparent distress and well nourished Constitutional Narrative: Thin, appears frail, elderly, white male, sitting up in bed, appears comfortable, nontoxic, very pleasant HEENT head/scalp atraumatic and moist oral mucous membranes Head and Scalp: normocephalic Resp normal respiratory effort, no retractions, no use of accessory muscles and clear to auscultation bilaterally Auscultation: Negative for rales, rhonchi or wheezes Cardio regular rate, S1 normal heart sound, S2 normal heart sound, no rub, no gallops and no clicks; Negative for regular rhythm or no murmurs Cardio Narrative: 2-6 systolic murmur loudest at right upper sternal border, rhythm is irregular irregular with a regular rate GI normal to inspection, nondistended, normoactive bowel sounds, soft to palpation and non-tender GI Narrative: Scaphoid abdomen Extremity no clubbing, cyanosis or edema Extremity Narrative: 2+ pedal pulses Neuro Neuro Narrative: Straight leg raise is negative to 60 degrees, reflexes unremarkable bilateral lower extremities, no clonus is present, no marked sensory deficits in his right lower extremity, patient is generally weak Speech: speech normal Psych affect normal Psych Narrative: Very pleasant, eye contact is good and patient interacts appropriately Assessment & Plan Assessment/Plan (1) Severe malnutrition: (2) Radiculopathy of lumbar region: (3) Compression fracture of L3 vertebra: (4) Intractable low back pain: (5) Compression fracture of L1 lumbar vertebra: PLAN: Plan Intractable low back pain with radiculopathy -CT of the lumbar spine shows pretty significant arthritic changes as well as probable compression fraction of L1 and L3 of indeterminate age -Patient was to have epidural injection in mid June however it does not sound like he is going to be able to wait that long -Continue scheduled Tylenol -Continue lidocaine patch -Start low-dose gabapentin 100 mg 3 times daily -Start low-dose oxycodone 2.5 mg every 6 hours as needed -Will continue NSAIDs as his renal function and hemoglobin are normal but monitor closely -Could consider transitioning to Celebrex for very short-term if need be -Continue PT/OT -Pain management was consulted and evaluated the patient plan is for epidural injection on 05/24/2024 -Case management/social work following and will plan on discharge to transitional care unit hopefully as long as he is excepted but will need pre- CERT Unintentional weight loss -Per significant other he is lost quite a bit of weight unintentionally -Patient has known prostate cancer and evaluation for significant metastatic disease has been pursued without any findings -Had recent CT of the abdomen pelvis which was unremarkable for any findings consistent with acute malignancy -Will check CT of the chest -Dietitian is consulted Severe malnutrition -Continue supplements -Appreciate dietitian involvement CAD/essential hypertension/hyperlipidemia -history of coronary artery disease status post bypass surgery with a NACHO to the circumflex artery, BAHENA to LAD, and SVG to the circumflex sequential to the posterior descending artery -Continue home metoprolol -continue home rosuvastatin Persistent atrial fibrillation -Rivaroxaban on hold for procedure on Thursday -Continue home metoprolol -Patient is currently rate controlled History of stroke -Mild persistent weakness with no significant chronic focal neurological deficits -Will restart Xarelto when appropriate post procedure History of WELL[place] -Resolved with weight loss DVT prophylaxis -Will start Lovenox daily in the absence of rivaroxaban use CODE STATUS -Full code Charges/Coding Visit Charges Inpatient E&M: 67259 Subs Hosp L2
[2024-05-20 22:01] VITALS: BP 134/82; PULSE 81; RESP 17; TEMP 36.6; O2SAT 98
[2024-05-20] MEDS: Memantine Hydrochloride 10 MG Tablet PO (22:08)
[2024-05-20] MEDS: Calcium Carb/Vitamin D 1 TABLET Tablet PO (22:08)
[2024-05-21 04:02] VITALS: BP 132/87; PULSE 83; RESP 17; TEMP 36.5; O2SAT 98
[2024-05-21] MEDS: Levothyroxine 75 MCG Tablet PO (05:33)
[2024-05-21] MEDS: Acetaminophen 500 MG Tablet 1000 MG PO ×3 (05:33→22:27)
[2024-05-21] MEDS: Ensure Plus High Protein 120 ML LIQUID PO ×3 (07:47→16:51)
[2024-05-21] MEDS: Menthol/Lanolin/Calamine/Znox 113 GM Tube 1 APPLIC TOPICAL ×2 (07:47→22:25)
[2024-05-21] MEDS: Gabapentin 100 MG Capsule PO ×3 (07:47→16:50)
[2024-05-21] MEDS: Atorvastatin Calcium 80 MG Tablet PO (07:48)
[2024-05-21] MEDS: Cyanocobalamin 500 MCG Tablet 1000 MCG PO (07:48)
[2024-05-21] MEDS: Lidocaine 5% Patch 1 PATCH TOPICAL (07:48)
[2024-05-21] MEDS: Calcium Carb/Vitamin D 1 TABLET Tablet PO ×2 (07:49→22:26)
[2024-05-21] MEDS: Memantine Hydrochloride 10 MG Tablet PO ×2 (07:49→22:26)
[2024-05-21 07:53] VITALS: PULSE 87
[2024-05-21] MEDS: Sertraline 100 MG Tablet PO (07:53)
[2024-05-21] MEDS: Metoprolol Tartrate 25 MG Tablet PO (07:53)
[2024-05-21 08:00] VITALS: BP 120/92; PULSE 85; RESP 15; TEMP 36.7; O2SAT 96
[2024-05-21] MEDS: oxyCODONE 5 MG Tablet 2.5 MG PO (08:07)
--- NOTE | 2024-05-21 11:48 | PN.HOSP_ITS ---
Reason for Visit Reason for Visit: Intractable back pain Subjective Subjective Patient states he still having significant pain in his back. We discussed the fact that he is going to have an injection on Thursday. He is disappointed is not till Thursday but I did explain it is because we have to hold his Xarelto for certain on a time before they can inject his back safely. He then voiced understanding. Plan following that is for discharge to transitional care unit once pre-CERT is obtained. Patient voiced understanding. Objective Data Objective Data Vital Signs: Vital Signs Temp Pulse Resp BP Pulse Ox O2 Del Method 98.1 F 85 15 120/92 H 96 Room Air 05/21/24 08:00 05/21/24 08:00 05/21/24 08:00 05/21/24 08:00 05/21/24 08:00 05/21/24 09:18 Oxygen Delivery Method Room Air Weight: 60.7 kg Body Mass Index (BMI) 21.6 Intake & Output: Intake and Output for Last 24 Hours 05/19/24 05/20/24 05/21/24 23:59 23:59 23:59 Intake Total 620 / 620 200 / 200 Output Total 520 / 520 Balance 100 / 100 200 / 200 Lab / Micro Data 05/20/24 07:41 05/20/24 07:41 Radiography Diagnostic Testing: Radiology Impression Lumbar Spine CT 05/20/24 10:36 IMPRESSION: Multilevel degenerative changes, as described above. Possible compression fractures of the L1 and L3 vertebrae. Electronically Signed: Jb Talbot MD at 12:49 EST , Chest CT 05/20/24 10:45 IMPRESSION: Hyperinflation and mild scarring. No acute abnormality is seen. Electronically Signed: Jb Talbot MD at 12:45 EST , Lumbar Spine MRI 05/20/24 15:14 IMPRESSION: Multilevel degenerative changes. No prachi spinal stenosis. Multilevel neural foraminal stenosis. Multiple radiating fracture lines and roughly 50% decreased height at L3 body without bone retropulsion. Electronically Signed: Kathrine Espinosa MD at 20:25 EST , Physical Exam Const alert, oriented x3, no apparent distress, average body habitus and well nourished Constitutional Narrative: Thin, appears frail, elderly, white male, sitting up in bed, watching television, appears comfortable, nontoxic, very pleasant HEENT head/scalp atraumatic and moist oral mucous membranes Cardio Negative for no murmurs Extremity no clubbing, cyanosis or edema Extremity Narrative: 2+ pedal pulses Psych affect normal Psych Narrative: Very pleasant, eye contact is good and patient interacts appropriately Assessment & Plan Assessment/Plan (1) Severe malnutrition: (2) Radiculopathy of lumbar region: (3) Compression fracture of L3 vertebra: (4) Intractable low back pain: (5) Compression fracture of L1 lumbar vertebra: PLAN: Plan Intractable low back pain with radiculopathy -CT of the lumbar spine shows pretty significant arthritic changes as well as probable compression fraction of L1 and L3 of indeterminate age -Patient was to have epidural injection in mid June however it does not sound like he is going to be able to wait that long -Continue scheduled Tylenol -Continue lidocaine patch -Continue gabapentin 100 mg 3 times daily -Continue low-dose oxycodone 2.5 mg every 6 hours as needed -Discontinue Toradol and start Celebrex 100 mg p.o. twice daily -Will dose Protonix 40 mg daily while he is on NSAIDs for gastric protection and monitor hemoglobin and symptoms closely -Continue PT/OT -Pain management was consulted and evaluated the patient plan is for epidural injection on 05/24/2024 -Case management/social work following and will plan on discharge to transitional care unit hopefully as long as he is excepted but will need pre- CERT Unintentional weight loss -Per significant other he is lost quite a bit of weight unintentionally -Patient has known prostate cancer and evaluation for significant metastatic disease has been pursued without any findings -Had recent CT of the abdomen pelvis which was unremarkable for any findings consistent with acute malignancy -CT of the chest is unremarkable -Dietitian is following Severe malnutrition -Continue supplements -Appreciate dietitian involvement CAD/essential hypertension/hyperlipidemia -history of coronary artery disease status post bypass surgery with a NACHO to the circumflex artery, BAHENA to LAD, and SVG to the circumflex sequential to the posterior descending artery -Continue home metoprolol -continue home rosuvastatin Persistent atrial fibrillation -Rivaroxaban on hold for procedure on Thursday -Continue home metoprolol -Patient is currently rate controlled History of stroke -Mild persistent weakness with no significant chronic focal neurological deficits -Will restart Xarelto when appropriate post procedure History of WELL[place] -Resolved with weight loss DVT prophylaxis -Continue Lovenox 30 mg daily CODE STATUS -Full code Charges/Coding Visit Charges Inpatient E&M: 73132 Subs Hosp L1
[2024-05-21] MEDS: Celecoxib 100 MG Capsule PO ×2 (11:59→22:26)
[2024-05-21] MEDS: Enoxaparin 40 MG/0.4 ML Syringe SC (12:00)
[2024-05-21 14:00] VITALS: BP 126/88; PULSE 82; RESP 15; TEMP 36.9; O2SAT 96
[2024-05-21 16:49] VITALS: BP 109/70; PULSE 77; RESP 16; TEMP 36.9; O2SAT 96
[2024-05-21 22:17] VITALS: BP 124/90; PULSE 64; RESP 16; TEMP 36.8; O2SAT 94
[2024-05-21] MEDS: oxyCODONE 5 MG Tablet PO (22:27)
[2024-05-22] VITALS (8 sets, daily range): BP systolic 100–145; BP diastolic 63–107; PULSE 61–86; RESP 14–18; TEMP 36.3–36.9; O2SAT 95–98
[2024-05-22] MEDS: Acetaminophen 500 MG Tablet 1000 MG PO ×3 (05:59→21:22)
[2024-05-22] MEDS: Levothyroxine 75 MCG Tablet PO (05:59)
[2024-05-22] MEDS: Gabapentin 100 MG Capsule PO (08:12)
[2024-05-22] MEDS: Ensure Plus High Protein 120 ML LIQUID PO ×3 (08:14→16:15)
[2024-05-22] MEDS: Celecoxib 100 MG Capsule PO ×2 (08:15→21:22)
[2024-05-22] MEDS: Metoprolol Tartrate 25 MG Tablet PO (08:15)
[2024-05-22] MEDS: Atorvastatin Calcium 80 MG Tablet PO (08:15)
[2024-05-22] MEDS: Enoxaparin 40 MG/0.4 ML Syringe SC (08:16)
[2024-05-22] MEDS: Calcium Carb/Vitamin D 1 TABLET Tablet PO ×2 (08:16→21:22)
[2024-05-22] MEDS: Memantine Hydrochloride 10 MG Tablet PO ×2 (08:16→21:22)
[2024-05-22] MEDS: Lidocaine 5% Patch 1 PATCH TOPICAL (08:17)
[2024-05-22] MEDS: Cyanocobalamin 500 MCG Tablet 1000 MCG PO (08:17)
[2024-05-22] MEDS: Pantoprazole Sodium 40 MG Tablet PO (08:17)
[2024-05-22] MEDS: Sertraline 100 MG Tablet PO (08:17)
--- NOTE | 2024-05-22 08:20 | PN.HOSP_ITS ---
Reason for Visit Reason for Visit: Intractable back pain Subjective Subjective Patient states this pain is worse today. Having trouble getting comfortable. No bowel movement since the so we will go ahead and schedule MiraLAX at this point. Will try one-time dose of IV morphine 2 mg to see if this helps with breakthrough pain. He is on all of the other regimen at this point. Plan is for epidural injection on Thursday. Objective Data Objective Data Vital Signs: Vital Signs Temp Pulse Resp BP Pulse Ox O2 Del Method 97.8 F 85 16 123/90 H 97 Room Air 05/22/24 03:47 05/22/24 03:47 05/22/24 03:47 05/22/24 03:47 05/22/24 03:47 05/22/24 03:47 Oxygen Delivery Method Room Air Weight: 60.7 kg Body Mass Index (BMI) 21.6 Intake & Output: Intake and Output for Last 24 Hours 05/20/24 05/21/24 05/22/24 23:59 23:59 23:59 Intake Total 620 / 620 200 / 200 250 / 250 Output Total 520 / 520 200 / 500 500 / 500 Balance 100 / 100 0 / -300 -250 / -250 Lab / Micro Data 05/20/24 07:41 05/20/24 07:41 Physical Exam Const alert, oriented x3, no apparent distress, average body habitus and well nourished Constitutional Narrative: Thin, appears frail, elderly, white male, lying in bed, watching football on television, appears comfortable, nontoxic, very pleasant, significant other is at bedside HEENT head/scalp atraumatic and moist oral mucous membranes Head and Scalp: normocephalic Resp normal respiratory effort, no retractions, no use of accessory muscles and clear to auscultation bilaterally Auscultation: Negative for rales, rhonchi or wheezes Cardio regular rate, S1 normal heart sound, S2 normal heart sound, no rub, no gallops and no clicks; Negative for regular rhythm or no murmurs Cardio Narrative: 2-6 systolic murmur loudest at right upper sternal border, rhythm is irregular irregular with a regular rate GI normal to inspection, nondistended, normoactive bowel sounds, soft to palpation and non-tender GI Narrative: Scaphoid abdomen Extremity no clubbing, cyanosis or edema Extremity Narrative: 2+ pedal pulses Neuro moves all extremities and no focal motor deficits Speech: speech normal Psych affect normal Psych Narrative: Very pleasant, eye contact is good and patient interacts appropriately Assessment & Plan Assessment/Plan (1) Severe malnutrition: (2) Radiculopathy of lumbar region: (3) Compression fracture of L3 vertebra: (4) Intractable low back pain: (5) Compression fracture of L1 lumbar vertebra: PLAN: Plan Intractable low back pain with radiculopathy -CT of the lumbar spine shows pretty significant arthritic changes as well as probable compression fraction of L1 and L3 of indeterminate age -Patient was to have epidural injection in mid June however it does not sound like he is going to be able to wait that long -Continue scheduled Tylenol -Continue lidocaine patch -Continue gabapentin 100 mg 3 times daily -Continue low-dose oxycodone 2.5 mg every 6 hours as needed -Continue Celebrex 100 mg p.o. twice daily -Will dose Protonix 40 mg daily while he is on NSAIDs for gastric protection and monitor hemoglobin and symptoms closely -Will trial morphine 2 mg x 1 dose to see if this helps relieve breakthrough pain if it does we can consider further use -Continue PT/OT -Pain management was consulted and evaluated the patient plan is for epidural injection on 05/24/2024 -Case management/social work following and will plan on discharge to transitional care unit hopefully as long as he is accepted but will need pre- CERT Unintentional weight loss -Per significant other he is lost quite a bit of weight unintentionally -Patient has known prostate cancer and evaluation for significant metastatic disease has been pursued without any findings -Had recent CT of the abdomen pelvis which was unremarkable for any findings consistent with acute malignancy -CT of the chest is unremarkable -Dietitian is following Severe malnutrition -Continue supplements -Appreciate dietitian involvement CAD/essential hypertension/hyperlipidemia -history of coronary artery disease status post bypass surgery with a NACHO to the circumflex artery, BAHENA to LAD, and SVG to the circumflex sequential to the posterior descending artery -Continue home metoprolol -continue home rosuvastatin Persistent atrial fibrillation -Rivaroxaban on hold for procedure on Thursday -Continue home metoprolol -Patient is currently rate controlled History of stroke -Mild persistent weakness with no significant chronic focal neurological deficits -Will restart Xarelto when appropriate post procedure History of WELL[place] -Resolved with weight loss DVT prophylaxis -Continue Lovenox 30 mg daily CODE STATUS -Full code Charges/Coding Visit Charges Inpatient E&M: 32218 Subs Hosp L1
[2024-05-22] MEDS: Menthol/Lanolin/Calamine/Znox 113 GM Tube 1 APPLIC TOPICAL ×2 (08:31→21:22)
[2024-05-22] MEDS: oxyCODONE 5 MG Tablet PO ×2 (10:38→17:26)
[2024-05-22] MEDS: Gabapentin 300 MG Capsule PO ×2 (11:32→16:15)
[2024-05-22] MEDS: Morphine 2 MG/ML Syringe IV (14:17)
[2024-05-22] MEDS: Polyethylene Glycol 3350 17 GM PACKET PO (14:17)
[2024-05-22] MEDS: 0.9% Saline Lock 10 ML Syringe IV (14:17)
[2024-05-23 03:45] VITALS: BP 105/66; PULSE 79; RESP 14; TEMP 36.6; O2SAT 97
[2024-05-23 05:15] VITALS: BP 110/70; PULSE 74
[2024-05-23] MEDS: oxyCODONE 5 MG Tablet PO ×2 (05:16→11:58)
[2024-05-23] MEDS: Acetaminophen 500 MG Tablet 1000 MG PO ×3 (05:16→21:14)
[2024-05-23] MEDS: Levothyroxine 75 MCG Tablet PO (05:16)
[2024-05-23 07:06] LABS: Hematocrit 40.6 % (40-54); Hemoglobin 13.3 g/dL (13.0-16.5); Mean Corp Hgb Conc 32.8 g/dL (32-36); Mean Corpuscular Hgb 31.6 pg (27.0-32.0); Mean Corpuscular Volume 96.4 fL (80-94); Platelet Count 167 K/mm3 (150-450); RBC Distribution Width SD 49.4 fl (35.1-43.9); Red Blood Count 4.21 M/mm3 (4.6-6.2); White Blood Count 7.4 K/mm3 (4.4-11.0)
[2024-05-23 07:46] LABS: Anion Gap 4 (5-15); BUN 44 mg/dL (7-18); Calcium,Total 9.1 mg/dL (8.5-10.1); Chloride 102 mmol/L (98-107); EST Glomerular Filtration Rate 67 mL/min (>60); Est Glom Filt Rate - Afr Amer 81 mL/min (>60); Estimated Creatinine Clearance 40.62 ml/min; Glucose 95 mg/dL (74-106); Potassium 4.9 mmol/L (3.5-5.1); Sodium Level 134 mmol/L (136-145)
[2024-05-23] MEDS: Ensure Plus High Protein 120 ML LIQUID PO ×3 (08:17→17:00)
[2024-05-23] MEDS: Gabapentin 300 MG Capsule PO ×3 (08:17→17:00)
[2024-05-23 08:24] VITALS: BP 113/78; PULSE 64; RESP 16; TEMP 36.4; O2SAT 97
--- NOTE | 2024-05-23 08:41 | PN.HOSP_ITS ---
Subjective Subjective Patient states he still having significant pain in his back. He did feel like the IV morphine did take the edge off yesterday. Plan is for injection tomorrow. States he has not had a bowel movement a few days. He is on scheduled MiraLAX which we will change to twice daily from daily and he is as needed senna as well. Objective Data Objective Data Vital Signs: Vital Signs Temp Pulse Resp BP Pulse Ox O2 Del Method 97.6 F L 64 16 113/78 97 Room Air 05/23/24 08:24 05/23/24 08:24 05/23/24 08:24 05/23/24 08:24 05/23/24 08:24 05/23/24 08:26 Oxygen Delivery Method Room Air Weight: 60.7 kg Body Mass Index (BMI) 21.6 Intake & Output: Intake and Output for Last 24 Hours 05/21/24 05/22/24 05/23/24 23:59 23:59 23:59 Intake Total 200 / 200 1650 / 1650 Output Total 200 / 500 900 / 1050 400 / 400 Balance 0 / -300 750 / 600 -400 / -400 Lab / Micro Data 05/23/24 06:26 05/23/24 06:26 Labs: Laboratory Results - last 24 hr 05/23/24 06:26: WBC 7.4, RBC 4.21 L, Hgb 13.3, Hct 40.6, MCV 96.4 H, MCH 31.6, MCHC 32.8, RDW Std Deviation 49.4 H, RDW Coeff of Vazquez 14.0, Plt Count 167, MPV 10.0, Sodium 134 L, Potassium 4.9, Chloride 102, Carbon Dioxide 28.0, Anion Gap 4 L, BUN 44 H, Creatinine 1.10, Estim Creat Clear Calc 40.62, Est GFR (MDRD) Af Amer 81, Est GFR (MDRD) Non-Af 67, BUN/Creatinine Ratio 40.0 H, Glucose 95, Calcium 9.1 Physical Exam Const alert, oriented x3, no apparent distress, average body habitus and well nourished Constitutional Narrative: Thin, appears frail, elderly, white male, sitting up in a chair at the bedside, appears comfortable, nontoxic, very pleasant, significant other is at bedside Psych affect normal Psych Narrative: Very pleasant, eye contact is good and patient interacts appropriately Assessment & Plan Assessment/Plan (1) Severe malnutrition: (2) Radiculopathy of lumbar region: (3) Compression fracture of L3 vertebra: (4) Intractable low back pain: (5) Compression fracture of L1 lumbar vertebra: PLAN: Plan Intractable low back pain with radiculopathy -CT of the lumbar spine shows pretty significant arthritic changes as well as probable compression fraction of L1 and L3 of indeterminate age -MRI showed multilevel degenerative changes with no prachi spinal stenosis, multilevel neuroforaminal stenosis with multiple radiating fracture lines roughly 50% decreased height of the L3 vertebral body without bony retropulsion -Patient was to have epidural injection in mid June however it does not sound like he is going to be able to wait that long -Continue scheduled Tylenol -Continue lidocaine patch -Continue gabapentin 100 mg 3 times daily -Continue low-dose oxycodone 2.5 mg every 6 hours as needed -Continue Celebrex 100 mg p.o. twice daily -Will dose Protonix 40 mg daily while he is on NSAIDs for gastric protection and monitor hemoglobin and symptoms closely -Patient did get better pain relief with IV morphine so we did add 2 mg every 2 hours as needed for pain 6-10 -Continue PT/OT -Pain management was consulted and evaluated the patient plan is for epidural injection on 05/24/2024 -Case management/social work following and will plan on discharge to transitional care unit hopefully as long as he is accepted but will need pre- CERT Unintentional weight loss -Per significant other he is lost quite a bit of weight unintentionally -Patient has known prostate cancer and evaluation for significant metastatic disease has been pursued without any findings -Had recent CT of the abdomen pelvis which was unremarkable for any findings consistent with acute malignancy -CT of the chest is unremarkable -Dietitian is following Severe malnutrition -Continue supplements -Appreciate dietitian involvement CAD/essential hypertension/hyperlipidemia -history of coronary artery disease status post bypass surgery with a NACHO to the circumflex artery, BAHENA to LAD, and SVG to the circumflex sequential to the posterior descending artery -Continue home metoprolol -continue home rosuvastatin Persistent atrial fibrillation -Rivaroxaban on hold for procedure on Thursday -Continue home metoprolol -Patient is currently rate controlled History of stroke -Mild persistent weakness with no significant chronic focal neurological deficits -Will restart Xarelto when appropriate post procedure History of [place] -Resolved with weight loss DVT prophylaxis -Continue Lovenox 30 mg daily CODE STATUS -Full code Charges/Coding Visit Charges Inpatient E&M: 96839 Subs Hosp L1
[2024-05-23] MEDS: Calcium Carb/Vitamin D 1 TABLET Tablet PO ×2 (10:23→21:14)
[2024-05-23] MEDS: Menthol/Lanolin/Calamine/Znox 113 GM Tube 1 APPLIC TOPICAL ×2 (10:23→21:12)
[2024-05-23 10:24] VITALS: BP 113/78; PULSE 64
[2024-05-23] MEDS: Sertraline 100 MG Tablet PO (10:24)
[2024-05-23] MEDS: Metoprolol Tartrate 25 MG Tablet PO (10:24)
[2024-05-23] MEDS: Lidocaine 5% Patch 1 PATCH TOPICAL (10:24)
[2024-05-23] MEDS: Cyanocobalamin 500 MCG Tablet 1000 MCG PO (10:24)
[2024-05-23] MEDS: Memantine Hydrochloride 10 MG Tablet PO ×2 (10:24→21:13)
[2024-05-23] MEDS: Atorvastatin Calcium 80 MG Tablet PO (10:24)
[2024-05-23] MEDS: Pantoprazole Sodium 40 MG Tablet PO (10:24)
[2024-05-23] MEDS: Celecoxib 100 MG Capsule PO ×2 (10:25→21:13)
[2024-05-23] MEDS: Enoxaparin 40 MG/0.4 ML Syringe SC (10:25)
[2024-05-23] MEDS: Polyethylene Glycol 3350 17 GM PACKET PO ×2 (10:33→21:13)
[2024-05-23 14:47] VITALS: BP 96/71; PULSE 87; RESP 16; TEMP 36.8; O2SAT 96
[2024-05-23] MEDS: 0.9% Saline Lock 10 ML Syringe IV (18:19)
[2024-05-23] MEDS: Senna/Docusate Sodium 1 Tablet 2 TABLET PO (18:19)
[2024-05-23] MEDS: 0.9% Normal Saline (1000mL) 1,000 ML 75 ML IV (18:19)
[2024-05-23] MEDS: Morphine 2 MG/ML Syringe IV (18:19)
[2024-05-23 21:09] VITALS: BP 98/61; PULSE 67; RESP 16; TEMP 36; O2SAT 95
[2024-05-24] VITALS (12 sets, daily range): BP systolic 93–130; BP diastolic 52–82; PULSE 43–74; RESP 16–18; TEMP 36–37.1; O2SAT 94–100; BMI 21.6
[2024-05-24 06:16] LABS: Hematocrit 40.7 % (40-54); Hemoglobin 13.2 g/dL (13.0-16.5); Mean Corp Hgb Conc 32.4 g/dL (32-36); Mean Corpuscular Hgb 31.7 pg (27.0-32.0); Mean Corpuscular Volume 97.8 fL (80-94); Mean Platelet Vol. 10.3 fl (6.2-12.0); Platelet Count 160 K/mm3 (150-450); RBC Distribution Width CV 13.8 % (11.6-14.6); RBC Distribution Width SD 50.3 fl (35.1-43.9); Red Blood Count 4.16 M/mm3 (4.6-6.2)
[2024-05-24 06:28] LABS: International Normalized Ratio 0.9; Prothrombin Time (Protime)PT. 12.6 SECONDS (11.7-14.9)
[2024-05-24 06:40] LABS: Anion Gap 3 (5-15); BUN 52 mg/dL (7-18); Calcium,Total 9.3 mg/dL (8.5-10.1); Chloride 103 mmol/L (98-107); Creatinine, Serum 1.21 mg/dL (0.70-1.30); EST Glomerular Filtration Rate 60 mL/min (>60); Est Glom Filt Rate - Afr Amer 73 mL/min (>60); Estimated Creatinine Clearance 36.93 ml/min; Glucose 90 mg/dL (74-106); Potassium 4.7 mmol/L (3.5-5.1); Sodium Level 134 mmol/L (136-145)
--- NOTE | 2024-05-24 06:57 | PCM.PRE.AN2 ---
ASA Classification* ASA Classification ASA Classification: 3 Assessment & Plan Anesthesia* Anesthesia Assessment Anesthesia Assessment: Discussed sedation and/or anesthesia options, risks, benefits, and alternatives with patient/parents/legal guardian/POA. Questions invited. The patient/parents/legal guardian/POA seems to understand and agrees to proceed with anesthesia plan. Reviewed the physical assessment, medical history, allergy history and patient home medications list prior to surgery/procedure/anesthetic and documented any changes. Performed airway and anesthesia risk assessments. Anesthesia Type Anesthesia Type: MAC Anesthesia Focused Assessment* Temperature: 97.0 F Pulse Rate: 60 Blood Pressure: 109/66 Respiratory Rate: 18 Pulse Ox: 96 Airway Assessment Mouth opens: >3 cm Mallampati Score: II Focused Labs Anesthesia Preop lab: CBC WBC 7.0 K/mm3 (4.4-11.0) 05/24/24 05:15 RBC 4.16 M/mm3 (4.6-6.2) L 05/24/24 05:15 Hgb 13.2 g/dL (13.0-16.5) 05/24/24 05:15 Hct 40.7 % (40-54) 05/24/24 05:15 Plt Count 160 K/mm3 (150-450) 05/24/24 05:15 CHEMISTRY Potassium 4.7 mmol/L (3.5-5.1) 05/24/24 05:15 Sodium 134 mmol/L (136-145) L 05/24/24 05:15 Magnesium 1.9 mg/dL (1.8-2.4) 02/03/13 09:17 Phosphorus 3.4 mg/dL (2.5-4.9) 04/20/17 11:02 BUN 52 mg/dL (7-18) H 05/24/24 05:15 Creatinine 1.21 mg/dL (0.70-1.30) 05/24/24 05:15 Glucose 90 mg/dL (74-106) 05/24/24 05:15 TSH 3.980 uIU/mL (0.358-3.740) H 03/16/24 15:57 COAG PT 12.6 SECONDS (11.7-14.9) 05/24/24 05:15 Pre-Assessment Diagnosis/Proposed Procedure Planned Operative Procedure(s): L3-L4 Epidural Block Anesthesia History Anesthesia History - consumer marketing manager: Anesthesia History - consumer marketing manager Hx Hospitalization No 07/08/19 11:41 Any Problems With Anesthesia No 08/01/16 12:48 Cholinesterase deficiency No 08/01/16 12:48 You/Your Family Experience No 08/01/16 12:48 fever (hyperthermia) with Relationship Recent Exposure to Contagious No 08/08/16 07:50 Disease Does patient have nerve No 05/24/24 00:23 stimulator Patient instructed to have No 05/24/24 00:23 device shut off --Does patient have Pacemaker No 05/24/24 00:23 or ICD? When Was Last Pacemaker Check QUESTION #4 FULL TEXT: You/Your Family Experience fever (hyperthermia) with Anesthesia Last Oral Intake Last Oral intake: Last Oral Intake NPO since 00:00 05/24/24 00:23 Meds taken in AM with sips of water? Meds patient instructed to take am of surgery PONV PONV - consumer marketing manager: PONV - consumer marketing manager Female HX of Motion Sickness HX of N/V After Surgery Non-Smoker Duration of Surgery greater than 60 minutes Number of Risk Factors PONV Score Height & Weight Height & Weight: Anesthesia: Height & Weight Height 5 ft 6 in 05/24/24 00:23 Weight: 60.7 kg 05/24/24 00:23 Body Mass Index (BMI) 21.6 05/24/24 00:23 Respiratory Assessment Respiratory Assessment - consumer marketing manager: Respiratory Tract Infection Hx - consumer marketing manager Hx Respiratory Tract Infection No 08/01/16 12:48 STOP Sleep Apnea STOP Sleep Apnea - consumer marketing manager: STOP Sleep Apnea - consumer marketing manager Hx Hypertension Yes 05/20/24 14:20 Hx Sleep Apnea Yes: PER QUESTIONS 05/20/24 02:56 CPAP No 05/20/24 02:56 BIPAP No 05/20/24 02:56 Do you snore loudly (louder than talking or can be heard Do you often feel tired/ fatigued/ sleepy during daytime? Has anyone observed you stop breathing during sleep? STOP Results Positive 05/20/24 02:56 QUESTION #5 FULL TEXT : Do you snore loudly (louder than talking or can be heard through closed doors)? Tobacco Use History Tobacco Use History - consumer marketing manager: Tobacco Use History - consumer marketing manager Tobacco Use Smoking Status Never smoker 05/20/24 02:56 Hx Tobacco Use No 05/20/24 02:56 Years Smoking Packs Smoked per Day Smoking Cessation Date was within the last 15 years Hx Smoking Cessation Date Hx Smoking Cessation Counseling Hematologic Medial History Hematologic Hx - consumer marketing manager: Hematologic Medical Hx - marine painter Hx of Blood Transfusion No 05/20/24 02:56 Hx of Transfusion in last 3 No 05/20/24 02:56 Months Date of Last Transfusion (if within last 3 months) Ever experience any problems No 05/20/24 02:56 with transfusion(s)? Specify any problems Hx of Preganancy in last 3 N/A 05/20/24 02:56 Months Nurse Filling Out Transfusion DCORPORAL 05/20/24 02:56 & Questions: Date: 05/20/24 05/20/24 02:56 Time: 02:58 05/20/24 02:56 Patient unable to answer at this time (ie. confused, unrespo /Reproduction History /Reproductive History - consumer marketing manager: /Reproductive Hx- consumer marketing manager Hx Now Gestational Age (in weeks): EDC: Hx Hx Para Hx Section SAB Active Medications Active Medications: Current Medications Generic Name Dose Route Start Last Admin Trade Name Freq PRN Reason Stop Dose Admin Acetaminophen 1,000 mg 05/20/24 06:00 05/23/24 21:14 Acetaminophen 500 Mg Tablet PO 1,000 mg Q8 JULY Administration Atorvastatin Calcium 80 mg 05/21/24 10:00 05/23/24 10:24 Atorvastatin Calcium 80 Mg Tablet PO 80 mg DAILY JULY Administration Calamine/Phenol 1 applic 05/20/24 10:00 05/23/24 21:12 Menthol/Lanolin/Calamine/Znox 113 Gm Tube TOPICAL 1 applic BID JULY Administration Protocol Calcium/Vitamin D 1 tablet 05/20/24 22:00 05/23/24 21:14 Calcium Carb/Vitamin D 1 Tablet Tablet PO 1 tablet BID JULY Administration Celecoxib 100 mg 05/21/24 12:00 05/23/24 21:13 Celecoxib 100 Mg Capsule PO 100 mg BID JULY Administration Cyanocobalamin 1,000 mcg 05/21/24 10:00 05/23/24 10:24 Cyanocobalamin 500 Mcg Tablet PO 1,000 mcg DAILY JULY Administration Enoxaparin Sodium 40 mg 05/21/24 12:00 05/23/24 10:25 Enoxaparin 40 Mg/0.4 Ml Syringe SC 40 mg DAILY JULY Administration Gabapentin 300 mg 05/22/24 12:00 05/23/24 17:00 Gabapentin 300 Mg Capsule PO 300 mg TIDCM JULY Administration Sodium Chloride 100 mls @ 15 mls/hr 05/20/24 02:33 IV .Q6H40M PRN Saline Flush Sodium Chloride 100 mls @ 15 mls/hr 05/20/24 02:33 IV .Q6H40M PRN Additional IVPB Infusion Levothyroxine Sodium 75 mcg 05/21/24 06:00 05/23/24 05:16 Levothyroxine 75 Mcg Tablet PO 75 mcg DAILY@0600 JULY Administration Lidocaine 1 patch 05/20/24 10:00 05/23/24 10:24 Lidocaine 5% Patch TOPICAL 1 patch DAILY JULY Administration Protocol Memantine 10 mg 05/20/24 22:00 05/23/24 21:13 Memantine Hydrochloride 10 Mg Tablet PO 10 mg BID JULY Administration Metoprolol Tartrate 25 mg 05/21/24 10:00 05/23/24 10:24 Metoprolol Tartrate 25 Mg Tablet PO 25 mg DAILY JULY Administration Protocol Morphine Sulfate 2 mg 05/23/24 11:06 05/23/24 18:19 Morphine 2 Mg/Ml Syringe IV 2 mg Q2H PRN PRN Administration Pain Score 6-10 Nutritional Formula (Lactose Free) 120 ml 05/20/24 08:00 05/23/24 17:00 Ensure Plus High Protein 120 Ml Liquid PO 120 ml TIDCM JULY Administration Oxycodone HCl 5 mg 05/21/24 11:50 05/23/24 11:58 Oxycodone 5 Mg Tablet PO 5 mg Q6H PRN PRN Administration Pain Score 4-10 or Pre PT/OT Pantoprazole Sodium 40 mg 05/22/24 10:00 05/23/24 10:24 Pantoprazole Sodium 40 Mg Tablet PO 40 mg DAILY JULY Administration Polyethylene Glycol 17 gm 05/23/24 22:00 05/23/24 21:13 Polyethylene Glycol 3350 17 Gm Packet PO 17 gm BID JULY Administration Senna/Docusate Sodium 2 tablet 05/23/24 11:55 05/23/24 18:19 Senna/Docusate Sodium 1 Tablet PO 2 tablet DAILY PRN PRN Administration CONSTIPATION Sertraline HCl 100 mg 05/21/24 10:00 05/23/24 10:24 Sertraline 100 Mg Tablet PO 100 mg DAILY JULY Administration Sodium Chloride 10 - 40 ml 05/20/24 02:33 05/23/24 18:19 0.9% Saline Lock 10 Ml Syringe IV 10 ml UD PRN Administration SALINE FLUSH [facility] Medical History Hypothyroidism History of CVA (cerebrovascular accident) (2013) Obesity Longstanding persistent atrial fibrillation Essential (primary) hypertension [place] (obstructive sleep apnea) Disorder of tendon of right biceps Dizziness and giddiness Cerebral embolism with cerebral infarction Atherosclerotic heart disease of [place] coronary artery without angina pectoris HLD (hyperlipidemia) Home Medications ?Medication ?Instructions ?Recorded ?Last Taken ?Type rivaroxaban 20 mg tablet 40 mg PO DAILY 03/09/14 Unknown History rosuvastatin 40 mg tablet 40 mg PO DAILY 03/27/18 Unknown History calcium 325 mg-vit D3 12.5 1 tab PO BID 10/29/21 Unknown History mcg-zinc 2.75 [id number] tablet (Citracal-D3 Maximum Plus) levothyroxine 75 mcg tablet 75 mcg PO DAILY 10/29/21 Unknown History memantine 10 mg tablet 10 mg PO BID 10/29/21 Unknown History cyanocobalamin (vitamin B-12) 1,000 mcg PO DAILY 05/20/24 Unknown History 1,000 mcg tablet (Vitamin B-12) metoprolol tartrate 25 mg tablet 25 mg PO DAILY 05/20/24 Unknown History sertraline 100 mg tablet (Zoloft) 100 mg PO DAILY 05/20/24 Unknown History Allergy/AdvReac Type Severity Reaction Status Date / Time No Known Allergies Allergy Verified 05/19/24 22:32 Family History Mother , age 85 CAD (coronary artery disease) Myocardial infarction Father , age 62 CAD (coronary artery disease) Ruptured, aorta Other Atherosclerotic heart disease of [place] coronary artery without angina pectoris MICHAEL (dyspnea on exertion) Essential (primary) hypertension H/O coronary artery bypass surgery HLD (hyperlipidemia) History of CVA (cerebrovascular accident) Longstanding persistent atrial fibrillation SOB (shortness of breath) Surgical History History of maze procedure (06/10/05) History of tonsillectomy and adenoidectomy History of left heart catheterization (LHC) (05/21/05) 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) Social History Smoking Status: Never smoker alcohol intake: current alcohol intake frequency: a few times a week Alcohol type: beer substance use type: does not use caffeine: Yes Type: coffee Number of servings: 2 what type of physical activity do you participate in: other details: [place] frequency: 3-4 times per week duration: 30-45 minutes/day seatbelt use: always do you feel safe at home: Yes Review of Systems (Anesthesia) ROS Narrative System reviewed and no additional complaints, except as documented.
--- NOTE | 2024-05-24 07:40 | RAD_ITS ---
PROCEDURE: Epidural block DATE OF EXAMINATION: INDICATION: Male, 88 years old. Back pain PHYSICIAN: FLUOROSCOPY TIME (if supplied): (0:26) minutes/seconds Technique: 26 seconds of fluoroscopy the lumbar spine was utilized operating RM during epidural nerve block. And 11 images and interpreted for interpretation. RAD/Lumbar Spine 2 or 3 Views IMPRESSION: Fluoroscopy during epidural. Electronically Signed: Rudolph Carrillo MD at 9:35 EST ,
[2024-05-24] MEDS: Triamcinolone Acetonide 40 MG/ML Vial (08:35)
--- NOTE | 2024-05-24 08:40 | PCM.OPRPT ---
Problems Associated Problem List Diagnoses (1) Radiculopathy of lumbar region: Operative Report (Standard) Operative Information Date of Procedure: 05/24/24 Pre-Operative Diagnosis: Lumbar radiculopathy Post-Operative Diagnosis: Lumbar radiculopathy Surgery/Procedure Performed: L3-L4 TFESI (right) physical chemistry teacher: No Type of Anesthesia: MAC and Topical Anesth RN Documented Start/Stop Times: Operation Date: 05/24/24 08:00 Case Time Into Pre-Op 05/24/24 06:51 Anesthesia Start 05/24/24 08:16 Into Room 05/24/24 08:16 Procedure Start 05/24/24 08:26 Procedure End 05/24/24 08:40 Anesthesia End 05/24/24 08:45 Out of Room 05/24/24 08:45 Into Recovery 05/24/24 08:46 Procedure Start Time: 08:26 Procedure Stop Time: 08:40 Select all DRAINS/GRAFTS/IMPLANTS that apply: None Estimated Blood Loss: nil Specimen collected: No Description of surgery: The patient was admitted to the preoperative area. Vital signs were checked and the patient was moved to the procedure area and placed in the prone position. Standard monitors were applied. Sterile prep and drape was performed in a regular manner. Using fluoroscopic guidance, the required levels were identified under AP and oblique views. It was found to have kissing spine respect to his spinous processes. Elected to target a transforaminal approach due to this finding as his main pain is down the right leg. Local anesthesia was administered using 25g needle using Lidocaine 0.5% to anesthetize the skin and subcutaneous tissue. A 22-gauge spinal needle was placed under fluoroscopic guidance until reaching the 6 o`clock position of the pedicle above the desired foramen, the needle was gradually walked down to the upper portion of the desired foramen, and the needle was then slightly advanced into the foramen. The position was confirmed with fluoroscopy using AP lateral and oblique views as required. Contrast material, Omnipaque 1cc was injected under fluoroscopic guidance and showed appropriate epidurogram, epidural spread. Negative blood and CSF aspiration was confirmed. The same procedure was repeated at each desired level. After confirmation of needles position, a mixture of 4 cc normal saline and 40 mg of Triamincilone was injected.The patient tolerated the procedure well. [place] were removed intact. The patient was cleansed and Band-Aid was applied. Surgical Findings: n/a Complications Complications: No
--- NOTE | 2024-05-24 09:02 | PCM.POST.ANE ---
Anesthesia: Postop Eval I Current Vital Signs Temperature: 97.5 F Pulse Rate: 56 Blood Pressure: 96/62 Respiratory Rate: 16 Pulse Ox: 98 Oxygen Delivery Method: Room Air Assessment Airway patent: Yes Spontaneous unlabored respirations: Yes Mental status: Awake and Calm nausea: No Vomiting: No Anesthesia Complication: No Fluid Hydration Crystalloid volume administer (ml): 10 Total IV fluid infused: 10 Progress Note Anesthesia document: Postop Eval 1 completed: Yes
--- NOTE | 2024-05-24 09:21 | PN.HOSP_ITS ---
Reason for Visit Reason for Visit: Diagnoses Unspecified severe protein-calorie malnutrition (05/20/24) Radiculopathy, lumbar region (05/20/24) Other low back pain (05/20/24) Wedge compression fracture of first lumbar vertebra, initial encounter for closed fracture (05/20/24) Wedge compression fracture of third lumbar vertebra, initial encounter for closed fracture (05/20/24) Objective Data Objective Data Vital Signs: Vital Signs Temp Pulse Resp BP Pulse Ox O2 Del Method 97.5 F L 68 18 102/60 98 Room Air 05/24/24 09:06 05/24/24 09:06 05/24/24 09:06 05/24/24 09:06 05/24/24 09:06 05/24/24 09:06 Oxygen Delivery Method Room Air Weight: 133 lb 13.129 oz Body Mass Index (BMI) 21.6 Intake & Output: Intake and Output for Last 24 Hours 05/22/24 05/23/24 05/24/24 23:59 23:59 23:59 Intake Total 1650 / 1650 Output Total 900 / 1050 625 / 625 500 / 500 Balance 750 / 600 -625 / -625 -500 / -500 Lab / Micro Data 05/24/24 05:15 05/24/24 05:15 Labs: Laboratory Results - last 24 hr 05/24/24 05:15: WBC 7.0, RBC 4.16 L, Hgb 13.2, Hct 40.7, MCV 97.8 H, MCH 31.7, MCHC 32.4, RDW Std Deviation 50.3 H, RDW Coeff of Vazquez 13.8, Plt Count 160, MPV 10.3, PT 12.6, INR 0.9, Sodium 134 L, Potassium 4.7, Chloride 103, Carbon Dioxide 28.0, Anion Gap 3 L, BUN 52 H, Creatinine 1.21, Estim Creat Clear Calc 36.93, Est GFR (MDRD) Af Amer 73, Est GFR (MDRD) Non-Af 60, BUN/Creatinine Ratio 43.0 H, Glucose 90, Calcium 9.3 Assessment & Plan Assessment/Plan (1) Severe malnutrition: (2) Radiculopathy of lumbar region: (3) Compression fracture of L3 vertebra: (4) Intractable low back pain: (5) Compression fracture of L1 lumbar vertebra: PLAN: Plan The patient is an 88 y/o M w/ PMHx: CAD, HTN, HLD, Persistent AF, Hx CVA, WELLINGTON, CKD stage II per GFR trending who presents to the [facility] ED on 05/20/2024 with history of severe lumbar back discomfort with radiculopathy worsening with straight leg raise with lumbar compression fracture demonstrated on plain film with no recent trauma but given ongoing pain prompted ED evaluation. Intractable low back pain with radiculopathy -CT of the lumbar spine shows pretty significant arthritic changes as well as probable compression fraction of L1 and L3 of indeterminate age -MRI showed multilevel degenerative changes with no prachi spinal stenosis, multilevel neuroforaminal stenosis with multiple radiating fracture lines roughly 50% decreased height of the L3 vertebral body without bony retropulsion -Patient was to have epidural injection in mid June however it does not sound like he is going to be able to wait that long -Continue scheduled Tylenol -Continue lidocaine patch -Continue gabapentin 100 mg 3 times daily -Continue low-dose oxycodone 2.5 mg every 6 hours as needed -Continue Celebrex 100 mg p.o. twice daily -Will dose Protonix 40 mg daily while he is on NSAIDs for gastric protection and monitor hemoglobin and symptoms closely -Patient did get better pain relief with IV morphine so we did add 2 mg every 2 hours as needed for pain 6-10 -Continue PT/OT -Pain management was consulted and evaluated the patient plan is for epidural injection on 05/24/2024 -Case management/social work following and will plan on discharge to transitional care unit hopefully as long as he is accepted but will need pre- CERT Unintentional weight loss -Per significant other he is lost quite a bit of weight unintentionally -Patient has known prostate cancer and evaluation for significant metastatic disease has been pursued without any findings -Had recent CT of the abdomen pelvis which was unremarkable for any findings consistent with acute malignancy -CT of the chest is unremarkable -Dietitian is following Severe malnutrition -Continue supplements -Appreciate dietitian involvement CAD/essential hypertension/hyperlipidemia -history of coronary artery disease status post bypass surgery with a NACHO to the circumflex artery, BAHENA to LAD, and SVG to the circumflex sequential to the posterior descending artery -Continue home metoprolol -continue home rosuvastatin Persistent atrial fibrillation -Rivaroxaban on hold for procedure on Thursday -Continue home metoprolol -Patient is currently rate controlled History of stroke -Mild persistent weakness with no significant chronic focal neurological deficits -Will restart Xarelto when appropriate post procedure History of WELLINGTON -Resolved with weight loss DVT prophylaxis -Continue Lovenox 30 mg daily CODE STATUS -Full code
[2024-05-24] MEDS: Memantine Hydrochloride 10 MG Tablet PO (10:12)
[2024-05-24] MEDS: Calcium Carb/Vitamin D 1 TABLET Tablet PO (10:12)
[2024-05-24] MEDS: Sertraline 100 MG Tablet PO (10:12)
[2024-05-24] MEDS: Cyanocobalamin 500 MCG Tablet 1000 MCG PO (10:13)
[2024-05-24] MEDS: Metoprolol Tartrate 25 MG Tablet PO (10:13)
[2024-05-24] MEDS: Atorvastatin Calcium 80 MG Tablet PO (10:14)
[2024-05-24] MEDS: Levothyroxine 75 MCG Tablet PO (10:14)
[2024-05-24] MEDS: Polyethylene Glycol 3350 17 GM PACKET PO (10:14)
[2024-05-24] MEDS: Celecoxib 100 MG Capsule PO (10:14)
[2024-05-24] MEDS: Menthol/Lanolin/Calamine/Znox 113 GM Tube 1 APPLIC TOPICAL (10:15)
--- NOTE | 2024-05-24 10:15 | CASEMGMT ---
DEE DEE spoke with patient and let him know that [facility] can take him as long as his insurance approves him. Patient thanked DEE DEE for the update. Plan: d/c to [facility] pending insurance approval. Vidhi MCCORMICK
[2024-05-24] MEDS: Lidocaine 5% Patch 1 PATCH TOPICAL (10:16)
[2024-05-24] MEDS: Enoxaparin 40 MG/0.4 ML Syringe SC (10:16)
[2024-05-24] MEDS: Pantoprazole Sodium 40 MG Tablet PO (10:16)
[2024-05-24] MEDS: Gabapentin 300 MG Capsule PO ×2 (10:23→14:16)
[2024-05-24] MEDS: Ensure Plus High Protein 120 ML LIQUID PO (13:14)
[2024-05-24] MEDS: Acetaminophen 500 MG Tablet 1000 MG PO (14:16)
--- NOTE | 2024-05-24 14:38 | CASEMGMT ---
Patient was approved for TCU. SW will notify physician. Plan: d/c to [facility] under skilled level of care. Vidhi MCCORMICK
--- NOTE | 2024-05-24 14:53 | PCM.TXEXTCAR ---
Diet Diet Order/Speech Therapy: 05/24/24 11:03 Diet: Cardiac - Heart Healthy Food consistency:: Regular Liquid Consistency:: Regular/Thin Type of Dietary Supplement:: Magic Cup Dessert Diet Comments: chocolate magic cup w/ lunch and dinner Routine Orders/Code Status Enema Type: Fleetz Enema Frequency: Daily PRN Suppository Type: Dulcolax 10mg Suppository Frequency: Daily PRN Routine Lab Work: CBC (Follow-up CBC in 1 week.) and BMP (Follow-up BMP in 1 week.) Code Status: Full Code DC O2, CPAP, BIPAP needs Home O2 Discharge instructions: No Wound(s) rt buttock: Wound Type: Skin Tear lumbar spine: Wound Type: Puncture Suggestions for Active Care Change Position every (hours): 2 Hours to sit in a chair: 6 Times a day to sit in chair: 3 Therapies Weight Bearing: Full weight bearing Physical Therapy: Eval and Treat Occupational Therapy: Eval and Treat Problem/Diagnosis (1) Radiculopathy of lumbar region: Status: Acute Code(s): M54.16 - Radiculopathy, lumbar region Plan DISCHARGE DIAGNOSES: #1. Intractable low back pain with radiculopathy with incidentally noted L1 and L3 compression fractures of undetermined age #2. Unintentional weight loss with associated severe protein calorie malnutrition #3. CAD status post CABG NACHO to circumflex, BAHENA to LAD, SVG to circumflex sequential to the posterior descending artery #4. Hypertension #5. Hyperlipidemia #6. Persistent atrial fibrillation #7. History CVA #8. History of WELLINGTON, resolved following weight loss Allergies/Procedures Done in Hospital Allergies No Known Allergies Allergy (Verified 05/19/24 22:32) Procedures: - (05/24/24 Epidural injection.) Type of Care/Length of Stay Estimated LOS: Convalescent Care Less Than 30 days Type of Care Needed: Skilled Rehab Potential: Good Prognosis: Good Additional Orders/Day of Discharge Additional Orders: See additional instruction section for orders. Day of Discharge: 05/24/24 Dietary and Speech Recommendations Dietitian Recommendations/Changes: Adjust to liberal regular diet d/t signs and symptoms of malnutrition. Continue 120ml chocolate ensure plus high protein TID with medpass. D/c 120ml ensure plus high protein TID with meals Will order chocolate magic cup with lunch and dinner. Will monitor weight, as available. Reviewed and approved by Caprice Velazquez RD, LD. Discharge Plan Admission Admit Date/Time: 05/20/24 01:22 Primary Reason for Your Visit: Intractable low back pain with L1/3 compression Fx w/ radiculopathy Attending Provider: Frannie Abbott Primary Care Provider: Luis Grey Consulting Providers: Richy Tom; Rashad Mancilla; Yady Lang Instructions Additional Instructions / Restrictions: ADDITIONAL DISCHARGE INSTRUCTIONS: #1. Intractable low back pain with radiculopathy with age-indeterminate L1 and L3 compression fractures: --CT of the lumbar spine shows pretty significant arthritic changes as well as probable compression fraction of L1 and L3 of indeterminate age --MRI showed multilevel degenerative changes with no prachi spinal stenosis, multilevel neuroforaminal stenosis with multiple radiating fracture lines roughly 50% decreased height of the L3 vertebral body without bony retropulsion --Regimen initiated included scheduled Tylenol, lidocaine patches, low-dose 3 times daily gabapentin, low-dose oxycodone as needed as well as judicious short course of Celebrex, -- While on Celebrex patient also initiated short-term on Protonix 40 mg daily which may be de-escalated off once Celebrex is discontinued. -- Pain management consulted and underwent 05/24/2024 epidural injection. --Your Xarelto home regimen was held in preparation for epidural and will be resumed in the next 24 hours once clinically appropriate. --Please continue physical and occupational therapies at nursing facility. #2. Unintentional weight loss -- Given unintentional weight loss we recommend strongly continued nutrition evaluation and monitoring of oral intake to assure appropriate caloric intake. -- Recent imaging of the chest as well as abdomen/pelvis with no acute findings given underlying previous history of prostate cancer. -- Continue supplementations per dietitian recommendations will be ongoing at facility. MEDICATION PARAMETERS: Please hold hypertensive regimen for SBP < 110 and may additionally hold beta wendi for HR < 50. Discharge Orders/Prescriptions Prescriptions: New acetaminophen 500 mg Tablet 1,000 mg PO Q8 Qty: 0 0RF lidocaine 5 % Adhesive Patch,Medicated 1 patch topical DAILY Qty: 0 0RF Protocol: *Topical Application Instructions APPLICATION INSTRUCTIONS: right lumbar area gabapentin 300 mg Capsule 300 mg PO TIDCM Qty: 0 0RF celecoxib 100 mg Capsule 100 mg PO BID Qty: 0 0RF Ensure Plus High Protein 0.08 gram-1.5 kcal/mL Liquid 120 ml PO TIDCM Qty: 0 0RF menthol-zinc oxide [Calmoseptine] 0.44-20.6 % Ointment 1 applic topical BID Qty: 0 0RF Protocol: *Topical Application Instructions APPLICATION INSTRUCTIONS: apply to bottom sennosides-docusate sodium [Stimulant Laxative Plus] 8.6-50 mg Tablet 2 tab PO DAILY PRN PRN (Reason: Constipation) Qty: 0 0RF pantoprazole 40 mg Tablet,Delayed Release (Dr/Ec) 40 mg PO DAILY 30 Days Qty: 30 0RF Rx Instructions: May de-escalate off PPI once off celebrex. oxycodone 5 mg Tablet 5 mg PO Q6H PRN PRN (Reason: Pain Score 4-10 Or Pre Pt/Ot) 5 Days Qty: 20 0RF Continued memantine 10 mg tablet 10 mg PO BID levothyroxine 75 mcg tablet 75 mcg PO DAILY Citracal-D3 Maximum Plus 325 mg-12.5 mcg -2.75 mg tablet 1 tab PO BID rosuvastatin 40 MG tablet 40 mg PO DAILY cyanocobalamin (vitamin B-12) [Vitamin B-12] 1,000 mcg tablet 1,000 mcg PO DAILY metoprolol tartrate 25 mg tablet 25 mg PO DAILY sertraline [Zoloft] 100 mg tablet 100 mg PO DAILY Held rivaroxaban 20 MG tablet 40 mg PO DAILY Hold Instructions: Resume on 05/26/24. Referrals / Follow Up: Richy Umanzor MD [Med Staff - Active Staff] - (Follow-up as needed with pain management.) Luis Grey MD [Primary Care Provider] - (Follow-up within 1-2 days of SNF discharge.) Disposition Disposition (needs filled in before D/C Order can be placed): Intermediate Facility
--- NOTE | 2024-05-24 14:58 | PCM.DC.SUM ---
Providers Date of Admission: 05/20/24 Date of Discharge: 05/24/24 Primary Care Physician: Dr. Luis Grey MD Consultations 05/20/24 10:35 Consult: Pain Management Routine Consulting Provider: Rashad Mancilla Reason for Consult: intractable back pain EMERGENT Consult: No MD Notified: Yes Date Notified: 05/20/24 Time Notified: 10:53 Method of Notification: office Reason For Visit: BACK PAIN Diagnosis Discharge Diagnosis (1) Radiculopathy of lumbar region: Status: Acute Code(s): M54.16 - Radiculopathy, lumbar region Plan DISCHARGE DIAGNOSES: #1. Intractable low back pain with radiculopathy with incidentally noted L1 and L3 compression fractures of undetermined age #2. Unintentional weight loss with associated severe protein calorie malnutrition #3. CAD status post CABG NACHO to circumflex, BAHENA to LAD, SVG to circumflex sequential to the posterior descending artery #4. Hypertension #5. Hyperlipidemia #6. Persistent atrial fibrillation #7. History CVA #8. History of WELL[place], resolved following weight loss Medications at Discharge Home Medications rivaroxaban 20 mg tablet 40 mg PO DAILY 03/09/14 rosuvastatin 40 mg tablet 40 mg PO DAILY 03/27/18 calcium 325 mg-vit D3 12.5 mcg-zinc 2.75 jy-ewoqqw-qqthyvohe tablet (Citracal-D3 Maximum Plus) 1 tab PO BID 10/29/21 levothyroxine 75 mcg tablet 75 mcg PO DAILY 10/29/21 memantine 10 mg tablet 10 mg PO BID 10/29/21 cyanocobalamin (vitamin B-12) 1,000 mcg tablet (Vitamin B-12) 1,000 mcg PO DAILY 05/20/24 metoprolol tartrate 25 mg tablet 25 mg PO DAILY 05/20/24 sertraline 100 mg tablet (Zoloft) 100 mg PO DAILY 05/20/24 acetaminophen 500 mg tablet 1,000 mg (2 x 500 mg) PO Q8 #0 tabs 05/24/24 celecoxib 100 mg capsule 100 mg PO BID #0 caps 05/24/24 food supplemt, lactose-reduced 0.08 gram-1.5 kcal/mL oral liquid (Ensure Plus High Protein) 120 ml PO TIDCM #0 mL 05/24/24 gabapentin 300 mg capsule 300 mg PO TIDCM #0 caps 05/24/24 lidocaine 5 % topical patch 1 patch topical DAILY #0 ea 05/24/24 menthol 0.44 %-zinc oxide 20.6 % topical ointment (Calmoseptine) 1 applic topical BID #0 grams 05/24/24 oxycodone 5 mg tablet 5 mg PO Q6H PRN PRN Pain Score 4-10 Or Pre Pt/Ot 5 days #20 tabs 05/24/24 pantoprazole 40 mg tablet,delayed release 40 mg PO DAILY 30 days #30 tabs 05/24/24 sennosides 8.6 mg-docusate sodium 50 mg tablet (Stimulant Laxative Plus) 2 tab PO DAILY PRN PRN Constipation #0 tabs 05/24/24 Hospital Course Operations None Procedures EKG and - (05/24/24 Epidural injection) Summary of Care Provided Minutes Spent on Discharge: 35 Hospital Course: The patient is an 88 y/o M w/ PMHx: CAD, HTN, HLD, Persistent AF, Hx CVA, WELL[place], CKD stage II per GFR trending who presented to the [facility] ED on 05/20/2024 with history of severe lumbar back discomfort with radiculopathy worsening with straight leg raise with lumbar compression fracture demonstrated on plain film with no recent trauma but given ongoing pain prompted ED evaluation. Patient was admitted to medical floor, CT upon presentation with lumbar spine demonstrating significant arthritic change as well as possible compression fracture L1 and L3 indeterminate age. Follow-up MRI w/ multilevel degenerative changes with no prachi spinal stenosis, multilevel neuroforaminal stenosis with multiple radiating fracture lines roughly 50% decreased height of the L3 vertebral body without bony retropulsion. Patient initiated on scheduled Tylenol, lidocaine patches, gabapentin 100 mg 3 times daily, low-dose oxycodone as well as Celebrex with addition of Protonix orally while on NSAID therapy in addition to low-dose breakthrough morphine. Patient underwent 05/24/2024 epidural injection. Patient reported additional history of unintentional weight loss with CT imaging of abdomen pelvis as well as recent imaging of the chest unremarkable with dietitian consultation for severe protein calorie malnutrition with supplements per their discretion initiated. Prior to epidural injection patient Xarelto temporarily held, plan for resumption in the next 24 hours at discharge. PT and OT assessments with recommendation for long term facility placement which was arranged. Recommended patient follow-up with primary care within 1 to 2 days of skilled facility discharge and pain management as needed. Weight / BMI Weight Weight: 133 lb 13.129 oz Body Mass Index (BMI) 21.6 ABG / Lab / Microbiology Data 05/24/24 05:15 05/24/24 05:15 Laboratory: Laboratory Results - last 24 hr 05/24/24 05:15: WBC 7.0, RBC 4.16 L, Hgb 13.2, Hct 40.7, MCV 97.8 H, MCH 31.7, MCHC 32.4, RDW Std Deviation 50.3 H, RDW Coeff of Vazquez 13.8, Plt Count 160, MPV 10.3, PT 12.6, INR 0.9, Sodium 134 L, Potassium 4.7, Chloride 103, Carbon Dioxide 28.0, Anion Gap 3 L, BUN 52 H, Creatinine 1.21, Estim Creat Clear Calc 36.93, Est GFR (MDRD) Af Amer 73, Est GFR (MDRD) Non-Af 60, BUN/Creatinine Ratio 43.0 H, Glucose 90, Calcium 9.3 Radiography Diagnostic Testing: Radiology Impression Lumbar Spine X-Ray 05/24/24 07:40 IMPRESSION: Fluoroscopy during epidural. Electronically Signed: Rudolph Carrillo MD at 9:35 EST , D/C Instructions DC O2, CPAP, BIPAP Needs Home O2 Discharge instructions: No Meaningful Use Info Meaningful Use Meaningful Use Diagnoses (Choose all that apply): None applicable Ischemic Stroke Statin Dosing Therapy Reference: STATIN DOSE THERAPY REFERENCE: * Patients > 75 years receive moderate or high dose statin therapy. * Patients 75 years or YOUNGER should receive HIGH intensity statin dose unless contraindicated. You will be required to document reason for non-treatment if statin daily dose does not meet guidelines. HIGH DOSE STATIN THERAPY DAILY Atorvastatin > than or = to 40 mg Rosuvastatin > than or = to 20 mg Amlodipine + Atorvastatin > than or = to 2.5/40 mg Ezetimibe + Simvastatin 10/80 mg Simvastatin 80mg Discharge Plan Admission Admit Date/Time: 05/20/24 01:22 Primary Reason for Your Visit: Intractable low back pain with L1/3 compression Fx w/ radiculopathy Attending Provider: Frannie Abbott Primary Care Provider: Luis Grey Consulting Providers: Richy Tom; Rashad Mancilla; Yady Lang Instructions Additional Instructions / Restrictions: ADDITIONAL DISCHARGE INSTRUCTIONS: #1. Intractable low back pain with radiculopathy with age-indeterminate L1 and L3 compression fractures: --CT of the lumbar spine shows pretty significant arthritic changes as well as probable compression fraction of L1 and L3 of indeterminate age --MRI showed multilevel degenerative changes with no prachi spinal stenosis, multilevel neuroforaminal stenosis with multiple radiating fracture lines roughly 50% decreased height of the L3 vertebral body without bony retropulsion --Regimen initiated included scheduled Tylenol, lidocaine patches, low-dose 3 times daily gabapentin, low-dose oxycodone as needed as well as judicious short course of Celebrex, -- While on Celebrex patient also initiated short-term on Protonix 40 mg daily which may be de-escalated off once Celebrex is discontinued. -- Pain management consulted and underwent 05/24/2024 epidural injection. --Your Xarelto home regimen was held in preparation for epidural and will be resumed in the next 24 hours once clinically appropriate. --Please continue physical and occupational therapies at nursing facility. #2. Unintentional weight loss -- Given unintentional weight loss we recommend strongly continued nutrition evaluation and monitoring of oral intake to assure appropriate caloric intake. -- Recent imaging of the chest as well as abdomen/pelvis with no acute findings given underlying previous history of prostate cancer. -- Continue supplementations per dietitian recommendations will be ongoing at facility. MEDICATION PARAMETERS: Please hold hypertensive regimen for SBP < 110 and may additionally hold beta wendi for HR < 50. Discharge Orders/Prescriptions Prescriptions: New acetaminophen 500 mg Tablet 1,000 mg PO Q8 Qty: 0 0RF lidocaine 5 % Adhesive Patch,Medicated 1 patch topical DAILY Qty: 0 0RF Protocol: *Topical Application Instructions APPLICATION INSTRUCTIONS: right lumbar area gabapentin 300 mg Capsule 300 mg PO TIDCM Qty: 0 0RF celecoxib 100 mg Capsule 100 mg PO BID Qty: 0 0RF Ensure Plus High Protein 0.08 gram-1.5 kcal/mL Liquid 120 ml PO TIDCM Qty: 0 0RF menthol-zinc oxide [Calmoseptine] 0.44-20.6 % Ointment 1 applic topical BID Qty: 0 0RF Protocol: *Topical Application Instructions APPLICATION INSTRUCTIONS: apply to bottom sennosides-docusate sodium [Stimulant Laxative Plus] 8.6-50 mg Tablet 2 tab PO DAILY PRN PRN (Reason: Constipation) Qty: 0 0RF pantoprazole 40 mg Tablet,Delayed Release (Dr/Ec) 40 mg PO DAILY 30 Days Qty: 30 0RF Rx Instructions: May de-escalate off PPI once off celebrex. oxycodone 5 mg Tablet 5 mg PO Q6H PRN PRN (Reason: Pain Score 4-10 Or Pre Pt/Ot) 5 Days Qty: 20 0RF Continued memantine 10 mg tablet 10 mg PO BID levothyroxine 75 mcg tablet 75 mcg PO DAILY Citracal-D3 Maximum Plus 325 mg-12.5 mcg -2.75 mg tablet 1 tab PO BID rosuvastatin 40 MG tablet 40 mg PO DAILY cyanocobalamin (vitamin B-12) [Vitamin B-12] 1,000 mcg tablet 1,000 mcg PO DAILY metoprolol tartrate 25 mg tablet 25 mg PO DAILY sertraline [Zoloft] 100 mg tablet 100 mg PO DAILY Held rivaroxaban 20 MG tablet 40 mg PO DAILY Hold Instructions: Resume on 05/26/24. Referrals / Follow Up: Richy Umanzor MD [Med Staff - Active Staff] - (Follow-up as needed with pain management.) Luis Grey MD [Primary Care Provider] - (Follow-up within 1-2 days of SNF discharge.) Disposition Disposition (needs filled in before D/C Order can be placed): [facility] Facility Charges/Coding Visit Charges Inpatient E&M: 56386 Disch Hosp >30min
--- NOTE | 2024-05-24 15:07 | CASEMGMT ---
SW went to patient's room and his significant other was present. SW let both know patient was approved for [facility] and he will go today. They thanked SW. Plan: d/c to [facility] under skilled level of care. Vidhi MCCORMICK
--- NOTE | 2024-05-24 15:14 | POSTOPAN2_ITS ---
Anesthesia Postop Eval I Sum Postop Eval Completion status Anesthesia document: Postop Eval 1 completed: Yes Anesthesia Postop Eval I Summary Anesthesia Postop Eval I Summary: Anesthesia Postop Eval I: Assessment Summary Airway patent Yes 05/24/24 09:03 TOOL DESIGN [email or web address].[email or web address] Spontaneous unlabored Yes 05/24/24 09:03 TOOL DESIGN [email or web address].[email or web address] respirations Mental status Awake,Calm 05/24/24 09:03 TOOL DESIGN [email or web address].[email or web address] nausea No 05/24/24 09:03 TOOL DESIGN [email or web address].[email or web address] Vomiting No 05/24/24 09:03 TOOL DESIGN [email or web address].[email or web address] Anesthesia Postop Eval I: Fluid Summary Crystalloid volume administer 10 05/24/24 09:03 TOOL DESIGN [email or web address].[email or web address] (ml) Colloids volume administered ( ml) Blood Product volume administered (ml) Total IV fluid infused 10 05/24/24 09:03 TOOL DESIGN [email or web address].[email or web address] Anesthesia Postop Eval I: Summary Notes Anesthesia Complication No 05/24/24 09:03 TOOL DESIGN [email or web address].[email or web address] Anesthesia Complication Comment: Post-operative progress note Anesthesia: Postop Eval II Evaluation Mental status: Awake and Calm Pain Level: 1 nausea: No Vomiting: No Complications Anesthesia Complication: No
--- NOTE | 2024-05-24 15:14 | PCM.POSTANE2 ---
Anesthesia Postop Eval I Sum Postop Eval Completion status Anesthesia document: Postop Eval 1 completed: Yes Anesthesia Postop Eval I Summary Anesthesia Postop Eval I Summary: Anesthesia Postop Eval I: Assessment Summary Airway patent Yes 05/24/24 09:03 EXERCISE PHYSIOLOGY PROFESSOR.[email or web address] Spontaneous unlabored Yes 05/24/24 09:03 EXERCISE PHYSIOLOGY PROFESSOR.[email or web address] respirations Mental status Awake,Calm 05/24/24 09:03 EXERCISE PHYSIOLOGY PROFESSOR.[email or web address] nausea No 05/24/24 09:03 EXERCISE PHYSIOLOGY PROFESSOR.[email or web address] Vomiting No 05/24/24 09:03 EXERCISE PHYSIOLOGY PROFESSOR.[email or web address] Anesthesia Postop Eval I: Fluid Summary Crystalloid volume administer 10 05/24/24 09:03 EXERCISE PHYSIOLOGY PROFESSOR.[email or web address] (ml) Colloids volume administered ( ml) Blood Product volume administered (ml) Total IV fluid infused 10 05/24/24 09:03 EXERCISE PHYSIOLOGY PROFESSOR.[email or web address] Anesthesia Postop Eval I: Summary Notes Anesthesia Complication No 05/24/24 09:03 EXERCISE PHYSIOLOGY PROFESSOR.[email or web address] Anesthesia Complication Comment: Post-operative progress note Anesthesia: Postop Eval II Evaluation Mental status: Awake and Calm Pain Level: 1 nausea: No Vomiting: No Complications Anesthesia Complication: No
--- NOTE | 2024-05-24 15:58 | NURSING ---
Pt being d/c'd to TCU, report called to [facility], whom requested to leave current IV in pt.
== END 2024-05-24 14:44 | disposition skilled nursing facility (03) ==
LOC: ED 05-20 00:21 → PCU 05-20 01:30
PROVIDERS: Anesthesiology; Internal Medicine; Admitting Provider Family Medicine; Emergency Provider Emergency Medicine; PCP Family Medicine; Visit Provider Family Medicine
PROC: 3E0S3BZ Introduction of Anesthetic Agent into Epidural Space, Percutaneous Approach (ICD-10-PCS; CPT 62322; principal; 2024-05-24 07:55)
DX: M47.26 Other spondylosis with radiculopathy, lumbar region (principal); M80.08XA Age-related osteoporosis with current pathological fracture, vertebra(e), initial encounter for fracture; F03.90 Unspecified dementia, unspecified severity, without behavioral disturbance, psychotic disturbance, mood disturbance, and anxiety; I48.11 Longstanding persistent atrial fibrillation; I25.10 Atherosclerotic heart disease of native coronary artery without angina pectoris; Z86.73 Personal history of transient ischemic attack (TIA), and cerebral infarction without residual deficits; E43 Unspecified severe protein-calorie malnutrition; Z79.890 Hormone replacement therapy; E78.5 Hyperlipidemia, unspecified; R53.81 Other malaise; I12.9 Hypertensive chronic kidney disease with stage 1 through stage 4 chronic kidney disease, or unspecified chronic kidney disease; N18.2 Chronic kidney disease, stage 2 (mild); E03.9 Hypothyroidism, unspecified; Z79.899 Other long term (current) drug therapy; F41.9 Anxiety disorder, unspecified; F32.A Depression, unspecified; R63.4 Abnormal weight loss; Z68.20 Body mass index [BMI] 20.0-20.9, adult
CPT/HCPCS: 64483; 36415; 71250; 72100; 72131; 72148; 76000; 80048; 85025; 85027; 85610; 96372; 96374; 96375; 96376; 97116; 97162; 97166; 97530; 97535; 97802; 97803; 99221; 99285; A4216; G0378; J2405

== ENCOUNTER 2024-05-24 16:54 | Inpatient (IN) | payer OTHER, SELFPAY ==
[2024-05-24 17:58] VITALS: BP 113/70; PULSE 71; RESP 18; TEMP 37.2; O2SAT 95
[2024-05-24 18:04] VITALS: BMI 23.9
[2024-05-24] MEDS: Acetaminophen 500 MG Tablet 1000 MG PO (20:35)
[2024-05-24] MEDS: Memantine Hydrochloride 10 MG Tablet PO (20:35)
[2024-05-24] MEDS: Celecoxib 100 MG Capsule PO (20:35)
[2024-05-24] MEDS: 0.9% Saline Lock 10 ML Syringe IV (20:36)
[2024-05-25 05:36] LABS: Absolute Lymphocyte Count 0.94 X10^3/uL (0.83-4.51); Absolute Neutrophil Count 7.5 X10^3/uL (2.0-7.7); Basophil# 0.02 X10^3/uL; Basophil% 0.2 % (0-1); Eosinophil# 0.01 X10^3/uL; Eosinophils% 0.1 % (0-5); Hematocrit 41.5 % (40-54); Hemoglobin 13.5 g/dL (13.0-16.5); Lymphocyte # 0.94 X10^3/ul (0.83-4.51); Lymphocyte % 10.7 % (19-41); Mean Corp Hgb Conc 32.5 g/dL (32-36); Mean Corpuscular Hgb 31.3 pg (27.0-32.0); Mean Corpuscular Volume 96.3 fL (80-94); Mean Platelet Vol. 10.2 fl (6.2-12.0); Monocyte% 3.4 % (0-10); NRBC Flagged by Analyzer 0 % (0-5); Neutrophil # 7.46 X10^3/uL (2.7-7.7); Neutrophil % 85.3 % (47-70); Platelet Count 184 K/mm3 (150-450); RBC Distribution Width CV 13.7 % (11.6-14.6); RBC Distribution Width SD 48.8 fl (35.1-43.9); Red Blood Count 4.31 M/mm3 (4.6-6.2); White Blood Count 8.8 K/mm3 (4.4-11.0)
[2024-05-25] MEDS: Ensure Plus High Protein 120 ML LIQUID PO ×4 (06:05→20:44)
[2024-05-25] MEDS: Levothyroxine 75 MCG Tablet PO (06:05)
[2024-05-25] MEDS: Acetaminophen 500 MG Tablet 1000 MG PO ×3 (06:05→20:44)
[2024-05-25 06:07] VITALS: PULSE 61; RESP 16; O2SAT 95
[2024-05-25 06:12] LABS: Anion Gap 4 (5-15); BUN 47 mg/dL (7-18); BUN/Creat Ratio 43.9 RATIO (10-20); Calcium,Total 9.1 mg/dL (8.5-10.1); Chloride 104 mmol/L (98-107); Creatinine, Serum 1.07 mg/dL (0.70-1.30); EST Glomerular Filtration Rate 69 mL/min (>60); Est Glom Filt Rate - Afr Amer 84 mL/min (>60); Estimated Creatinine Clearance 43.89 ml/min; Glucose 125 mg/dL (74-106); Potassium 4.8 mmol/L (3.5-5.1); Sodium Level 136 mmol/L (136-145)
[2024-05-25 08:20] VITALS: BP 106/60; PULSE 66; O2SAT 98
[2024-05-25 08:24] VITALS: BP 106/60; PULSE 66
[2024-05-25] MEDS: Cyanocobalamin 500 MCG Tablet 1000 MCG PO (08:24)
[2024-05-25] MEDS: Metoprolol Tartrate 25 MG Tablet PO (08:24)
[2024-05-25] MEDS: Sertraline 100 MG Tablet PO (08:24)
[2024-05-25] MEDS: Lidocaine 5% Patch 1 PATCH TOPICAL (08:24)
[2024-05-25] MEDS: Celecoxib 100 MG Capsule PO ×2 (08:24→20:44)
[2024-05-25] MEDS: Memantine Hydrochloride 10 MG Tablet PO ×2 (08:24→20:44)
[2024-05-25] MEDS: Pantoprazole Sodium 40 MG Tablet PO (08:24)
[2024-05-25] MEDS: Gabapentin 300 MG Capsule PO ×3 (08:25→17:43)
[2024-05-25] MEDS: Calcium Carb/Vitamin D 1 TABLET Tablet PO ×2 (08:25→17:43)
--- NOTE | 2024-05-25 08:46 | PCM.HP.STD ---
HPI - General General Date of Admission: 05/24/24 Date of Service: 05/25/24 Chief Complaint: Physical debility secondary to lumbar compression fracture HPI Narrative MIRANDA CLAYTON, is a 88-year-old M with a past medical history of hypothyroidism, CVA in 2013, longstanding persistent atrial fibrillation, hypertension, osteoporosis, obstructive sleep apnea, hyperlipidemia, dementia, anxiety/depression and CAD who presented to the emergency department at [facility] on 05/20/2024 complaining of severe low back pain radiating down his right leg. X-ray revealed an L3 compression fracture. CT scan of the lumbosacral spine actually showed compression fractures of L1 and L3 with multilevel degenerative changes. An MRI was done that showed multilevel degenerative changes with no prachi spinal stenosis. There was multilevel neuroforaminal stenosis. There were multiple radiating fracture lines and roughly a 50% decrease in height of the L3 vertebral body without bony retropulsion. He lives alone and did not feel that he would be able to manage at home. He was admitted to the hospitalist service for intractable pain. Consult was obtained with Dr. Richy Umanzor for pain management. Dr. Umanzor recommended and epidural injection. Mr. Clayton is on Xarelto for atrial fibrillation and it was held for 72 hours prior to an epidural injection on 05/24/2024. Following the epidural he was transferred to the transitional care unit for strengthening/rehabilitation prior to returning home. Other problem includes unintentional weight loss. He was diagnosed with severe protein calorie malnutrition by the dietitian. CT scan of his chest/abdomen/pelvis was done which was unremarkable. Since he lives alone and has a hx of dementia per the EMR he may not be eating. May need to have APS check on him at [place] to make sure he has access to food and he is able to prepare it. May benefit from Meals on Wheels. Will D/W SW. EMR and orders were personally reviewed. When I asked him who cooks for him he said my friend. He says he is able to make microwave oatmeal. Tells me he eats 3 times a day and sometimes snacks but I do not know how reliable this is. No family lives close. He still drives. He uses a walker with ambulation but in the house sometimes just wall walks and furniture walks. Denies any recent falls. Denies any motor vehicle accidents in the past 2 years. tells me that he is able to dress himself. [facility] Medical History (Updated 05/25/24 @ 10:[address] Shana Jasso DO) Depression Foraminal stenosis of lumbar region Dementia Hypothyroidism History of CVA (cerebrovascular accident) (2013) Obesity Longstanding persistent atrial fibrillation Essential (primary) hypertension [place] (obstructive sleep apnea) Disorder of tendon of right biceps Dizziness and giddiness Cerebral embolism with cerebral infarction Atherosclerotic heart disease of [place] coronary artery without angina pectoris HLD (hyperlipidemia) Home Medications ?Medication ?Instructions ?Recorded ?Last Taken ?Type rivaroxaban 20 mg tablet 40 mg PO DAILY DVT prophylaxis 03/09/14 Unknown History rosuvastatin 40 mg tablet 40 mg PO DAILY Cholesterol 03/27/18 Unknown History calcium 325 mg-vit D3 12.5 1 tab PO BID Supplement 10/29/21 Unknown History mcg-zinc 2.75 [id number] tablet (Citracal-D3 Maximum Plus) levothyroxine 75 mcg tablet 75 mcg PO DAILY Thyroid 10/29/21 Unknown History memantine 10 mg tablet 10 mg PO BID Memory 10/29/21 Unknown History cyanocobalamin (vitamin B-12) 1,000 mcg PO DAILY Supplement 05/20/24 Unknown History 1,000 mcg tablet (Vitamin B-12) metoprolol tartrate 25 mg tablet 25 mg PO DAILY BP 05/20/24 Unknown History sertraline 100 mg tablet (Zoloft) 100 mg PO DAILY Mood 05/20/24 Unknown History acetaminophen 500 mg tablet 1,000 mg (2 x 500 mg) PO Q8 Pain 05/24/24 Unknown Rx #0 tabs celecoxib 100 mg capsule 100 mg PO BID Anti-inflammatory 05/24/24 Unknown Rx #0 caps food supplemt, lactose-reduced 120 ml PO TIDCM Supplement #0 mL 05/24/24 Unknown Rx 0.08 gram-1.5 kcal/mL oral liquid (Ensure Plus High Protein) gabapentin 300 mg capsule 300 mg PO TIDCM Nerve Pain #0 caps 05/24/24 Unknown Rx lidocaine 5 % topical patch 1 patch topical DAILY Pain #0 ea 05/24/24 Unknown Rx menthol 0.44 %-zinc oxide 20.6 % 1 applic topical BID Skin 05/24/24 Unknown Rx topical ointment (Calmoseptine) irritation #0 grams oxycodone 5 mg tablet 5 mg PO Q6H PRN PRN Pain Score 05/24/24 Unknown Rx 4-10 Or Pre Pt/Ot 5 days #20 tabs pantoprazole 40 mg tablet,delayed 40 mg PO DAILY GERD 30 days #30 05/24/24 Unknown Rx release tabs sennosides 8.6 mg-docusate sodium 2 tab PO DAILY PRN PRN 05/24/24 Unknown Rx 50 mg tablet (Stimulant Laxative Constipation #0 tabs Plus) Allergy/AdvReac Type Severity Reaction Status Date / Time No Known Allergies Allergy Verified 05/19/24 22:32 Family History Mother , age 85 CAD (coronary artery disease) Myocardial infarction Father , age 62 CAD (coronary artery disease) Ruptured, aorta Other Atherosclerotic heart disease of [place] coronary artery without angina pectoris MICHAEL (dyspnea on exertion) Essential (primary) hypertension H/O coronary artery bypass surgery HLD (hyperlipidemia) History of CVA (cerebrovascular accident) Longstanding persistent atrial fibrillation SOB (shortness of breath) Surgical History History of maze procedure (06/10/05) History of tonsillectomy and adenoidectomy History of left heart catheterization (LHC) (05/21/05) 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) Social History Smoking Status: Never smoker alcohol intake: current alcohol intake frequency: a few times a week Alcohol type: beer substance use type: does not use caffeine: Yes Type: coffee Number of servings: 2 what type of physical activity do you participate in: other details: [place] frequency: 3-4 times per week duration: 30-45 minutes/day seatbelt use: always do you feel safe at home: Yes ROS Constitutional Constitutional: Reports change in weight, weakness and weight loss; Denies anorexia, chills, fatigue, fever(s), frequent falls, headache(s), night sweats or poor appetite Eyes Eyes: Denies blurry vision, change in vision, eye pain or loss of vision ENT HEENT: Denies abnormal hearing, dysphagia, headache(s), hearing loss, nasal congestion or sore throat Cardiovascular Cardiovascular: Denies chest pain, dyspnea on exertion, edema, lightheadedness, orthopnea, palpitations, paroxysmal nocturnal dyspnea or syncope Respiratory/Chest Respiratory/Chest: Denies cough, dyspnea, shortness of breath at rest, shortness of breath with exertion or wheezing Gastrointestinal Gastrointestinal: Denies abdominal pain, constipation, diarrhea, dyspepsia, hematemesis, hematochezia, nausea or vomiting Genitourinary Genitourinary: Denies dysuria, hematuria, nocturia, urinary frequency, urinary hesitancy, urinary incontinence or urinary urgency Musculoskeletal Musculoskeletal: Reports difficulty walking, muscle weakness and radiating pain into limb; Denies back pain, joint pain, joint swelling or neck pain Neurologic Neurologic: Denies confusion, disequilibrium, dizziness, focal weakness, headache(s), paresthesias, seizures or tremor(s) Psychiatric Psychiatric: Reports depression; Denies anxiety, homicidal ideation or suicidal ideation Endocrine Endocrinology: Denies change in body appearance, polydipsia or polyuria Hematologic/Lymphatic Hematologic/Lymphatic: Reports easy bleeding and easy bruising; Denies lymphadenopathy Allergic/Immunologic Allergic/Immunologic: Denies rhinitis, eczemia or asthma Vital Signs Vital Signs Vital Signs: 05/24/24 17:50 05/24/24 17:58 05/25/24 06:07 Temperature 98.9 F Temperature Source Oral Pulse Rate 71 61 Pulse Rhythm Irregular Irregular Pulse Strength Normal (2+) Normal (2+) Respiratory Rate 18 16 Respiratory Effort Normal Non-Labored Normal Non-Labored Respiratory Depth Normal Normal Respiratory Pattern Normal Normal Blood Pressure 113/70 Blood Pressure Mean 84 Blood Pressure Source Monitor Blood Pressure Position Semi-Fowlers Blood Pressure Location Left Arm Pulse Ox 95 95 Oxygen Delivery Method Room Air Room Air Room Air 05/25/24 08:24 Temperature Temperature Source Pulse Rate 66 Pulse Rhythm Pulse Strength Respiratory Rate Respiratory Effort Respiratory Depth Respiratory Pattern Blood Pressure 106/60 Blood Pressure Mean Blood Pressure Source Blood Pressure Position Blood Pressure Location Pulse Ox Oxygen Delivery Method Weight Weight: 148 lb 3.01 oz Body Mass Index (BMI) 23.9 Physical Exam Const alert and no apparent distress Constitutional Narrative: Sitting in the recliner at the bedside. General Appearance: cooperative, comfortable and well kempt HEENT normocephalic and head/scalp atraumatic HEENT Narrative: Mucous membranes are very dry. Eyes PERRL, EOMs intact bilaterally, conjunctivae normal and no scleral icterus Eyes Narrative: No discharge from the eyes and no mattering of the eyelashes. Neck supple, no JVD and no carotid bruits General: trachea midline Chest Chest: symmetrical chest wall rise Resp normal respiratory effort and no use of accessory muscles Resp Narrative: Mildly diminished throughout, especially in the bases. Effort and Inspection: able to speak in complete sentences Cardio no rub and no gallops Cardio Narrative: Irregular irregular rhythm with controlled ventricular response. No murmur appreciated. Denies lightheadedness. PMI is displaced medial and inferior, more likely than not related to hyperinflation. GI normal to inspection, nondistended, normoactive bowel sounds, soft to palpation and non-tender GI Narrative: No guarding with palpation Back/Spine Back/Spine Narrative: Tells me the pain in his back is better since the injection. Straight leg raising on the right is still positive but he tells me the pain is better. No bruising. Extremity no calf tenderness and no pedal edema Extremity Narrative: Radial pulses are 2/2 bilaterally. No clubbing or cyanosis of the digits. Skin no wounds General Skin Exam: Negative for jaundice Rashes: no rashes Neuro CN's II-XII intact bilaterally and moves all extremities Neuro Narrative: Generalized weakness. Psych cooperative Psych Narrative: Pleasant, makes good eye contact, calm and not agitated. Tells me he is sleeping well at night. Appearance: well kempt Results Lab / Micro Data 05/25/24 04:30 05/25/24 04:30 Labs: Laboratory Results - last 24 hr 05/25/24 04:30: WBC 8.8, RBC 4.31 L, Hgb 13.5, Hct 41.5, MCV 96.3 H, MCH 31.3, MCHC 32.5, RDW Std Deviation 48.8 H, RDW Coeff of Vaz[place] 13.7, Plt Count 184, MPV 10.2, Immature Gran % (Auto) 0.300, Neut % (Auto) 85.3 H, Lymph % (Auto) 10.7 L, [place] % (Auto) 3.4, Eos % (Auto) 0.1, Baso % (Auto) 0.2, Absolute Neuts (auto) 7.5, Absolute Lymphs (auto) 0.94, Nucleated RBC % 0, Sodium 136, Potassium 4.8, Chloride 104, Carbon Dioxide 28.0, Anion Gap 4 L, BUN 47 H, Creatinine 1.07, Estim Creat Clear Calc 43.89, Est GFR (MDRD) Af Amer 84, Est GFR (MDRD) Non-Af 69, BUN/Creatinine Ratio 43.9 H, Glucose 125 H, Calcium 9.1 Assessment & Plan Assessment/Plan (1) Debility: (2) Compression fracture of L3 vertebra: QUALIFIERS: Encounter type: subsequent encounter (3) Compression fracture of L1 lumbar vertebra: QUALIFIERS: Encounter type: subsequent encounter (4) Radiculopathy of lumbar region: (5) Intractable low back pain: (6) Severe malnutrition: (7) Atherosclerotic heart disease of [place] coronary artery without angina pectoris: QUALIFIERS: [place] vs. transplanted heart: [place] heart Qualified Code(s): I25.10 - Atherosclerotic heart disease of [place] coronary artery without angina pectoris (8) H/O coronary artery bypass surgery: (9) Longstanding persistent atrial fibrillation: (10) Essential (primary) hypertension: (11) HLD (hyperlipidemia): QUALIFIERS: Hyperlipidemia type: mixed hyperlipidemia Qualified Code(s): E78.2 - Mixed hyperlipidemia (12) History of CVA (cerebrovascular accident): (13) Dementia: QUALIFIERS: Dementia type: unspecified type Dementia behavioral or psychological symptom: without behavioral, psychotic, or mood disturbance or anxiety Dementia severity: unspecified severity Qualified Code(s): F03.90 - Unspecified dementia, unspecified severity, without behavioral disturbance, psychotic disturbance, mood disturbance, and anxiety (14) Foraminal stenosis of lumbar region: (15) Depression: QUALIFIERS: Depression Type: unspecified Qualified Code(s): F32.A - Depression, unspecified PLAN: On sertraline 100 mg daily. PLAN: Plan PLAN PT for gait stability OT for ADL's ST for evaluation Analgesics as needed Bowel protocol Fall precautions Assess for Anxiety/Depression GI prophylaxis -pantoprazole 40 mg daily DVT prophylaxis with will start Xarelto on 03/26/2024-it was held for the epidural-SCDs ordered until he has restarted Xarelto. Xarelto dose was decreased to 15 mg daily due to creatinine clearance less than 50. Follow up with PCP and Dr. Umanzor following DC from [facility] AM lab including CMP, CBC, Mag and Phos-personally reviewed Order a Hemoccult stool and an annual PSA-the last PSA on the chart was in 2021 and it was elevated at 4.78. Will discuss home situation with the high school social studies tutor. I suspect he may not be eating regularly at home. May benefit from Meals on Wheels. May need an APS referral at discharge. Consult speech therapy for a cognitive evaluation. Check a TSH and B12 in light of treatment for dementia. Has not had a CT brain or MRI that I can find in the EMR since 2013 and at that time he had mild cerebral atrophy and mild cerebellar atrophy. Would like to be able to get him off Celebrex in light of chronic anticoagulation with Xarelto. With the Hemoccult stool...... if positive will definitely discontinue Celebrex. Charges/Coding Visit Charges Inpatient E&M: 21583 SNF Init L1
[2024-05-25] MEDS: Tuberculin,Purif.prot.deriv. 50 TU/ML Vial 0.1 ML ID (12:09)
[2024-05-25 16:00] VITALS: RESP 22; TEMP 36.4
[2024-05-25] MEDS: Menthol/Lanolin/Calamine/Znox 113 GM Tube 1 APPLIC TOPICAL (20:43)
[2024-05-25] MEDS: Atorvastatin Calcium 80 MG Tablet PO (20:44)
[2024-05-26] MEDS: Ensure Plus High Protein 120 ML LIQUID PO ×4 (05:49→21:40)
[2024-05-26] MEDS: Levothyroxine 75 MCG Tablet PO (05:49)
[2024-05-26] MEDS: Acetaminophen 500 MG Tablet 1000 MG PO ×3 (05:49→21:08)
[2024-05-26 07:23] LABS: Vitamin B12 766 pg/mL (211-911)
[2024-05-26] MEDS: Gabapentin 300 MG Capsule PO ×3 (08:48→17:01)
[2024-05-26] MEDS: oxyCODONE 5 MG Tablet PO (08:50)
[2024-05-26] MEDS: Lidocaine 5% Patch 1 PATCH TOPICAL (08:52)
[2024-05-26] MEDS: Calcium Carb/Vitamin D 1 TABLET Tablet PO ×2 (08:52→17:01)
[2024-05-26] MEDS: Cyanocobalamin 500 MCG Tablet 1000 MCG PO (08:52)
[2024-05-26] MEDS: Memantine Hydrochloride 10 MG Tablet PO ×2 (08:54→21:09)
[2024-05-26] MEDS: Celecoxib 100 MG Capsule PO ×2 (08:54→21:09)
[2024-05-26] MEDS: Pantoprazole Sodium 40 MG Tablet PO (08:55)
[2024-05-26] MEDS: Sertraline 100 MG Tablet PO (08:55)
[2024-05-26 09:01] VITALS: BP 107/65; PULSE 81
[2024-05-26] MEDS: Metoprolol Tartrate 25 MG Tablet PO (09:01)
[2024-05-26] MEDS: Rivaroxaban 15 MG Tablet PO (17:01)
--- NOTE | 2024-05-26 18:26 | NURSING ---
pt called out to assist with transfer from BR to bed, pt had lg BM formed, wiped bottom, noted shearing to coccyx area. lisbet ordered.
[2024-05-26 20:15] VITALS: PULSE 63; RESP 16; O2SAT 99
[2024-05-26] MEDS: Atorvastatin Calcium 80 MG Tablet PO (21:08)
[2024-05-26] MEDS: Menthol/Lanolin/Calamine/Znox 113 GM Tube 1 APPLIC TOPICAL (21:35)
[2024-05-27] MEDS: Acetaminophen 500 MG Tablet 1000 MG PO ×3 (05:35→21:01)
[2024-05-27] MEDS: Ensure Plus High Protein 120 ML LIQUID PO ×4 (05:35→21:02)
[2024-05-27] MEDS: Levothyroxine 75 MCG Tablet PO (05:35)
[2024-05-27] MEDS: 0.9% Saline Lock 10 ML Syringe IV ×3 (05:42→21:04)
[2024-05-27 05:47] VITALS: PULSE 56; RESP 18; O2SAT 98
--- NOTE | 2024-05-27 08:42 | CASEMGMT ---
Social Work SW met with pt and completed the initial assessment. Contacts were verified. Pt is listed as a full code, however pt states that he would want to be a DNRCCA. Nursing updated. Pt states that his friend Anna Tejada is his HCPOA. SW requested Anna bring the paperwork into the hospital. SW educated pt to the [facility] benefit and with NRD of 05/31 and that continued stay is not guaranteed. Pt lives at home alone and states that it has been getting increasingly more difficult to care for himself. Pt stating that he is not able to prepare meals and Anna does most things for him. Pt states that he does not feel he can return home alone as his functional ability has declined and pt cannot care for himself. Of note, while in the ED, Anna notified the ED SW that she is overwhelmed and does not want to continue caring for pt. Pt states that he does have one dgt that lives in [facility] but pt and dgt do not get along. SW spoke with pt regarding assisted living or ECF and pt is agreeable to this. SW will follow up for dc planning. LALITHA Campbell
[2024-05-27] MEDS: Calcium Carb/Vitamin D 1 TABLET Tablet PO ×2 (09:29→16:57)
[2024-05-27] MEDS: oxyCODONE 5 MG Tablet PO (09:29)
[2024-05-27] MEDS: Lidocaine 5% Patch 1 PATCH TOPICAL (09:29)
[2024-05-27] MEDS: Gabapentin 300 MG Capsule PO ×3 (09:29→16:57)
[2024-05-27] MEDS: Memantine Hydrochloride 10 MG Tablet PO ×2 (09:29→21:01)
[2024-05-27] MEDS: Sertraline 100 MG Tablet PO (09:29)
[2024-05-27] MEDS: Pantoprazole Sodium 40 MG Tablet PO (09:29)
[2024-05-27] MEDS: Celecoxib 100 MG Capsule PO ×2 (09:29→21:02)
[2024-05-27] MEDS: Cyanocobalamin 500 MCG Tablet 1000 MCG PO (09:29)
[2024-05-27 09:30] VITALS: BP 99/63; PULSE 68; RESP 18; TEMP 36.4; O2SAT 97
[2024-05-27] MEDS: Menthol/Lanolin/Calamine/Znox 113 GM Tube 1 APPLIC TOPICAL ×2 (09:30→21:04)
[2024-05-27 09:31] VITALS: BP 99/63; PULSE 68
[2024-05-27] MEDS: Metoprolol Tartrate 25 MG Tablet PO (09:31)
--- NOTE | 2024-05-27 15:48 | NURSING ---
Block Bolter Mule Operator Note; Activity Asset: Complete
[2024-05-27] MEDS: Rivaroxaban 15 MG Tablet PO (16:58)
--- NOTE | 2024-05-27 19:27 | PHA.CONS_ITS ---
Documented by User: Whitney Han 05/27/24 19:52 TCU RX Drug Regimen Review Subjective/Objective Subjective/Objective Subjective: TCU Admission. 88 YOM presented to the ER with back pain. Hospitalized due to intractable pain, underwent epidural injection with Dr. Umanzor on 05/24/24. Admitted to TCU with debility for strengthening and rehabilitation. Objective: Allergies No Known Allergies Allergy (Verified 05/19/24 22:32) Current Medications Generic Name Dose Route Start Last Admin Trade Name Freq PRN Reason Stop Dose Admin Acetaminophen 1,000 mg 05/24/24 22:00 05/27/24 14:30 Acetaminophen 500 Mg Tablet PO 1,000 mg Q8 JULY Administration Atorvastatin Calcium 80 mg 05/25/24 22:00 05/26/24 21:08 Atorvastatin Calcium 80 Mg Tablet PO 80 mg QHS JULY Administration Bisacodyl 10 mg 05/24/24 18:12 Bisacodyl 10 Mg Suppository RC DAILY PRN PRN Constipation Calamine/Phenol 1 applic 05/24/24 22:00 05/27/24 09:30 Menthol/Lanolin/Calamine/Znox 113 Gm Tube TOPICAL 1 applic BID JULY Administration Protocol Calcium/Vitamin D 1 tablet 05/25/24 08:00 05/27/24 16:57 Calcium Carb/Vitamin D 1 Tablet Tablet PO 1 tablet BIDCM JULY Administration Celecoxib 100 mg 05/24/24 22:00 05/27/24 09:29 Celecoxib 100 Mg Capsule PO 100 mg BID JULY Administration Cyanocobalamin 1,000 mcg 05/25/24 08:00 05/27/24 09:29 Cyanocobalamin 500 Mcg Tablet PO 1,000 mcg DAILYCM JULY Administration Gabapentin 300 mg 05/25/24 07:45 05/27/24 16:57 Gabapentin 300 Mg Capsule PO 300 mg TIDCM JULY Administration Sodium Chloride 100 mls @ 15 mls/hr 05/24/24 17:54 IV .Q6H40M PRN Saline Flush Sodium Chloride 100 mls @ 15 mls/hr 05/24/24 17:54 IV .Q6H40M PRN Additional IVPB Infusion Levothyroxine Sodium 75 mcg 05/25/24 06:00 05/27/24 05:35 Levothyroxine 75 Mcg Tablet PO 75 mcg DAILY@0600 UJLY Administration Lidocaine 1 patch 05/25/24 10:00 05/27/24 09:29 Lidocaine 5% Patch TOPICAL 1 patch DAILY JULY Administration Protocol Memantine 10 mg 05/24/24 22:00 05/27/24 09:29 Memantine Hydrochloride 10 Mg Tablet PO 10 mg BID JULY Administration Metoprolol Tartrate 25 mg 05/25/24 10:00 05/27/24 09:31 Metoprolol Tartrate 25 Mg Tablet PO 25 mg DAILY JULY Administration Protocol Nutritional Formula (Lactose Free) 120 ml 05/24/24 22:00 05/27/24 16:57 Ensure Plus High Protein 120 Ml Liquid PO 120 ml 4X/DAY JULY Administration Oxycodone HCl 5 mg 05/24/24 18:25 05/27/24 09:29 Oxycodone 5 Mg Tablet PO 5 mg Q6H PRN PRN Administration Pain Score 4-10 Or Pre Pt/Ot Pantoprazole Sodium 40 mg 05/25/24 10:00 05/27/24 09:29 Pantoprazole Sodium 40 Mg Tablet PO 40 mg DAILY JULY Administration Rivaroxaban 15 mg 05/26/24 17:00 05/27/24 16:58 Rivaroxaban 15 Mg Tablet PO 15 mg DINNER JULY Administration Senna/Docusate Sodium 2 tablet 05/24/24 18:25 Senna/Docusate Sodium 1 Tablet PO DAILY PRN PRN Constipation Sertraline HCl 100 mg 05/25/24 10:00 05/27/24 09:29 Sertraline 100 Mg Tablet PO 100 mg DAILY JULY Administration Sodium Chloride 10 - 40 ml 05/24/24 17:54 05/27/24 09:31 0.9% Saline Lock 10 Ml Syringe IV 10 ml UD PRN Administration SALINE FLUSH Tuberculin PPD 0.1 ml 06/01/24 10:00 Tuberculin,Purif.Prot.Deriv. 50 Tu/Ml Vial ID 06/01/24 10:01 X1 ONE Problem List Depression (Chronic) Foraminal stenosis of lumbar region (Acute) Dementia (Acute) Compression fracture of L1 lumbar vertebra (Acute) Severe malnutrition (Acute) Radiculopathy of lumbar region (Acute) Debility (Acute) Compression fracture of L3 vertebra (Acute) Intractable low back pain (Acute) Atherosclerotic heart disease of [place] coronary artery without angina pectoris (Chronic) H/O coronary artery bypass surgery (Chronic 06/10/05) Longstanding persistent atrial fibrillation (Chronic) Essential (primary) hypertension (Chronic) HLD (hyperlipidemia) (Chronic) History of CVA (cerebrovascular accident) (Chronic 2013) Vital Signs Temp Pulse Resp BP Pulse Ox O2 Del Method 97.5 F L 68 18 99/63 97 Room Air 05/27/24 09:30 05/27/24 09:31 05/27/24 09:30 05/27/24 09:31 05/27/24 09:30 05/27/24 09:30 Oxygen Delivery Method Room Air Weight: 67.217 kg Body Mass Index (BMI) 23.9 Sodium 136 mmol/L (136-145) 05/25/24 04:30 Potassium 4.8 mmol/L (3.5-5.1) 05/25/24 04:30 Chloride 104 mmol/L (98-107) 05/25/24 04:30 Carbon Dioxide 28.0 mmol/L (21.0-32.0) 05/25/24 04:30 Anion Gap 4 (5-15) L 05/25/24 04:30 BUN 47 mg/dL (7-18) H 05/25/24 04:30 Creatinine 1.07 mg/dL (0.70-1.30) 05/25/24 04:30 Est GFR (MDRD) Af Amer 84 mL/min (>60) 05/25/24 04:30 Est GFR (MDRD) Non-Af 69 mL/min (>60) 05/25/24 04:30 BUN/Creatinine Ratio 43.9 RATIO (10-20) H 05/25/24 04:30 Glucose 125 mg/dL (74-106) H 05/25/24 04:30 Assessment/Plan: 1. Pain: acetaminophen 1000mg PO Q8, lidocaine 5% patch 1 patch topical daily, celecoxib 100mg PO BID, oxycodone 5mg PO Q6H PRN pain 6-10. Resident has had 2 P RN doses for pain scores of 7-8 in the back/hip/buttock. Please continue to monitor for increased pain, PRN usage, respiratory depression, renal function, rash, S/S of bleeding (stool occult blood negative), constipation and falls (BEERS). 2. Bowel: senna/docusate 2T PO daily PRN constipation and bisacodyl 10mg RC daily PRN constipation. No PRN doses have been given. Please continue to monitor for S/S of constipation and PRN usage. last documented bowel movement was 05/26. 3. Atrial fibrillation/CAD/hypertension: rivaroxaban 15mg PO dinner, metoprolol tartrate 25mg PO BID. Please continue to monitor for S/S of bleeding, hemoglobin (last 13.2g/dL), renal function, BP (last 99/63) and HR (last 68). 4. Hyperlipidemia: atorvastatin 80mg PO QHS. Please continue to monitor lipid panel (last 03/16/24) and muscle pain. 5. Hypothyroidism: levothyroxine 75mcg PO daily. Please continue to monitor TSH (last 05/25/24) and S/S of hypo/hyperthyroidism. 6. Osteoporosis: Calcium/vitamin D 1T PO BIDCM. Please consider ordering a vitamin D level as the last level is from 09/2022. Thanks. Please continue to monitor calcium (last 9.1mg/dL). 7. Dementia: memantine 10mg PO BID. Please continue to monitor for worsening dementia, GI side effects, dizziness, drowsiness, and rash. 8. Overall nutrition: cyanocobalamin 1000mcg PO daily. Please continue to monitor B12 levels (last 05/25/24). 9. GI prophylaxis: pantoprazole 40mg PO daily. Please continue to monitor for upset stomach and diarrhea (BEERs). Assessment/Plan for indications treated with psychotropic medications: 1. Depression: sertraline 100mg PO QHS. Please consider GDR by 10/2024 if clinically appropriate. Thanks. Please continue to monitor for suicidal ideation (black box warning), sodium (last 136mmol/L) and falls/fractures (BEERs). 2. Neuropathic pain: gabapentin 300mg PO TIDM. GDR not appropriate as this medication is being used for neuropathy, however, please consider changing frequency to BID as per the recomendartion for CrCl 43mL/min to reduce the risk of adverse effects. Thanks. Please continue to monitor renal function, falls/fractures (BEERs). Medical chart and medication regimen reviewed. The following medication irregularities or issues were identified: 1. Sertraline 100mg PO QHS. Please consider GDR by 10/2024 if clinically appropriate. Thanks. 2. Gabapentin 300mg PO TIDM. GDR not appropriate as this medication is being used for neuropathy, however, please consider changing frequency to BID as per the recomendartion for CrCl 43mL/min to reduce the risk of adverse effects. Thanks. 3. Calcium/vitamin D 1T PO BIDCM. Please consider ordering a vitamin D level as the last level is from 09/2022. Thanks. Date Date of Note: 05/27/24 Documented by User: Dr. Иван Plasencia MD 05/28/24 11:15 TCU RX Drug Regimen Review Provider Comments Provider responsibility Provider Comments to Recommendations by Pharmacy Agree (Gabapentin frequency was considered, but since watermaster medication, left unchanged. Vitamin D level considered, will defer to PCP as outpatient.)
[2024-05-27] MEDS: Atorvastatin Calcium 80 MG Tablet PO (21:02)
[2024-05-28 02:36] VITALS: PULSE 64; RESP 16; O2SAT 96
[2024-05-28] MEDS: Ensure Plus High Protein 120 ML LIQUID PO ×4 (05:50→19:52)
[2024-05-28] MEDS: Acetaminophen 500 MG Tablet 1000 MG PO ×3 (05:51→22:11)
[2024-05-28] MEDS: Levothyroxine 75 MCG Tablet PO (05:51)
[2024-05-28 08:33] VITALS: PULSE 72
[2024-05-28] MEDS: Calcium Carb/Vitamin D 1 TABLET Tablet PO ×2 (08:33→17:10)
[2024-05-28] MEDS: Memantine Hydrochloride 10 MG Tablet PO ×2 (08:33→22:11)
[2024-05-28] MEDS: Gabapentin 300 MG Capsule PO ×3 (08:33→17:10)
[2024-05-28] MEDS: Cyanocobalamin 500 MCG Tablet 1000 MCG PO (08:33)
[2024-05-28] MEDS: Celecoxib 100 MG Capsule PO ×2 (08:33→22:11)
[2024-05-28] MEDS: Pantoprazole Sodium 40 MG Tablet PO (08:33)
[2024-05-28] MEDS: Metoprolol Tartrate 25 MG Tablet PO (08:33)
[2024-05-28] MEDS: Lidocaine 5% Patch 1 PATCH TOPICAL (08:33)
[2024-05-28] MEDS: Sertraline 100 MG Tablet PO (08:33)
[2024-05-28] MEDS: Menthol/Lanolin/Calamine/Znox 113 GM Tube 1 APPLIC TOPICAL ×2 (08:37→19:48)
[2024-05-28 11:13] VITALS: BP 101/61; PULSE 72; RESP 16; TEMP 36.6; O2SAT 96
[2024-05-28] MEDS: Rivaroxaban 15 MG Tablet PO (17:10)
[2024-05-28] MEDS: oxyCODONE 5 MG Tablet PO (19:48)
[2024-05-28] MEDS: Atorvastatin Calcium 80 MG Tablet PO (22:11)
[2024-05-29] MEDS: Acetaminophen 500 MG Tablet 1000 MG PO ×3 (06:03→22:09)
[2024-05-29] MEDS: Levothyroxine 75 MCG Tablet PO (06:03)
[2024-05-29] MEDS: Ensure Plus High Protein 120 ML LIQUID PO ×4 (06:07→22:09)
[2024-05-29] MEDS: Sertraline 100 MG Tablet PO (08:36)
[2024-05-29] MEDS: Lidocaine 5% Patch 1 PATCH TOPICAL (08:36)
[2024-05-29] MEDS: Cyanocobalamin 500 MCG Tablet 1000 MCG PO (08:36)
[2024-05-29] MEDS: Calcium Carb/Vitamin D 1 TABLET Tablet PO ×2 (08:36→16:45)
[2024-05-29] MEDS: Gabapentin 300 MG Capsule PO ×3 (08:36→16:45)
[2024-05-29] MEDS: Memantine Hydrochloride 10 MG Tablet PO ×2 (08:36→22:10)
[2024-05-29] MEDS: Pantoprazole Sodium 40 MG Tablet PO (08:36)
[2024-05-29] MEDS: Celecoxib 100 MG Capsule PO ×2 (08:36→22:10)
[2024-05-29] MEDS: Menthol/Lanolin/Calamine/Znox 113 GM Tube 1 APPLIC TOPICAL ×2 (08:36→22:10)
[2024-05-29 08:37] VITALS: PULSE 68
[2024-05-29] MEDS: Metoprolol Tartrate 25 MG Tablet PO (08:37)
[2024-05-29 10:16] VITALS: BP 100/58; PULSE 68; RESP 18; TEMP 36.5; O2SAT 97
[2024-05-29] MEDS: Rivaroxaban 15 MG Tablet PO (16:45)
[2024-05-29 21:00] VITALS: BP 144/63; PULSE 75; RESP 16
[2024-05-29] MEDS: Atorvastatin Calcium 80 MG Tablet PO (22:10)
[2024-05-29] MEDS: 0.9% Saline Lock 10 ML Syringe IV (22:12)
[2024-05-30] MEDS: Acetaminophen 500 MG Tablet 1000 MG PO ×3 (05:05→19:56)
[2024-05-30] MEDS: Levothyroxine 75 MCG Tablet PO (05:05)
[2024-05-30] MEDS: Ensure Plus High Protein 120 ML LIQUID PO ×4 (05:05→19:56)
[2024-05-30 05:10] VITALS: PULSE 68; RESP 18; O2SAT 96
[2024-05-30] MEDS: Lidocaine 5% Patch 1 PATCH TOPICAL (08:34)
[2024-05-30 08:35] VITALS: BP 107/64; PULSE 66
[2024-05-30] MEDS: Metoprolol Tartrate 25 MG Tablet PO (08:35)
[2024-05-30] MEDS: Memantine Hydrochloride 10 MG Tablet PO ×2 (08:35→19:56)
[2024-05-30] MEDS: Sertraline 100 MG Tablet PO (08:35)
[2024-05-30] MEDS: Cyanocobalamin 500 MCG Tablet 1000 MCG PO (08:36)
[2024-05-30] MEDS: Pantoprazole Sodium 40 MG Tablet PO (08:36)
[2024-05-30] MEDS: Celecoxib 100 MG Capsule PO ×2 (08:36→19:56)
[2024-05-30] MEDS: Calcium Carb/Vitamin D 1 TABLET Tablet PO ×2 (08:36→17:06)
[2024-05-30] MEDS: Menthol/Lanolin/Calamine/Znox 113 GM Tube 1 APPLIC TOPICAL ×2 (08:38→19:56)
[2024-05-30 08:41] VITALS: BP 107/64; PULSE 66; O2SAT 98
[2024-05-30] MEDS: Gabapentin 300 MG Capsule PO ×3 (08:49→17:06)
--- NOTE | 2024-05-30 10:27 | CASEMGMT ---
Addendum entered by Prachi Gamez 05/30/24 10:54: Received return call from friend. Friend held disorganized, one-sided discussion on her concerns with pt living alone, their past history, the lack of involvement from dtr. SW redirected conversation to interject and ask clarifying questions. Friend stated pt is service connected with the [facility], is active with [facility] on , receives SW visits, has one living dtr, Kimmie Harrington ([phone]) who resides in [place]. Friend voiced her disapproval with dtr's lack of involvement, though friend did state she is the HCPOA and will be providing documents. Friend stated she can no longer assist pt at home, as she is one year older than pt, and does not feel pt can continue living at home alone. SW provided ongoing active listening and appreciative of friend's information. SW educated to [employer] insurance coverage for TCU stay, and POC meeting scheduled for 1/3 to discuss pt's progress and DC recommendations. SW to provide assistance with DC planning to friend. Friend appreciative. SW will continue to follow. SW left VM with dtr in attempt to make contact and inquire about history/involvement. Original Note: Social Work SW left VM with friend Anna, per her request to speak with this worker. SONIA Wilkins SAGGER FILLER
[2024-05-30 10:39] VITALS: RESP 14; TEMP 36.7
[2024-05-30] MEDS: 0.9% Saline Lock 10 ML Syringe IV (11:37)
--- NOTE | 2024-05-30 14:22 | CASEMGMT ---
Social Work SW completed BIMS () and PHQ-2 () for MDS assessment. Prachi Gamez, SCIENTIFIC ASSOCIATE ABATTOIR MANAGER
[2024-05-30] MEDS: Rivaroxaban 15 MG Tablet PO (17:07)
[2024-05-30] MEDS: Atorvastatin Calcium 80 MG Tablet PO (19:56)
[2024-05-31] MEDS: Acetaminophen 500 MG Tablet 1000 MG PO ×3 (05:36→20:09)
[2024-05-31] MEDS: Levothyroxine 75 MCG Tablet PO (05:36)
[2024-05-31] MEDS: Ensure Plus High Protein 120 ML LIQUID PO ×4 (05:36→20:13)
[2024-05-31] MEDS: Gabapentin 300 MG Capsule PO ×3 (08:04→16:27)
[2024-05-31] MEDS: Cyanocobalamin 500 MCG Tablet 1000 MCG PO (08:04)
[2024-05-31] MEDS: Calcium Carb/Vitamin D 1 TABLET Tablet PO ×2 (08:04→16:24)
[2024-05-31] MEDS: Menthol/Lanolin/Calamine/Znox 113 GM Tube 1 APPLIC TOPICAL ×2 (08:05→20:10)
[2024-05-31] MEDS: Celecoxib 100 MG Capsule PO ×2 (08:05→20:09)
[2024-05-31] MEDS: Lidocaine 5% Patch 1 PATCH TOPICAL (08:06)
[2024-05-31 08:07] VITALS: BP 103/62; PULSE 69
[2024-05-31] MEDS: Metoprolol Tartrate 25 MG Tablet PO (08:07)
[2024-05-31] MEDS: Memantine Hydrochloride 10 MG Tablet PO ×2 (08:07→20:09)
[2024-05-31] MEDS: Sertraline 100 MG Tablet PO (08:08)
[2024-05-31] MEDS: Pantoprazole Sodium 40 MG Tablet PO (08:08)
[2024-05-31 08:15] VITALS: BP 103/62; PULSE 69; O2SAT 98
--- NOTE | 2024-05-31 08:45 | NURSING ---
Tobacco Grower Note; MDS for 05/31/2024 Complete
[2024-05-31] MEDS: Rivaroxaban 15 MG Tablet PO (16:25)
[2024-05-31 18:12] VITALS: BMI 23.6
[2024-05-31] MEDS: Atorvastatin Calcium 80 MG Tablet PO (20:09)
[2024-06-01] MEDS: Ensure Plus High Protein 120 ML LIQUID PO ×4 (05:37→21:02)
[2024-06-01] MEDS: Levothyroxine 75 MCG Tablet PO (05:37)
[2024-06-01] MEDS: Acetaminophen 500 MG Tablet 1000 MG PO ×3 (05:37→21:02)
[2024-06-01 06:21] LABS: Absolute Lymphocyte Count 2.03 X10^3/uL (0.83-4.51); Absolute Neutrophil Count 5.9 X10^3/uL (2.0-7.7); Basophil# 0.06 X10^3/uL; Basophil% 0.7 % (0-1); Eosinophil# 0.18 X10^3/uL; Hemoglobin 13.3 g/dL (13.0-16.5); Lymphocyte # 2.03 X10^3/ul (0.83-4.51); Lymphocyte % 23.1 % (19-41); Mean Corp Hgb Conc 34.1 g/dL (32-36); Mean Corpuscular Hgb 32.8 pg (27.0-32.0); Mean Corpuscular Volume 96.1 fL (80-94); Mean Platelet Vol. 9.9 fl (6.2-12.0); Monocyte# 0.48 X10^3/uL; Monocyte% 5.5 % (0-10); NRBC Flagged by Analyzer 0 % (0-5); Neutrophil # 5.92 X10^3/uL (2.7-7.7); Neutrophil % 67.3 % (47-70); Platelet Count 202 K/mm3 (150-450); RBC Distribution Width CV 14.6 % (11.6-14.6); RBC Distribution Width SD 51.2 fl (35.1-43.9); Red Blood Count 4.06 M/mm3 (4.6-6.2); White Blood Count 8.8 K/mm3 (4.4-11.0)
[2024-06-01 08:01] LABS: Anion Gap 6 (5-15); BUN 51 mg/dL (7-18); Calcium,Total 8.8 mg/dL (8.5-10.1); Chloride 103 mmol/L (98-107); Creatinine, Serum 1.02 mg/dL (0.70-1.30); EST Glomerular Filtration Rate 73 mL/min (>60); Est Glom Filt Rate - Afr Amer 89 mL/min (>60); Estimated Creatinine Clearance 46.04 ml/min; Glucose 105 mg/dL (74-106); Potassium 4.6 mmol/L (3.5-5.1); Sodium Level 135 mmol/L (136-145)
[2024-06-01] MEDS: Celecoxib 100 MG Capsule PO ×2 (08:24→21:03)
[2024-06-01] MEDS: Cyanocobalamin 500 MCG Tablet 1000 MCG PO (08:24)
[2024-06-01] MEDS: Memantine Hydrochloride 10 MG Tablet PO ×2 (08:24→21:03)
[2024-06-01] MEDS: Calcium Carb/Vitamin D 1 TABLET Tablet PO ×2 (08:24→16:42)
[2024-06-01] MEDS: Pantoprazole Sodium 40 MG Tablet PO (08:25)
[2024-06-01] MEDS: Sertraline 100 MG Tablet PO (08:25)
[2024-06-01] MEDS: Gabapentin 300 MG Capsule PO ×3 (08:27→16:44)
[2024-06-01] MEDS: Lidocaine 5% Patch 1 PATCH TOPICAL (08:28)
[2024-06-01] MEDS: Menthol/Lanolin/Calamine/Znox 113 GM Tube 1 APPLIC TOPICAL ×2 (08:29→21:02)
[2024-06-01 09:22] VITALS: BP 116/59; PULSE 67; RESP 18; TEMP 36.7; O2SAT 96
[2024-06-01 09:27] VITALS: PULSE 67
[2024-06-01] MEDS: Metoprolol Tartrate 25 MG Tablet PO (09:27)
[2024-06-01] MEDS: Tuberculin,Purif.prot.deriv. 50 TU/ML Vial 0.1 ML ID (09:28)
[2024-06-01] MEDS: Rivaroxaban 15 MG Tablet PO (16:43)
[2024-06-01] MEDS: Atorvastatin Calcium 80 MG Tablet PO (21:02)
[2024-06-02] MEDS: Ensure Plus High Protein 120 ML LIQUID PO ×4 (04:53→21:57)
[2024-06-02] MEDS: Acetaminophen 500 MG Tablet 1000 MG PO ×3 (04:54→21:58)
[2024-06-02] MEDS: Levothyroxine 75 MCG Tablet PO (04:54)
[2024-06-02 06:04] LABS: Bedside Glucose 102 mg/dL (74-106)
[2024-06-02] MEDS: Celecoxib 100 MG Capsule PO ×2 (08:35→21:57)
[2024-06-02] MEDS: Calcium Carb/Vitamin D 1 TABLET Tablet PO ×2 (08:35→17:01)
[2024-06-02] MEDS: Cyanocobalamin 500 MCG Tablet 1000 MCG PO (08:35)
[2024-06-02 08:36] VITALS: BP 110/72; PULSE 63
[2024-06-02] MEDS: Memantine Hydrochloride 10 MG Tablet PO ×2 (08:36→21:57)
[2024-06-02] MEDS: Metoprolol Tartrate 25 MG Tablet PO (08:36)
[2024-06-02] MEDS: Sertraline 100 MG Tablet PO (08:37)
[2024-06-02] MEDS: Pantoprazole Sodium 40 MG Tablet PO (08:37)
[2024-06-02] MEDS: Gabapentin 300 MG Capsule PO ×3 (08:42→17:06)
[2024-06-02] MEDS: oxyCODONE 5 MG Tablet PO (08:42)
[2024-06-02] MEDS: Menthol/Lanolin/Calamine/Znox 113 GM Tube 1 APPLIC TOPICAL ×2 (08:42→21:56)
[2024-06-02 08:46] VITALS: BP 110/72; PULSE 63; RESP 18; O2SAT 98
[2024-06-02] MEDS: Lidocaine 5% Patch 1 PATCH TOPICAL (09:57)
[2024-06-02 11:39] VITALS: TEMP 36.7
--- NOTE | 2024-06-02 14:34 | NURSING ---
Discussed code status with resident to clarify. He confirms he would like to be full code, would want to be resuscitated.
[2024-06-02] MEDS: Rivaroxaban 15 MG Tablet PO (17:02)
[2024-06-02 20:00] VITALS: PULSE 68; O2SAT 97
[2024-06-02] MEDS: Atorvastatin Calcium 80 MG Tablet PO (21:57)
[2024-06-03] MEDS: Ensure Plus High Protein 120 ML LIQUID PO ×4 (06:11→21:38)
[2024-06-03] MEDS: Levothyroxine 75 MCG Tablet PO (06:11)
[2024-06-03] MEDS: Acetaminophen 500 MG Tablet 1000 MG PO ×3 (06:11→21:39)
[2024-06-03 06:43] VITALS: PULSE 64; O2SAT 97
[2024-06-03] MEDS: Memantine Hydrochloride 10 MG Tablet PO ×2 (08:38→21:39)
[2024-06-03] MEDS: Celecoxib 100 MG Capsule PO ×2 (08:38→21:38)
[2024-06-03] MEDS: Sertraline 100 MG Tablet PO (08:38)
[2024-06-03 08:39] VITALS: BP 94/73; PULSE 71
[2024-06-03] MEDS: Gabapentin 300 MG Capsule PO ×3 (08:39→17:19)
[2024-06-03] MEDS: Cyanocobalamin 500 MCG Tablet 1000 MCG PO (08:39)
[2024-06-03] MEDS: Lidocaine 5% Patch 1 PATCH TOPICAL (08:39)
[2024-06-03] MEDS: Calcium Carb/Vitamin D 1 TABLET Tablet PO ×2 (08:39→17:19)
[2024-06-03] MEDS: Metoprolol Tartrate 25 MG Tablet PO (08:39)
[2024-06-03] MEDS: Pantoprazole Sodium 40 MG Tablet PO (08:39)
[2024-06-03] MEDS: oxyCODONE 5 MG Tablet PO (08:40)
[2024-06-03] MEDS: Menthol/Lanolin/Calamine/Znox 113 GM Tube 1 APPLIC TOPICAL ×2 (08:40→21:43)
[2024-06-03 09:00] VITALS: BP 94/73; PULSE 71; RESP 16; TEMP 36.3; O2SAT 98
--- NOTE | 2024-06-03 12:58 | CASEMGMT ---
Addendum entered by Prachi aGmez 06/03/24 15:37: SW returned to room to speak with pt, Celsa, dtr and NORIS. Discussed further about finances and placement. Pt will not have enough funds to pay at an AL longer than 6 mos and family does not want pt to make another transition once he is on Medicaid. SW agreed. Explained SNF placement. Pt would spend down until CECIL eligible. Celsa to release lease on current apt. SW answered all questions and provided emotional support to this challenging decision for family. Pt is agreeable to SNF. SW provided Celsa and dtr with list of SNF providers including quality and resource data via [employer]. family to review list and would like to tour SNFs before making a decision. SW will continue to follow. Original Note: Social Work IDT met with patient, friend Celsa, and dtr Kimmie, for care plan meeting. Discussed patient's progress in PT/OT/ST/SN. Educated to [facility] insurance with [facility]D 06/06, continued stay is not guaranteed with each review. Insurance is requesting DC plans are in place. SW provided written communication on insurance process and copay coverage during stay. IDT recommending assistance with IADLs and cognitive tasks, preferably in an AL. MEDICAL NUMERICAL CONTROL OPERATOR explained pt is not recommended to be home alone d/t safety concerns. SW explained AL is a private pay cost and offered to provide list of resources. Family acknowledge pt's deficits and do agree to the benefits of AL, such as safety oversight, IADL assistance, initiation with tasks. Celsa states she can no longer provide the prior assistance, but can continue with financial reporting analyst. Pt is in agreement for AL placement. Celsa is concerned with the cost. SW offered to follow up with Celsa to further discuss details on cost and other options. Celsa appreciative. SW will continue to follow. Prachi Gamez, SONIA ELENAW
[2024-06-03] MEDS: Rivaroxaban 15 MG Tablet PO (17:19)
[2024-06-03] MEDS: Atorvastatin Calcium 80 MG Tablet PO (21:40)
[2024-06-04] MEDS: Ensure Plus High Protein 120 ML LIQUID PO ×4 (06:04→21:05)
[2024-06-04] MEDS: Acetaminophen 500 MG Tablet 1000 MG PO ×3 (06:04→21:01)
[2024-06-04] MEDS: Levothyroxine 75 MCG Tablet PO (06:04)
[2024-06-04 09:00] VITALS: BP 104/56; PULSE 60; RESP 16; TEMP 36.5; O2SAT 96
[2024-06-04] MEDS: Gabapentin 300 MG Capsule PO ×3 (09:05→17:34)
[2024-06-04] MEDS: oxyCODONE 5 MG Tablet PO ×2 (09:05→20:10)
[2024-06-04 09:06] VITALS: BP 104/56; PULSE 60
[2024-06-04] MEDS: Metoprolol Tartrate 25 MG Tablet PO (09:06)
[2024-06-04] MEDS: Sertraline 100 MG Tablet PO (09:06)
[2024-06-04] MEDS: Celecoxib 100 MG Capsule PO ×2 (09:06→21:01)
[2024-06-04] MEDS: Calcium Carb/Vitamin D 1 TABLET Tablet PO ×2 (09:06→17:33)
[2024-06-04] MEDS: Pantoprazole Sodium 40 MG Tablet PO (09:06)
[2024-06-04] MEDS: Lidocaine 5% Patch 1 PATCH TOPICAL (09:06)
[2024-06-04] MEDS: Memantine Hydrochloride 10 MG Tablet PO ×2 (09:06→21:01)
[2024-06-04] MEDS: Cyanocobalamin 500 MCG Tablet 1000 MCG PO (09:06)
[2024-06-04] MEDS: Menthol/Lanolin/Calamine/Znox 113 GM Tube 1 APPLIC TOPICAL ×2 (09:07→20:11)
[2024-06-04] MEDS: Rivaroxaban 15 MG Tablet PO (17:33)
[2024-06-04] MEDS: Atorvastatin Calcium 80 MG Tablet PO (21:01)
[2024-06-04] MEDS: Oseltamivir Phosphate 30 MG Capsule PO (22:31)
[2024-06-05] MEDS: Acetaminophen 500 MG Tablet 1000 MG PO ×3 (06:25→21:02)
[2024-06-05] MEDS: Ensure Plus High Protein 120 ML LIQUID PO ×4 (06:25→21:05)
[2024-06-05] MEDS: Levothyroxine 75 MCG Tablet PO (06:25)
[2024-06-05 08:08] VITALS: BP 103/67; PULSE 83; RESP 17; TEMP 37; O2SAT 97
[2024-06-05] MEDS: Gabapentin 300 MG Capsule PO ×3 (08:09→17:04)
[2024-06-05] MEDS: Celecoxib 100 MG Capsule PO ×2 (08:10→21:02)
[2024-06-05] MEDS: Calcium Carb/Vitamin D 1 TABLET Tablet PO ×2 (08:10→17:05)
[2024-06-05] MEDS: Cyanocobalamin 500 MCG Tablet 1000 MCG PO (08:10)
[2024-06-05] MEDS: Memantine Hydrochloride 10 MG Tablet PO ×2 (08:10→21:02)
[2024-06-05] MEDS: Lidocaine 5% Patch 1 PATCH TOPICAL (08:11)
[2024-06-05] MEDS: Sertraline 100 MG Tablet PO (08:11)
[2024-06-05] MEDS: Pantoprazole Sodium 40 MG Tablet PO (08:11)
[2024-06-05] MEDS: Menthol/Lanolin/Calamine/Znox 113 GM Tube 1 APPLIC TOPICAL ×2 (08:11→21:03)
[2024-06-05 08:12] VITALS: PULSE 83
[2024-06-05] MEDS: Metoprolol Tartrate 25 MG Tablet PO (08:12)
[2024-06-05] MEDS: Rivaroxaban 15 MG Tablet PO (17:05)
[2024-06-05] MEDS: Oseltamivir Phosphate 30 MG Capsule PO (21:01)
[2024-06-05] MEDS: Atorvastatin Calcium 80 MG Tablet PO (21:02)
[2024-06-05] MEDS: oxyCODONE 5 MG Tablet PO (21:09)
[2024-06-06] MEDS: Ensure Plus High Protein 120 ML LIQUID PO ×4 (05:25→21:26)
[2024-06-06] MEDS: Acetaminophen 500 MG Tablet 1000 MG PO ×3 (05:25→21:27)
[2024-06-06] MEDS: Levothyroxine 75 MCG Tablet PO (05:25)
[2024-06-06 08:25] VITALS: BP 104/80; PULSE 69
[2024-06-06] MEDS: Metoprolol Tartrate 25 MG Tablet PO (08:25)
[2024-06-06] MEDS: Celecoxib 100 MG Capsule PO ×2 (08:25→21:26)
[2024-06-06] MEDS: Sertraline 100 MG Tablet PO (08:25)
[2024-06-06] MEDS: Memantine Hydrochloride 10 MG Tablet PO ×2 (08:25→21:27)
[2024-06-06] MEDS: Lidocaine 5% Patch 1 PATCH TOPICAL (08:25)
[2024-06-06] MEDS: Calcium Carb/Vitamin D 1 TABLET Tablet PO ×2 (08:25→17:44)
[2024-06-06] MEDS: Pantoprazole Sodium 40 MG Tablet PO (08:25)
[2024-06-06] MEDS: Cyanocobalamin 500 MCG Tablet 1000 MCG PO (08:25)
[2024-06-06] MEDS: Gabapentin 300 MG Capsule PO ×3 (08:25→17:44)
[2024-06-06] MEDS: Menthol/Lanolin/Calamine/Znox 113 GM Tube 1 APPLIC TOPICAL ×2 (08:30→21:25)
--- NOTE | 2024-06-06 08:39 | MDS.RN ---
Information for the MDS was obtained from review of the clinical record, interview of resident, staff, and direct observation of resident?s care.
--- NOTE | 2024-06-06 12:51 | CASEMGMT ---
Social Work SW phoned Celsa to follow up on DC plans and conversation prior. Celsa states she has made several phone calls and visited SNFs; confirmed SNF is the DC plan. DEE DEE offered to place referrals to determine acceptance. Celsa requests referrals to [facility], [facility]. Celsa stated she paid the rent for the month of June to 's apartment, [facility], but requested assistance from this worker on how to end lease early. DEE DEE offered to assist, as able, once DC date and plan are known. Celsa appreciative. DEE DEE sent referrals to [facility], [facility], [facility] via [employer] Prachi Gamez, SONIA ELENAW
--- NOTE | 2024-06-06 15:10 | CASEMGMT ---
Addendum entered by Prachi Gamez 06/06/24 15:24: DEE DEE updated David at [facility] of DC plan via email. Original Note: Social Work Insurance issued LCD 06/08, DC 06/09. [facility] can accept. Will await outcomes from [facility] and [facility]. SW will await SNF outcome for placement. SW to complete PASRR and coordinate transport. [facility] to inquire about ending pt's lease early. [facility] requested a letter from [facility] on LTC placement and termination of lease effective 2024. DEE DEE to fax letter. DEE DEE phoned Celsa to update on above. Celsa appreciative. DEE DEE will notify of SNF destination once known. Plan: DC 06/09, SNF, intermediate, private pay, part B therapies SONIA Wilkins
[2024-06-06 15:20] VITALS: BP 102/64; PULSE 61; RESP 14; TEMP 36.8; O2SAT 96
[2024-06-06] MEDS: Rivaroxaban 15 MG Tablet PO (17:44)
--- NOTE | 2024-06-06 19:31 | PCM.DC.SUM ---
Providers Date of Admission: 05/24/24 Primary Care Physician: Dr. Luis Grey MD Reason For Visit: BACK PAIN Diagnosis Discharge Diagnosis (1) Debility: Status: Acute Code(s): R53.81 - Other malaise (2) Compression fracture of L3 vertebra: Status: Inactive Code(s): S32.030A - Wedge compression fracture of third lumbar vertebra, initial encounter for closed fracture Qualifiers: Encounter type: subsequent encounter (3) Compression fracture of L1 lumbar vertebra: Status: Inactive Code(s): S32.010A - Wedge compression fracture of first lumbar vertebra, initial encounter for closed fracture Qualifiers: Encounter type: subsequent encounter (4) Radiculopathy of lumbar region: Status: Inactive Code(s): M54.16 - Radiculopathy, lumbar region (5) Intractable low back pain: Status: Inactive Code(s): M54.59 - Other low back pain (6) Severe malnutrition: Status: Inactive Code(s): E43 - Unspecified severe protein-calorie malnutrition (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 transplanted heart: [place] heart Qualified Code(s): I25.10 - Atherosclerotic heart disease of [place] coronary artery without angina pectoris (8) H/O coronary artery bypass surgery: Status: Chronic Code(s): Z95.1 - Presence of aortocoronary bypass graft (9) Longstanding persistent atrial fibrillation: Status: Chronic Code(s): I48.11 - Longstanding persistent atrial fibrillation (10) Essential (primary) hypertension: Status: Chronic Code(s): I10 - Essential (primary) hypertension (11) HLD (hyperlipidemia): Status: Chronic Code(s): E78.5 - Hyperlipidemia, unspecified Qualifiers: Hyperlipidemia type: mixed hyperlipidemia Qualified Code(s): E78.2 - Mixed hyperlipidemia (12) History of CVA (cerebrovascular accident): Status: Chronic Code(s): Z86.73 - Personal history of transient ischemic attack (TIA), and cerebral infarction without residual deficits (13) Dementia: Status: Acute Code(s): F03.90 - Unspecified dementia, unspecified severity, without behavioral disturbance, psychotic disturbance, mood disturbance, and anxiety Qualifiers: Dementia type: unspecified type Dementia severity: unspecified severity Dementia behavioral or psychological symptom: without behavioral, psychotic, or mood disturbance or anxiety Qualified Code(s): F03.90 - Unspecified dementia, unspecified severity, without behavioral disturbance, psychotic disturbance, mood disturbance, and anxiety (14) Foraminal stenosis of lumbar region: Status: Acute Code(s): M48.061 - Spinal stenosis, lumbar region without neurogenic claudication (15) Depression: Status: Chronic Code(s): F32.A - Depression, unspecified Qualifiers: Depression Type: unspecified Qualified Code(s): F32.A - Depression, unspecified Medications at Discharge Home Medications rosuvastatin 40 mg tablet 40 mg PO DAILY Cholesterol 03/27/18 levothyroxine 75 mcg tablet 75 mcg PO DAILY Thyroid 10/29/21 memantine 10 mg tablet 10 mg PO BID Memory 10/29/21 cyanocobalamin (vitamin B-12) 1,000 mcg tablet (Vitamin B-12) 1,000 mcg PO DAILY Supplement 05/20/24 metoprolol tartrate 25 mg tablet 25 mg PO DAILY BP 05/20/24 sertraline 100 mg tablet (Zoloft) 100 mg PO DAILY Mood 05/20/24 acetaminophen 500 mg tablet 1,000 mg (2 x 500 mg) PO Q8 Pain #0 tabs 05/24/24 celecoxib 100 mg capsule 100 mg PO BID Anti-inflammatory #0 caps 05/24/24 gabapentin 300 mg capsule 300 mg PO TIDCM Nerve Pain #0 caps 05/24/24 menthol 0.44 %-zinc oxide 20.6 % topical ointment (Calmoseptine) 1 applic topical BID Skin irritation #0 grams 05/24/24 pantoprazole 40 mg tablet,delayed release 40 mg PO DAILY GERD 30 days #30 tabs 05/24/24 calcium 500 mg (as carbonate)-vitamin D3 5 mcg (200 unit) tablet (Oyster Shell Calcium-Vitamin D3) 1 tab PO BIDCM #0 tabs 06/06/24 food supplemt, lactose-reduced 0.08 gram-1.5 kcal/mL oral liquid (Ensure Plus High Protein) 120 ml PO 4X/DAY #0 mL 06/06/24 lidocaine 5 % topical patch 1 patch topical DAILY #0 ea 06/06/24 oxycodone 5 mg tablet 5 mg PO Q6H PRN PRN Pain Score 4-10 Or Pre Pt/Ot 3 days #12 tabs 06/06/24 rivaroxaban 15 mg tablet (Xarelto) 15 mg PO DINNER #0 tabs 06/06/24 Hospital Course Operations None Procedures - (Epidural steroid injection (lumbar)) Summary of Care Provided Minutes Spent on Discharge: 35 Hospital Course: 88 year old male with below past medical history hospitalized for intractable low back pain 2/2 lumbar compression fracture, underwent epidural steroid injection 05/24/[address] Umanzor, admitted to TCU with debility, here for rehabilitation, strengthening, prior to discharge. Discharge to [facility] 06/09/2024, intermediate, private pay, part B therapies. Physical Exam Const alert General Appearance: cooperative HEENT normocephalic Eyes PERRL and EOMs intact bilaterally Neck supple, no JVD and no carotid bruits Resp normal respiratory effort, normal air movement and clear to auscultation bilaterally Cardio regular rate and regular rhythm GI normal to inspection, nondistended, normoactive bowel sounds, non-tender and non-distended Extremity normal capillary refill General Extremity: Negative for edema Skin no rashes or lesions noted General Skin Exam: no breakdown Psych affect normal Appearance: appropriate Weight / BMI Weight Weight: 66.361 kg Body Mass Index (BMI) 23.6 ABG / Lab / Microbiology Data 06/01/24 05:50 06/01/24 05:50 Microbiology: Microbiology 05/25/24 15:19 Stool Stool Occult Blood (JULIANA) - Final D/C Instructions Discharge Diet: No restrictions Discharge Activity: Return to Normal Activity, May Shower and Use Walker Weight Bearing Status: Weight bearing as tolerated Call your doctor if you observe: Fever of 101 or Higher, Inability to urinate, Inability to have a bowel movement, Shortness of breath, Dizziness, Fainting spells, Swelling in the ankles, Chest pain and Uncontrolled pain DC O2, CPAP, BIPAP Needs Home O2 Discharge instructions: No Additional Instructions: Discharge to [facility] 06/09/2024, intermediate, private pay, part B therapies. Meaningful Use Info Meaningful Use Meaningful Use Diagnoses (Choose all that apply): None applicable Ischemic Stroke Statin Dosing Therapy Reference: STATIN DOSE THERAPY REFERENCE: * Patients > 75 years receive moderate or high dose statin therapy. * Patients 75 years or YOUNGER should receive HIGH intensity statin dose unless contraindicated. You will be required to document reason for non-treatment if statin daily dose does not meet guidelines. HIGH DOSE STATIN THERAPY DAILY Atorvastatin > than or = to 40 mg Rosuvastatin > than or = to 20 mg Amlodipine + Atorvastatin > than or = to 2.5/40 mg Ezetimibe + Simvastatin 10/80 mg Simvastatin 80mg Discharge Plan Admission Admit Date/Time: 05/24/24 16:54 Primary Reason for Your Visit: Debility. Attending Provider: Shana Jasso Primary Care Provider: Luis Grey Instructions Additional Instructions / Restrictions: Discharge to [facility] 06/09/2024, intermediate, private pay, part B therapies. Discharge Orders/Prescriptions Prescriptions: New calcium carbonate-vitamin D3 [Oyster Shell Calcium-Vit D3] 500 mg-5 mcg (200 unit) Tablet 1 tab PO BIDCM Qty: 0 0RF Ensure Plus High Protein 0.08 gram-1.5 kcal/mL Liquid 120 ml PO 4X/DAY Qty: 0 0RF lidocaine 5 % Adhesive Patch,Medicated 1 patch topical DAILY Qty: 0 0RF Protocol: *Topical Application Instructions APPLICATION INSTRUCTIONS: Apply to back. oxycodone 5 mg Tablet 5 mg PO Q6H PRN PRN (Reason: Pain Score 4-10 Or Pre Pt/Ot) 3 Days Qty: 12 0RF Xarelto 15 mg Tablet 15 mg PO DINNER Qty: 0 0RF Continued memantine 10 mg tablet 10 mg PO BID levothyroxine 75 mcg tablet 75 mcg PO DAILY rosuvastatin 40 MG tablet 40 mg PO DAILY cyanocobalamin (vitamin B-12) [Vitamin B-12] 1,000 mcg tablet 1,000 mcg PO DAILY metoprolol tartrate 25 mg tablet 25 mg PO DAILY sertraline [Zoloft] 100 mg tablet 100 mg PO DAILY acetaminophen 500 mg Tablet 1,000 mg PO Q8 Qty: 0 0RF gabapentin 300 mg Capsule 300 mg PO TIDCM Qty: 0 0RF celecoxib 100 mg Capsule 100 mg PO BID Qty: 0 0RF menthol-zinc oxide [Calmoseptine] 0.44-20.6 % Ointment 1 applic topical BID Qty: 0 0RF Protocol: *Topical Application Instructions APPLICATION INSTRUCTIONS: apply to bottom pantoprazole 40 mg Tablet,Delayed Release (Dr/Ec) 40 mg PO DAILY 30 Days Qty: 30 0RF Rx Instructions: May de-escalate off PPI once off celebrex. Discontinued bviungw-J4-kmje-copper-harshad [Citracal-D3 Maximum Plus] 325 mg-12.5 mcg -2.75 mg tablet 1 tab PO BID rivaroxaban 20 MG tablet 40 mg PO DAILY lidocaine 5 % Adhesive Patch,Medicated 1 patch topical DAILY Qty: 0 0RF Protocol: *Topical Application Instructions APPLICATION INSTRUCTIONS: right lumbar area Ensure Plus High Protein 0.08 gram-1.5 kcal/mL Liquid 120 ml PO TIDCM Qty: 0 0RF sennosides-docusate sodium [Stimulant Laxative Plus] 8.6-50 mg Tablet 2 tab PO DAILY PRN PRN (Reason: Constipation) Qty: 0 0RF oxycodone 5 mg Tablet 5 mg PO Q6H PRN PRN (Reason: Pain Score 4-10 Or Pre Pt/Ot) 5 Days Qty: 20 0RF Referrals / Follow Up: Luis Grey MD [Primary Care Provider] - Disposition Disposition (needs filled in before D/C Order can be placed): NonSkilled NH/Intermed Care
--- NOTE | 2024-06-06 19:38 | TREXTCAR_ITS ---
Diet Diet Order/Speech Therapy: 06/03/24 14:48 Diet: Regular - General Food consistency:: Regular Liquid Consistency:: Regular/Thin Routine Orders/Code Status Code Status: Full Code DC O2, CPAP, BIPAP needs Home O2 Discharge instructions: No Wound(s) right great toe and right 4th toe: Wound Type: Abrasion left cheek: Wound Type: Abrasion Therapies Weight Bearing: Weight bearing as tolerated Extremity Affected:: Bilateral Lower Physical Therapy: Eval and Treat Occupational Therapy: Eval and Treat Problem/Diagnosis (1) Debility: Status: Acute Code(s): R53.81 - Other malaise (2) Compression fracture of L3 vertebra: Status: Inactive Code(s): S32.030A - Wedge compression fracture of third lumbar vertebra, initial encounter for closed fracture (3) Compression fracture of L1 lumbar vertebra: Status: Inactive Code(s): S32.010A - Wedge compression fracture of first lumbar vertebra, initial encounter for closed fracture (4) Radiculopathy of lumbar region: Status: Inactive Code(s): M54.16 - Radiculopathy, lumbar region (5) Intractable low back pain: Status: Inactive Code(s): M54.59 - Other low back pain (6) Severe malnutrition: Status: Inactive Code(s): E43 - Unspecified severe protein-calorie malnutrition (7) 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: Chronic Code(s): I25.10 - Atherosclerotic heart disease of [place] coronary artery without angina pectoris (8) H/O coronary artery bypass surgery: Status: Chronic Code(s): Z95.1 - Presence of aortocoronary bypass graft Comment: CABG x 5: NACHO-high lateral CX, Sequential BAHENA-LAD and D1, SVG-CX, SVG-RPDA (9) Longstanding persistent atrial fibrillation: Status: Chronic Code(s): I48.11 - Longstanding persistent atrial fibrillation (10) Essential (primary) hypertension: Status: Chronic Code(s): I10 - Essential (primary) hypertension (11) HLD (hyperlipidemia): Status: Chronic Code(s): E78.5 - Hyperlipidemia, unspecified (12) History of CVA (cerebrovascular accident): Status: Chronic Code(s): Z86.73 - Personal history of transient ischemic attack (TIA), and cerebral infarction without residual deficits Comment: Tiny chronic lacunar infarction left cerebellar hemisphere. (13) Dementia: Status: Acute Code(s): F03.90 - Unspecified dementia, unspecified severity, without behavioral disturbance, psychotic disturbance, mood disturbance, and anxiety (14) Foraminal stenosis of lumbar region: Status: Acute Code(s): M48.061 - Spinal stenosis, lumbar region without neurogenic claudication (15) Depression: Status: Chronic Code(s): F32.A - Depression, unspecified Allergies/Procedures Done in Hospital Allergies No Known Allergies Allergy (Verified 05/19/24 22:32) Procedures: None Type of Care/Length of Stay Estimated LOS: More Than 30 Days Type of Care Needed: Intermediate Rehab Potential: Fair Prognosis: Good Additional Orders/Day of Discharge Additional Orders: part B therapies Day of Discharge: 06/09/24 Dietary and Speech Recommendations Dietitian Recommendations/Changes: Will liberalize diet to regular per res/f amily request Will continue 120 ml ensure plus high protein 4x/day per res/family request Discharge Plan Admission Admit Date/Time: 05/24/24 16:54 Primary Reason for Your Visit: Debility. Attending Provider: Shana Jasso Primary Care Provider: Luis Grey Additional Instructions / Restrictions: Discharge to [facility] 06/09/2024, intermediate, private pay, part B therapies. Discharge Orders/Prescriptions Prescriptions: New calcium carbonate-vitamin D3 [Oyster Shell Calcium-Vit D3] 500 mg-5 mcg (200 unit) Tablet 1 tab PO BIDCM Qty: 0 0RF Ensure Plus High Protein 0.08 gram-1.5 kcal/mL Liquid 120 ml PO 4X/DAY Qty: 0 0RF lidocaine 5 % Adhesive Patch,Medicated 1 patch topical DAILY Qty: 0 0RF Protocol: *Topical Application Instructions APPLICATION INSTRUCTIONS: Apply to back. oxycodone 5 mg Tablet 5 mg PO Q6H PRN PRN (Reason: Pain Score 4-10 Or Pre Pt/Ot) 3 Days Qty: 12 0RF Xarelto 15 mg Tablet 15 mg PO DINNER Qty: 0 0RF Continued memantine 10 mg tablet 10 mg PO BID levothyroxine 75 mcg tablet 75 mcg PO DAILY rosuvastatin 40 MG tablet 40 mg PO DAILY cyanocobalamin (vitamin B-12) [Vitamin B-12] 1,000 mcg tablet 1,000 mcg PO DAILY metoprolol tartrate 25 mg tablet 25 mg PO DAILY sertraline [Zoloft] 100 mg tablet 100 mg PO DAILY acetaminophen 500 mg Tablet 1,000 mg PO Q8 Qty: 0 0RF gabapentin 300 mg Capsule 300 mg PO TIDCM Qty: 0 0RF celecoxib 100 mg Capsule 100 mg PO BID Qty: 0 0RF menthol-zinc oxide [Calmoseptine] 0.44-20.6 % Ointment 1 applic topical BID Qty: 0 0RF Protocol: *Topical Application Instructions APPLICATION INSTRUCTIONS: apply to bottom pantoprazole 40 mg Tablet,Delayed Release (Dr/Ec) 40 mg PO DAILY 30 Days Qty: 30 0RF Rx Instructions: May de-escalate off PPI once off celebrex. Discontinued nwlhmti-B9-byau-copper-harshad [Citracal-D3 Maximum Plus] 325 mg-12.5 mcg -2.75 mg tablet 1 tab PO BID rivaroxaban 20 MG tablet 40 mg PO DAILY lidocaine 5 % Adhesive Patch,Medicated 1 patch topical DAILY Qty: 0 0RF Protocol: *Topical Application Instructions APPLICATION INSTRUCTIONS: right lumbar area Ensure Plus High Protein 0.08 gram-1.5 kcal/mL Liquid 120 ml PO TIDCM Qty: 0 0RF sennosides-docusate sodium [Stimulant Laxative Plus] 8.6-50 mg Tablet 2 tab PO DAILY PRN PRN (Reason: Constipation) Qty: 0 0RF oxycodone 5 mg Tablet 5 mg PO Q6H PRN PRN (Reason: Pain Score 4-10 Or Pre Pt/Ot) 5 Days Qty: 20 0RF Referrals / Follow Up: Luis Grey MD [Primary Care Provider] - Disposition Disposition (needs filled in before D/C Order can be placed): NonSkilled NH/Intermed Care (2) Compression fracture of L3 vertebra Qualifiers: Encounter type: subsequent encounter (3) Compression fracture of L1 lumbar vertebra Qualifiers: Encounter type: subsequent encounter (7) Atherosclerotic heart disease of [place] coronary artery without angina pectoris Qualifiers: [place] vs. transplanted heart: [place] heart Qualified Code(s): I25.10 - Atherosclerotic heart disease of [place] coronary artery without angina pectoris (11) HLD (hyperlipidemia) Qualifiers: Hyperlipidemia type: mixed hyperlipidemia Qualified Code(s): E78.2 - Mixed hyperlipidemia (13) Dementia Qualifiers: Dementia type: unspecified type Dementia severity: unspecified severity Dementia behavioral or psychological symptom: without behavioral, psychotic, or mood disturbance or anxiety Qualified Code(s): F03.90 - Unspecified dementia, unspecified severity, without behavioral disturbance, psychotic disturbance, mood disturbance, and anxiety (15) Depression Qualifiers: Depression Type: unspecified Qualified Code(s): F32.A - Depression, unspecified
[2024-06-06 20:00] VITALS: PULSE 66; O2SAT 95
[2024-06-06] MEDS: Atorvastatin Calcium 80 MG Tablet PO (21:27)
[2024-06-06] MEDS: Oseltamivir Phosphate 30 MG Capsule PO (21:27)
[2024-06-07] MEDS: Acetaminophen 500 MG Tablet 1000 MG PO ×3 (05:23→20:47)
[2024-06-07] MEDS: Ensure Plus High Protein 120 ML LIQUID PO ×4 (05:23→20:44)
[2024-06-07] MEDS: Levothyroxine 75 MCG Tablet PO (05:23)
[2024-06-07 06:25] VITALS: PULSE 64; O2SAT 95
[2024-06-07] MEDS: Gabapentin 300 MG Capsule PO ×3 (08:49→17:50)
[2024-06-07] MEDS: Lidocaine 5% Patch 1 PATCH TOPICAL (08:50)
[2024-06-07] MEDS: Calcium Carb/Vitamin D 1 TABLET Tablet PO ×2 (08:54→17:50)
[2024-06-07] MEDS: Cyanocobalamin 500 MCG Tablet 1000 MCG PO (08:54)
[2024-06-07] MEDS: Celecoxib 100 MG Capsule PO ×2 (08:54→20:45)
[2024-06-07] MEDS: oxyCODONE 5 MG Tablet PO (08:54)
[2024-06-07 08:55] VITALS: BP 110/69; PULSE 78
[2024-06-07] MEDS: Metoprolol Tartrate 25 MG Tablet PO (08:55)
[2024-06-07] MEDS: Memantine Hydrochloride 10 MG Tablet PO ×2 (08:55→20:45)
[2024-06-07] MEDS: Pantoprazole Sodium 40 MG Tablet PO (08:55)
[2024-06-07] MEDS: Sertraline 100 MG Tablet PO (08:55)
[2024-06-07] MEDS: Menthol/Lanolin/Calamine/Znox 113 GM Tube 1 APPLIC TOPICAL ×2 (08:56→20:44)
[2024-06-07] MEDS: Pneumococcal Vaccine 20 Valent 0.5 ML Syringe IM (09:04)
--- NOTE | 2024-06-07 09:08 | NURSING ---
PREVNAR 20 GIVEN IN LEFT DELT. PT TOLERATED WELL. WILL CONTINUE TO MONITOR.
[2024-06-07 09:13] VITALS: BP 110/69; PULSE 78; RESP 16; O2SAT 95
--- NOTE | 2024-06-07 09:40 | CASEMGMT ---
Addendum entered by Prachi Gamez 06/08/24 11:19: PASRR completed. DC paperwork and HCPOA sent to [facility]. Addendum entered by Prachi Gamez 06/07/24 15:45: Received call from Austin at [facility] explaining their only bed available is in their memory care unit and they agree pt is too high functioning for that unit. DEE DEE asked and Jesús confirmed taht pt can be placed in the memeory care unit untila LTC room is available, but unsure on that timeframe. SW to speak with pt and Celsa to get preference. Celsa at bedside and dtr Kimmie on the phone. SW educated above to the all three parties. After discussion, all agreed FOC is [facility]. SW updated [facility] and confirmed [facility] FOC. Plan: DC 06/09 to [facility], intermediate, private pay. Original Note: Social Work SW spoke with Elma at [facility] and they are not INN with pt's insurance. [facility] is reviewing. Will continue to follow. SONIA Wilkins
[2024-06-07 13:38] VITALS: BMI 24.5
[2024-06-07 14:54] VITALS: TEMP 36.6
[2024-06-07] MEDS: Rivaroxaban 15 MG Tablet PO (17:50)
[2024-06-07] MEDS: Atorvastatin Calcium 80 MG Tablet PO (20:45)
[2024-06-07] MEDS: Oseltamivir Phosphate 30 MG Capsule PO (20:47)
[2024-06-08] MEDS: Levothyroxine 75 MCG Tablet PO (05:19)
[2024-06-08] MEDS: Ensure Plus High Protein 120 ML LIQUID PO ×4 (05:19→22:22)
[2024-06-08] MEDS: Acetaminophen 500 MG Tablet 1000 MG PO ×3 (05:20→22:23)
[2024-06-08 05:50] LABS: Absolute Lymphocyte Count 1.51 X10^3/uL (0.83-4.51); Absolute Neutrophil Count 6.1 X10^3/uL (2.0-7.7); Basophil# 0.05 X10^3/uL; Basophil% 0.6 % (0-1); Eosinophil# 0.16 X10^3/uL; Eosinophils% 1.9 % (0-5); Hematocrit 38.2 % (40-54); Hemoglobin 12.5 g/dL (13.0-16.5); Lymphocyte # 1.51 X10^3/ul (0.83-4.51); Lymphocyte % 18.1 % (19-41); Mean Corp Hgb Conc 32.7 g/dL (32-36); Mean Corpuscular Volume 97.7 fL (80-94); Mean Platelet Vol. 10.2 fl (6.2-12.0); Monocyte# 0.49 X10^3/uL; Monocyte% 5.9 % (0-10); NRBC Flagged by Analyzer 0 % (0-5); Neutrophil % 72.9 % (47-70); Platelet Count 173 K/mm3 (150-450); RBC Distribution Width CV 15.5 % (11.6-14.6); RBC Distribution Width SD 55.8 fl (35.1-43.9); Red Blood Count 3.91 M/mm3 (4.6-6.2); White Blood Count 8.4 K/mm3 (4.4-11.0)
[2024-06-08 06:10] LABS: Anion Gap 3 (5-15); BUN 48 mg/dL (7-18); BUN/Creat Ratio 47.1 RATIO (10-20); Calcium,Total 9.1 mg/dL (8.5-10.1); Chloride 107 mmol/L (98-107); Creatinine, Serum 1.02 mg/dL (0.70-1.30); EST Glomerular Filtration Rate 73 mL/min (>60); Est Glom Filt Rate - Afr Amer 89 mL/min (>60); Estimated Creatinine Clearance 46.04 ml/min; Glucose 95 mg/dL (74-106); Potassium 4.5 mmol/L (3.5-5.1); Sodium Level 137 mmol/L (136-145)
[2024-06-08] MEDS: oxyCODONE 5 MG Tablet PO (08:44)
[2024-06-08] MEDS: Gabapentin 300 MG Capsule PO ×3 (08:44→17:10)
[2024-06-08] MEDS: Calcium Carb/Vitamin D 1 TABLET Tablet PO ×2 (08:45→17:10)
[2024-06-08] MEDS: Cyanocobalamin 500 MCG Tablet 1000 MCG PO (08:46)
[2024-06-08] MEDS: Menthol/Lanolin/Calamine/Znox 113 GM Tube 1 APPLIC TOPICAL ×2 (08:46→22:21)
[2024-06-08] MEDS: Celecoxib 100 MG Capsule PO ×2 (08:47→22:22)
[2024-06-08] MEDS: Lidocaine 5% Patch 1 PATCH TOPICAL (08:47)
[2024-06-08 08:48] VITALS: BP 107/64; PULSE 64
[2024-06-08] MEDS: Metoprolol Tartrate 25 MG Tablet PO (08:48)
[2024-06-08] MEDS: Memantine Hydrochloride 10 MG Tablet PO ×2 (08:48→22:22)
[2024-06-08] MEDS: Sertraline 100 MG Tablet PO (08:48)
[2024-06-08] MEDS: Pantoprazole Sodium 40 MG Tablet PO (08:48)
[2024-06-08 08:55] VITALS: BP 107/64; PULSE 64; RESP 16; O2SAT 96
[2024-06-08 13:00] VITALS: PULSE 69; RESP 18; O2SAT 93
[2024-06-08 16:00] VITALS: TEMP 36.3
--- NOTE | 2024-06-08 16:40 | CASEMGMT ---
Social Work SW completed BIMS () and PH-2 () for MDS assessment. Prcahi Gamez BILLING SERVICES MANAGER [employer]ACLE ADF DEVELOPER
[2024-06-08] MEDS: Rivaroxaban 15 MG Tablet PO (17:11)
[2024-06-08] MEDS: Atorvastatin Calcium 80 MG Tablet PO (22:22)
[2024-06-08] MEDS: Oseltamivir Phosphate 30 MG Capsule PO (22:22)
[2024-06-09 03:39] VITALS: PULSE 72; RESP 18; O2SAT 94
[2024-06-09] MEDS: Ensure Plus High Protein 120 ML LIQUID PO (06:05)
[2024-06-09] MEDS: Levothyroxine 75 MCG Tablet PO (06:05)
[2024-06-09] MEDS: Acetaminophen 500 MG Tablet 1000 MG PO (06:05)
[2024-06-09 08:00] VITALS: BP 92/56; PULSE 74; RESP 16; TEMP 36.4; O2SAT 95
[2024-06-09] MEDS: Celecoxib 100 MG Capsule PO (08:45)
[2024-06-09] MEDS: Cyanocobalamin 500 MCG Tablet 1000 MCG PO (08:45)
[2024-06-09] MEDS: Pantoprazole Sodium 40 MG Tablet PO (08:45)
[2024-06-09 08:46] VITALS: BP 92/56; PULSE 74
[2024-06-09] MEDS: Lidocaine 5% Patch 1 PATCH TOPICAL (08:46)
[2024-06-09] MEDS: Calcium Carb/Vitamin D 1 TABLET Tablet PO (08:46)
[2024-06-09] MEDS: Memantine Hydrochloride 10 MG Tablet PO (08:46)
[2024-06-09] MEDS: Metoprolol Tartrate 25 MG Tablet PO (08:46)
[2024-06-09] MEDS: oxyCODONE 5 MG Tablet PO (08:46)
[2024-06-09] MEDS: Sertraline 100 MG Tablet PO (08:46)
[2024-06-09] MEDS: Gabapentin 300 MG Capsule PO (08:46)
[2024-06-09] MEDS: Menthol/Lanolin/Calamine/Znox 113 GM Tube 1 APPLIC TOPICAL (08:47)
[2024-06-09 11:16] VITALS: BP 92/56; PULSE 74; RESP 16; TEMP 36.4; O2SAT 95
== END 2024-06-09 12:11 | disposition intermediate care facility (04) | DRG 559 ==
PROVIDERS: Admitting Provider Internal Medicine; PCP Family Medicine; Referring Provider Internal Medicine; Visit Provider Internal Medicine
DX: M48.56XD Collapsed vertebra, not elsewhere classified, lumbar region, subsequent encounter for fracture with routine healing (principal); E43 Unspecified severe protein-calorie malnutrition; I48.11 Longstanding persistent atrial fibrillation; F03.90 Unspecified dementia, unspecified severity, without behavioral disturbance, psychotic disturbance, mood disturbance, and anxiety; E03.9 Hypothyroidism, unspecified; I10 Essential (primary) hypertension; F32.A Depression, unspecified; E78.2 Mixed hyperlipidemia; G47.33 Obstructive sleep apnea (adult) (pediatric); I25.10 Atherosclerotic heart disease of native coronary artery without angina pectoris; M54.16 Radiculopathy, lumbar region; M48.061 Spinal stenosis, lumbar region without neurogenic claudication; Z79.01 Long term (current) use of anticoagulants; Z68.23 Body mass index [BMI] 23.0-23.9, adult; Z79.899 Other long term (current) drug therapy; Z79.890 Hormone replacement therapy; Z23 Encounter for immunization
CPT/HCPCS: 36415; 80048; 82274; 82607; 82962; 84443; 85025; 90677; 92507; 92523; 97110; 97116; 97129; 97130; 97162; 97166; 97530; 97535; 97802; A4216

== ENCOUNTER → 2024-06-13 | Outpatient (REF) | payer MEDICARE, SELFPAY ==
[2024-06-13 09:05] LABS: Absolute Lymphocyte Count 2.16 X10^3/uL (0.83-4.51); Absolute Neutrophil Count 5.2 X10^3/uL (2.0-7.7); Basophil# 0.06 X10^3/uL; Basophil% 0.7 % (0-1); Eosinophil# 0.25 X10^3/uL; Hematocrit 39.5 % (40-54); Lymphocyte # 2.16 X10^3/ul (0.83-4.51); Lymphocyte % 26.2 % (19-41); Mean Corp Hgb Conc 32.9 g/dL (32-36); Mean Corpuscular Hgb 32.7 pg (27.0-32.0); Mean Corpuscular Volume 99.2 fL (80-94); Mean Platelet Vol. 10.3 fl (6.2-12.0); Monocyte# 0.56 X10^3/uL; Monocyte% 6.8 % (0-10); NRBC Flagged by Analyzer 0 % (0-5); Neutrophil # 5.18 X10^3/uL (2.7-7.7); Neutrophil % 62.9 % (47-70); Platelet Count 153 K/mm3 (150-450); RBC Distribution Width CV 15.2 % (11.6-14.6); RBC Distribution Width SD 56.3 fl (35.1-43.9); Red Blood Count 3.98 M/mm3 (4.6-6.2); White Blood Count 8.2 K/mm3 (4.4-11.0)
[2024-06-13 09:34] LABS: ALB/GLOB Ratio 1.1 RATIO (0.9-2.4); AST(SGOT) 24 U/L (15-37); Alanine Aminotransfer ALT/SGPT 29 U/L (16-61); Alkaline Phosphatase 93 U/L (45-117); Anion Gap 2 (5-15); BUN 32 mg/dL (7-18); BUN/Creat Ratio 25.8 RATIO (10-20); Chloride 104 mmol/L (98-107); Creatinine, Serum 1.24 mg/dL (0.70-1.30); EST Glomerular Filtration Rate 59 mL/min (>60); Est Glom Filt Rate - Afr Amer 71 mL/min (>60); Globulin 2.8 g/dL (2.2-4.2); Glucose 86 mg/dL (74-106); Protein, Total 5.8 g/dL (6.4-8.2); Sodium Level 136 mmol/L (136-145)
[2024-06-13 14:30] LABS: Vitamin B12 873 pg/mL (211-911); Vitamin D,25 Hydroxy 55.9 ng/mL
== END ==
LOC: OLS.SW 05:00
PROVIDERS: PCP Family Medicine; Visit Provider Internal Medicine
DX: I10 Essential (primary) hypertension (principal); E03.9 Hypothyroidism, unspecified; E55.9 Vitamin D deficiency, unspecified
CPT/HCPCS: 36415; 80053; 82306; 82607; 84443; 85025

== ENCOUNTER → 2024-07-14 | Outpatient (CLI) | payer MEDICARE, SELFPAY ==
[2024-07-14 11:30] LABS: PSA,Total- Diagnostic 0.18 ng/mL (0.0-4.0)
== END | disposition home or self-care (01) ==
LOC: LAB 10:46
PROVIDERS: PCP Family Medicine; Referring Provider Urology; Visit Provider Urology
DX: C61 Malignant neoplasm of prostate (principal)
CPT/HCPCS: 36415; 84153

== ENCOUNTER → 2024-09-05 05:00 | Outpatient (REF) | payer MEDICARE, SELFPAY ==
[2024-09-05 09:49] LABS: Absolute Lymphocyte Count 2.38 X10^3/uL (0.83-4.51); Absolute Neutrophil Count 4.2 X10^3/uL (2.0-7.7); Basophil# 0.09 X10^3/uL; Basophil% 1.1 % (0-1); Eosinophil# 0.46 X10^3/uL; Eosinophils% 5.8 % (0-5); Hematocrit 42.6 % (40-54); Hemoglobin 14.7 g/dL (13.0-16.5); Lymphocyte # 2.38 X10^3/ul (0.83-4.51); Lymphocyte % 29.8 % (19-41); Mean Corp Hgb Conc 34.5 g/dL (32-36); Mean Corpuscular Hgb 33.1 pg (27.0-32.0); Mean Corpuscular Volume 95.9 fL (80-94); Mean Platelet Vol. 10.5 fl (6.2-12.0); NRBC Flagged by Analyzer 0 % (0-5); Neutrophil # 4.21 X10^3/uL (2.7-7.7); Neutrophil % 52.7 % (47-70); Platelet Count 195 K/mm3 (150-450); RBC Distribution Width CV 12.9 % (11.6-14.6); RBC Distribution Width SD 45.8 fl (35.1-43.9); Red Blood Count 4.44 M/mm3 (4.6-6.2)
[2024-09-05 10:07] LABS: ALB/GLOB Ratio 1.3 RATIO (0.9-2.4); AST(SGOT) 43 U/L (<=37); Alanine Aminotransfer ALT/SGPT 29 U/L (<=46); Albumin, Serum 4.3 g/dL (3.4-4.8); Alkaline Phosphatase 222 U/L (40-129); Anion Gap 12 (5-15); BUN 24 mg/dL (4-19); BUN/Creat Ratio 20.2 RATIO (10-20); Chloride 97 mmol/L (98-108); EST Glomerular Filtration Rate 58 (>60); Globulin 3.2 g/dL (2.2-4.2); Glucose 98 mg/dL (70-99); Potassium 4.7 mmol/L (3.3-5.1); Protein, Total 7.5 g/dL (5.9-8.4); Sodium Level 131 mmol/L (133-145)
== END ==
LOC: OLS.SWAL 05:00
PROVIDERS: PCP Family Medicine; Visit Provider Internal Medicine
DX: I10 Essential (primary) hypertension (principal); Z12.5 Encounter for screening for malignant neoplasm of prostate
CPT/HCPCS: 36415; 80053; 84153; 85025; G0103

== ENCOUNTER → 2024-09-21 | Outpatient (REF) | payer MEDICARE, SELFPAY ==
[2024-09-21 09:33] LABS: ALB/GLOB Ratio 1.3 RATIO (0.9-2.4); AST(SGOT) 50 U/L (<=37); Alanine Aminotransfer ALT/SGPT 43 U/L (<=46); Albumin, Serum 4.2 g/dL (3.4-4.8); Alkaline Phosphatase 216 U/L (40-129); Anion Gap 9 (5-15); BUN 27 mg/dL (4-19); BUN/Creat Ratio 22.2 RATIO (10-20); Carbon Dioxide 26.2 mmol/L (21.0-32.0); Chloride 98 mmol/L (98-108); Creatinine, Serum 1.23 mg/dL (0.70-1.20); EST Glomerular Filtration Rate 56 (>60); Globulin 3.1 g/dL (2.2-4.2); Glucose 86 mg/dL (70-99); Potassium 4.6 mmol/L (3.3-5.1); Protein, Total 7.3 g/dL (5.9-8.4); Sodium Level 133 mmol/L (133-145); Total Bilirubin 0.49 mg/dL (0.00-1.30)
== END ==
LOC: OLS.SWAL 07:55
PROVIDERS: PCP Family Medicine; Visit Provider Internal Medicine
DX: R74.8 Abnormal levels of other serum enzymes (principal)
CPT/HCPCS: 36415; 80053

== ENCOUNTER → 2024-10-13 | Outpatient (CLI) | payer MEDICARE, SELFPAY ==
[2024-10-13 12:30] LABS: PSA,Total- Diagnostic 0.07 ng/mL (0.00-4.00)
== END | disposition home or self-care (01) ==
LOC: LAB 11:13
PROVIDERS: PCP Family Medicine; Referring Provider Urology; Visit Provider Urology
DX: R97.20 Elevated prostate specific antigen [PSA] (principal)
CPT/HCPCS: 36415; 84153

== ENCOUNTER → 2024-11-30 | Outpatient (REF) | payer MEDICARE, SELFPAY ==
[2024-11-30 09:26] LABS: Hematocrit 41.6 % (40-54); Hemoglobin 14.2 g/dL (13.0-16.5); Immature Granulocytes Count 0.060 X10^3/uL (0.0-0.0); Mean Corp Hgb Conc 34.1 g/dL (32-36); Mean Corpuscular Volume 94.5 fL (80-94); Mean Platelet Vol. 10.0 fl (6.2-12.0); NRBC Flagged by Analyzer 0 % (0-5); Platelet Count 176 K/mm3 (150-450); RBC Distribution Width CV 13.3 % (11.6-14.6); RBC Distribution Width SD 46.1 fl (35.1-43.9); Red Blood Count 4.40 M/mm3 (4.6-6.2); White Blood Count 7.6 K/mm3 (4.4-11.0)
[2024-11-30 09:48] LABS: Anion Gap 11 (5-15); BUN 28 mg/dL (4-19); BUN/Creat Ratio 22.5 RATIO (10-20); Calcium,Total 9.9 mg/dL (7.6-11.0); Carbon Dioxide 24.5 mmol/L (21.0-32.0); Chloride 98 mmol/L (98-108); Glucose 95 mg/dL (70-99); Magnesium 2.2 mg/dL (1.5-2.2); Potassium 4.9 mmol/L (3.3-5.1)
== END ==
LOC: OLS.SWAL 05:00
PROVIDERS: PCP Family Medicine; Visit Provider Internal Medicine
DX: I10 Essential (primary) hypertension (principal); I25.10 Atherosclerotic heart disease of native coronary artery without angina pectoris
CPT/HCPCS: 36415; 80048; 83735; 85025

== ENCOUNTER → 2025-01-17 | Outpatient (CLI) | payer MEDICARE, SELFPAY ==
[2025-01-17 12:34] LABS: PSA,Total- Diagnostic 0.06 ng/mL (0.00-4.00)
== END | disposition home or self-care (01) ==
LOC: LAB 11:05
PROVIDERS: PCP Family Medicine; Referring Provider Urology; Visit Provider Urology
DX: C61 Malignant neoplasm of prostate (principal)
CPT/HCPCS: 36415; 84153

== ENCOUNTER 2025-01-31 19:19 | Emergency (ER) | payer MEDICARE, SELFPAY ==
[2025-01-31 19:19] VITALS: BP 121/64; PULSE 68; RESP 16; TEMP 36.8; O2SAT 97
[2025-01-31 21:26] VITALS: BP 180/88; PULSE 60; RESP 18; O2SAT 98; BMI 28.5
[2025-01-31 21:59] LABS: Hematocrit 40.7 % (40-54); Hemoglobin 13.9 g/dL (13.0-16.5); Immature Granulocytes Count 0.030 X10^3/uL (0.0-0.0); Mean Corp Hgb Conc 34.2 g/dL (32-36); Mean Corpuscular Volume 96.4 fL (80-94); Mean Platelet Vol. 9.3 fl (6.2-12.0); NRBC Flagged by Analyzer 0 % (0-5); Platelet Count 166 K/mm3 (150-450); RBC Distribution Width CV 12.7 % (11.6-14.6); RBC Distribution Width SD 45.4 fl (35.1-43.9); Red Blood Count 4.22 M/mm3 (4.6-6.2); White Blood Count 8.6 K/mm3 (4.4-11.0)
[2025-01-31 23:00] VITALS: BP 157/91; PULSE 59; RESP 16; O2SAT 99
[2025-01-31 23:30] LABS: Mucous, Urine 0 SEEN /hpf (<or=2+)
[2025-01-31 23:37] LABS: Color, Urine Yellow (Yellow); Glucose, Dipstick Normal (Normal); Ketone-Dipstick Negative (Negative); Leukocyte Esterase-Dipstick Negative /ul (Negative); Nitrite-Dipstick Negative (Negative); Occult Blood-Urine 25 /ul (Negative); Protein-Dipstick Negative (Negative); Specific Gravity, Urine 1.010 (1.002-1.030); Urine Bilirubin Dipstick Negative (Negative)
[2025-02-01 00:29] LABS: Red Blood Cells-Urine 0-5 SEEN /hpf (0-5); Squamous Epithelial Cells - UA 0-5 SEEN /hpf (0-5)
--- NOTE | 2025-02-01 00:36 | EX.ED.GUMALE ---
HPI History of Present Illness Chief Complaint: Complaint Informant: patient Narrative Narrative: Patient is a very pleasant 89-year-old male with history of anticoagulation on Xarelto, longstanding atrial fibrillation, coronary artery disease and dementia presenting for penile bleeding versus hematuria. Patient states that he has seen Dr. Whitaker in the past. He states he has been having issues with bleeding from his penis and a sore on his penis for quite some time. Today where he lives someone saw it and this prompted him to be sent to the emergency room as there was reportedly a significant amount of blood in the toilet from where his penis was bleeding. Patient does not think the blood is coming from his urine. He denies any dysuria. Patient denies any acute lightheadedness. He denies any shortness of breath or chest pain. Denies any associated pain. No other complaints or concerns at this time. Denies any blood in his stool or difficulty with his bowel movements. [facility] Medical History Compression fracture of L1 lumbar vertebra Severe malnutrition Radiculopathy of lumbar region Compression fracture of L3 vertebra Intractable low back pain Depression Foraminal stenosis of lumbar region Dementia Hypothyroidism History of CVA (cerebrovascular accident) (2013) Obesity Longstanding persistent atrial fibrillation Essential (primary) hypertension [place] (obstructive sleep apnea) Disorder of tendon of right biceps Dizziness and giddiness Cerebral embolism with cerebral infarction Atherosclerotic heart disease of [place] coronary artery without angina pectoris HLD (hyperlipidemia) Home Medications ?Medication ?Instructions ?Recorded ?Last Taken ?Type levothyroxine 75 mcg tablet 75 mcg PO DAILY Thyroid 10/29/21 Unknown History memantine 10 mg tablet 10 mg PO BID Memory 10/29/21 Unknown History cyanocobalamin (vitamin B-12) 1,000 mcg PO DAILY Supplement 05/20/24 Unknown History 1,000 mcg tablet (Vitamin B-12) sertraline 100 mg tablet (Zoloft) 100 mg PO DAILY Mood 05/20/24 Unknown History acetaminophen 500 mg tablet 1,000 mg (2 x 500 mg) PO Q8 Pain 05/24/24 Unknown Rx #0 tabs gabapentin 300 mg capsule 300 mg PO TIDCM Nerve Pain #0 caps 05/24/24 Unknown Rx menthol 0.44 %-zinc oxide 20.6 % 1 applic topical BID Skin 05/24/24 Unknown Rx topical ointment (Calmoseptine) irritation #0 grams pantoprazole 40 mg tablet,delayed 40 mg PO DAILY GERD 30 days #30 05/24/24 Unknown Rx release tabs calcium 500 mg (as 1 tab PO BIDCM #0 tabs 06/06/24 Unknown Rx carbonate)-vitamin D3 5 mcg (200 unit) tablet (Oyster Shell Calcium-Vitamin D3) food supplemt, lactose-reduced 120 ml PO 4X/DAY #0 mL 06/06/24 Unknown Rx 0.08 gram-1.5 kcal/mL oral liquid (Ensure Plus High Protein) lidocaine 5 % topical patch 1 patch topical DAILY #0 ea 06/06/24 Unknown Rx oxycodone 5 mg tablet 5 mg PO Q6H PRN PRN Pain Score 06/06/24 Unknown Rx 4-10 Or Pre Pt/Ot 3 days #12 tabs atorvastatin 80 mg tablet 80 mg PO DAILY 06/23/24 Unknown History meloxicam 15 mg tablet 15 mg PO DAILY 06/23/24 Unknown History rivaroxaban 10 mg tablet (Xarelto) 10 mg PO QDAY 12/21/24 Unknown History Allergy/AdvReac Type Severity Reaction Status Date / Time No Known Allergies Allergy Verified 01/31/25 19:19 Family History Mother , age 85 CAD (coronary artery disease) Myocardial infarction Father , age 62 CAD (coronary artery disease) Ruptured, aorta Other Atherosclerotic heart disease of [place] coronary artery without angina pectoris MICHAEL (dyspnea on exertion) Essential (primary) hypertension H/O coronary artery bypass surgery HLD (hyperlipidemia) History of CVA (cerebrovascular accident) Longstanding persistent atrial fibrillation SOB (shortness of breath) Surgical History History of maze procedure (06/10/05) History of tonsillectomy and adenoidectomy History of left heart catheterization (LHC) (05/21/05) 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) Social History Smoking Status: Never smoker alcohol intake: current alcohol intake frequency: a few times a week Alcohol type: beer substance use type: does not use caffeine: Yes Type: coffee Number of servings: 2 what type of physical activity do you participate in: other details: [place] frequency: 3-4 times per week duration: 30-45 minutes/day seatbelt use: always do you feel safe at home: Yes ROS ROS ED Constitutional Constitutional ED: Denies chills or fever(s) Gastrointestinal Gastrointestinal: Denies abdominal pain, nausea or vomiting Genitourinary Genitourinary ED: Reports hematuria and other Details: Bleeding from the head of his penis ; Denies dysuria Integumentary Reports rash Neurologic Neurologic: Denies paresthesias or weakness Hematologic/Lymphatic Hematologic/Lymphatic: Reports easy bleeding, easy bruising and other Details: On Xarelto EXAM Physical Exam Const Vital Signs: 01/31/25 19:19 01/31/25 21:26 01/31/25 23:00 Temperature 98.2 F Temperature Source Oral Pulse Rate 68 60 59 L Respiratory Rate 16 18 16 Blood Pressure 121/64 H 180/88 H 157/91 H Blood Pressure Mean 83 118 113 Pulse Ox 97 98 99 Oxygen Delivery Method Room Air Room Air Room Air Positive well nourished and well developed General Appearance ED: well developed and NAD; Negative for pallor HEENT Reports moist mucous membranes Neck supple Resp normal respiratory effort and clear to auscultation bilaterally Cardio regular rate and regular rhythm GI non-tender and non-distended Narrative: Patient has an irregular approximately 4 cm area of ulceration to the dorsal aspect of the head of the penis. There seems to be some slight bleeding coming from this but no pinpoint area of blood. It is mildly tender. No blood at the penile meatus present. Normal scrotum and testicular exam. No penile discharge present. Neuro Sensorium / Orientation: alert, oriented to person and oriented to place Motor Exam: Negative for general weakness Psych mental status grossly normal Thought Process: normal thought process Thought Content: normal thought content Skin General Skin Exam: Negative for pallor Rashes: no rashes MDM MDM MDM Narrative Medical decision making narrative: Patient is evaluated for concern of hematuria. Patient states he has been having bleeding from his penis for months now but it sound like someone finally noticed it today which is what prompted him to be sent to the emergency room. On exam he does have an ulcerated wound to the dorsal aspect of the distal penis which could be the source of the bleeding. Will check a CBC to ensure that he does not have an acute anemia as it is not clear how long or how profusely this has been bleeding. Urinalysis also obtained to make sure it is not coming from bleeding in the bladder. Patient remains hemodynamically stable in emergency room. He is started to get agitated I suspect is having a component of sundowning. His urinalysis is not consistent with infection or hematuria. I suspect he has an ulcerated wound that is bleeding and likely exacerbated by lack of wound care. Will start him on bacitracin to the area and nonadhesive dressing. Given wound care instructions. Will have him follow-up with urology. Patient agreeable to his plan of care. Discharged home in stable condition. Lab Data Attestation: I reviewed the patient's lab results. Labs: Laboratory Results - last 24 hr 01/31/25 01/31/25 21:53 23:23 WBC 8.6 RBC 4.22 L Hgb 13.9 Hct 40.7 MCV 96.4 H MCH 32.9 H MCHC 34.2 RDW Std Deviation 45.4 H RDW Coeff of [place] 12.7 Plt Count 166 MPV 9.3 Immature Gran % (Auto) 0.300 Neut % (Auto) 61.2 Lymph % (Auto) 25.7 [place] % (Auto) 7.9 Eos % (Auto) 3.9 Baso % (Auto) 1.0 Absolute Neuts (auto) 5.3 Absolute Lymphs (auto) 2.21 Nucleated RBC % 0 Urine Color Yellow Urine Clarity Clear Urine pH 7.0 Ur Specific [place] 1.010 Urine Protein Negative Urine Glucose (UA) Normal Urine Ketones Negative Urine Occult Blood 25 H Urine Nitrite Negative Urine Bilirubin Negative Urine Urobilinogen Normal Ur Leukocyte Esterase Negative Urine RBC 0-5 SEEN Urine WBC 0-5 SEEN Ur Squamous Epith Cells 0-5 SEEN Urine Bacteria 0 SEEN Urine Mucus 0 SEEN Discharge Plan Triage Chief Complaint: Complaint ED Provider: Shirley Jo Dx/Rx/DC Orders Clinical Impression: Uncomplicated open wound of penis, Chronic anticoagulation Instructions: ED Wound Care Prescriptions: No Action memantine 10 mg tablet 10 mg PO BID levothyroxine 75 mcg tablet 75 mcg PO DAILY atorvastatin 80 mg tablet 80 mg PO DAILY meloxicam 15 mg tablet 15 mg PO DAILY Xarelto 10 mg tablet 10 mg PO QDAY cyanocobalamin (vitamin B-12) [Vitamin B-12] 1,000 mcg tablet 1,000 mcg PO DAILY sertraline [Zoloft] 100 mg tablet 100 mg PO DAILY acetaminophen 500 mg Tablet 1,000 mg PO Q8 Qty: 0 0RF gabapentin 300 mg Capsule 300 mg PO TIDCM Qty: 0 0RF menthol-zinc oxide [Calmoseptine] 0.44-20.6 % Ointment 1 applic topical BID Qty: 0 0RF Protocol: *Topical Application Instructions APPLICATION INSTRUCTIONS: apply to bottom pantoprazole 40 mg Tablet,Delayed Release (Dr/Ec) 40 mg PO DAILY 30 Days Qty: 30 0RF Rx Instructions: May de-escalate off PPI once off celebrex. calcium carbonate-vitamin D3 [Oyster Shell Calcium-Vit D3] 500 mg-5 mcg (200 unit) Tablet 1 tab PO BIDCM Qty: 0 0RF Ensure Plus High Protein 0.08 gram-1.5 kcal/mL Liquid 120 ml PO 4X/DAY Qty: 0 0RF lidocaine 5 % Adhesive Patch,Medicated 1 patch topical DAILY Qty: 0 0RF Protocol: *Topical Application Instructions APPLICATION INSTRUCTIONS: Apply to back. oxycodone 5 mg Tablet 5 mg PO Q6H PRN PRN (Reason: Pain Score 4-10 Or Pre Pt/Ot) 3 Days Qty: 12 0RF Primary Care Provider: Portia Vanessa Referrals: Portia Vanessa MD [Primary Care Provider] - Alfonzo Whitaker MD [Med Staff - Active Staff] - Activity Restrictions/Additional Instructions: Apply bacitracin ointment (this is available [id number]) 2-3 times a day to the ulcerated wound to the tip of your penis. Keep covered with a nonadhesive dressing to prevent rubbing. Make sure you put a thick enough layer of the ointments that the dressing does not stick. Follow-up with urology. There are no findings of urinary tract infection or signs of bleeding from the bladder. Print Language: [place] Disposition Disposition: Home, Self Care
[2025-02-01 01:00] VITALS: BP 176/91; PULSE 54; RESP 15; O2SAT 96
--- NOTE | 2025-02-01 01:07 | ED.RN ---
BP high when obtaining dispo vitals. Dr. Jo notified. Pt does not take BP meds @ home, will monitor BP while pt is waiting for transport. Dispo undone. No new orders.
--- NOTE | 2025-02-01 01:10 | ED.RN ---
Report given to RN @ [facility].
[2025-02-01 01:15] VITALS: BP 167/91; PULSE 50; RESP 15; TEMP 36.6; O2SAT 98
== END 2025-02-01 01:32 | disposition home or self-care (01) ==
PROVIDERS: Emergency Provider Emergency Medicine; PCP Internal Medicine; Visit Provider Emergency Medicine
DX: S31.20XA Unspecified open wound of penis, initial encounter (principal); F03.90 Unspecified dementia, unspecified severity, without behavioral disturbance, psychotic disturbance, mood disturbance, and anxiety; I10 Essential (primary) hypertension; E78.5 Hyperlipidemia, unspecified; Z82.49 Family history of ischemic heart disease and other diseases of the circulatory system; I25.10 Atherosclerotic heart disease of native coronary artery without angina pectoris; Z79.01 Long term (current) use of anticoagulants; G47.33 Obstructive sleep apnea (adult) (pediatric); Z86.73 Personal history of transient ischemic attack (TIA), and cerebral infarction without residual deficits; F32.A Depression, unspecified; R23.3 Spontaneous ecchymoses; R31.9 Hematuria, unspecified; N48.5 Ulcer of penis; X58.XXXA Exposure to other specified factors, initial encounter
CPT/HCPCS: 81001; 85025; 87086; 87088; 99284

== ENCOUNTER → 2025-04-20 | Outpatient (REF) | payer MEDICARE, SELFPAY ==
[2025-04-20 10:25] LABS: Hematocrit 44.5 % (40-54); Hemoglobin 14.8 g/dL (13.0-16.5); Immature Granulocytes Count 0.030 X10^3/uL (0.0-0.0); Mean Corp Hgb Conc 33.3 g/dL (32-36); Mean Corpuscular Volume 96.1 fL (80-94); Mean Platelet Vol. 10.2 fl (6.2-12.0); NRBC Flagged by Analyzer 0 % (0-5); Platelet Count 191 K/mm3 (150-450); RBC Distribution Width CV 12.6 % (11.6-14.6); RBC Distribution Width SD 44.8 fl (35.1-43.9); Red Blood Count 4.63 M/mm3 (4.6-6.2); White Blood Count 7.6 K/mm3 (4.4-11.0)
[2025-04-20 10:39] LABS: Anion Gap 10 (5-15); BUN 25 mg/dL (4-19); BUN/Creat Ratio 20.5 RATIO (10-20); Calcium,Total 9.7 mg/dL (7.6-11.0); Carbon Dioxide 25.0 mmol/L (21.0-32.0); Chloride 101 mmol/L (98-108); Glucose 127 mg/dL (70-99); Magnesium 2.3 mg/dL (1.5-2.2); Potassium 4.5 mmol/L (3.3-5.1)
== END ==
LOC: OLS.SWAL 08:30
PROVIDERS: PCP Internal Medicine; Visit Provider Internal Medicine
DX: I10 Essential (primary) hypertension (principal); E78.5 Hyperlipidemia, unspecified
CPT/HCPCS: 36415; 80048; 83735; 85025